=== PATIENT | male | born 1945 | race Caucasian/White ===

== ENCOUNTER → 2022-08-26 | Outpatient (CLI) | payer MEDICARE ==
--- NOTE | 2022-08-26 14:50 | CT ---
EXAMINATION TYPE: CT chest abdomen wo con CT DLP: 899.9 mGycm, Automated exposure control for dose reduction was used. DATE OF EXAM: 08/26/2022 2:25 PM COMPARISON: None CLINICAL INDICATION:Male, 76 years old with history of I71.20; PHH, SOB, abdominal pain and distentio n Technique: Multiple axial images of the chest and abdomen were obtained without administration intrav enous contrast. Oral contrast was administered. Two-dimensional coronal and sagittal reconstructions were obtained. Findings: Limited evaluation due to lack of intravenous contrast. CHEST: LUNGS/ PLEURA: No pleural effusion or pneumothorax. Linear scarring atelectasis demonstrated within t he bilateral midlung. Mild centrilobular emphysematous changes. No suspicious pulmonary nodule or mas s. AIRWAY: Patent and unremarkable.. HEART: Size within normal limits. Trace pericardial effusion. Moderate coronary arterial calcificatio ns.. MEDIASTINUM: No gross evidence of adenopathy. VASCULATURE: No aortic aneurysm. MUSCULOSKELETAL: Moderate disc degeneration changes are present throughout the thoracolumbar spine. N o acute osseous abnormality. SOFT TISSUES/LYMPH NODES: Bilateral gynecomastia. LOWER NECK: No significant findings. ABDOMEN: ABDOMEN LIVER: Cirrhotic morphology with atrophic liver with nodular contour and widened fissures. GALLBLADDER AND BILE DUCTS: Unremarkable noncontrast appearance. PANCREAS: Unremarkable noncontrast appearance. SPLEEN: Unremarkable noncontrast appearance. ADRENAL GLANDS: Unremarkable noncontrast appearance.. KIDNEYS AND URETERS: No evidence of hydronephrosis or renal calculus. Nonspecific bilateral perinephr ic fat stranding. STOMACH AND BOWEL: Stomach and duodenum are unremarkable. Enteric contrast reaches the cecum. No foca l wall thickening or surrounding inflammatory changes. No evidence of bowel obstruction. PERITONEUM: No evidence of pneumoperitoneum. Moderate to large volume ascites visualized VASCULATURE: Mild atherosclerotic calcifications are present throughout the abdominal aorta and its b ranches. No abdominal aortic aneurysm. MUSCULOSKELETAL: No acute osseous abnormalities. Moderate disc degeneration changes are present throu ghout the thoracolumbar spine. LYMPH NODES: No gross evidence for lymphadenopathy. SOFT TISSUE/ABDOMINAL WALL: Unremarkable IMPRESSION: Evaluation is limited due to lack of intravenous contrast. 1. Hepatic cirrhosis with moderate to large volume ascites. Consider paracentesis. 2. Trace pericardial effusion with moderate coronary calcifications. 3. Mild COPD changes.
== END | disposition home or self-care (01) ==
LOC: RADCTMAIN 13:43
PROVIDERS: ATTEND Internal Medicine Clinical Cardiac Electrophysiology
DX: I71.20 Thoracic aortic aneurysm, without rupture, unspecified (principal); J44.9 Chronic obstructive pulmonary disease, unspecified; K74.60 Unspecified cirrhosis of liver; I31.39 Other pericardial effusion (noninflammatory); I25.10 Atherosclerotic heart disease of native coronary artery without angina pectoris; R18.8 Other ascites; Z87.891 Personal history of nicotine dependence
CPT/HCPCS: 71250; 74150

== ENCOUNTER → 2022-09-10 | Outpatient (CLI) | payer MEDICARE | LOC: CPPFTMAIN 16:15 | PROVIDERS: ATTEND Internal Medicine Clinical Cardiac Electrophysiology | DX: I71.20 Thoracic aortic aneurysm, without rupture, unspecified (principal); R06.02 Shortness of breath | CPT/HCPCS: 94060; 94726; 94729 ==

== ENCOUNTER → 2022-09-10 | Outpatient (CLI) | payer MEDICARE ==
[2022-09-10 21:52] LABS: Basophils # (A) 0.04 X 10*3/uL (0.00-0.10); Basophils % (A) 0.6 %; Eosinophils # (A) 0.07 X 10*3/uL (0.04-0.35); Eosinophils % (A) 1.1 %; HCT 43.5 % (39.6-50.0); HGB 14.9 g/dL (13.0-17.0); Immature Grans, Automated 0.3 %; Lymphocytes # (A) 1.89 X 10*3/uL (0.90-5.00); Lymphocytes % (A) 28.7 %; MCH 34.7 pg (27.0-32.0); MCHC 34.3 g/dL (32.0-37.0); MCV 101.2 fL (80.0-97.0); Mean Platelet Volume 10.2 fL (9.5-12.2); Monocytes % (A) 10.6 %; NRBC Per 100 WBC 0 /100 WBCS (0.0-0.0); Neutrophils # (A) 3.86 X 10*3/uL (1.80-7.70); Neutrophils % (A) 58.7 %; Platelet Count 216 X 10*3/uL (140-440); RDW 13.1 % (11.5-14.5); WBC 6.58 X 10*3/uL (4.50-10.00)
[2022-09-11 00:11] LABS: African American GFR (CKD) 95.8 (60.0-200.0); Albumin/Globulin Ratio 0.83 (1.60-3.17); Anion Gap 10.3 mmol/L (10.00-18.00); Blood Urea Nitrogen 10.8 mg/dL (9.0-27.0); Calcium 8.8 mg/dL (8.7-10.3); Carbon Dioxide 22.7 mmol/L (20.0-27.5); Globulin 3.6 g/dL (1.6-3.3); Non-African American GFR(CKD) 82.7 (60.0-200.0); Potassium 3.8 mmol/L (3.5-5.5); Total Bilirubin 1.6 mg/dL (0.30-1.20); Total Protein 6.6 g/dL (6.2-8.2)
[2022-09-11 00:22] LABS: Hepatitis B Surface Antigen Nonreactive (Nonreactive); Hepatitis C IgG Antibody Nonreactive (Nonreactive)
== END | disposition home or self-care (01) ==
LOC: LABWHC1 12:53
PROVIDERS: ATTEND Nurse Practitioner Family
DX: K74.60 Unspecified cirrhosis of liver (principal); R18.8 Other ascites
CPT/HCPCS: 36415; 80053; 82105; 85025; 86803; 87340

== ENCOUNTER 2022-10-02 12:52 | Day surgery (SDC) | payer MEDICARE ==
[2022-10-02 13:41] LABS: Mean Platelet Volume 8.4; Platelet Count 186 k/uL (150-450)
[2022-10-02 13:45] LABS: INR 1.2 (<1.2); Prothrombin Time 12.1 sec (9.0-12.0)
[2022-10-02 13:49] LABS: African American GFR (CKD) 69 (>60 ml/min/1.73 sqM); Non-African American GFR(CKD) 60 (>60 ml/min/1.73 sqM)
[2022-10-02 14:07] VITALS: RESP 16
[2022-10-02 14:30] VITALS: TEMP 98.1
[2022-10-02] MEDS: ALBUMIN HUMAN 25% 50 ML in EMPTY BAG 1 BAG IVPB SCH ×4 (14:36→15:42)
[2022-10-02] MEDS ORDERED: ALBUMIN HUMAN 25% 50 ML in EMPTY BAG 1 BAG IVPB ONE (15:30)
[2022-10-02 15:39] VITALS: BP 121/76; PULSE 80
[2022-10-03 05:16] LABS: Appearance,BF #CL
[2022-10-03 05:57] LABS: T. Protein, Body Fluid Source Paracentesis Fluid; Total Protein, Body Fluid 3250 mg/dL
--- NOTE | 2022-10-03 08:19 | US ---
Ultrasound-guided paracentesis. DATE OF EXAM: 10/02/2022 CLINICAL HISTORY: Ascites The procedure was discussed with the patient. The risks, complications, benefits, and alternatives we re discussed and any questions were answered. Informed consent was obtained. The patient was placed s upine on the ultrasound table and prepped and draped in the usual sterile fashion. All elements of maximal barrier technique were utilized. Under ultrasound guidance, access into the right lower quadrant was obtained, via the paracentesis catheter system and direct ultrasound guidanc e. Approximately 9.7 liters of straw-colored fluid was removed. The patient was stable throughout the pr ocedure and remained stable upon discharge from Department of Radiology. IMPRESSION: Successful paracentesis under ultrasound guidance.
== END 2022-10-02 13:55 | disposition home or self-care (01) ==
LOC: RADPROMAIN 12:52
PROVIDERS: ATTEND Internal Medicine Gastroenterology
DX: R18.8 Other ascites (principal)
CPT/HCPCS: 88108; 88305; 82042; 89050; 82565; 85049; 85610; 87070; 87205; 87075; 84157; 36415; 49083; P9047

== ENCOUNTER → 2022-10-30 | Outpatient (CLI) | payer MEDICARE ==
[2022-10-30 21:36] LABS: Basophils # (A) 0.03 X 10*3/uL (0.00-0.10); Basophils % (A) 0.4 %; Eosinophils # (A) 0.07 X 10*3/uL (0.04-0.35); Eosinophils % (A) 0.9 %; HCT 42.3 % (39.6-50.0); HGB 14.7 d/dL (12.0-15.0); Lymphocytes # (A) 1.36 X 10*3/uL (0.90-5.00); Lymphocytes % (A) 17.1 %; MCH 33.3 pg (27.0-32.0); MCHC 34.8 d/dL (32.0-37.0); MCV 95.9 FL (80.0-97.0); Mean Platelet Volume 10.1 FL (9.5-12.2); Monocytes % (A) 12.6 %; NRBC Per 100 WBC 0 X 10*3/uL (0.00-0.01); Neutrophils # (A) 5.44 X 10*3/uL (1.80-7.70); Neutrophils % (A) 68.4 %; Platelet Count 172 X 10*3/uL (140-440); RBC 4.41 X 10*6/uL (4.40-5.60); RDW 12.9 % (11.5-14.5); WBC 7.95 X 10*3/uL (4.50-10.00)
[2022-10-30 21:43] LABS: ALT 52 U/L (10-49); AST 106 U/L (14-35); Albumin 2.9 d/dL (3.8-4.9); Albumin/Globulin Ratio 0.81 Ratio (1.60-3.17); Alkaline Phosphatase 287 U/L (41-126); BUN/Creat Ratio 13.11 Ratio (12.00-20.00); Blood Urea Nitrogen 23.6 mg/dL (9.0-27.0); Calcium 8.8 mg/dL (8.7-10.3); Carbon Dioxide 19.7 mmol/L (21.6-31.8); Chloride 92 mmol/L (96-109); Globulin 3.6 d/dL (1.6-3.3); Glucose 109 mg/dL (70-110); Potassium 4.1 mmol/L (3.5-5.5); Sodium 124 mmol/L (135-145); Total Bilirubin 1.4 mg/dL (0.3-1.2); Total Protein 6.5 d/dL (6.2-8.2)
== END | disposition home or self-care (01) ==
LOC: LABWHC1 11:50
PROVIDERS: ATTEND Internal Medicine Gastroenterology
DX: K74.60 Unspecified cirrhosis of liver (principal)
CPT/HCPCS: 36415; 80053; 85025

== ENCOUNTER 2022-11-01 10:02 | Inpatient (IN) | payer MEDICARE ==
[2022-11-01 11:01] LABS: Basophils % (A) 0 %; Eosinophils # (A) 0.1 k/uL (0-0.7); Eosinophils % (A) 1 %; HCT 42.9 % (39.0-53.0); HGB 14.9 gm/dL (13.0-17.5); Lymphocytes # (A) 1.8 k/uL (1.0-4.8); Lymphocytes % (A) 22 %; MCH 33.8 pg (25.0-35.0); MCHC 34.8 g/dL (31.0-37.0); MCV 97.1 fL (80.0-100.0); Mean Platelet Volume 7.6; Monocytes # (A) 0.8 k/uL (0-1.0); Monocytes % (A) 10 %; Neutrophils # (A) 5.3 k/uL (1.3-7.7); Neutrophils % (A) 65 %; Platelet Count 174 k/uL (150-450); RBC 4.42 m/uL (4.30-5.90); RDW 12.5 % (11.5-15.5); WBC 8.1 k/uL (3.8-10.6)
[2022-11-01 11:12] LABS: INR 1.1 (<1.2); Partial Thromboplastin Time 30.1 sec (22.0-30.0); Prothrombin Time 11.4 sec (9.0-12.0)
[2022-11-01 11:18] LABS: ALT 50 U/L (4-49); AST 151 U/L (17-59); African American GFR (CKD) 56 (>60 ml/min/1.73 sqM); Alkaline Phosphatase 305 U/L (38-126); Anion Gap 10 mmol/L; Blood Urea Nitrogen 24 mg/dL (9-20); Calcium 8.7 mg/dL (8.4-10.2); Carbon Dioxide 20 mmol/L (22-30); Chloride 94 mmol/L (98-107); Glucose 103 mg/dL (74-99); Lipase 424 U/L (23-300); Non-African American GFR(CKD) 48 (>60 ml/min/1.73 sqM); Potassium 3.8 mmol/L (3.5-5.1); Sodium 124 mmol/L (137-145); Total Bilirubin 2.1 mg/dL (0.2-1.3); Total Protein 6.9 g/dL (6.3-8.2)
--- NOTE | 2022-11-01 11:28 | ED ---
General Adult HPI - General Chief complaint: Recheck/Abnormal Lab/Rx Stated complaint: ascites Time Seen by Provider: 11/01/22 10:11 Source: patient Mode of arrival: EMS - History of Present Illness Initial comments: Patient is a 76-year-old male who presents to the emergency department for weakness. Patient has history of alcoholic cirrhosis with ascites he had his first paracentesis with Dr. Matt on 10/02/22. States his next paracentesis scheduled on November 22. Patient states over the past couple weeks he has gained about 15 pounds. He feels that his abdomen is distended and his legs are swollen. He denies leg pain. Despite triage note patient has no shortness of breath. Patient did not laboratory studies drawn at his primary care provider's office on Friday he was told his sodium was low and to the emergency department. He denies abdominal pain, nausea, vomiting, diarrhea. - Related Data Home Medications Medication Instructions Recorded Confirmed Acetaminophen Tab [Tylenol] 325 mg PO Q4H PRN 11/01/22 11/01/22 Aspirin EC [Ecotrin Low Dose] 81 mg PO DAILY 11/01/22 11/01/22 Atorvastatin [Lipitor] 80 mg PO HS 11/01/22 11/01/22 Clopidogrel [Plavix] 75 mg PO DAILY 11/01/22 11/01/22 Furosemide [Lasix] 40 mg PO BID 11/01/22 11/01/22 Multivit-Min/FA/Lycopen/Lutein 1 tab PO DAILY 11/01/22 11/01/22 [Centrum Silver Men Tablet] Pantoprazole [Protonix] 40 mg PO DAILY 11/01/22 11/01/22 Allergies Allergy/AdvReac Type Severity Reaction Status Date / Time No Known Allergies Allergy Verified 11/01/22 14:43 Review of Systems ROS Statement: Those systems with pertinent positive or pertinent negative responses have been documented in the HPI. ROS Other: All systems not noted in ROS Statement are negative. Past Medical History Past Medical History: GERD/Reflux, Hypertension, Liver Disease Additional Past Medical History / Comment(s): cirrhosis August 2022 History of Any Multi-Drug Resistant Organisms: None Reported Past Surgical History: Joint Replacement Additional Past Surgical History / Comment(s): Lt hip replacement, rt knee replaced Past Anesthesia/Blood Transfusion Reactions: No Reported Reaction Past Psychological History: No Psychological Hx Reported Smoking Status: Former smoker Past Alcohol Use History: None Reported Past Drug Use History: None Reported - Past Family History Father Family Medical History: No Reported History General Exam General appearance: alert, in no apparent distress Respiratory exam: Present: normal lung sounds bilaterally. Absent: respiratory distress, wheezes, rales, rhonchi, stridor Cardiovascular Exam: Present: regular rate, normal rhythm, normal heart sounds. Absent: systolic murmur, diastolic murmur, rubs, gallop, clicks GI/Abdominal exam: Present: soft, distended (mild), normal bowel sounds. Absent: tenderness, guarding, rebound, rigid Extremities exam: Present: normal inspection, full ROM, normal capillary refill, pedal edema (2+). Absent: tenderness Neurological exam: Present: alert, oriented X3, CN II-XII intact Psychiatric exam: Present: normal affect, normal mood Skin exam: Present: warm, dry, intact, normal color. Absent: rash Course Vital Signs 11/01/22 11/01/22 11/01/22 10:06 10:21 11:22 Temperature 97.7 F Pulse Rate 102 H 94 Respiratory 24 22 20 Rate Blood Pressure 111/82 108/88 O2 Sat by Pulse 100 98 Oximetry 11/01/22 13:42 Temperature Pulse Rate 100 Respiratory 18 Rate Blood Pressure 122/103 O2 Sat by Pulse 99 Oximetry Medical Decision Making - Medical Decision Making EKG taken at 10:40, interpreted by myself Sinus rhythm, no significant ST or T-wave abnormality Ventricular rate 96, RI interval 130, QRS duration 91, QTc 428 Was pt. sent in by a medical professional or institution (, PA, [facility], urgent care, hospital, or fdc...) When possible be specific @ -No Did you speak to anyone other than the patient for history (EMS, parent, family, police, friend...)? What history was obtained from this source @ -No Did you review nursing and triage notes (agree or disagree)? Why? @ -I reviewed and agree with nursing and triage notes Were old charts reviewed (outside hosp., previous admission, EMS record, old EKG, old radiological studies, urgent care reports/EKG's, fdc records)? Report findings @ -No old charts were reviewed Differential Diagnosis (chest pain, altered mental status, abdominal pain women, abdominal pain men, vaginal bleeding, weakness, fever, dyspnea, syncope, headache, dizziness, GI bleed, back pain, seizure, CVA, palpatations, mental health)? @ -Differential Weakness: Hypoglycemia, shock, sepsis, hyponatremia, anemia, infection, IN, ETOH, adverse medicine reaction, overdose, stroke, this is not meant to be an all-inclusive list. EKG interpreted by me (3pts min.). @ -As above X-rays interpreted by me (1pt min.). @ -None done CT interpreted by me (1pt min.). @ -None done U/S interpreted by me (1pt. min.). @ -None done What testing was considered but not performed or refused? (CT, X-rays, U/S, labs)? Why? @ -None What meds were considered but not given or refused? Why? @ -None Did you discuss the management of the patient with other professionals (professionals i.e. , PA, [facility], lab, RT, psych nurse, psychotherapist social worker, planer stone, teacher, business banking officer, wrapper caser)? Give summary @ -No Was smoking cessation discussed for >3mins.? @ -[No] Was critical care preformed (if so, how long)? @ -[No] Were there social determinants of health that impacted care today? How? (Homelessness, low income, unemployed, alcoholism, drug addiction, transportation, low edu. Level, literacy, decrease access to med. care, snf, rehab)? @ -[No] Was there de-escalation of care discussed even if they declined (Discuss DNR or withdrawal of care, Hospice)? DNR status @ -[No] What co-morbidities impacted this encounter? (DM, HTN, Smoking, COPD, CAD, Cancer, CVA, ARF, Chemo, Hep., AIDS, mental health diagnosis, sleep apnea, morbid obesity)? @ -[None] Was patient admitted / discharged? Hospital course, mention meds given and ro [place], prescriptions, significant lab abnormalities, going to OR and other pertinent info. @Admitted for hyponatremia. Dr. Lanza accepts Undiagnosed new problem with uncertain prognosis? @ -[No] Drug Therapy requiring intensive monitoring for toxicity (Heparin, Nitro, Insulin, Cardizem)? @ -[No] Were any procedures done? @ -[No] Diagnosis/symptom? @ -Hyponatremia, ascites Acute, or Chronic, or Acute on Chronic? @ acute Uncomplicated (without systemic symptoms) or Complicated (systemic symptoms)? @ -uncomplicated Side effects of treatment? @ -[No] Exacerbation, Progression, or Severe Exacerbation? @ -[No] Poses a threat to life or bodily function? How? (Chest pain, [place], [place], pneumonia, PE, COPD, DKA, ARF, appy, cholecystitis, CVA, Diverticulitis, Homicidal, Suicidal, threat to staff... and all critical care pts) @ -No Dr. Vargas is my attending - Lab Data Result diagrams: 11/01/22 10:21 11/01/22 10:21 Lab Results 11/01/22 11/01/22 11/01/22 Range/Units 10:21 10:21 10:21 WBC 8.1 (3.8-10.6) k/uL RBC 4.42 (4.30-5.90) m/uL Hgb 14.9 (13.0-17.5) gm/dL Hct 42.9 (39.0-53.0) % MCV 97.1 (80.0-100.0) fL MCH 33.8 (25.0-35.0) pg MCHC 34.8 (31.0-37.0) g/dL RDW 12.5 (11.5-15.5) % Plt Count 174 (150-450) k/uL MPV 7.6 Neutrophils % 65 % Lymphocytes % 22 % Monocytes % 10 % Eosinophils % 1 % Basophils % 0 % Neutrophils # 5.3 (1.3-7.7) k/uL Lymphocytes # 1.8 (1.0-4.8) k/uL Monocytes # 0.8 (0-1.0) k/uL Eosinophils # 0.1 (0-0.7) k/uL Basophils # 0.0 (0-0.2) k/uL PT 11.4 (9.0-12.0) sec INR 1.1 (<1.2) APTT 30.1 H (22.0-30.0) sec Sodium 124 L (137-145) mmol/L Potassium 3.8 (3.5-5.1) mmol/L Chloride 94 L (98-107) mmol/L Carbon Dioxide 20 L (22-30) mmol/L Anion Gap 10 mmol/L BUN 24 H (9-20) mg/dL Creatinine 1.41 H (0.66-1.25) mg/dL Est GFR (CKD-EPI)AfAm 56 (>60 ml/min/1.73 sqM) Est GFR (CKD-EPI)NonAf 48 (>60 ml/min/1.73 sqM) Glucose 103 H (74-99) mg/dL Osmolality (280-301) mosm/kg Plasma Lactic Acid Antonio (0.7-2.0) mmol/L Calcium 8.7 (8.4-10.2) mg/dL Total Bilirubin 2.1 H (0.2-1.3) mg/dL AST 151 H (17-59) U/L ALT 50 H (4-49) U/L Alkaline Phosphatase 305 H (38-126) U/L Total Protein 6.9 (6.3-8.2) g/dL Albumin 3.0 L (3.5-5.0) g/dL Lipase 424 H (23-300) U/L Urine Color Urine Appearance (Clear) Urine pH (5.0-8.0) Ur Specific Leona (1.001-1.035) Urine Protein (Negative) Urine Glucose (UA) (Negative) Urine Ketones (Negative) Urine Blood (Negative) Urine Nitrite (Negative) Urine Bilirubin (Negative) Urine Urobilinogen (<2.0) mg/dL Ur Leukocyte Esterase (Negative) Urine WBC (0-5) /hpf Urine Osmolality (50-1400) mosm/kg Ur Random Creatinine mg/dL 11/01/22 11/01/22 11/01/22 Range/Units 11:21 13:38 13:38 WBC (3.8-10.6) k/uL RBC (4.30-5.90) m/uL Hgb (13.0-17.5) gm/dL Hct (39.0-53.0) % MCV (80.0-100.0) fL MCH (25.0-35.0) pg MCHC (31.0-37.0) g/dL RDW (11.5-15.5) % Plt Count (150-450) k/uL MPV Neutrophils % % Lymphocytes % % Monocytes % % Eosinophils % % Basophils % % Neutrophils # (1.3-7.7) k/uL Lymphocytes # (1.0-4.8) k/uL Monocytes # (0-1.0) k/uL Eosinophils # (0-0.7) k/uL Basophils # (0-0.2) k/uL PT (9.0-12.0) sec INR (<1.2) APTT (22.0-30.0) sec Sodium (137-145) mmol/L Potassium (3.5-5.1) mmol/L Chloride (98-107) mmol/L Carbon Dioxide (22-30) mmol/L Anion Gap mmol/L BUN (9-20) mg/dL Creatinine (0.66-1.25) mg/dL Est GFR (CKD-EPI)AfAm (>60 ml/min/1.73 sqM) Est GFR (CKD-EPI)NonAf (>60 ml/min/1.73 sqM) Glucose (74-99) mg/dL Osmolality 270 L (280-301) mosm/kg Plasma Lactic Acid Antonio 1.4 (0.7-2.0) mmol/L Calcium (8.4-10.2) mg/dL Total Bilirubin (0.2-1.3) mg/dL AST (17-59) U/L ALT (4-49) U/L Alkaline Phosphatase (38-126) U/L Total Protein (6.3-8.2) g/dL Albumin (3.5-5.0) g/dL Lipase (23-300) U/L Urine Color Yellow Urine Appearance Clear (Clear) Urine pH 5.5 (5.0-8.0) Ur Specific [place]ona 1.006 (1.001-1.035) Urine Protein Trace H (Negative) Urine Glucose (UA) Negative (Negative) Urine Ketones Negative (Negative) Urine Blood Moderate H (Negative) Urine Nitrite Negative (Negative) Urine Bilirubin Negative (Negative) Urine Urobilinogen <2.0 (<2.0) mg/dL Ur Leukocyte Esterase Negative (Negative) Urine WBC 2 (0-5) /hpf Urine Osmolality (50-1400) mosm/kg Ur Random Creatinine mg/dL 11/01/22 Range/Units 13:54 WBC (3.8-10.6) k/uL RBC (4.30-5.90) m/uL Hgb (13.0-17.5) gm/dL Hct (39.0-53.0) % MCV (80.0-100.0) fL MCH (25.0-35.0) pg MCHC (31.0-37.0) g/dL RDW (11.5-15.5) % Plt Count (150-450) k/uL MPV Neutrophils % % Lymphocytes % % Monocytes % % Eosinophils % % Basophils % % Neutrophils # (1.3-7.7) k/uL Lymphocytes # (1.0-4.8) k/uL Monocytes # (0-1.0) k/uL Eosinophils # (0-0.7) k/uL Basophils # (0-0.2) k/uL PT (9.0-12.0) sec INR (<1.2) APTT (22.0-30.0) sec Sodium (137-145) mmol/L Potassium (3.5-5.1) mmol/L Chloride (98-107) mmol/L Carbon Dioxide (22-30) mmol/L Anion Gap mmol/L BUN (9-20) mg/dL Creatinine (0.66-1.25) mg/dL Est GFR (CKD-EPI)AfAm (>60 ml/min/1.73 sqM) Est GFR (CKD-EPI)NonAf (>60 ml/min/1.73 sqM) Glucose (74-99) mg/dL Osmolality (280-301) mosm/kg Plasma Lactic Acid Antonio (0.7-2.0) mmol/L Calcium (8.4-10.2) mg/dL Total Bilirubin (0.2-1.3) mg/dL AST (17-59) U/L ALT (4-49) U/L Alkaline Phosphatase (38-126) U/L Total Protein (6.3-8.2) g/dL Albumin (3.5-5.0) g/dL Lipase (23-300) U/L Urine Color Urine Appearance (Clear) Urine pH (5.0-8.0) Ur Specific [place] (1.001-1.035) Urine Protein (Negative) Urine Glucose (UA) (Negative) Urine Ketones (Negative) Urine Blood (Negative) Urine Nitrite (Negative) Urine Bilirubin (Negative) Urine Urobilinogen (<2.0) mg/dL Ur Leukocyte Esterase (Negative) Urine WBC (0-5) /hpf Urine Osmolality 211 (50-1400) mosm/kg Ur Random Creatinine 56.2 mg/dL Disposition Clinical Impression: Hyponatremia, Ascites Disposition: ADMITTED IP TO THIS HOSP Condition: Stable
[2022-11-01] MEDS ORDERED: FUROSEMIDE 10 MG/ML 10 ML VIAL IV STA (12:13)
[2022-11-01] MEDS ORDERED: NALOXONE 0.4 MG/ML 1 ML VIAL IV PRN (13:16)
[2022-11-01] MEDS: SPIRONOLACTONE 25 MG TAB PO SCH ×2 (13:45→20:53)
[2022-11-01 14:23] LABS: Appearance,Urine Clear (Clear); Bilirubin,Urine Negative (Negative); Blood,Urine Moderate (Negative); Color,Urine Yellow; Glucose,Urine (UA) Negative (Negative); Ketones,Urine Negative (Negative); Leukocyte Esterase,Urine Negative (Negative); Nitrite,Urine Negative (Negative); PH, Urine 5.5 (5.0-8.0); Protein,Urine Trace (Negative); Specific Gravity,Urine 1.006 (1.001-1.035); Urobilinogen,Urine <2.0 mg/dL (<2.0); WBC,Urine 2 /hpf (0-5)
[2022-11-01 15:17] LABS: Creatinine,Urine Random 56.2 mg/dL
[2022-11-01] MEDS ORDERED: ACETAMINOPHEN TAB 325 MG TAB PO PRN (17:15)
[2022-11-01] MEDS: FUROSEMIDE 40 MG TAB PO SCH (20:52)
--- NOTE | 2022-11-01 22:09 | P.HPIM ---
History of Present Illness H&P Date: 11/01/22 Chief Complaint: Distended abdomen This is a pleasant 76-year-old patient who follows with Dr. Chang Douglas. In August 2022 patient was diagnosed with alcoholic cirrhosis. [address] Nikole Matt gastroenterology. October 02 paracentesis was carried out. Patient was scheduled for another one in next couple of weeks. In 2 weeks patient skin about 15 pounds. Abdomen is distended. Lower extremity edema. Unable to walk. Short of breath. Denies any fever and chills. No abdominal pain. Patient stopped drinking in August of this year. Was drinking 8-10 beers a day prior to that for years. Review of systems: GEN.: Short of breath EYES: None HEENT: None NECK: None RESPIRATORY: Short of breath CARDIOVASCULAR: None GASTROINTESTINAL: As above GENITOURINARY: None MUSCULOSKELETAL: None LYMPHATICS: None HEMATOLOGICAL: None PSYCHIATRY: None NEUROLOGICAL: None Past medical history to include: Alcoholic cirrhosis diagnosed in August 2022, hypertension, GERD, osteoarthritis Social history: Former smoker. Was drinking 8-10 beers a day up to August 2022. . 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 EYES: Pupils equal. Conjunctiva normal. HEENT: External appearance of nose and ears normal, oral cavity grossly normal. NECK: JVD not raised; masses not palpable. HEART: First and second heart sounds are normal; significant edema. LUNGS: Respiratory rate increased; decreased breath. ABDOMEN: Soft, distended, nontender, liver spleen not palpable, no masses palpable. PSYCH: Alert and oriented x3; mood and affect normal. MUSCULOSKELETAL:No Clubbing/cyanosis;muscles-grossly intact NEUROLOGICAL: Cranial nerves grossly intact; no facial asymmetry, power and sensation grossly intact. LYMPHATICS: No lymph nodes palpable in the axilla and neck INVESTIGATIONS, reviewed in the clinical context: White count 8.1 hemoglobin 14.9 platelets 174 sodium 124 potassium 3.8 BUN 24 creatinine 1.41 bicarb 20 Serum osmolality 270 Total bilirubin 2.1 AST 151 ALT 50 Urine osmolality 211 EKG tracing personally reviewed by me-low voltage. Sinus rhythm. Assessment plan: -Acute fluid overload from fluid retention from underlying cirrhosis Fluid restriction 1200 mL a day. Aldactone 100 mg twice a day. Lasix 40 mg twice a day. Low-sodium diet -Severe hyponatremia hypoosmolar from fluid retention Await free fluid. Low-sodium diet -Large ascites symptomatic. Consult interventional radiology for paracentesis -Alcoholic cirrhosis follows with Dr. Nikole Matt -GERD Protonix Past Medical History Past Medical History: GERD/Reflux, Hypertension, Liver Disease Additional Past Medical History / Comment(s): cirrhosis August 2022 History of Any Multi-Drug Resistant Organisms: None Reported Past Surgical History: Joint Replacement Additional Past Surgical History / Comment(s): Lt hip replacement, rt knee replaced Past Anesthesia/Blood Transfusion Reactions: No Reported Reaction Past Psychological History: No Psychological Hx Reported Smoking Status: Former smoker Past Alcohol Use History: None Reported Past Drug Use History: None Reported - Past Family History Father Family Medical History: No Reported History Medications and Allergies Home Medications Medication Instructions Recorded Confirmed Type Acetaminophen Tab [Tylenol] 325 mg PO Q4H PRN 11/01/22 11/01/22 History Aspirin EC [Ecotrin Low Dose] 81 mg PO DAILY 11/01/22 11/01/22 History Atorvastatin [Lipitor] 80 mg PO HS 11/01/22 11/01/22 History Clopidogrel [Plavix] 75 mg PO DAILY 11/01/22 11/01/22 History Furosemide [Lasix] 40 mg PO BID 11/01/22 11/01/22 History Multivit-Min/FA/Lycopen/Lutein 1 tab PO DAILY 11/01/22 11/01/22 History [Centrum Silver Men Tablet] Pantoprazole [Protonix] 40 mg PO DAILY 11/01/22 11/01/22 History Allergies Allergy/AdvReac Type Severity Reaction Status Date / Time No Known Allergies Allergy Verified 11/01/22 14:43 Physical Exam Vitals: Vital Signs Temp Pulse Resp BP Pulse Ox 11/01/22 20:50 82 18 112/73 99 11/01/22 17:42 117/88 11/01/22 13:42 100 18 122/103 99 11/01/22 11:22 94 20 108/88 98 11/01/22 10:21 22 11/01/22 10:06 97.7 F 102 H 24 111/82 100 Intake and Output 11/01/22 11/01/22 11/01/22 06:59 14:59 22:59 Output Total 525 Balance -525 Output: Urine 525 Other: Weight 97.522 kg Results CBC & Chem 7: 11/01/22 10:21 11/01/22 10:21 Labs: Abnormal Lab Results - Last 24 Hours (Table) 11/01/22 11/01/22 11/01/22 Range/Units 10:21 10:21 13:38 APTT 30.1 H (22.0-30.0) sec Sodium 124 L (137-145) mmol/L Chloride 94 L (98-107) mmol/L Carbon Dioxide 20 L (22-30) mmol/L BUN 24 H (9-20) mg/dL Creatinine 1.41 H (0.66-1.25) mg/dL Glucose 103 H (74-99) mg/dL Osmolality (280-301) mosm/kg Total Bilirubin 2.1 H (0.2-1.3) mg/dL AST 151 H (17-59) U/L ALT 50 H (4-49) U/L Alkaline Phosphatase 305 H (38-126) U/L Albumin 3.0 L (3.5-5.0) g/dL Lipase 424 H (23-300) U/L Urine Protein Trace H (Negative) Urine Blood Moderate H (Negative) 11/01/22 Range/Units 13:38 APTT (22.0-30.0) sec Sodium (137-145) mmol/L Chloride (98-107) mmol/L Carbon Dioxide (22-30) mmol/L BUN (9-20) mg/dL Creatinine (0.66-1.25) mg/dL Glucose (74-99) mg/dL Osmolality 270 L (280-301) mosm/kg Total Bilirubin (0.2-1.3) mg/dL AST (17-59) U/L ALT (4-49) U/L Alkaline Phosphatase (38-126) U/L Albumin (3.5-5.0) g/dL Lipase (23-300) U/L Urine Protein (Negative) Urine Blood (Negative)
[2022-11-02] MEDS: SPIRONOLACTONE 25 MG TAB PO SCH ×2 (10:14→20:40)
[2022-11-02] MEDS: MULTIVITAMINS, THERA 1 EACH TAB PO SCH ×2 (10:15→10:18)
[2022-11-02] MEDS: FUROSEMIDE 40 MG TAB PO SCH ×2 (10:16→20:41)
[2022-11-02] MEDS: atenoloL 50 MG TAB PO SCH (10:16)
[2022-11-02] MEDS: LOSARTAN 50 MG TAB PO SCH (10:16)
[2022-11-02] MEDS: PANTOPRAZOLE 40 MG TABLET PO SCH (10:16)
[2022-11-02] MEDS: ASPIRIN 81 MG PO SCH (10:17)
[2022-11-02] MEDS: CLOPIDOGREL 75 MG TAB PO SCH (10:17)
--- NOTE | 2022-11-02 14:20 | P.PN ---
Progress Note - Text Progress Note Date: 11/02/22 Chief Complaint: Distended abdomen This is a pleasant 76-year-old patient who follows with Dr. Chang Douglas. In August 2022 patient was diagnosed with alcoholic cirrhosis. [address] Nikole Matt gastroenterology. October 02 paracentesis was carried out. Patient was scheduled for another one in next couple of weeks. In 2 weeks patient skin about 15 pounds. Abdomen is distended. Lower extremity edema. Unable to walk. Short of breath. Denies any fever and chills. No abdominal pain. Patient stopped drinking in August of this year. Was drinking 8-10 beers a day prior to that for years. Admitted with fluid overload mode, severe ascites. Placed on fluid restriction, Aldactone, Lasix. Hyponatremia. November 02: Laying in bed. Diuretics to continue. Fluid restriction. Breathing better. Abdomen distended. Discussed Active Medications Acetaminophen (Acetaminophen Tab 325 Mg Tab) 325 mg PO Q4H PRN PRN Reason: Pain or Fever > 100.5 Aspirin (Aspirin 81 Mg) 81 mg PO DAILY [facility] Last Admin: 11/02/22 10:17 Dose: 81 mg Atenolol (Atenolol 50 Mg Tab) 50 mg PO DAILY [facility] Last Admin: 11/02/22 10:16 Dose: 50 mg Clopidogrel Bisulfate (Clopidogrel 75 Mg Tab) 75 mg PO DAILY [facility] Last Admin: 11/02/22 10:17 Dose: 75 mg Furosemide (Furosemide 40 Mg Tab) 40 mg PO BID [facility] Last Admin: 11/02/22 10:16 Dose: 40 mg Losartan Potassium (Losartan 50 Mg Tab) 50 mg PO DAILY [facility] Last Admin: 11/02/22 10:16 Dose: 50 mg Multivitamins (Multivitamins, Thera 1 Each Tab) 1 each PO DAILY [facility] Last Admin: 11/02/22 10:15 Dose: 1 each Multivitamins (Multivitamins, Thera 1 Each Tab) 1 each PO DAILY [facility] Last Admin: 11/02/22 10:18 Dose: Not Given Naloxone HCl (Naloxone 0.4 Mg/Ml 1 Ml Vial) 0.2 mg IV Q2M PRN PRN Reason: Opioid Reversal Pantoprazole Sodium (Pantoprazole 40 Mg Tablet) 40 mg PO DAILY [facility] Last Admin: 11/02/22 10:16 Dose: 40 mg Spironolactone (Spironolactone 25 Mg Tab) 100 mg PO BID [facility] Last Admin: 11/02/22 10:14 Dose: 100 mg Past medical history to include: Alcoholic cirrhosis diagnosed in August 2022, hypertension, GERD, osteoarthritis Social history: Former smoker. Was drinking 8-10 beers a day up to August 2022. . 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 Conjunctiva normal. HEENT: External appearance of nose and ears normal, oral cavity grossly normal. NECK: JVD not raised; masses not palpable. HEART: First and second heart sounds are normal; significant edema. LUNGS: Respiratory rate increased; decreased breath. ABDOMEN: Soft, distended, nontender, liver spleen not palpable, no masses palpable. PSYCH: Alert and oriented x3; mood and affect normal. MUSCULOSKELETAL:No Clubbing/cyanosis;muscles-grossly intact INVESTIGATIONS, reviewed in the clinical context: White count 8.1 hemoglobin 14.9 platelets 174 sodium 124 potassium 3.8 BUN 24 creatinine 1.41 bicarb 20 Serum osmolality 270 Total bilirubin 2.1 AST 151 ALT 50 Urine osmolality 211 EKG tracing personally reviewed by id-caio voltage. Sinus rhythm. Assessment plan: -Acute fluid overload from fluid retention from underlying cirrhosis Fluid restriction 1200 mL a day. Aldactone 100 mg twice a day. Lasix 40 mg twice a day. Low-sodium diet -Severe hyponatremia hypoosmolar from fluid retention Avoid free fluid. Low-sodium diet -Large ascites symptomatic. Consult interventional radiology for paracentesis -Alcoholic cirrhosis follows with Dr. Nikole Matt -MAL Protonix Continue current treatment plan. Follow labs. Discussed.
[2022-11-03 08:53] LABS: African American GFR (CKD) 37 (>60 ml/min/1.73 sqM); Anion Gap 7 mmol/L; Blood Urea Nitrogen 31 mg/dL (9-20); Calcium 8.2 mg/dL (8.4-10.2); Carbon Dioxide 25 mmol/L (22-30); Chloride 97 mmol/L (98-107); Glucose 77 mg/dL (74-99); Non-African American GFR(CKD) 32 (>60 ml/min/1.73 sqM); Potassium 3.4 mmol/L (3.5-5.1); Sodium 129 mmol/L (137-145)
[2022-11-03] MEDS: MULTIVITAMINS, THERA 1 EACH TAB PO SCH ×3 (09:16→09:18)
[2022-11-03] MEDS: SPIRONOLACTONE 25 MG TAB PO SCH ×2 (09:16→20:15)
[2022-11-03] MEDS: PANTOPRAZOLE 40 MG TABLET PO SCH (09:16)
[2022-11-03] MEDS: LOSARTAN 50 MG TAB PO SCH (09:16)
[2022-11-03] MEDS: atenoloL 50 MG TAB PO SCH (09:17)
[2022-11-03] MEDS: ASPIRIN 81 MG PO SCH (09:17)
[2022-11-03] MEDS: FUROSEMIDE 40 MG TAB PO SCH (09:17)
[2022-11-03] MEDS: CLOPIDOGREL 75 MG TAB PO SCH (09:17)
[2022-11-03] MEDS ORDERED: ACETAMINOPHEN TAB 500 MG TAB PO PRN (13:38)
--- NOTE | 2022-11-03 20:39 | P.PN ---
Progress Note - Text Progress Note Date: 11/03/22 Chief Complaint: Distended abdomen This is a pleasant 76-year-old patient who follows with Dr. Chang Douglas. In August 2022 patient was diagnosed with alcoholic cirrhosis. [address] Nikole Matt gastroenterology. October 02 paracentesis was carried out. Patient was scheduled for another one in next couple of weeks. In 2 weeks patient skin about 15 pounds. Abdomen is distended. Lower extremity edema. Unable to walk. Short of breath. Denies any fever and chills. No abdominal pain. Patient stopped drinking in August of this year. Was drinking 8-10 beers a day prior to that for years. Admitted with fluid overload mode, severe ascites. Placed on fluid restriction, Aldactone, Lasix. Hyponatremia. November 02: Laying in bed. Diuretics to continue. Fluid restriction. Breathing better. Abdomen distended. Discussed November 03: Reclining in bed. Eating some. Creatinine went up from 1.41-1.99. We will change fluid restriction from colon cc to 2000 mL. Hold Lasix today. Pending paracentesis tomorrow. We will consult nephrology. Travis wrap's Active Medications Acetaminophen (Acetaminophen Tab 500 Mg Tab) 500 mg PO Q6HR PRN PRN Reason: Fever and/ or Pain Clopidogrel Bisulfate (Clopidogrel 75 Mg Tab) 75 mg PO DAILY [facility] Last Admin: 11/03/22 09:17 Dose: 75 mg Multivitamins (Multivitamins, Thera 1 Each Tab) 1 each PO DAILY [facility] Last Admin: 11/03/22 09:17 Dose: 1 each Multivitamins (Multivitamins, Thera 1 Each Tab) 1 each PO DAILY [facility] Last Admin: 11/03/22 09:18 Dose: 1 each Naloxone HCl (Naloxone 0.4 Mg/Ml 1 Ml Vial) 0.2 mg IV Q2M PRN PRN Reason: Opioid Reversal Pantoprazole Sodium (Pantoprazole 40 Mg Tablet) 40 mg PO DAILY [facility] Last Admin: 11/03/22 09:16 Dose: 40 mg Spironolactone (Spironolactone 25 Mg Tab) 100 mg PO BID [facility] Last Admin: 11/03/22 20:15 Dose: 100 mg Past medical history to include: Alcoholic cirrhosis diagnosed in August 2022, hypertension, GERD, osteoarthritis Social history: Former smoker. Was drinking 8-10 beers a day up to August 2022. . 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 Conjunctiva normal. HEENT: External appearance of nose and ears normal, oral cavity grossly normal. NECK: JVD not raised; masses not palpable. HEART: First and second heart sounds are normal; some edema present LUNGS: Respiratory rate increased; decreased breath. ABDOMEN: Soft, distended, nontender, liver spleen not palpable, no masses palpable. PSYCH: Alert and oriented x3; mood and affect normal. MUSCULOSKELETAL:No Clubbing/cyanosis;muscles-grossly intact INVESTIGATIONS, reviewed in the clinical context: November 03: Sodium 129 potassium 3.4 BUN 31 creatine 1.99 White count 8.1 hemoglobin 14.9 platelets 174 sodium 124 potassium 3.8 BUN 24 creatinine 1.41 bicarb 20 Serum osmolality 270 Total bilirubin 2.1 AST 151 ALT 50 Urine osmolality 211 EKG tracing personally reviewed by me-caio schwab. Sinus rhythm. Assessment plan: -Acute fluid overload from fluid retention from underlying cirrhosis: Slow improvement Change Fluid restriction 2000 mL a day. Aldactone 100 mg twice a day. Lasix- hold for now. Low-sodium diet -Acute kidney injury likely ATN from hepatorenal syndrome.: Worsening Change fluid restriction. 2000 Cc a Day. Hold Lasix for Now. Consult nephrology. -Suspect underlying chronic kidney disease probable stage III -Severe hyponatremia hypoosmolar from fluid retention could've some improvement Avoid free fluid. Low-sodium diet -Large ascites symptomatic. Consult interventional radiology for paracentesis -Alcoholic cirrhosis follows with Dr. Nikole Matt -GERD Protonix Relax fluid restriction to 1 mL a day. Hold Lasix. His blood pressure running low. Atenolol. Also hold Cozaar. Discussed with the right patient has not been taking these 2 medications at home. Expected blood pressure to leaf size picker tomorrow. Consult nephrology
[2022-11-04 07:46] LABS: African American GFR (CKD) 31 (>60 ml/min/1.73 sqM); Anion Gap 7 mmol/L; Blood Urea Nitrogen 39 mg/dL (9-20); Calcium 8.1 mg/dL (8.4-10.2); Carbon Dioxide 24 mmol/L (22-30); Chloride 97 mmol/L (98-107); Glucose 71 mg/dL (74-99); Magnesium 1.8 mg/dL (1.6-2.3); Non-African American GFR(CKD) 27 (>60 ml/min/1.73 sqM); Potassium 3.4 mmol/L (3.5-5.1); Sodium 128 mmol/L (137-145)
[2022-11-04] MEDS: SPIRONOLACTONE 25 MG TAB PO SCH ×2 (09:36→20:34)
[2022-11-04] MEDS: MULTIVITAMINS, THERA 1 EACH TAB PO SCH ×2 (09:36→09:37)
[2022-11-04] MEDS: CLOPIDOGREL 75 MG TAB PO SCH (09:37)
[2022-11-04] MEDS: PANTOPRAZOLE 40 MG TABLET PO SCH (09:37)
[2022-11-04] MEDS ORDERED: POTASSIUM CHLORIDE ER 20 MEQ TAB.ER PO STA (11:06)
--- NOTE | 2022-11-04 11:08 | P.NPCON ---
History of Present Illness - Reason for Consult acute renal failure - History of Present Illness Reason for consultation: Acute kidney injury History of present illness: A sign patient is a 76-year-old male seen in renal consultation for acute kidney injury. Patient's creatinine in August 2022 was 0.9. This admission was 1.8 and is up to 2.27 today. Patient has history of alcohol-induced liver cirrhosis. He is receiving Aldactone. Lasix was discontinued yesterday. Patient does admit to taking Motrin daily for the last couple of years but currently discontinued. Patient states he has stopped ed mynor alcohol. Last paracentesis was in September and 9.7 L were drained. He is awaiting another paracentesis but is delayed as he's on Plavix. He has been voiding. Denies chest pain or shortness of breath. No vomiting or diarrhea. No chest pain or shortness of breath. No history of diabetes. Denies family history of renal disease. Vital signs are stable. General: No acute distress. HEENT: Head exam is unremarkable. LUNGS: No audible rhonchi or wheezes. HEART: Rate and Rhythm are regular. ABDOMEN: Distention noted. EXTREMITITES: No edema. Past Medical History Past Medical History: GERD/Reflux, Hypertension, Liver Disease Additional Past Medical History / Comment(s): cirrhosis August 2022 History of Any Multi-Drug Resistant Organisms: None Reported Past Surgical History: Joint Replacement Additional Past Surgical History / Comment(s): Lt hip replacement, rt knee replaced Past Anesthesia/Blood Transfusion Reactions: No Reported Reaction Past Psychological History: No Psychological Hx Reported Smoking Status: Former smoker Past Alcohol Use History: None Reported Past Drug Use History: None Reported - Past Family History Father Family Medical History: No Reported History Medications and Allergies Home Medications Medication Instructions Recorded Confirmed Type Acetaminophen Tab [Tylenol] 325 mg PO Q4H PRN 11/01/22 11/01/22 History Aspirin EC [Ecotrin Low Dose] 81 mg PO DAILY 11/01/22 11/01/22 History Atorvastatin [Lipitor] 80 mg PO HS 11/01/22 11/01/22 History Clopidogrel [Plavix] 75 mg PO DAILY 11/01/22 11/01/22 History Furosemide [Lasix] 40 mg PO BID 11/01/22 11/01/22 History Multivit-Min/FA/Lycopen/Lutein 1 tab PO DAILY 11/01/22 11/01/22 History [Centrum Silver Men Tablet] Pantoprazole [Protonix] 40 mg PO DAILY 11/01/22 11/01/22 History Allergies Allergy/AdvReac Type Severity Reaction Status Date / Time No Known Allergies Allergy Verified 11/01/22 14:43 Physical Exam Vitals: Vital Signs Temp Pulse Resp BP Pulse Ox 11/04/22 07:06 98.6 F 63 16 94/69 94 L 11/04/22 02:58 98.7 F 66 16 98/63 96 11/03/22 19:32 98.2 F 65 16 90/53 99 11/03/22 12:54 98.4 F 60 16 99/60 98 Intake and Output 11/03/22 11/04/22 11/04/22 22:59 06:59 14:59 Other: Voiding Method Urinal Results - Lab Results Most recent lab results Calcium 8.1 mg/dL (8.4-10.2) L 11/04/22 06:20 Magnesium 1.8 mg/dL (1.6-2.3) 11/04/22 06:20 11/01/22 10:21 11/04/22 06:20 Assessment and Plan Plan: Assessment: 1. Acute kidney injury secondary to ATN secondary to hepatorenal syndrome. Creatinine 2.27 today. Urine sodium less than 20. UA with trace protein. Rule out obstructive uropathy. 2. Hypokalemia from diuretics. 3. Hyponatremia, hypervolemic. 4. Ascites. 5. Alcohol-induced liver cirrhosis. Plan: Maintain Aldactone. Low-salt diet and 2000 mL fluid restriction. Replace potassium. Check renal ultrasound. Await paracentesis. Will give albumin pre-and post procedure. Continue to monitor renal function and urine output. Thank you for the consultation. I will continue to follow the patient during his hospital stay.
[2022-11-04] MEDS: ASPIRIN 81 MG PO SCH (12:51)
--- NOTE | 2022-11-04 13:02 | US ---
EXAMINATION TYPE: US abdomen limited DATE OF EXAM: 11/04/2022 COMPARISON: NONE CLINICAL INDICATION: Male, 76 years old with history of ascites; Ascites seen in all 4 quadrants IMPRESSION: Acites
--- NOTE | 2022-11-04 13:17 | US ---
EXAMINATION TYPE: US kidneys/renal and bladder DATE OF EXAM: 11/04/2022 Exam done portable COMPARISON: CT 2022 CLINICAL INDICATION: Male, 76 years old with history of ana paula; EXAM MEASUREMENTS: Right Kidney: 10.8 x 5.1 x 5.8 cm Left Kidney: 10.5 x 6.1 x 5.3 cm Right Kidney: 1.3cm hypoechoic area superior pole Left Kidney: wnl Bladder: wnl Bilateral Jets seen: no There is no evidence for hydronephrosis at this point in time. No nephrolithiasis is seen. The urin poncho bladder is anechoic. Bilateral ureteral jets are seen. IMPRESSION: 1. Incidental note is made of ascites. 2. Hypoechoic lesion right kidney may reflect a small cyst.
--- NOTE | 2022-11-04 19:54 | P.PN ---
Progress Note - Text Progress Note Date: 11/04/22 Chief Complaint: Distended abdomen This is a pleasant 76-year-old patient who follows with Dr. Chang Douglas. In August 2022 patient was diagnosed with alcoholic cirrhosis. [address] Nikole Matt gastroenterology. October 02 paracentesis was carried out. Patient was scheduled for another one in next couple of weeks. In 2 weeks patient skin about 15 pounds. Abdomen is distended. Lower extremity edema. Unable to walk. Short of breath. Denies any fever and chills. No abdominal pain. Patient stopped drinking in August of this year. Was drinking 8-10 beers a day prior to that for years. Admitted with fluid overload mode, severe ascites. Placed on fluid restriction, Aldactone, Lasix. Hyponatremia. November 02: Laying in bed. Diuretics to continue. Fluid restriction. Breathing better. Abdomen distended. Discussed November 03: Reclining in bed. Eating some. Creatinine went up from 1.41-1.99. We will change fluid restriction from colon cc to 2000 mL. Hold Lasix today. Pending paracentesis tomorrow. We will consult nephrology. Travis wrap's November 04: Resting in bed. Spoke to Dr. Lawrence from radiology and the nurse.. Because of Plavix paracentesis cannot be done today. We'll stop Plavix and switch to aspirin 81 mg daily for the recent stroke. Creatinine up to 2.27. Discussed length with the patient and . Total time spent today more than 60 minutes. Active Medications Acetaminophen (Acetaminophen Tab 500 Mg Tab) 500 mg PO Q6HR PRN PRN Reason: Fever and/ or Pain Aspirin (Aspirin 81 Mg) 81 mg PO DAILY [facility] Last Admin: 11/04/22 12:51 Dose: 81 mg Multivitamins (Multivitamins, Thera 1 Each Tab) 1 each PO DAILY [facility] Last Admin: 11/04/22 09:36 Dose: 1 each Multivitamins (Multivitamins, Thera 1 Each Tab) 1 each PO DAILY [facility] Last Admin: 11/04/22 09:37 Dose: Not Given Naloxone HCl (Naloxone 0.4 Mg/Ml 1 Ml Vial) 0.2 mg IV Q2M PRN PRN Reason: Opioid Reversal Pantoprazole Sodium (Pantoprazole 40 Mg Tablet) 40 mg PO DAILY [facility] Last Admin: 11/04/22 09:37 Dose: 40 mg Spironolactone (Spironolactone 25 Mg Tab) 100 mg PO BID [facility] Last Admin: 11/04/22 09:36 Dose: 100 mg Past medical history to include: Alcoholic cirrhosis diagnosed in August 2022, hypertension, GERD, osteoarthritis Social history: Former smoker. Was drinking 8-10 beers a day up to August 2022. . 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 Conjunctiva normal. HEENT: External appearance of nose and ears normal, oral cavity grossly normal. NECK: JVD not raised; masses not palpable. HEART: First and second heart sounds are normal; some edema present LUNGS: Respiratory rate increased; decreased breath. ABDOMEN: Soft, distended, nontender, liver spleen not palpable, no masses palpable. PSYCH: Alert and oriented x3; mood and affect normal. MUSCULOSKELETAL:No Clubbing/cyanosis;muscles-grossly intact INVESTIGATIONS, reviewed in the clinical context: November 04: Sodium 128 potassium 3.4 BUN 39 creatinine 2.27 glucose 71 November 03: Sodium 129 potassium 3.4 BUN 31 creatine 1.99 White count 8.1 hemoglobin 14.9 platelets 174 sodium 124 potassium 3.8 BUN 24 creatinine 1.41 bicarb 20 Serum osmolality 270 Total bilirubin 2.1 AST 151 ALT 50 Urine osmolality 211 EKG tracing personally reviewed by -caio schwab. Sinus rhythm. Assessment plan: -Acute fluid overload from fluid retention from underlying cirrhosis: Slow improvement Fluid restriction 2000 mL a day. Aldactone 100 mg twice a day. Lasix-hold . Low-sodium diet -Acute kidney injury likely ATN from hepatorenal syndrome.: Worsening Follow with nephrology. -Suspect underlying chronic kidney disease probable stage III -Severe hyponatremia hypoosmolar from fluid retention : Some improvement Avoid free fluid. Low-sodium diet -Large ascites symptomatic. Plavix discontinued. Discussed with Dr. Lawrence of radiology. He will do paracentesis on Friday -Alcoholic cirrhosis follows with Dr. Nikole Matt -GERD Protonix Plavix changed over to aspirin. Paracentesis on Friday. Follow labs closely.
[2022-11-05] MEDS: SPIRONOLACTONE 25 MG TAB PO SCH ×2 (09:41→20:34)
[2022-11-05] MEDS: MULTIVITAMINS, THERA 1 EACH TAB PO SCH ×2 (09:41)
[2022-11-05] MEDS: ASPIRIN 81 MG PO SCH ×2 (09:41→12:48)
[2022-11-05] MEDS: PANTOPRAZOLE 40 MG TABLET PO SCH (09:41)
--- NOTE | 2022-11-05 11:46 | P.PN ---
Subjective Patient is seen in follow-up for acute kidney injury. Morning labs pending. Has been voiding. Paracentesis scheduled for tomorrow. No chest pain or shortness of breath. Oral intake fair. Vital signs are stable. General: No acute distress. HEENT: Head exam is unremarkable. LUNGS: No audible rhonchi or wheezes. HEART: Rate and Rhythm are regular. ABDOMEN: Distention noted. EXTREMITITES: No edema. Objective - Vital Signs Vital signs: Vital Signs Temp 98.3 F 11/05/22 07:39 Pulse 70 11/05/22 07:39 Resp 16 11/05/22 07:39 BP 118/76 11/05/22 07:39 Pulse Ox 97 11/05/22 07:39 FiO2 Intake & Output 11/04/22 11/05/22 11/05/22 18:59 06:59 18:59 Intake Total 720 Output Total 800 150 Balance -800 570 Weight 88 kg 89 kg Intake: Oral 720 Output: Urine 800 150 Straight 400 Other: Voiding Method Urinal Urinal # Voids 1 # Bowel Movements 1 - Labs CBC & Chem 7: 11/01/22 10:21 11/04/22 06:20 Assessment and Plan Plan: Assessment: 1. Acute kidney injury secondary to ATN secondary to hepatorenal syndrome. Creatinine 2.27 yesterday. Urine sodium less than 20. UA with trace protein. No hydronephrosis noted on kidney ultrasound. 2. Hypokalemia from diuretics. Replace. 3. Hyponatremia, hypervolemic. 4. Ascites. 5. Alcohol-induced liver cirrhosis. Plan: Maintain Aldactone. Low-salt diet and 2000 mL fluid restriction. Await paracentesis. Will give albumin pre-and post procedure. Continue to monitor renal function and urine output. Morning labs pending.
[2022-11-05 11:52] LABS: BUN/Creat Ratio 18.95 Ratio (12.00-20.00); Blood Urea Nitrogen 41.7 mg/dL (9.0-27.0); Calcium 8.5 mg/dL (8.7-10.3); Carbon Dioxide 22.4 mmol/L (21.6-31.8); Chloride 97 mmol/L (96-109); Glucose 112 mg/dL (70-110); Magnesium 1.9 mg/dL (1.5-2.4); Potassium 4.4 mmol/L (3.5-5.5); Sodium 129 mmol/L (135-145)
--- NOTE | 2022-11-05 21:36 | P.PN ---
Progress Note - Text Progress Note Date: 11/05/22 Chief Complaint: Distended abdomen This is a pleasant 76-year-old patient who follows with Dr. Chang Douglas. In August 2022 patient was diagnosed with alcoholic cirrhosis. [address] Nikole Matt gastroenterology. October 02 paracentesis was carried out. Patient was scheduled for another one in next couple of weeks. In 2 weeks patient skin about 15 pounds. Abdomen is distended. Lower extremity edema. Unable to walk. Short of breath. Denies any fever and chills. No abdominal pain. Patient stopped drinking in August of this year. Was drinking 8-10 beers a day prior to that for years. Admitted with fluid overload mode, severe ascites. Placed on fluid restriction, Aldactone, Lasix. Hyponatremia. November 02: Laying in bed. Diuretics to continue. Fluid restriction. Breathing better. Abdomen distended. Discussed November 03: Reclining in bed. Eating some. Creatinine went up from 1.41-1.99. We will change fluid restriction from colon cc to 2000 mL. Hold Lasix today. Pending paracentesis tomorrow. We will consult nephrology. Travis wrap's November 04: Resting in bed. Spoke to Dr. Lawrence from radiology and the nurse.. Because of Plavix paracentesis cannot be done today. We'll stop Plavix and switch to aspirin 81 mg daily for the recent stroke. Creatinine up to 2.27. Discussed length with the patient and . Total time spent today more than 60 minutes. November 05: Patient was seen this morning. Did walk in the hallway. Tolerating diet. Creatinine platelet 2.2. No change in meds per nephrology. Discussed with the patient and at the bedside. Active Medications Acetaminophen (Acetaminophen Tab 500 Mg Tab) 500 mg PO Q6HR PRN PRN Reason: Fever and/ or Pain Aspirin (Aspirin 81 Mg) 81 mg PO DAILY [facility] Last Admin: 11/05/22 12:48 Dose: 81 mg Multivitamins (Multivitamins, Thera 1 Each Tab) 1 each PO DAILY [facility] Last Admin: 11/05/22 09:41 Dose: 1 each Multivitamins (Multivitamins, Thera 1 Each Tab) 1 each PO DAILY [facility] Last Admin: 11/05/22 09:41 Dose: Not Given Naloxone HCl (Naloxone 0.4 Mg/Ml 1 Ml Vial) 0.2 mg IV Q2M PRN PRN Reason: Opioid Reversal Pantoprazole Sodium (Pantoprazole 40 Mg Tablet) 40 mg PO DAILY [facility] Last Admin: 11/05/22 09:41 Dose: 40 mg Spironolactone (Spironolactone 25 Mg Tab) 100 mg PO BID [facility] Last Admin: 11/05/22 20:34 Dose: 100 mg Past medical history to include: Alcoholic cirrhosis diagnosed in August 2022, hypertension, GERD, osteoarthritis Social history: Former smoker. Was drinking 8-10 beers a day up to August 2022. . 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 Conjunctiva normal. HEENT: External appearance of nose and ears normal, oral cavity grossly normal. NECK: JVD not raised; masses not palpable. HEART: First and second heart sounds are normal; some edema present LUNGS: Respiratory rate increased; decreased breath. ABDOMEN: Soft, distended, nontender, liver spleen not palpable, no masses palpable. PSYCH: Alert and oriented x3; mood and affect normal. MUSCULOSKELETAL:No Clubbing/cyanosis;muscles-grossly intact INVESTIGATIONS, reviewed in the clinical context: November 05: Potassium 4.4 sodium 129 BUN 41 creatinine 2.2 November 04: Sodium 128 potassium 3.4 BUN 39 creatinine 2.27 glucose 71 November 03: Sodium 129 potassium 3.4 BUN 31 creatine 1.99 White count 8.1 hemoglobin 14.9 platelets 174 sodium 124 potassium 3.8 BUN 24 creatinine 1.41 bicarb 20 Serum osmolality 270 Total bilirubin 2.1 AST 151 ALT 50 Urine osmolality 211 EKG tracing personally reviewed by sc-caio voltage. Sinus rhythm. Assessment plan: -Acute fluid overload from fluid retention from underlying cirrhosis: Slow improvement Fluid restriction 2000 mL a day. Aldactone 100 mg twice a day. Lasix-hold . Low-sodium diet -Acute kidney injury likely ATN from hepatorenal syndrome.: Slow to respond Follow with nephrology. -Suspect underlying chronic kidney disease probable stage III -Severe hyponatremia hypoosmolar from fluid retention : Some improvement Avoid free fluid. Low-sodium diet -Large ascites symptomatic. Plavix discontinued. paracentesis on Friday -Alcoholic cirrhosis follows with Dr. Nikole Matt -GERD Protonix Continue current meds. Paracentesis tomorrow.
[2022-11-06] MEDS: ASPIRIN 81 MG PO SCH ×2 (10:15→13:59)
[2022-11-06] MEDS: MULTIVITAMINS, THERA 1 EACH TAB PO SCH ×2 (10:15→13:23)
[2022-11-06] MEDS: ALBUMIN HUMAN 25% 50 ML in EMPTY BAG 1 BAG IVPB SCH ×2 (10:50→13:24)
--- NOTE | 2022-11-06 11:11 | P.PN ---
Subjective Patient is seen in follow-up for acute kidney injury. Creatinine stable at 2.2 yesterday. Paracentesis scheduled for today. No chest pain or shortness of breath. Oral intake fair. Vital signs are stable. General: No acute distress. HEENT: Head exam is unremarkable. LUNGS: No audible rhonchi or wheezes. HEART: Rate and Rhythm are regular. ABDOMEN: Distention noted. EXTREMITITES: No edema. Objective - Vital Signs Vital signs: Vital Signs Temp 98.0 F 11/06/22 07:41 Pulse 77 11/06/22 07:41 Resp 18 11/06/22 07:41 BP 115/74 11/06/22 07:41 Pulse Ox 96 11/06/22 07:41 FiO2 Intake & Output 11/05/22 11/06/22 11/06/22 18:59 06:59 18:59 Output Total 250 Balance -250 Weight 88.5 kg Output: Urine 250 Other: Voiding Method Urinal Urinal Urinal - Labs CBC & Chem 7: 11/01/22 10:21 11/05/22 06:55 Labs: Abnormal Lab Results - Last 24 Hours (Table) 11/05/22 Range/Units 06:55 Sodium 129 L (135-145) mmol/L BUN 41.7 H (9.0-27.0) mg/dL Creatinine 2.2 H (0.6-1.5) mg/dL Est GFR (CKD-EPI) 30 L (>=60) Glucose 112 H (70-110) mg/dL Calcium 8.5 L (8.7-10.3) mg/dL Assessment and Plan Plan: Assessment: 1. Acute kidney injury secondary to ATN secondary to hepatorenal syndrome. Creatinine 2.2 yesterday. Urine sodium less than 20. UA with trace protein. No hydronephrosis noted on kidney ultrasound. 2. Hypokalemia from diuretics. Replaced. Better. 3. Hyponatremia, hypervolemic. 4. Ascites. 5. Alcohol-induced liver cirrhosis. Plan: Maintain Aldactone. Low-salt diet and 2000 mL fluid restriction. Paracentesis today. Will give albumin pre-and post procedure. Continue to monitor renal function and urine output. Add Lasix 20 mg once daily. Morning labs pending.
[2022-11-06 11:17] LABS: BUN/Creat Ratio 25.38 Ratio (12.00-20.00); Blood Urea Nitrogen 40.6 mg/dL (9.0-27.0); Calcium 8.7 mg/dL (8.7-10.3); Carbon Dioxide 20.8 mmol/L (21.6-31.8); Chloride 99 mmol/L (96-109); Glucose 88 mg/dL (70-110); Magnesium 2.1 mg/dL (1.5-2.4); Potassium 4.5 mmol/L (3.5-5.5); Sodium 131 mmol/L (135-145)
--- NOTE | 2022-11-06 12:23 | US ---
Ultrasound-guided paracentesis. DATE OF EXAM: 11/06/2022 CLINICAL HISTORY: ascites The procedure was discussed with the patient. The risks, complications, benefits, and alternatives we re discussed and any questions were answered. Informed consent was obtained. The patient was placed s upine on the ultrasound table and prepped and draped in the usual sterile fashion. All elements of maximal barrier technique were utilized. Under ultrasound guidance, access into the right lower quadrant was obtained, via the paracentesis catheter system and direct ultrasound guidanc e. Approximately 10 liters of straw-colored fluid was removed. The patient was stable throughout the pro cedure and remained stable upon discharge from Department of Radiology. IMPRESSION: Successful paracentesis under ultrasound guidance.
[2022-11-06] MEDS: PANTOPRAZOLE 40 MG TABLET PO SCH (13:23)
[2022-11-06] MEDS: SPIRONOLACTONE 25 MG TAB PO SCH ×2 (13:24→20:53)
--- NOTE | 2022-11-06 21:46 | P.PN ---
Progress Note - Text Progress Note Date: 11/06/22 Chief Complaint: Distended abdomen This is a pleasant 76-year-old patient who follows with Dr. Chang Douglas. In August 2022 patient was diagnosed with alcoholic cirrhosis. [address] Nikole Matt gastroenterology. October 02 paracentesis was carried out. Patient was scheduled for another one in next couple of weeks. In 2 weeks patient skin about 15 pounds. Abdomen is distended. Lower extremity edema. Unable to walk. Short of breath. Denies any fever and chills. No abdominal pain. Patient stopped drinking in August of this year. Was drinking 8-10 beers a day prior to that for years. Admitted with fluid overload mode, severe ascites. Placed on fluid restriction, Aldactone, Lasix. Hyponatremia. November 02: Laying in bed. Diuretics to continue. Fluid restriction. Breathing better. Abdomen distended. Discussed November 03: Reclining in bed. Eating some. Creatinine went up from 1.41-1.99. We will change fluid restriction from colon cc to 2000 mL. Hold Lasix today. Pending paracentesis tomorrow. We will consult nephrology. Travis wrap's November 04: Resting in bed. Spoke to Dr. Lawrence from radiology and the nurse.. Because of Plavix paracentesis cannot be done today. We'll stop Plavix and switch to aspirin 81 mg daily for the recent stroke. Creatinine up to 2.27. Discussed length with the patient and . Total time spent today more than 60 minutes. November 05: Patient was seen this morning. Did walk in the hallway. Tolerating diet. Creatinine platelet 2.2. No change in meds per nephrology. Discussed with the patient and at the bedside. November 06: Patient had paracentesis done today. About 10 L of straw-colored fluid was removed. Albumin was ordered after that. Feeling much better. Creatinine down to 1.6. Active Medications Acetaminophen (Acetaminophen Tab 500 Mg Tab) 500 mg PO Q6HR PRN PRN Reason: Fever and/ or Pain Aspirin (Aspirin 81 Mg) 81 mg PO DAILY [facility] Last Admin: 11/06/22 13:59 Dose: Not Given Furosemide (Furosemide 20 Mg Tab) 20 mg PO DAILY [facility] Multivitamins (Multivitamins, Thera 1 Each Tab) 1 each PO DAILY [facility] Last Admin: 07/12/23 10:15 Dose: Not Given Multivitamins (Multivitamins, Thera 1 Each Tab) 1 each PO DAILY [facility] Last Admin: 11/06/22 13:23 Dose: 1 each Naloxone HCl (Naloxone 0.4 Mg/Ml 1 Ml Vial) 0.2 mg IV Q2M PRN PRN Reason: Opioid Reversal Pantoprazole Sodium (Pantoprazole 40 Mg Tablet) 40 mg PO DAILY [facility] Last Admin: 11/06/22 13:23 Dose: 40 mg Spironolactone (Spironolactone 25 Mg Tab) 100 mg PO BID [facility] Last Admin: 11/06/22 20:53 Dose: 100 mg Past medical history to include: Alcoholic cirrhosis diagnosed in August 2022, hypertension, GERD, osteoarthritis Social history: Former smoker. Was drinking 8-10 beers a day up to August 2022. . 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 Conjunctiva normal. HEENT: External appearance of nose and ears normal, oral cavity grossly normal. NECK: JVD not raised; masses not palpable. HEART: First and second heart sounds are normal; some edema present LUNGS: Respiratory rate increased; decreased breath. ABDOMEN: Soft, , nontender, liver spleen not palpable, no masses palpable. PSYCH: Alert and oriented x3; mood and affect normal. MUSCULOSKELETAL:No Clubbing/cyanosis;muscles-grossly intact INVESTIGATIONS, reviewed in the clinical context: November 06: Potassium 4.5 BUN 40.6 creatinine 1.6 November 05: Potassium 4.4 sodium 129 BUN 41 creatinine 2.2 November 04: Sodium 128 potassium 3.4 BUN 39 creatinine 2.27 glucose 71 November 03: Sodium 129 potassium 3.4 BUN 31 creatine 1.99 White count 8.1 hemoglobin 14.9 platelets 174 sodium 124 potassium 3.8 BUN 24 creatinine 1.41 bicarb 20 Serum osmolality 270 Total bilirubin 2.1 AST 151 ALT 50 Urine osmolality 211 EKG tracing personally reviewed by me-low voltage. Sinus rhythm. Assessment plan: -Acute fluid overload from fluid retention from underlying cirrhosis: Fluid restriction 2000 mL a day. Aldactone 100 mg twice a day. Dr. Colon . Low-sodium diet -Acute kidney injury likely ATN from hepatorenal syndrome.: Improving Follow with nephrology. -Suspect underlying chronic kidney disease probable stage III -Severe hyponatremia hypoosmolar from fluid retention : Some improvement Avoid free fluid. Low-sodium diet -Large ascites symptomatic. Plavix discontinued. paracentesis 10 L removed -Alcoholic cirrhosis follows with Dr. Nikole Matt -GERD Protonix Discussed with patient and . Albumin ordered after paracentesis. 4 discharged tomorrow.
[2022-11-07 02:03] VITALS: RESP 16
[2022-11-07] MEDS: SPIRONOLACTONE 25 MG TAB PO SCH (07:28)
[2022-11-07] MEDS: ASPIRIN 81 MG PO SCH (07:28)
[2022-11-07] MEDS: MULTIVITAMINS, THERA 1 EACH TAB PO SCH ×2 (07:29)
[2022-11-07] MEDS: PANTOPRAZOLE 40 MG TABLET PO SCH (07:29)
[2022-11-07 08:58] LABS: Magnesium 2.1 mg/dL (1.5-2.4)
[2022-11-07] MEDS ORDERED: FUROSEMIDE 20 MG TAB PO SCH (09:00)
[2022-11-07 09:20] LABS: Calcium 8.6 mg/dL (8.7-10.3); Carbon Dioxide 21.9 mmol/L (21.6-31.8); Chloride 96 mmol/L (96-109); Glucose 87 mg/dL (70-110); Potassium 4.9 mmol/L (3.5-5.5); Sodium 129 mmol/L (135-145)
[2022-11-07 12:46] VITALS: BP 106/70; PULSE 62; TEMP 98.2
--- NOTE | 2022-11-07 13:01 | P.PN ---
Subjective Patient is seen in follow-up for acute kidney injury. Renal function improved. Paracentesis 11/06/2022 with 10 L drained. No chest pain or shortness of breath. Oral intake fair. Vital signs are stable. General: No acute distress. HEENT: Head exam is unremarkable. LUNGS: No audible rhonchi or wheezes. HEART: Rate and Rhythm are regular. ABDOMEN: Distention noted. EXTREMITITES: No edema. Objective - Vital Signs Vital signs: Vital Signs Temp 98.2 F 11/07/22 12:22 Pulse 62 11/07/22 12:22 Resp 16 11/07/22 12:22 BP 106/70 11/07/22 12:22 Pulse Ox 97 11/07/22 12:22 FiO2 Intake & Output 11/06/22 11/07/22 11/07/22 18:59 06:59 18:59 Intake Total 550 Output Total 850 150 Balance -300 -150 Weight 86 kg Intake: Oral 550 Output: Urine 850 150 Other: Voiding Method Urinal Urinal Urinal - Labs CBC & Chem 7: 11/01/22 10:21 11/07/22 05:59 Labs: Abnormal Lab Results - Last 24 Hours (Table) 11/07/22 Range/Units 05:59 Sodium 129 L (135-145) mmol/L BUN 39.0 H (9.0-27.0) mg/dL BUN/Creatinine Ratio 32.50 H (12.00-20.00) Ratio Calcium 8.6 L (8.7-10.3) mg/dL Assessment and Plan Plan: Assessment: 1. Acute kidney injury secondary to ATN secondary to hepatorenal syndrome. Renal function better. Creatinine 1.2 today. Urine sodium less than 20. UA with trace protein. No hydronephrosis noted on kidney ultrasound. 2. Hypokalemia from diuretics. Replaced. Better. 3. Hyponatremia, hypervolemic. 4. Ascites. Status post paracentesis 11/06/2022 for 10 L drained. 5. Alcohol-induced liver cirrhosis. Plan: Maintain Aldactone. Maintain Lasix. Low-salt diet and 2000 mL fluid restriction. Continue to monitor renal function and urine output. I advised patient to follow low-salt diet and maintain fluid restriction of less than 50 ounces per day upon discharge. Follow-up outpatient 1-2 weeks post discharge.
--- NOTE | 2022-11-07 20:35 | P.DS ---
Providers Date of admission: 11/01/22 15:53 Expected date of discharge: 11/07/22 Attending physician: Zelalem Lanza Consults: 11/03/22 13:26 Consult Physician Routine Consulting Provider: Sae Santoro Consult Reason/Comments: hepatorenal Do you want consulting provider notified?: Yes [facility] Course: Chief Complaint: Distended abdomen This is a pleasant 76-year-old patient who follows with Dr. Chang Douglas. In August 2022 patient was diagnosed with alcoholic cirrhosis. [address] Nikole Matt gastroenterology. October 02 paracentesis was carried out. Patient was scheduled for another one in next couple of weeks. In 2 weeks patient skin about 15 pounds. Abdomen is distended. Lower extremity edema. Unable to walk. Short of breath. Denies any fever and chills. No abdominal pain. Patient stopped drinking in August of this year. Was drinking 8-10 beers a day prior to that for years. Admitted with fluid overload mode, severe ascites. Placed on fluid restriction, Aldactone, Lasix. Hyponatremia. November 02: Laying in bed. Diuretics to continue. Fluid restriction. Breathing better. Abdomen distended. Discussed November 03: Reclining in bed. Eating some. Creatinine went up from 1.41-1.99. We will change fluid restriction from colon cc to 2000 mL. Hold Lasix today. Pending paracentesis tomorrow. We will consult nephrology. Travis wrap's November 04: Resting in bed. Spoke to Dr. Lawrence from radiology and the nurse.. Because of Plavix paracentesis cannot be done today. We'll stop Plavix and switch to aspirin 81 mg daily for the recent stroke. Creatinine up to 2.27. Discussed length with the patient and . Total time spent today more than 60 minutes. November 05: Patient was seen this morning. Did walk in the hallway. Tolerating diet. Creatinine platelet 2.2. No change in meds per nephrology. Discussed with the patient and at the bedside. November 06: Patient had paracentesis done today. About 10 L of straw-colored fluid was removed. Albumin was ordered after that. Feeling much better. Creatinine down to 1.6. November 07: Feeling well. Appetite better. Creatinine 1.2. Discharge and diuretics. Fluid restriction. Follow with nephrology and GI. Discussed with patient and . Past medical history to include: Alcoholic cirrhosis diagnosed in August 2022, hypertension, GERD, osteoarthritis Social history: Former smoker. Was drinking 8-10 beers a day up to August 2022. . 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 Conjunctiva normal. HEENT: External appearance of nose and ears normal, oral cavity grossly normal. NECK: JVD not raised; masses not palpable. HEART: First and second heart sounds are normal; some edema present LUNGS: Respiratory rate increased; decreased breath. ABDOMEN: Soft, , nontender, liver spleen not palpable, no masses palpable. PSYCH: Alert and oriented x3; mood and affect normal. MUSCULOSKELETAL:No Clubbing/cyanosis;muscles-grossly intact INVESTIGATIONS, reviewed in the clinical context: November 07: Potassium 4.9 creatinine 1.2 November 04: Sodium 128 potassium 3.4 BUN 39 creatinine 2.27 glucose 71 November 03: Sodium 129 potassium 3.4 BUN 31 creatine 1.99 White count 8.1 hemoglobin 14.9 platelets 174 sodium 124 potassium 3.8 BUN 24 creatinine 1.41 bicarb 20 Serum osmolality 270 Total bilirubin 2.1 AST 151 ALT 50 Urine osmolality 211 EKG tracing personally reviewed by -caio schwab. Sinus rhythm. Assessment plan: -Acute fluid overload from fluid retention from underlying cirrhosis: Fluid restriction 2000 mL a day. Aldactone 100 mg twice a day. Lasix 20 mg twice a day.. Low-sodium diet -Acute kidney injury likely ATN from hepatorenal syndrome.: Better Follow with nephrology. -Suspect underlying chronic kidney disease probable stage III -Hypoalbuminemia secondary to cirrhosis -Severe hyponatremia hypoosmolar from fluid retention : Some improvement Avoid free fluid. Low-sodium diet -Large ascites symptomatic. Plavix discontinued. paracentesis 10 L removed -Alcoholic cirrhosis follows with Dr. Nikole Matt -GERD Protonix Disposition: Home Plan - Discharge Summary Discharge Rx Participant: No New Discharge Prescriptions: New Spironolactone [Aldactone] 100 mg PO BID #60 tab Continue Multivit-Min/FA/Lycopen/Lutein [Centrum Silver Men Tablet] 1 tab PO DAILY Atorvastatin [Lipitor] 80 mg PO HS Aspirin EC [Ecotrin Low Dose] 81 mg PO DAILY Pantoprazole [Protonix] 40 mg PO DAILY Acetaminophen Tab [Tylenol] 325 mg PO Q4H PRN PRN Reason: Pain Or Fever > 100.5 Changed Furosemide [Lasix] 20 mg PO BID #0 Discontinued Clopidogrel [Plavix] 75 mg PO DAILY Discharge Medication List Acetaminophen Tab [Tylenol] 325 mg PO Q4H PRN 11/01/22 [History] Aspirin EC [Ecotrin Low Dose] 81 mg PO DAILY 11/01/22 [History] Atorvastatin [Lipitor] 80 mg PO HS 11/01/22 [History] Multivit-Min/FA/Lycopen/Lutein [Centrum Silver Men Tablet] 1 tab PO DAILY 11/01/22 [History] Pantoprazole [Protonix] 40 mg PO DAILY 11/01/22 [History] Furosemide [Lasix] 20 mg PO BID #0 11/07/22 [Rx] Spironolactone [Aldactone] 100 mg PO BID #60 tab 11/07/22 [Rx] Follow up Appointment(s)/Referral(s): Chang Douglas MD [Primary Care Provider] - 1-2 days Dipika Matt MD [STAFF PHYSICIAN] - 2 Weeks Sae Santoro DO [STAFF PHYSICIAN] - 2 Weeks Activity/Diet/Wound Care/Special Instructions: Fluid restriction: 2000 mL a day Discharge Disposition: TRANSFER TO SNF/ECF
== END 2022-11-07 14:38 | DRG 432 ==
LOC: EC 10:02 → 4SSUR 15:53 → 5NMEDONC 11-02 07:32
PROVIDERS: ADMIT Hospitalist; ATTEND Hospitalist
PROC: 0W9G3ZZ Drainage of Peritoneal Cavity, Percutaneous Approach (ICD-10-PCS; principal; 2022-11-06)
DX: K70.31 Alcoholic cirrhosis of liver with ascites (principal); K76.7 Hepatorenal syndrome; N17.0 Acute kidney failure with tubular necrosis; E87.1 Hypo-osmolality and hyponatremia; K21.9 Gastro-esophageal reflux disease without esophagitis; E87.6 Hypokalemia; E87.70 Fluid overload, unspecified; F10.20 Alcohol dependence, uncomplicated; M19.90 Unspecified osteoarthritis, unspecified site; I12.9 Hypertensive chronic kidney disease with stage 1 through stage 4 chronic kidney disease, or unspecified chronic kidney disease; N18.30 Chronic kidney disease, stage 3 unspecified; E88.09 Other disorders of plasma-protein metabolism, not elsewhere classified; Z87.891 Personal history of nicotine dependence; T50.2X5A Adverse effect of carbonic-anhydrase inhibitors, benzothiadiazides and other diuretics, initial encounter; X58.XXXA Exposure to other specified factors, initial encounter; Z79.02 Long term (current) use of antithrombotics/antiplatelets; Z79.82 Long term (current) use of aspirin; Z79.899 Other long term (current) drug therapy; Z86.73 Personal history of transient ischemic attack (TIA), and cerebral infarction without residual deficits; Z96.642 Presence of left artificial hip joint; Z96.651 Presence of right artificial knee joint
CPT/HCPCS: 36415; 49083; 76705; 76770; 80048; 80053; 81001; 82570; 83605; 83690; 83735; 83930; 83935; 84300; 85025; 85610; 85730; 93005; 94760; 96374; 99285

== ENCOUNTER 2022-11-26 15:39 | Inpatient (IN) | payer MEDICARE ==
[2022-11-26 16:39] LABS: Basophils % (A) 0 %; Eosinophils % (A) 0 %; HCT 40.9 % (39.0-53.0); HGB 14.2 gm/dL (13.0-17.5); Lymphocytes # (A) 1.1 k/uL (1.0-4.8); Lymphocytes % (A) 14 %; MCH 33.7 pg (25.0-35.0); MCHC 34.7 g/dL (31.0-37.0); MCV 97.1 fL (80.0-100.0); Mean Platelet Volume 7.1; Monocytes % (A) 12 %; Neutrophils # (A) 5.7 k/uL (1.3-7.7); Neutrophils % (A) 71 %; Platelet Count 238 k/uL (150-450); RBC 4.21 m/uL (4.30-5.90); RDW 13.7 % (11.5-15.5)
--- NOTE | 2022-11-26 16:43 | ED ---
General Adult HPI - General Chief complaint: Recheck/Abnormal Lab/Rx Stated complaint: abn labs sent by Time Seen by Provider: 11/26/22 16:10 Source: patient, EMS, RN notes reviewed, old records reviewed Mode of arrival: EMS Limitations: no limitations - History of Present Illness Initial comments: This is a 76-year-old male who presents emergency Department complaining that he get a phone call from his doctor stating that his potassium was elevated. Patient states she has no symptoms she has no difficulty breathing or palpitations no chest pain he was told just to coming to the emergency department to be evaluated for elevated potassium. Patient denies any fever chills or cough. 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 - Related Data Home Medications Medication Instructions Recorded Confirmed Acetaminophen Tab [Tylenol] 325 mg PO Q4H PRN 11/01/22 11/26/22 Aspirin EC [Ecotrin Low Dose] 81 mg PO DAILY 11/01/22 11/26/22 Atorvastatin [Lipitor] 80 mg PO HS 11/01/22 11/26/22 Multivit-Min/FA/Lycopen/Lutein 1 tab PO DAILY 11/01/22 11/26/22 [Centrum Silver Men Tablet] Pantoprazole [Protonix] 40 mg PO DAILY 11/01/22 11/26/22 Previous Rx's Medication Instructions Recorded Furosemide [Lasix] 20 mg PO BID #0 11/07/22 Spironolactone [Aldactone] 100 mg PO BID #60 tab 11/07/22 Allergies Allergy/AdvReac Type Severity Reaction Status Date / Time No Known Allergies Allergy Verified 11/26/22 17:00 Review of Systems ROS Statement: Those systems with pertinent positive or pertinent negative responses have been documented in the HPI. ROS Other: All systems not noted in ROS Statement are negative. Past Medical History Past Medical History: CVA/TIA, GERD/Reflux, Hypertension, Liver Disease Additional Past Medical History / Comment(s): cirrhosis August 2022, Stroke 10/09/2022 and taking plavix, ETOH history 8-10 beers and 1 or 2 shots of vodka per day(last drink 08/2022). History of Any Multi-Drug Resistant Organisms: None Reported Past Surgical History: Joint Replacement Additional Past Surgical History / Comment(s): Lt hip replacement three times, rt knee replaced, paracentesis 10/02/2022 Past Anesthesia/Blood Transfusion Reactions: No Reported Reaction Past Psychological History: No Psychological Hx Reported Smoking Status: Former smoker Past Alcohol Use History: None Reported Past Drug Use History: None Reported - Past Family History Father Family Medical History: No Reported History General Exam - General Exam Comments Initial Comments: GENERAL: Patient is well-developed and well-nourished. Patient is nontoxic and well- hydrated and is in no acute distress. ENT: Neck is soft and supple. No significant lymphadenopathy is noted. Oropharynx is clear. Moist mucous membranes. Neck has full range of motion without eliciting any pain. EYES: The sclera were anicteric and conjunctiva were pink and moist. Extraocular movements were intact and pupils were equal round and reactive to light. Eyelids were unremarkable. PULMONARY: Unlabored respirations. Good breath sounds bilaterally. No audible rales rhonchi or wheezing was noted. CARDIOVASCULAR: There is a regular rate and rhythm without any murmurs gallops or rubs. ABDOMEN: Soft and nontender with normal bowel sounds. SKIN: Skin is clear with no lesions or rashes and otherwise unremarkable. NEUROLOGIC: Patient is alert and oriented x3. Cranial nerves II through XII are grossly intact. Motor and sensory are also intact. Normal speech, volume and content. Symmetrical smile. MUSCULOSKELETAL: Normal extremities with adequate strength and full range of motion. LYMPHATICS: No significant lymphadenopathy is noted PSYCHIATRIC: Normal psychiatric evaluation. Limitations: no limitations Course Vital Signs 11/26/22 11/26/22 11/26/22 16:02 17:00 17:30 Pulse Rate 97 89 86 Respiratory 18 12 17 Rate Blood Pressure 127/87 128/81 116/86 O2 Sat by Pulse 100 99 98 Oximetry 11/26/22 11/26/22 18:00 18:30 Pulse Rate 96 93 Respiratory 13 18 Rate Blood Pressure 113/80 125/86 O2 Sat by Pulse 100 98 Oximetry Medical Decision Making - Medical Decision Making Was pt. sent in by a medical professional or institution (, MARLEE, NEWS ASSISTANT, urgent care, hospital, or prison...) When possible be specific @ -Patient was sent in by his primary medical care doctor Did you speak to anyone other than the patient for history (EMS, parent, family, police, friend...)? What history was obtained from this source @ -[No] Did you review nursing and triage notes (agree or disagree)? Why? @ -[I reviewed and agree with nursing and triage notes] Were old charts reviewed (outside hosp., previous admission, EMS record, old EKG, old radiological studies, urgent care reports/EKG's, prison records)? Report findings @ -I reviewed prior lab work him per charting on this patient Differential Diagnosis (chest pain, altered mental status, abdominal pain women, abdominal pain men, vaginal bleeding, weakness, fever, dyspnea, syncope, headache, dizziness, GI bleed, back pain, seizure, CVA, palpatations, mental health, musculoskeletal)? @ -Electrolyte abnormality, renal dysfunction, lab data, this is not all inclusive list EKG interpreted by me (3pts min.). @ -EKG shows a sinus rhythm at 90 bpm MS interval 266 dresses 84 QT interval 3:15 QTC is 371. Patient's EKG shows no ST segment elevation or depression. X-rays interpreted by me (1pt min.). @ -Chest x-ray shows no acute abnormality CT interpreted by me (1pt min.). @ -[None done] U/S interpreted by me (1pt. min.). @ -[None done] What testing was considered but not performed or refused? (CT, X-rays, U/S, labs)? Why? @ -[None] What meds were considered but not given or refused? Why? @ -[None] Did you discuss the management of the patient with other professionals (professionals i.e. , PA, NEWS ASSISTANT, lab, RT, psych nurse, social science professor, paralegal legal secretary, teacher, commanding officer motorized squad, special education case manager)? Give summary @ -I spoke with Dr. Lanza he agreed to admit the patient admitted the patient wrote admitting orders Was smoking cessation discussed for >3mins.? @ -[No] Was critical care preformed (if so, how long)? @ -5 minutes Were there social determinants of health that impacted care today? How? (Homelessness, low income, unemployed, alcoholism, drug addiction, transportation, low edu. Level, literacy, decrease access to med. care, detention, rehab)? @ -[No] Was there de-escalation of care discussed even if they declined (Discuss DNR or withdrawal of care, Hospice)? DNR status @ -[No] What co-morbidities impacted this encounter? (DM, HTN, Smoking, COPD, CAD, Cancer, CVA, ARF, Chemo, Hep., AIDS, mental health diagnosis, sleep apnea, morbid obesity)? @ -[None] Was patient admitted / discharged? Hospital course, mention meds given and route, prescriptions, significant lab abnormalities, going to OR and other [facility] info. @ -Patient remained asymptomatic throughout the ED course. Patient's potassium was elevated so I gave the patient sodium bicarb 1 amp, I gave the patient's chest for chloride 1 amp, patient received D50 1 amp, patient also received insulin 10 units. Patient also got a bolus of fluid for the correction of sodium. I we will admit the patient to Dr. Lanza nephrology will be consulted and troponins will be repeated. Undiagnosed new problem with uncertain prognosis? @ -[No] Drug Therapy requiring intensive monitoring for toxicity (Heparin, Nitro, Insulin, Cardizem)? @ -[No] Were any procedures done? @ -[No] Diagnosis/symptom? @ -Hyperkalemia Acute, or Chronic, or Acute on Chronic? @ -Acute Uncomplicated (without systemic symptoms) or Complicated (systemic symptoms)? @ -Complicated Side effects of treatment? @ -[No] Exacerbation, Progression, or Severe Exacerbation? @ -[No] Poses a threat to life or bodily function? How? (Chest pain, [place], [place], pneumonia, PE, COPD, DKA, ARF, appy, cholecystitis, CVA, Diverticulitis, Homicidal, Suicid al, threat to staff... and all critical care pts) @ -Yes is currently due to dysrhythmia and Diagnosis/symptom? @ -Hyponatremia Acute, or Chronic, or Acute on Chronic? @ -Acute Uncomplicated (without systemic symptoms) or Complicated (systemic symptoms)? @ -Complicated Side effects of treatment? @ -[none] Exacerbation, Progression, or Severe Exacerbation] @ -[no] Poses a threat to life or bodily function? @ -[no] Diagnosis/symptom? @ -Hypomagnesemia Acute, or Chronic, or Acute on Chronic? @ -Acute Uncomplicated (without systemic symptoms) or Complicated (systemic symptoms)? @ -Uncomplicated Side effects of treatment? @ -[none] Exacerbation, Progression, or Severe Exacerbation] @ -[no] Poses a threat to life or bodily function? @ -[no] Diagnosis/symptom? @ -Elevated troponin Acute, or Chronic, or Acute on Chronic? @ -Acute Uncomplicated (without systemic symptoms) or Complicated (systemic symptoms)? @ -Complicated Side effects of treatment? @ -[none] Exacerbation, Progression, or Severe Exacerbation] @ -[no] Poses a threat to life or bodily function? @ -Yes this could lead to an TX which can lead to end organ dysfunction - Lab Data Result diagrams: 11/26/22 16:29 11/26/22 16:29 Lab Results 11/26/22 11/26/22 11/26/22 Range/Units 16:29 16:29 16:29 WBC 8.0 (3.8-10.6) k/uL RBC 4.21 L (4.30-5.90) m/uL Hgb 14.2 (13.0-17.5) gm/dL Hct 40.9 (39.0-53.0) % MCV 97.1 (80.0-100.0) fL MCH 33.7 (25.0-35.0) pg MCHC 34.7 (31.0-37.0) g/dL RDW 13.7 (11.5-15.5) % Plt Count 238 (150-450) k/uL MPV 7.1 Neutrophils % 71 % Lymphocytes % 14 % Monocytes % 12 % Eosinophils % 0 % Basophils % 0 % Neutrophils # 5.7 (1.3-7.7) k/uL Lymphocytes # 1.1 (1.0-4.8) k/uL Monocytes # 1.0 (0-1.0) k/uL Eosinophils # 0.0 (0-0.7) k/uL Basophils # 0.0 (0-0.2) k/uL PT 11.3 (9.0-12.0) sec INR 1.1 (<1.2) APTT 25.4 (22.0-30.0) sec Sodium 119 L* (137-145) mmol/L Potassium 7.1 H* (3.5-5.1) mmol/L Chloride 94 L (98-107) mmol/L Carbon Dioxide 16 L (22-30) mmol/L Anion Gap 9 mmol/L BUN 32 H (9-20) mg/dL Creatinine 1.35 H (0.66-1.25) mg/dL Est GFR (CKD-EPI)AfAm 59 (>60 ml/min/1.73 sqM) Est GFR (CKD-EPI)NonAf 51 (>60 ml/min/1.73 sqM) Glucose 105 H (74-99) mg/dL Calcium 8.5 (8.4-10.2) mg/dL Magnesium 1.5 L (1.6-2.3) mg/dL Total Bilirubin 1.8 H (0.2-1.3) mg/dL AST 131 H (17-59) U/L ALT 72 H (4-49) U/L Alkaline Phosphatase 273 H (38-126) U/L Troponin I (0.000-0.034) ng/mL Total Protein 6.8 (6.3-8.2) g/dL Albumin 2.7 L (3.5-5.0) g/dL 11/26/22 Range/Units 16:29 WBC (3.8-10.6) k/uL RBC (4.30-5.90) m/uL Hgb (13.0-17.5) gm/dL Hct (39.0-53.0) % MCV (80.0-100.0) fL MCH (25.0-35.0) pg MCHC (31.0-37.0) g/dL RDW (11.5-15.5) % Plt Count (150-450) k/uL MPV Neutrophils % % Lymphocytes % % Monocytes % % Eosinophils % % Basophils % % Neutrophils # (1.3-7.7) k/uL Lymphocytes # (1.0-4.8) k/uL Monocytes # (0-1.0) k/uL Eosinophils # (0-0.7) k/uL Basophils # (0-0.2) k/uL PT (9.0-12.0) sec INR (<1.2) APTT (22.0-30.0) sec Sodium (137-145) mmol/L Potassium (3.5-5.1) mmol/L Chloride (98-107) mmol/L Carbon Dioxide (22-30) mmol/L Anion Gap mmol/L BUN (9-20) mg/dL Creatinine (0.66-1.25) mg/dL Est GFR (CKD-EPI)AfAm (>60 ml/min/1.73 sqM) Est GFR (CKD-EPI)NonAf (>60 ml/min/1.73 sqM) Glucose (74-99) mg/dL Calcium (8.4-10.2) mg/dL Magnesium (1.6-2.3) mg/dL Total Bilirubin (0.2-1.3) mg/dL AST (17-59) U/L ALT (4-49) U/L Alkaline Phosphatase (38-126) U/L Troponin I 0.037 H* (0.000-0.034) ng/mL Total Protein (6.3-8.2) g/dL Albumin (3.5-5.0) g/dL Critical Care Time Critical Care Time: Yes Total Critical Care Time: 35 Disposition Clinical Impression: Hyperkalemia, Hyponatremia, Hypomagnesemia, Elevated troponin Disposition: ADMITTED IP TO THIS HOSP Referrals: Chang Douglas MD [Primary Care Provider] - 1-2 days Time of Disposition: 19:28
[2022-11-26 16:50] LABS: ALT 72 U/L (4-49); African American GFR (CKD) 59 (>60 ml/min/1.73 sqM); Anion Gap 9 mmol/L; Blood Urea Nitrogen 32 mg/dL (9-20); Calcium 8.5 mg/dL (8.4-10.2); Carbon Dioxide 16 mmol/L (22-30); Chloride 94 mmol/L (98-107); Glucose 105 mg/dL (74-99); Non-African American GFR(CKD) 51 (>60 ml/min/1.73 sqM); Total Bilirubin 1.8 mg/dL (0.2-1.3)
[2022-11-26 16:53] LABS: INR 1.1 (<1.2); Partial Thromboplastin Time 25.4 sec (22.0-30.0); Prothrombin Time 11.3 sec (9.0-12.0)
--- NOTE | 2022-11-26 17:02 | XR ---
EXAMINATION TYPE: XR chest 2V DATE OF EXAM: 11/26/2022 4:47 PM COMPARISON: CT chest 08/26/2022 TECHNIQUE: XR chest 2V Frontal and lateral views of the chest. CLINICAL INDICATION:Male, 76 years old with history of Chest Pain; FINDINGS: Lungs/Pleura: Streaky atelectasis in the lung bases. Prominent interstitial lung markings are seen sc attered throughout the lungs with flattening of the diaphragm and increased lucency of the lung apice s. No evidence of focal consolidation, pneumothorax or pleural effusion. Pulmonary vascularity: Unremarkable. Heart/mediastinum: Cardiomediastinal silhouette is unremarkable. Musculoskeletal: No acute osseous pathology. IMPRESSION: 1. No acute cardiopulmonary disease process. 2. COPD changes.
[2022-11-26 17:04] LABS: Albumin 2.7 g/dL (3.5-5.0); Potassium 7.1 mmol/L (3.5-5.1); Sodium 119 mmol/L (137-145); Total Protein 6.8 g/dL (6.3-8.2)
[2022-11-26 17:05] LABS: AST 131 U/L (17-59); Alkaline Phosphatase 273 U/L (38-126); Magnesium 1.5 mg/dL (1.6-2.3)
[2022-11-26] MEDS ORDERED: INSULIN REGULAR 100 UNIT/ML VIAL (IV) IV ONE (17:17)
[2022-11-26] MEDS ORDERED: SODIUM BICARB 8.4% 50 ML SYR (1 MEQ/ML) IV STA (17:17)
[2022-11-26] MEDS ORDERED: DEXTROSE 50% SYRINGE 50 ML IVP STA (17:17)
[2022-11-26] MEDS ORDERED: CALCIUM CHLORIDE 100 MG/ML 10 ML SYRINGE IVP STA (17:17)
[2022-11-26] MEDS ORDERED: SODIUM ZIRCONIUM CYCLOSILICATE 10 GM PACKET PO ONE (17:18)
[2022-11-26] MEDS ORDERED: MAGNESIUM SULFATE-D5W PMX 1 GM in DEXTROSE/WATER 1 100ML.BAG IVPB ONE (17:19)
[2022-11-26] MEDS ORDERED: SODIUM CHLORIDE 0.9% 500 ML 500 ML IV ONE (17:19)
[2022-11-26] MEDS ORDERED: FUROSEMIDE 10 MG/ML 2 ML VIAL IV ONE (17:20)
[2022-11-26] MEDS ORDERED: NALOXONE 0.4 MG/ML 1 ML VIAL IV PRN (19:28)
[2022-11-26 20:05] LABS: Basophils % (A) 0 %; Eosinophils # (A) 0.1 k/uL (0-0.7); Eosinophils % (A) 1 %; HCT 36.8 % (39.0-53.0); HGB 13.1 gm/dL (13.0-17.5); Lymphocytes # (A) 2.4 k/uL (1.0-4.8); Lymphocytes % (A) 24 %; MCH 34.1 pg (25.0-35.0); MCHC 35.6 g/dL (31.0-37.0); MCV 95.8 fL (80.0-100.0); Mean Platelet Volume 7.1; Monocytes # (A) 1.4 k/uL (0-1.0); Monocytes % (A) 14 %; Neutrophils # (A) 5.9 k/uL (1.3-7.7); Neutrophils % (A) 59 %; Platelet Count 240 k/uL (150-450); RBC 3.84 m/uL (4.30-5.90); RDW 13.6 % (11.5-15.5); WBC 10.1 k/uL (3.8-10.6)
[2022-11-26 20:13] LABS: ALT 66 U/L (4-49); AST 102 U/L (17-59); African American GFR (CKD) 61 (>60 ml/min/1.73 sqM); Albumin 2.3 g/dL (3.5-5.0); Alkaline Phosphatase 249 U/L (38-126); Anion Gap 6 mmol/L; Blood Urea Nitrogen 31 mg/dL (9-20); Calcium 8.8 mg/dL (8.4-10.2); Carbon Dioxide 19 mmol/L (22-30); Chloride 96 mmol/L (98-107); Non-African American GFR(CKD) 53 (>60 ml/min/1.73 sqM); Potassium 5.7 mmol/L (3.5-5.1); Sodium 121 mmol/L (137-145); Total Bilirubin 1.5 mg/dL (0.2-1.3)
[2022-11-26] MEDS: SODIUM CHLORIDE 0.9% 1,000 ML IV SCH (20:17)
[2022-11-26 20:18] LABS: Glucose 41 mg/dL (74-99)
[2022-11-26 20:24] LABS: Glucose,Whole Blood 62 mg/dL (70-110)
[2022-11-26 20:54] LABS: Glucose,Whole Blood 65 mg/dL (70-110)
[2022-11-26 21:23] LABS: Glucose,Whole Blood 71 mg/dL (70-110)
[2022-11-26 23:53] LABS: Glucose,Whole Blood 127 mg/dL (70-110)
[2022-11-27] MEDS: SODIUM CHLORIDE 0.9% 1,000 ML IV SCH (08:39)
[2022-11-27 08:48] LABS: Glucose,Whole Blood 60 mg/dL (70-110)
[2022-11-27 09:20] LABS: Glucose,Whole Blood 95 mg/dL (70-110)
[2022-11-27] MEDS ORDERED: ACETAMINOPHEN TAB 325 MG TAB PO PRN (10:09)
[2022-11-27] MEDS ORDERED: FUROSEMIDE 20 MG TAB PO SCH (10:09)
[2022-11-27] MEDS ORDERED: ONDANSETRON 4 MG TAB PO PRN (11:07)
[2022-11-27 11:15] LABS: African American GFR (CKD) 65 (>60 ml/min/1.73 sqM); Anion Gap 7 mmol/L; Blood Urea Nitrogen 29 mg/dL (9-20); Calcium 8.6 mg/dL (8.4-10.2); Carbon Dioxide 16 mmol/L (22-30); Chloride 98 mmol/L (98-107); Glucose 103 mg/dL (74-99); Non-African American GFR(CKD) 56 (>60 ml/min/1.73 sqM); Sodium 121 mmol/L (137-145)
[2022-11-27 11:25] LABS: Potassium 6.3 mmol/L (3.5-5.1)
[2022-11-27] MEDS ORDERED: DEXTROSE 50% SYRINGE 50 ML IVP STA ×2 (11:48→17:18)
--- NOTE | 2022-11-27 11:48 | P.NPCON ---
History of Present Illness - Reason for Consult hyperkalemia - History of Present Illness Patient is a 76-year-old male who was admitted to the hospital due to abnormal labs noted as outpatient. Patient was seen at our office for follow-up after recent hospitalization and was advised to go to the ER due to potassium of 7.1. Sodium was also low at 119. Patient was recently discharged from the hospital on 11/07/2022 after hospitalization for fluid overload, acute kidney injury and ascites. Patient al so had severe hyponatremia which was hypervolemic and improved with diuresis. Patient is maintained on Aldactone. He denied use of any nonsteroidal anti- inflammatory agents. No significant urinary symptoms. Patient did admit to worsening lower extremity swelling over the last week or so. Blood pressure is on the lower side with systolic around 101-110 mmHg. Ultrasound on 11/04/2022 shows no evidence of hydronephrosis. Chest x-ray is unremarkable Review of Systems As per HPI Past Medical History Past Medical History: CVA/TIA, GERD/Reflux, Hypertension, Liver Disease Additional Past Medical History / Comment(s): cirrhosis August 2022, Stroke 10/09/2022 and taking plavix, ETOH history 8-10 beers and 1 or 2 shots of vodka per day(last drink 08/2022). History of Any Multi-Drug Resistant Organisms: None Reported Past Surgical History: Joint Replacement Additional Past Surgical History / Comment(s): Lt hip replacement three times, rt knee replaced, paracentesis 10/02/2022 Past Anesthesia/Blood Transfusion Reactions: No Reported Reaction Past Psychological History: No Psychological Hx Reported Smoking Status: Former smoker Past Alcohol Use History: None Reported Past Drug Use History: None Reported - Past Family History Father Family Medical History: No Reported History Medications and Allergies Home Medications Medication Instructions Recorded Confirmed Type Acetaminophen Tab [Tylenol] 325 mg PO Q4H PRN 11/01/22 11/26/22 History Aspirin EC [Ecotrin Low Dose] 81 mg PO DAILY 11/01/22 11/26/22 History Atorvastatin [Lipitor] 80 mg PO HS 11/01/22 11/26/22 History Multivit-Min/FA/Lycopen/Lutein 1 tab PO DAILY 11/01/22 11/26/22 History [Centrum Silver Men Tablet] Pantoprazole [Protonix] 40 mg PO DAILY 11/01/22 11/26/22 History Furosemide [Lasix] 20 mg PO BID #0 11/07/22 11/26/22 Rx Spironolactone [Aldactone] 100 mg PO BID #60 tab 11/07/22 11/26/22 Rx Allergies Allergy/AdvReac Type Severity Reaction Status Date / Time No Known Allergies Allergy Verified 11/26/22 17:00 Physical Exam Vitals: Vital Signs Temp Pulse Pulse Resp BP BP Pulse Ox 11/27/22 08:38 97.7 F 93 16 101/82 95 11/27/22 03:44 98.6 F 87 18 101/64 96 11/27/22 02:00 84 11/27/22 00:00 97.8 F 84 18 108/80 98 11/26/22 23:00 85 13 113/74 99 11/26/22 22:00 94 20 110/80 98 11/26/22 21:00 97 13 120/83 99 11/26/22 20:00 97 22 104/73 98 11/26/22 19:30 98 23 127/95 97 11/26/22 19:00 21 126/82 98 11/26/22 18:30 93 18 125/86 98 11/26/22 18:00 96 13 113/80 100 11/26/22 17:30 86 17 116/86 98 11/26/22 17:00 89 12 128/81 99 11/26/22 16:02 97 18 127/87 100 Intake and Output 11/26/22 11/27/22 11/27/22 22:59 06:59 14:59 Intake Total 240 Balance 240 Intake: Oral 240 Other: Weight 90.265 kg 91.2 kg Patient is awake, comfortable, in no acute distress Mildly short of breath Examination of the heart S1 and S2 Examination of the lungs bilateral breath sounds are heard Abdomen is soft distended with ascites. Nontender Examination of lower extremities shows edema 2+ bilaterally BELT CUTTER exam grossly intact Results - Lab Results Most recent lab results Calcium 8.6 mg/dL (8.4-10.2) 11/27/22 10:23 Magnesium 1.5 mg/dL (1.6-2.3) L 11/26/22 16:29 11/26/22 19:56 11/27/22 10:23 Assessment and Plan Assessment: 1. Acute kidney injury, nonoliguric. ATN versus hepatorenal syndrome. We will maintain patient on midodrine. Check UA. Ultrasound on 11/04/2022 did not show any evidence of obstructive uropathy. 2. Hyperkalemia associated with acute kidney injury, rule out obstructive uropathy. Blood sugar is not elevated. Aldactone will be held. 3. Hypervolemic hyponatremia 4. Non-gap metabolic acidosis associated with acute kidney injury 5. Liver cirrhosis with ascites and portal hypertension. History of paracentesis during last admission on 11/06/2022 Plan: Add midodrine Continue with Lasix Straight cath to rule out urine retention. Bladder scan will not be accurate due to underlying ascites Treat hyperkalemia with IV medications Hold Aldactone Repeat potassium this evening Hold IV fluids Check UA Thank you for the consultation. We will continue to follow the patient with you during his hospitalization.
[2022-11-27] MEDS ORDERED: SODIUM BICARB 8.4% 50 ML SYR (1 MEQ/ML) IV STA (11:49)
[2022-11-27] MEDS ORDERED: CALCIUM GLUCONATE IN NACL 1 GM in SALINE 1 100ML.BAG IVPB ONE (11:49)
[2022-11-27] MEDS ORDERED: INSULIN REGULAR 100 UNIT/ML VIAL (IV) IV ONE ×2 (11:49→17:45)
[2022-11-27] MEDS ORDERED: FUROSEMIDE 10 MG/ML 4 ML VIAL IV SCH (12:00)
[2022-11-27] MEDS: MULTIVITAMINS, THERA 1 EACH TAB PO SCH (12:39)
[2022-11-27] MEDS: PANTOPRAZOLE 40 MG TABLET PO SCH (12:39)
[2022-11-27] MEDS: MIDODRINE 5 MG TAB PO SCH ×2 (12:40→17:49)
--- NOTE | 2022-11-27 13:35 | US ---
EXAMINATION TYPE: US abdomen limited DATE OF EXAM: 11/27/2022 COMPARISON: US CLINICAL INDICATION: Male, 76 years old with history of ascites; Ascites check TECHNIQUE: Multiple grayscale ultrasound images of the bilateral flanks were obtained. FINDINGS/IMPRESSION: Moderate to large volume ascites.
[2022-11-27] MEDS: SODIUM BICARBONATE TAB 650 MG TAB PO SCH ×2 (13:39→20:27)
[2022-11-27 14:13] LABS: Appearance,Urine Clear (Clear); Bacteria,Urine Rare /hpf; Bilirubin,Urine Negative (Negative); Blood,Urine Trace (Negative); Color,Urine Yellow; Glucose,Urine (UA) Negative (Negative); Granular Casts,Urine 3 /lpf (0); Hyaline Casts,Urine 3 /lpf (0-2); Ketones,Urine Negative (Negative); Leukocyte Esterase,Urine Negative (Negative); Mucus,Urine Rare /hpf; Nitrite,Urine Negative (Negative); PH, Urine 5.5 (5.0-8.0); Protein,Urine Negative (Negative); RBC,Urine 3 /hpf (0-5); Squamous Epithelial Cell,Urine 1 /hpf (0-4); Urobilinogen,Urine <2.0 mg/dL (<2.0); WBC,Urine 9 /hpf (0-5)
--- NOTE | 2022-11-27 15:22 | P.HPIM ---
History of Present Illness H&P Date: 11/26/22 Chief Complaint: Hyperkalemia This is a pleasant 76-year-old patient who follows with Dr. Chang Douglas. August- diagnosed with alcoholic cirrhosis. Follows Dr. Nikole Matt gastroenterology. stopped drinking in August 2022. Was drinking 8-10 beers a day prior to that for years. Patient's had repeated paracentesis. Now sent in to the ER because of elevated potassium on labs of 7. Breathing has been stable. Abdominal distention. Scheduled for paracentesis tomorrow. Some edema. Has been on Aldactone. No fever no chills. No abdominal pain. Appetite is fair. Having bowel movements. at the bedside. In the ER was given calcium chloride, dextrose, insulin, sodium bicarbonate, Lokelma. Review of systems: GEN.: A bit tired EYES: None HEENT: None NECK: None RESPIRATORY: Mild Short of breath CARDIOVASCULAR: None GASTROINTESTINAL: As above GENITOURINARY: None MUSCULOSKELETAL: None LYMPHATICS: None HEMATOLOGICAL: None PSYCHIATRY: None NEUROLOGICAL: None Past medical history to include: Alcoholic cirrhosis diagnosed in August 2022, hypertension, GERD, osteoarthritis Social history: Former smoker. Was drinking 8-10 beers a day up to August 2022. . [facility] Physical examination: VITAL SIGNS: Afebrile, 93, 18, 125/86, 98% room air GENERAL: BMI 28.8, laying in bed awake, mild short of breath. EYES: Pupils equal. Conjunctiva normal. HEENT: External appearance of nose and ears normal, oral cavity grossly normal. NECK: JVD not raised; masses not palpable. HEART: First and second heart sounds are normal; significant edema. LUNGS: Respiratory rate increased; decreased breath. ABDOMEN: Soft, distended, nontender, liver spleen not palpable, no masses palpable. PSYCH: Alert and oriented x3; mood and affect normal. MUSCULOSKELETAL:No Clubbing/cyanosis;muscles-grossly intact NEUROLOGICAL: Cranial nerves grossly intact; no facial asymmetry, power and sensation grossly intact. LYMPHATICS: No lymph nodes palpable in the axilla and neck INVESTIGATIONS, reviewed in the clinical context: November 26: White count 8 hemoglobin 14.2 platelets 238 sodium 119 potassium 7.1 BUN 32 creatinine 1.35 total bilirubin 1.8 AST 131 ALT 72 Troponin I 0.037, 0.042 Albumin 2.7 EKG tracing personally reviewed by me-normal sinus rhythm. Small voltage. Nonspecific T waves. Chest x-ray film personally reviewed by me-some cardiomegaly Assessment plan: -Severe hyperkalemia in a patient with underlying renal failure and on Aldactone. Aldactone discontinued. Patient given Lasix, bicarbonate, calcium chloride, Lokelma, telemetry. -Acute fluid overload from fluid retention from underlying cirrhosis: Fluid restriction 15,000 mL a day. Increase Lasix.. Low-sodium diet -Acute kidney injury likely ATN / hepatorenal syndrome. Nephrology consulted -Suspect underlying chronic kidney disease probable stage III -Hypoalbuminemia secondary to cirrhosis -Severe hyponatremia hypoosmolar from fluid retention Avoid free fluid. Low-sodium diet -Large ascites symptomatic. Paracentesis was ordered -Alcoholic cirrhosis follows with Dr. Nikole Matt -GERD Protonix Discussed with patient and . Hold Aldactone. Past Medical History Past Medical History: CVA/TIA, GERD/Reflux, Hypertension, Liver Disease Additional Past Medical History / Comment(s): cirrhosis August 2022, Stroke 10/09/2022 and taking plavix, ETOH history 8-10 beers and 1 or 2 shots of vodka per day(last drink 08/2022). History of Any Multi-Drug Resistant Organisms: None Reported Past Surgical History: Joint Replacement Additional Past Surgical History / Comment(s): Lt hip replacement three times, rt knee replaced, paracentesis 10/02/2022 Past Anesthesia/Blood Transfusion Reactions: No Reported Reaction Past Psychological History: No Psychological Hx Reported Smoking Status: Former smoker Past Alcohol Use History: None Reported Past Drug Use History: None Reported - Past Family History Father Family Medical History: No Reported History Medications and Allergies Home Medications Medication Instructions Recorded Confirmed Type Acetaminophen Tab [Tylenol] 325 mg PO Q4H PRN 11/01/22 11/26/22 History Aspirin EC [Ecotrin Low Dose] 81 mg PO DAILY 11/01/22 11/26/22 History Atorvastatin [Lipitor] 80 mg PO HS 11/01/22 11/26/22 History Multivit-Min/FA/Lycopen/Lutein 1 tab PO DAILY 11/01/22 11/26/22 History [Centrum Silver Men Tablet] Pantoprazole [Protonix] 40 mg PO DAILY 11/01/22 11/26/22 History Furosemide [Lasix] 20 mg PO BID #0 11/07/22 11/26/22 Rx Spironolactone [Aldactone] 100 mg PO BID #60 tab 11/07/22 11/26/22 Rx Allergies Allergy/AdvReac Type Severity Reaction Status Date / Time No Known Allergies Allergy Verified 11/26/22 17:00 Physical Exam Vitals: Vital Signs Temp Pulse Pulse Resp BP BP Pulse Ox 11/27/22 08:38 97.7 F 93 16 101/82 95 11/27/22 03:44 98.6 F 87 18 101/64 96 11/27/22 02:00 84 11/27/22 00:00 97.8 F 84 18 108/80 98 11/26/22 23:00 85 13 113/74 99 11/26/22 22:00 94 20 110/80 98 11/26/22 21:00 97 13 120/83 99 11/26/22 20:00 97 22 104/73 98 11/26/22 19:30 98 23 127/95 97 11/26/22 19:00 21 126/82 98 11/26/22 18:30 93 18 125/86 98 11/26/22 18:00 96 13 113/80 100 11/26/22 17:30 86 17 116/86 98 11/26/22 17:00 89 12 128/81 99 11/26/22 16:02 97 18 127/87 100 Intake and Output 11/26/22 11/27/22 11/27/22 22:59 06:59 14:59 Intake Total 240 Balance 240 Intake: Oral 240 Other: Weight 90.265 kg 91.2 kg Results CBC & Chem 7: 11/26/22 19:56 11/27/22 10:23 Labs: Abnormal Lab Results - Last 24 Hours (Table) 11/26/22 11/26/22 11/26/22 Range/Units 16:29 16:29 16:29 RBC 4.21 L (4.30-5.90) m/uL Hct (39.0-53.0) % Monocytes # (0-1.0) k/uL Sodium 119 L* (137-145) mmol/L Potassium 7.1 H* (3.5-5.1) mmol/L Chloride 94 L (98-107) mmol/L Carbon Dioxide 16 L (22-30) mmol/L BUN 32 H (9-20) mg/dL Creatinine 1.35 H (0.66-1.25) mg/dL Glucose 105 H (74-99) mg/dL POC Glucose (mg/dL) (70-110) mg/dL Magnesium 1.5 L (1.6-2.3) mg/dL Total Bilirubin 1.8 H (0.2-1.3) mg/dL AST 131 H (17-59) U/L ALT 72 H (4-49) U/L Alkaline Phosphatase 273 H (38-126) U/L Troponin I 0.037 H* (0.000-0.034) ng/mL Total Protein (6.3-8.2) g/dL Albumin 2.7 L (3.5-5.0) g/dL 11/26/22 11/26/22 11/26/22 Range/Units 19:56 19:56 19:56 RBC 3.84 L (4.30-5.90) m/uL Hct 36.8 L (39.0-53.0) % Monocytes # 1.4 H (0-1.0) k/uL Sodium 121 L (137-145) mmol/L Potassium 5.7 H (3.5-5.1) mmol/L Chloride 96 L (98-107) mmol/L Carbon Dioxide 19 L (22-30) mmol/L BUN 31 H (9-20) mg/dL Creatinine 1.30 H (0.66-1.25) mg/dL Glucose 41 L* (74-99) mg/dL POC Glucose (mg/dL) (70-110) mg/dL Magnesium (1.6-2.3) mg/dL Total Bilirubin 1.5 H (0.2-1.3) mg/dL AST 102 H (17-59) U/L ALT 66 H (4-49) U/L Alkaline Phosphatase 249 H (38-126) U/L Troponin I 0.042 H* (0.000-0.034) ng/mL Total Protein 6.0 L (6.3-8.2) g/dL Albumin 2.3 L (3.5-5.0) g/dL 11/26/22 11/26/22 11/26/22 Range/Units 20:22 20:53 23:38 RBC (4.30-5.90) m/uL Hct (39.0-53.0) % Monocytes # (0-1.0) k/uL Sodium (137-145) mmol/L Potassium (3.5-5.1) mmol/L Chloride (98-107) mmol/L Carbon Dioxide (22-30) mmol/L BUN (9-20) mg/dL Creatinine (0.66-1.25) mg/dL Glucose (74-99) mg/dL POC Glucose (mg/dL) 62 L 65 L (70-110) mg/dL Magnesium (1.6-2.3) mg/dL Total Bilirubin (0.2-1.3) mg/dL AST (17-59) U/L ALT (4-49) U/L Alkaline Phosphatase (38-126) U/L Troponin I 0.046 H* (0.000-0.034) ng/mL Total Protein (6.3-8.2) g/dL Albumin (3.5-5.0) g/dL 11/26/22 11/27/22 Range/Units 23:51 08:47 RBC (4.30-5.90) m/uL Hct (39.0-53.0) % Monocytes # (0-1.0) k/uL Sodium (137-145) mmol/L Potassium (3.5-5.1) mmol/L Chloride (98-107) mmol/L Carbon Dioxide (22-30) mmol/L BUN (9-20) mg/dL Creatinine (0.66-1.25) mg/dL Glucose (74-99) mg/dL POC Glucose (mg/dL) 127 H 60 L (70-110) mg/dL Magnesium (1.6-2.3) mg/dL Total Bilirubin (0.2-1.3) mg/dL AST (17-59) U/L ALT (4-49) U/L Alkaline Phosphatase (38-126) U/L Troponin I (0.000-0.034) ng/mL Total Protein (6.3-8.2) g/dL Albumin (3.5-5.0) g/dL
--- NOTE | 2022-11-27 15:40 | P.PN ---
Progress Note - Text Progress Note Date: 11/27/22 Chief Complaint: Hyperkalemia This is a pleasant 76-year-old patient who follows with Dr. Chang Douglas. May- diagnosed with alcoholic cirrhosis. Follows Dr. Nikole Matt gastroenterology. stopped drinking in August 2022. Was drinking 8-10 beers a day prior to that for years. Patient's had repeated paracentesis. Now sent in to the ER because of elevated potassium on labs of 7. Breathing has been stable. Abdominal distention. Scheduled for paracentesis tomorrow. Some edema. Has been on Aldactone. No fever no chills. No abdominal pain. Appetite is fair. Having bowel movements. at the bedside. In the ER was given calcium chloride, dextrose, insulin, sodium bicarbonate, Lokelma. 11/27/2022: Laying in bed. at the bedside. Paracentesis as ordered. Albumin to be given now for that. Later potassium came back at 6.3. Lokelma ordered. On fluid restriction. IV Lasix. Active Medications Acetaminophen (Acetaminophen Tab 325 Mg Tab) 325 mg PO Q4H PRN PRN Reason: Pain or Fever > 100.5 Aspirin (Aspirin 81 Mg) 81 mg PO DAILY [facility] Atorvastatin Calcium (Atorvastatin 80 Mg Tab) 80 mg PO HS [facility] Furosemide (Furosemide 10 Mg/Ml 4 Ml Vial) 40 mg IV Q8HR [facility] Midodrine (Midodrine 5 Mg Tab) 5 mg PO AC-TID [facility] Last Admin: 11/27/22 12:40 Dose: 5 mg Multivitamins (Multivitamins, Thera 1 Each Tab) 1 each PO DAILY [facility] Last Admin: 11/27/22 12:39 Dose: 1 each Naloxone HCl (Naloxone 0.4 Mg/Ml 1 Ml Vial) 0.2 mg IV Q2M PRN PRN Reason: Opioid Reversal Ondansetron HCl (Ondansetron 4 Mg Tab) 4 mg PO Q8HR PRN PRN Reason: Nausea And Vomiting Pantoprazole Sodium (Pantoprazole 40 Mg Tablet) 40 mg PO AC-BRKFST [facility] Last Admin: 11/27/22 12:39 Dose: 40 mg Sodium Bicarbonate (Sodium Bicarbonate Tab 650 Mg Tab) 650 mg PO BID [facility] Last Admin: 11/27/22 13:39 Dose: 650 mg Sodium Zirconium Cyclosilicate (Sodium Zirconium Cyclosilicate 10 Gm Packet) 10 gm PO TID [facility] Stop: 11/28/22 16:01 Past medical history to include: Alcoholic cirrhosis diagnosed in August 2022, hypertension, GERD, osteoarthritis Social history: Former smoker. Was drinking 8-10 beers a day up to August 2022. . 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 EYES: Pupils equal. Conjunctiva normal. HEENT: External appearance of nose and ears normal, oral cavity grossly normal. NECK: JVD not raised; masses not palpable. HEART: First and second heart sounds are normal; significant edema. LUNGS: Respiratory rate increased; decreased breath. ABDOMEN: Soft, distended, nontender, liver spleen not palpable, no masses palpable. PSYCH: Alert and oriented x3; mood and affect normal. MUSCULOSKELETAL:No Clubbing/cyanosis;muscles-grossly intact INVESTIGATIONS, reviewed in the clinical context: November 27: Sodium 121 potassium 6.3 creatinine 1.25 November 26: White count 8 hemoglobin 14.2 platelets 238 sodium 119 potassium 7.1 BUN 32 creatinine 1.35 total bilirubin 1.8 AST 131 ALT 72 Troponin I 0.037, 0.042 Albumin 2.7 EKG tracing personally reviewed by me-normal sinus rhythm. Small voltage. Nonspecific T waves. Chest x-ray film personally reviewed by me-some cardiomegaly Assessment plan: -Severe hyperkalemia in a patient with underlying renal failure and on Aldactone.: Slow to respond Aldactone discontinued. IV Lasix. Lokelma 10 mg 3 times a day. -Acute fluid overload from fluid retention from underlying cirrhosis: Fluid restriction 15,000 mL a day. IV Lasix... Low-sodium diet -Acute kidney injury likely ATN / hepatorenal syndrome. Nephrology following -Suspect underlying chronic kidney disease probable stage III -Hypoalbuminemia secondary to cirrhosis -Severe hyponatremia hypoosmolar from fluid retention Avoid free fluid. Low-sodium diet -Large ascites symptomatic. Not improving Paracentesis pending -Alcoholic cirrhosis follows with Dr. Nikole Matt -MAL Protonix Discussed with patient and . Pending paracentesis. Lokelma added. Renal diet.
[2022-11-27 16:31] LABS: African American GFR (CKD) 66 (>60 ml/min/1.73 sqM); Anion Gap 7 mmol/L; Blood Urea Nitrogen 30 mg/dL (9-20); Calcium 8.6 mg/dL (8.4-10.2); Carbon Dioxide 19 mmol/L (22-30); Chloride 96 mmol/L (98-107); Glucose 78 mg/dL (74-99); Non-African American GFR(CKD) 57 (>60 ml/min/1.73 sqM); Sodium 122 mmol/L (137-145)
[2022-11-27 16:33] LABS: Potassium 6.2 mmol/L (3.5-5.1)
[2022-11-27] MEDS: SODIUM ZIRCONIUM CYCLOSILICATE 10 GM PACKET PO SCH ×2 (17:48→20:28)
[2022-11-27] MEDS: FUROSEMIDE 10 MG/ML 4 ML VIAL IV SCH ×2 (17:48→23:11)
[2022-11-27] MEDS ORDERED: DEXTROSE 5% IN WATER 1,000 ML with SODIUM BICARB (1 MEQ/ML) 150 ML IV SCH (19:00)
[2022-11-27] MEDS: ATORVASTATIN 80 MG TAB PO SCH (20:27)
[2022-11-28] MEDS: MIDODRINE 5 MG TAB PO SCH ×3 (06:11→16:58)
[2022-11-28] MEDS: PANTOPRAZOLE 40 MG TABLET PO SCH (06:11)
[2022-11-28] MEDS: SODIUM BICARBONATE TAB 650 MG TAB PO SCH ×2 (08:06→19:44)
[2022-11-28] MEDS: FUROSEMIDE 10 MG/ML 4 ML VIAL IV SCH ×3 (08:06→23:10)
[2022-11-28] MEDS: SODIUM ZIRCONIUM CYCLOSILICATE 10 GM PACKET PO SCH ×2 (08:06→16:58)
[2022-11-28] MEDS: MULTIVITAMINS, THERA 1 EACH TAB PO SCH (08:06)
[2022-11-28 08:22] LABS: African American GFR (CKD) 67 (>60 ml/min/1.73 sqM); Anion Gap 7 mmol/L; Blood Urea Nitrogen 28 mg/dL (9-20); Calcium 8.1 mg/dL (8.4-10.2); Carbon Dioxide 20 mmol/L (22-30); Chloride 95 mmol/L (98-107); Glucose 86 mg/dL (74-99); Non-African American GFR(CKD) 58 (>60 ml/min/1.73 sqM); Potassium 5.1 mmol/L (3.5-5.1); Sodium 122 mmol/L (137-145)
[2022-11-28] MEDS: ASPIRIN 81 MG PO SCH (10:19)
--- NOTE | 2022-11-28 11:52 | US ---
Ultrasound-guided paracentesis. DATE OF EXAM: 11/28/2022 CLINICAL HISTORY: Ascites The procedure was discussed with the patient. The risks, complications, benefits, and alternatives we re discussed and any questions were answered. Informed consent was obtained. The patient was placed s upine on the ultrasound table and prepped and draped in the usual sterile fashion. All elements of maximal barrier technique were utilized. Under ultrasound guidance, access into the right lower quadrant was obtained, via the paracentesis catheter system and direct ultrasound guidanc e. Approximately 8.1 liters of straw-colored fluid was removed. The patient was stable throughout the pr ocedure and remained stable upon discharge from Department of Radiology. IMPRESSION: Successful paracentesis under ultrasound guidance.
[2022-11-28] MEDS: ALBUMIN HUMAN 25% 50 ML in EMPTY BAG 1 BAG IVPB SCH ×4 (13:06→13:30)
--- NOTE | 2022-11-28 14:45 | P.PN ---
Subjective Patient is seen for follow-up for hyponatremia and acute kidney injury as well as hyperkalemia. No evidence of urinary retention Potassium has improved to 5.1 today. Sodium is staying at 122. Creatinine 1.2 mg/dL today. Next Status post paracentesis today with 8.1 L of fluid removed. Status post albumin. No significant complaints. Blood pressure was low with systolic in the 90s but currently asymptomatic. Objective - Vital Signs Vital signs: Vital Signs Temp 98 F 11/28/22 08:11 Pulse 88 11/28/22 12:18 Resp 18 11/28/22 12:18 BP 94/60 11/28/22 12:18 Pulse Ox 93 L 11/28/22 12:18 FiO2 Intake & Output 11/27/22 11/28/22 11/28/22 18:59 06:59 18:59 Intake Total 240 118 Output Total 50 650 400 Balance 190 650 -282 Weight 91.2 kg 91 kg 83.18 kg Intake: Oral 240 118 Output: Urine 50 650 400 Straight 50 Other: Voiding Method Urinal Urinal Urinal # Voids 1 # Bowel Movements 1 - Exam Patient is awake, comfortable, in no acute distress Examination of the heart S1 and S2 Examination of the lungs bilateral breath sounds are heard Abdomen is soft , nontender Examination of lower extremities shows edema 1+ bilaterally [employer]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 Acute kidney injury, nonoliguric. ATN versus hepatorenal syndrome. We will maintain patient on midodrine. Check UA. Ultrasound on 11/04/2022 did not show any evidence of obstructive uropathy. 2. Hyperkalemia associated with acute kidney injury, rule out obstructive uropathy. Blood sugar is not elevated. Aldactone will be held. 3. Hypervolemic hyponatremia 4. Non-gap metabolic acidosis associated with acute kidney injury 5. Liver cirrhosis with ascites and portal hypertension. History of paracentesis during last admission on 11/06/2022 Plan: Maintain low potassium diet Continue with IV Lasix Tolvaptan 1 Continue with midodrine Continue oral sodium bicarb
--- NOTE | 2022-11-28 15:42 | P.PN ---
Progress Note - Text Progress Note Date: 11/28/22 Chief Complaint: Hyperkalemia This is a pleasant 76-year-old patient who follows with Dr. Chang Douglas. May- diagnosed with alcoholic cirrhosis. Follows Dr. Nikole Matt gastroenterology. stopped drinking in August 2022. Was drinking 8-10 beers a day prior to that for years. Patient's had repeated paracentesis. Now sent in to the ER because of elevated potassium on labs of 7. Breathing has been stable. Abdominal distention. Scheduled for paracentesis tomorrow. Some edema. Has been on Aldactone. No fever no chills. No abdominal pain. Appetite is fair. Having bowel movements. at the bedside. In the ER was given calcium chloride, dextrose, insulin, sodium bicarbonate, Lokelma. 11/27/2022: Laying in bed. at the bedside. Paracentesis as ordered. Albumin to be given now for that. Later potassium came back at 6.3. Lokelma ordered. On fluid restriction. IV Lasix. 11/28/2022: Patient underwent paracentesis 8.1 L removed today. Feeling much better. Sitting edge of the bed. On IV Lasix. Sodium bicarbonate drip. Also Lokelma. Discussed with the patient and . Eating well. Patient given 1 dose of tolvaptan. Midodrine added for low blood pressure. Active Medications Acetaminophen (Acetaminophen Tab 325 Mg Tab) 325 mg PO Q4H PRN PRN Reason: Pain or Fever > 100.5 Aspirin (Aspirin 81 Mg) 81 mg PO DAILY [facility] Last Admin: 11/28/22 10:19 Dose: Not Given Atorvastatin Calcium (Atorvastatin 80 Mg Tab) 80 mg PO HS [facility] Last Admin: 11/27/22 20:27 Dose: 80 mg Furosemide (Furosemide 10 Mg/Ml 4 Ml Vial) 40 mg IV Q8HR [facility] Last Admin: 11/28/22 08:06 Dose: 40 mg Midodrine (Midodrine 5 Mg Tab) 5 mg PO AC-TID [facility] Last Admin: 11/28/22 12:16 Dose: 5 mg Multivitamins (Multivitamins, Thera 1 Each Tab) 1 each PO DAILY [facility] Last Admin: 11/28/22 08:06 Dose: 1 each Naloxone HCl (Naloxone 0.4 Mg/Ml 1 Ml Vial) 0.2 mg IV Q2M PRN PRN Reason: Opioid Reversal Ondansetron HCl (Ondansetron 4 Mg Tab) 4 mg PO Q8HR PRN PRN Reason: Nausea And Vomiting Pantoprazole Sodium (Pantoprazole 40 Mg Tablet) 40 mg PO AC-BRKFST [facility] Last Admin: 11/28/22 06:11 Dose: 40 mg Sodium Bicarbonate (Sodium Bicarbonate Tab 650 Mg Tab) 650 mg PO BID [facility] Last Admin: 11/28/22 08:06 Dose: 650 mg Sodium Zirconium Cyclosilicate (Sodium Zirconium Cyclosilicate 10 Gm Packet) 10 gm PO TID [facility] Stop: 11/28/22 16:01 Last Admin: 11/28/22 08:06 Dose: 10 gm Tolvaptan (Tolvaptan 15 Mg Tablet) 15 mg PO ONCE ONE Stop: 11/28/22 14:46 Past medical history to include: Alcoholic cirrhosis diagnosed in August 2022, hypertension, GERD, osteoarthritis Social history: Former smoker. Was drinking 8-10 beers a day up to August 2022. . 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 EYES: Pupils equal. Conjunctiva normal. HEENT: External appearance of nose and ears normal, oral cavity grossly normal. NECK: JVD not raised; masses not palpable. HEART: First and second heart sounds are normal; edema present LUNGS: Respiratory rate increased; decreased breath. ABDOMEN: Soft, , nontender, liver spleen not palpable, no masses palpable. PSYCH: Alert and oriented x3; mood and affect normal. MUSCULOSKELETAL:No Clubbing/cyanosis;muscles-grossly intact INVESTIGATIONS, reviewed in the clinical context: November 28: Sodium 122 potassium 5.1 bicarb 20 BUN 28 creatinine 1.21 November 27: Sodium 121 potassium 6.3 creatinine 1.25 November 26: White count 8 hemoglobin 14.2 platelets 238 sodium 119 potassium 7.1 BUN 32 creatinine 1.35 total bilirubin 1.8 AST 131 ALT 72 Troponin I 0.037, 0.042 Albumin 2.7 EKG tracing personally reviewed by me-normal sinus rhythm. Small voltage. Nonspecific T waves. Chest x-ray film personally reviewed by me-some cardiomegaly Assessment plan: -Severe hyperkalemia in a patient with underlying renal failure and on Aldactone.: Better Aldactone discontinued. IV Lasix. Lokelma 10 mg 3 times a day. -Acute fluid overload from fluid retention from underlying cirrhosis: Some improvement Fluid restriction 15,000 mL a day. IV Lasix... Low-sodium diet -Acute kidney injury likely ATN / hepatorenal syndrome. Nephrology following -Portal hypertension secondary cirrhosis -Metabolic acidosis from renal failure. Sodium bicarbonate drip given. Changed to oral sodium bicarbonate -Suspect underlying chronic kidney disease probable stage III -Hypoalbuminemia secondary to cirrhosis -Severe hyponatremia hypoosmolar from fluid retention Avoid free fluid. Low-sodium diet. Received 1 dose of tolvapton today -Large ascites symptomatic. Paracentesis 8.1 L removed today. -Alcoholic cirrhosis follows with Dr. Nikole Matt -GERD Protonix Nephrology Black to wash the patient another 24 hours. Continue IV Lasix. She to oral bicarbonate. Discussed with patient and . 1 dose of IV.tolvapton.
[2022-11-28] MEDS ORDERED: TOLVAPTAN 15 MG TABLET PO ONE (15:45)
[2022-11-28] MEDS: ATORVASTATIN 80 MG TAB PO SCH (19:44)
[2022-11-28 23:25] VITALS: RESP 16
[2022-11-29] MEDS: MIDODRINE 5 MG TAB PO SCH (06:25)
[2022-11-29] MEDS: PANTOPRAZOLE 40 MG TABLET PO SCH (06:25)
[2022-11-29 08:28] LABS: Basophils % (A) 0 %; Eosinophils # (A) 0.1 k/uL (0-0.7); Eosinophils % (A) 1 %; HCT 36.8 % (39.0-53.0); HGB 12.8 gm/dL (13.0-17.5); Lymphocytes # (A) 2.3 k/uL (1.0-4.8); Lymphocytes % (A) 30 %; MCH 33.3 pg (25.0-35.0); MCHC 34.7 g/dL (31.0-37.0); Mean Platelet Volume 7.4; Monocytes # (A) 0.8 k/uL (0-1.0); Monocytes % (A) 11 %; Neutrophils # (A) 4.2 k/uL (1.3-7.7); Neutrophils % (A) 56 %; Platelet Count 190 k/uL (150-450); RBC 3.83 m/uL (4.30-5.90); RDW 13.5 % (11.5-15.5); WBC 7.6 k/uL (3.8-10.6)
[2022-11-29 08:40] LABS: African American GFR (CKD) 76 (>60 ml/min/1.73 sqM); Anion Gap 7 mmol/L; Blood Urea Nitrogen 25 mg/dL (9-20); Calcium 7.8 mg/dL (8.4-10.2); Carbon Dioxide 26 mmol/L (22-30); Chloride 92 mmol/L (98-107); Glucose 91 mg/dL (74-99); Magnesium 1.3 mg/dL (1.6-2.3); Non-African American GFR(CKD) 66 (>60 ml/min/1.73 sqM); Sodium 125 mmol/L (137-145)
[2022-11-29] MEDS ORDERED: Magnesium Replacement Protocol 1 EACH MISC MISCELLANE PRN (08:53)
[2022-11-29 09:17] VITALS: TEMP 98
[2022-11-29] MEDS: MULTIVITAMINS, THERA 1 EACH TAB PO SCH (09:18)
[2022-11-29] MEDS: ASPIRIN 81 MG PO SCH (09:18)
[2022-11-29] MEDS: MAGNESIUM SULFATE-D5W PMX 1 GM in DEXTROSE/WATER 1 100ML.BAG IVPB SCH ×4 (09:18→13:28)
[2022-11-29] MEDS: FUROSEMIDE 10 MG/ML 4 ML VIAL IV SCH (09:18)
[2022-11-29] MEDS: SODIUM BICARBONATE TAB 650 MG TAB PO SCH (09:18)
--- NOTE | 2022-11-29 11:57 | P.PN ---
Subjective Patient is seen for follow-up for hyponatremia and acute kidney injury as well as hyperkalemia. No evidence of urinary retention Potassium has improved to 4.0 today. Sodium is staying at 125 today. Status post Samsca. Status post paracentesis today with 8.1 L of fluid removed. Status post albumin. No significant complaints. Blood pressure has been low. Started on midodrine this admission. Objective - Vital Signs Vital signs: Vital Signs Temp 98.0 F 11/29/22 08:00 Pulse 98 11/29/22 08:00 Resp 16 11/29/22 08:00 BP 95/70 11/29/22 08:00 Pulse Ox 95 11/29/22 08:00 FiO2 Intake & Output 11/28/22 11/29/22 11/29/22 18:59 06:59 18:59 Intake Total 118 118 Output Total 700 800 350 Balance -582 -800 -232 Weight 83.18 kg 82.1 kg Intake: Oral 118 118 Output: Urine 700 800 350 Other: Voiding Method Urinal Urinal Urinal # Voids 2 # Bowel Movements 1 - Exam Patient is awake, comfortable, in no acute distress Examination of the heart S1 and S2 Examination of the lungs bilateral breath sounds are heard Abdomen is soft , nontender Examination of lower extremities shows edema 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 Acute kidney injury, nonoliguric. ATN versus hepatorenal syndrome. We will maintain patient on midodrine. Check UA. Ultrasound on 11/04/2022 did not show any evidence of obstructive uropathy. 2. Hyperkalemia associated with acute kidney injury, rule out obstructive uropathy. Blood sugar is not elevated. Aldactone will be held. 3. Hypervolemic hyponatremia 4. Non-gap metabolic acidosis associated with acute kidney injury 5. Liver cirrhosis with ascites and portal hypertension. History of paracentesis during last admission on 11/06/2022 Plan: Maintain low potassium diet Continue with oral Lasix upon discharge Follow-up as outpatient in 1 week's time with repeat labs Continue with midodrine Continue oral sodium bicarb
[2022-11-29] MEDS ORDERED: MIDODRINE 5 MG TAB PO SCH (12:30)
[2022-11-29 12:38] VITALS: BP 96/63; PULSE 89
--- NOTE | 2022-11-29 20:04 | P.DS ---
Providers Date of admission: 11/26/22 19:31 Expected date of discharge: 11/29/22 Attending physician: Zelalem Lanza Consults: 11/26/22 19:32 Consult Physician Urgent Consulting Provider: Tiera De La Cruz Consult Reason/Comments: Hyperkalemia Do you want consulting provider notified?: Yes [facility] Course: Chief Complaint: Hyperkalemia This is a pleasant 76-year-old patient who follows with Dr. Chang Douglas. May- diagnosed with alcoholic cirrhosis. Follows Dr. Nikole Matt gastroenterology. stopped drinking in August 2022. Was drinking 8-10 beers a day prior to that for years. Patient's had repeated paracentesis. Now sent in to the ER because of elevated potassium on labs of 7. Breathing has been stable. Abdominal distention. Scheduled for paracentesis tomorrow. Some edema. Has been on Aldactone. No fever no chills. No abdominal pain. Appetite is fair. Having bowel movements. at the bedside. In the ER was given calcium chloride, dextrose, insulin, sodium bicarbonate, Lokelma. 11/27/2022: Laying in bed. at the bedside. Paracentesis as ordered. Albumin to be given now for that. Later potassium came back at 6.3. Lokelma ordered. On fluid restriction. IV Lasix. 11/28/2022: Patient underwent paracentesis 8.1 L removed today. Feeling much better. Sitting edge of the bed. On IV Lasix. Sodium bicarbonate drip. Also Lokelma. Discussed with the patient and . Eating well. Patient given 1 dose of tolvaptan. Midodrine added for low blood pressure. 11/29/2022: Doing well. Edema decreased. Tolerating diet better. Will be discharged. Follow up with Dr. Matt and Dr. De La Cruz. Discussed with patient and . Past medical history to include: Alcoholic cirrhosis diagnosed in August 2022, hypertension, GERD, osteoarthritis Social history: Former smoker. Was drinking 8-10 beers a day up to August 2022. . 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 Conjunctiva normal. HEENT: External appearance of nose and ears normal, oral cavity grossly normal. NECK: JVD not raised; masses not palpable. HEART: First and second heart sounds are normal; edema present LUNGS: Respiratory rate normal decreased breath. ABDOMEN: Soft, , nontender, liver spleen not palpable, no masses palpable. PSYCH: Alert and oriented x3; mood and affect normal. MUSCULOSKELETAL:No Clubbing/cyanosis;muscles-grossly intact INVESTIGATIONS, reviewed in the clinical context: November 29: Potassium 4 sodium 125 creatinine 1.09 November 28: Sodium 122 potassium 5.1 bicarb 20 BUN 28 creatinine 1.21 November 27: Sodium 121 potassium 6.3 creatinine 1.25 November 26: White count 8 hemoglobin 14.2 platelets 238 sodium 119 potassium 7.1 BUN 32 creatinine 1.35 total bilirubin 1.8 AST 131 ALT 72 Troponin I 0.037, 0.042 Albumin 2.7 EKG tracing personally reviewed by me-normal sinus rhythm. Small voltage. N onspecific T waves. Chest x-ray film personally reviewed by me-some cardiomegaly Assessment plan: -Severe hyperkalemia in a patient with underlying renal failure and on Aldactone.: Better -Acute fluid overload from fluid retention from underlying cirrhosis: Better Fluid restriction 15,000 mL a day. Lasix Low-sodium diet -Acute kidney injury likely ATN / hepatorenal syndrome. Nephrology following -Portal hypertension secondary cirrhosis -Metabolic acidosis from renal failure. Sodium bicarbonate drip given. Changed to oral sodium bicarbonate -Suspect underlying chronic kidney disease probable stage III -Hypoalbuminemia secondary to cirrhosis -Severe hyponatremia hypoosmolar from fluid retention Avoid free fluid. Low-sodium diet. Received 1 dose of tolvapton -Large ascites symptomatic. Paracentesis 8.1 L removed. Postprocedure albumin given. -Alcoholic cirrhosis follows with Dr. Nikole Matt -GERD Protonix Disposition: Home Plan - Discharge Summary Discharge Rx Participant: No New Discharge Prescriptions: New Sodium Bicarbonate Tab 650 mg PO BID #60 tab Midodrine [ProAmatine] 10 mg PO AC-TID #120 tab Continue Multivit-Min/FA/Lycopen/Lutein [Centrum Silver Men Tablet] 1 tab PO DAILY Atorvastatin [Lipitor] 80 mg PO HS Aspirin EC [Ecotrin Low Dose] 81 mg PO DAILY Pantoprazole [Protonix] 40 mg PO DAILY Acetaminophen Tab [Tylenol] 325 mg PO Q4H PRN PRN Reason: Pain Or Fever > 100.5 Changed Spironolactone [Aldactone] 100 mg PO Q48H #1 tab Furosemide [Lasix] 60 mg PO BID #1 Discharge Medication List Acetaminophen Tab [Tylenol] 325 mg PO Q4H PRN 11/01/22 [History] Aspirin EC [Ecotrin Low Dose] 81 mg PO DAILY 11/01/22 [History] Atorvastatin [Lipitor] 80 mg PO HS 11/01/22 [History] Multivit-Min/FA/Lycopen/Lutein [Centrum Silver Men Tablet] 1 tab PO DAILY 11/01/22 [History] Pantoprazole [Protonix] 40 mg PO DAILY 11/01/22 [History] Furosemide [Lasix] 60 mg PO BID #1 11/28/22 [Rx] Sodium Bicarbonate Tab 650 mg PO BID #60 tab 11/28/22 [Rx] Spironolactone [Aldactone] 100 mg PO Q48H #1 tab 11/28/22 [Rx] Midodrine [ProAmatine] 10 mg PO AC-TID #120 tab 11/29/22 [Rx] Follow up Appointment(s)/Referral(s): Tiera De La Cruz MD [STAFF PHYSICIAN] - 2 Weeks Chang Douglas MD [Primary Care Provider] - 1-2 days Dipika Matt MD [STAFF PHYSICIAN] - 10 Days Activity/Diet/Wound Care/Special Instructions: fluid restriction 1800 cc/day New prescription for midodrine sent today. Cancel the one from yesterday Discharge Disposition: HOME SELF-CARE
== END 2022-11-29 15:01 | disposition home health service (06) | DRG 432 ==
LOC: EC 15:39 → 3SCARD 19:31
PROVIDERS: ADMIT Hospitalist; ATTEND Hospitalist
PROC: 0W9G3ZZ Drainage of Peritoneal Cavity, Percutaneous Approach (ICD-10-PCS; principal; 2022-11-28)
DX: K70.31 Alcoholic cirrhosis of liver with ascites (principal); K76.7 Hepatorenal syndrome; N17.0 Acute kidney failure with tubular necrosis; K76.6 Portal hypertension; E87.1 Hypo-osmolality and hyponatremia; J44.0 Chronic obstructive pulmonary disease with (acute) lower respiratory infection; E87.5 Hyperkalemia; K21.9 Gastro-esophageal reflux disease without esophagitis; I12.9 Hypertensive chronic kidney disease with stage 1 through stage 4 chronic kidney disease, or unspecified chronic kidney disease; N18.30 Chronic kidney disease, stage 3 unspecified; Z87.891 Personal history of nicotine dependence; E88.09 Other disorders of plasma-protein metabolism, not elsewhere classified; E83.42 Hypomagnesemia; M19.90 Unspecified osteoarthritis, unspecified site; Z96.642 Presence of left artificial hip joint; Z96.651 Presence of right artificial knee joint; Z79.82 Long term (current) use of aspirin; Z79.899 Other long term (current) drug therapy; Z86.73 Personal history of transient ischemic attack (TIA), and cerebral infarction without residual deficits; Z28.310 Unvaccinated for COVID-19
CPT/HCPCS: 36415; 49083; 71046; 76705; 80048; 80053; 81001; 83735; 84132; 84484; 85025; 85610; 85730; 93005; 94760

== ENCOUNTER → 2022-12-02 | Outpatient (CLI) | payer MEDICARE ==
[2022-12-02 20:25] LABS: BUN/Creat Ratio 25.23 Ratio (12.00-20.00); Blood Urea Nitrogen 32.8 mg/dL (9.0-27.0); Calcium 9.1 mg/dL (8.7-10.3); Carbon Dioxide 25.4 mmol/L (21.6-31.8); Chloride 90 mmol/L (96-109); Glucose 105 mg/dL (70-110); Potassium 5.1 mmol/L (3.5-5.5); Sodium 125 mmol/L (135-145)
== END | disposition home or self-care (01) ==
LOC: LABWHC1 12:06
PROVIDERS: ATTEND Hospitalist
DX: K74.60 Unspecified cirrhosis of liver (principal)
CPT/HCPCS: 36415; 80048

== ENCOUNTER → 2022-12-11 | Outpatient (CLI) | payer MEDICARE ==
[2022-12-12 02:13] LABS: Basophils # (A) 0.03 X 10*3/uL (0.00-0.10); Basophils % (A) 0.3 %; Eosinophils # (A) 0.14 X 10*3/uL (0.04-0.35); Eosinophils % (A) 1.4 %; HCT 37.6 % (39.6-50.0); HGB 13.3 d/dL (13.0-17.0); Lymphocytes # (A) 2.75 X 10*3/uL (0.90-5.00); MCH 32.8 pg (27.0-32.0); MCHC 35.4 d/dL (32.0-37.0); MCV 92.6 FL (80.0-97.0); Monocytes # (A) 1.34 X 10*3/uL (0.20-1.00); Monocytes % (A) 13.7 %; NRBC Per 100 WBC 0 X 10*3/uL (0.00-0.01); Neutrophils % (A) 56.1 %; Platelet Count 176 X 10*3/uL (140-440); RBC 4.06 X 10*6/uL (4.40-5.60); RDW 14.4 % (11.5-14.5); WBC 9.81 X 10*3/uL (4.50-10.00)
[2022-12-12 03:29] LABS: ALT 50 U/L (10-49); AST 102 U/L (14-35); Albumin 2.8 d/dL (3.8-4.9); Alkaline Phosphatase 217 U/L (41-126); BUN/Creat Ratio 28.93 Ratio (12.00-20.00); Blood Urea Nitrogen 40.5 mg/dL (9.0-27.0); Calcium 8.8 mg/dL (8.7-10.3); Carbon Dioxide 23.9 mmol/L (21.6-31.8); Chloride 86 mmol/L (96-109); Globulin 3.1 d/dL (1.6-3.3); Glucose 100 mg/dL (70-110); Potassium 5.2 mmol/L (3.5-5.5); Sodium 119 mmol/L (135-145); Total Bilirubin 1.5 mg/dL (0.3-1.2); Total Protein 5.9 d/dL (6.2-8.2)
== END | disposition home or self-care (01) ==
LOC: LABWHC1 11:21
PROVIDERS: ATTEND Nurse Practitioner Family
DX: K74.60 Unspecified cirrhosis of liver (principal)
CPT/HCPCS: 36415; 80053; 85025

== ENCOUNTER 2022-12-17 11:44 | Inpatient (IN) | payer MEDICARE ==
--- NOTE | 2022-12-17 12:27 | ED ---
General Adult HPI - General Chief complaint: Recheck/Abnormal Lab/Rx Stated complaint: sent by PCP-low bp Time Seen by Provider: 12/17/22 12:25 Source: patient, RN notes reviewed Mode of arrival: wheelchair Limitations: no limitations - History of Present Illness Initial comments: This is a 77-year-old male who presents to the emergency department for low blood pressure and swelling. States that he has noticed increasing swelling to his bilateral lower extremities and abdomen. When he checked his blood pressure at home, states that he found it to be much lower than normal. Reports a history of liver cirrhosis and follows with Dr. Matt for management. Denies any history of CHF. He is scheduled to have a paracentesis tomorrow, and states that he was instructed by nephrology to come to the emergency department today. Denies any abdominal pain, chest pain, or shortness of breath, but does feel generally fatigued. MD Complaint: Swelling to the bilateral LEs and abdomen, low BP - Related Data Home Medications Medication Instructions Recorded Confirmed Aspirin EC [Ecotrin Low Dose] 81 mg PO DAILY 11/01/22 12/18/22 Atorvastatin [Lipitor] 80 mg PO HS 11/01/22 12/18/22 Multivit-Min/FA/Lycopen/Lutein 1 tab PO DAILY 11/01/22 12/18/22 [Centrum Silver Men Tablet] Pantoprazole [Protonix] 40 mg PO DAILY 11/01/22 12/18/22 Furosemide [Lasix] 60 mg PO BID 12/17/22 12/18/22 Midodrine HCl [ProAmatine] 10 mg PO TID 12/17/22 12/18/22 Sennosides [Senokot] 16.2 mg PO HS PRN 12/17/22 12/18/22 Spironolactone [Aldactone] 25 mg PO DAILY 12/17/22 12/18/22 Previous Rx's Medication Instructions Recorded Sodium Bicarbonate Tab 650 mg PO BID #60 tab 11/28/22 Allergies Allergy/AdvReac Type Severity Reaction Status Date / Time No Known Allergies Allergy Verified 12/17/22 15:04 Review of Systems ROS Statement: Those systems with pertinent positive or pertinent negative responses have been documented in the HPI. ROS Other: All systems not noted in ROS Statement are negative. Past Medical History Past Medical History: CVA/TIA, GERD/Reflux, Hypertension, Liver Disease Additional Past Medical History / Comment(s): cirrhosis August 2022, Stroke 10/09/2022 and taking plavix, ETOH history 8-10 beers and 1 or 2 shots of vodka per day(last drink 08/2022). History of Any Multi-Drug Resistant Organisms: None Reported Past Surgical History: Joint Replacement Additional Past Surgical History / Comment(s): Lt hip replacement three times, rt knee replaced, paracentesis 10/02/2022 Past Anesthesia/Blood Transfusion Reactions: No Reported Reaction Past Psychological History: No Psychological Hx Reported Smoking Status: Former smoker Past Alcohol Use History: None Reported Past Drug Use History: None Reported - Past Family History Father Family Medical History: No Reported History General Exam Limitations: no limitations General appearance: alert, in no apparent distress Head exam: Present: atraumatic, normocephalic, normal inspection Respiratory exam: Present: normal lung sounds bilaterally. Absent: respiratory distress, wheezes, rales, rhonchi, stridor Cardiovascular Exam: Present: regular rate, normal rhythm, normal heart sounds. Absent: systolic murmur, diastolic murmur, rubs, gallop, clicks GI/Abdominal exam: Present: soft, distended. Absent: tenderness Extremities exam: Present: other (3+ pitting edema to the bilateral lower extremities.) Neurological exam: Present: alert, oriented X3, CN II-XII intact Psychiatric exam: Present: normal affect, normal mood Skin exam: Present: warm, dry, intact. Absent: rash Course Vital Signs 12/17/22 12/17/22 12/17/22 12:04 14:11 14:20 Temperature 98.5 F Pulse Rate 90 80 Pulse Rate [ [employer] ] Respiratory 20 10 L Rate Blood Pressure 102/68 110/81 Blood Pressure [Left Arm] O2 Sat by Pulse 98 100 100 Oximetry 12/17/22 12/17/22 12/17/22 14:40 15:00 15:30 Temperature Pulse Rate 79 79 Pulse Rate [ [employer] ] Respiratory 12 11 L 13 Rate Blood Pressure 106/76 110/81 Blood Pressure [Left Arm] O2 Sat by Pulse 100 100 100 Oximetry 12/17/22 12/17/22 12/17/22 16:00 16:30 17:00 Temperature Pulse Rate 79 0 L Pulse Rate [ [employer] ] Respiratory 10 L 12 23 Rate Blood Pressure 100/80 96/76 111/73 Blood Pressure [Left Arm] O2 Sat by Pulse 100 100 100 Oximetry 12/17/22 12/17/22 12/17/22 17:30 18:00 18:30 Temperature Pulse Rate 61 77 70 Pulse Rate [ [employer] ] Respiratory 13 11 L 13 Rate Blood Pressure 103/78 116/79 101/73 Blood Pressure [Left Arm] O2 Sat by Pulse 99 98 99 Oximetry 12/17/22 12/17/22 12/17/22 19:00 19:30 20:00 Temperature Pulse Rate 59 L 55 L Pulse Rate [ [employer] ] Respiratory 12 10 L 14 Rate Blood Pressure 104/72 109/81 95/73 Blood Pressure [Left Arm] O2 Sat by Pulse 98 99 98 Oximetry 12/17/22 12/17/22 12/17/22 20:30 21:00 21:30 Temperature Pulse Rate 50 L 70 Pulse Rate [ [employer] ] Respiratory 10 L 9 L Rate Blood Pressure 117/82 94/78 Blood Pressure [Left Arm] O2 Sat by Pulse 97 100 99 Oximetry 12/17/22 12/17/22 12/17/22 22:00 22:30 23:00 Temperature Pulse Rate 78 78 Pulse Rate [ [employer] ] Respiratory 16 Rate Blood Pressure 97/81 105/66 97/75 Blood Pressure [Left Arm] O2 Sat by Pulse 98 98 98 Oximetry 12/18/22 12/18/22 12/18/22 01:00 02:00 03:00 Temperature Pulse Rate 81 87 83 Pulse Rate [ [employer] ] Respiratory 18 18 18 Rate Blood Pressure 94/73 93/78 90/70 Blood Pressure [Left Arm] O2 Sat by Pulse 98 97 98 Oximetry 12/18/22 12/18/22 12/18/22 04:00 06:00 07:42 Temperature 97.3 F L Pulse Rate 83 85 Pulse Rate [ 84 [employer] ] Respiratory 18 18 16 Rate Blood Pressure 93/71 98/70 Blood Pressure 92/52 [Left Arm] O2 Sat by Pulse 98 98 98 Oximetry 12/18/22 12/18/22 12/18/22 11:39 13:07 13:16 Temperature Pulse Rate Pulse Rate [ 72 70 [employer] ] Respiratory 16 16 Rate Blood Pressure Blood Pressure 88/68 99/75 116/84 [Left Arm] O2 Sat by Pulse 98 99 99 Oximetry 12/18/22 12/18/22 12/18/22 13:31 13:46 14:01 Temperature Pulse Rate Pulse Rate [ 69 65 69 [employer] ] Respiratory 16 Rate Blood Pressure Blood Pressure 123/79 120/79 115/75 [Left Arm] O2 Sat by Pulse 98 100 100 Oximetry 12/18/22 12/18/22 12/18/22 14:06 14:36 15:00 Temperature Pulse Rate Pulse Rate [ 70 72 75 [employer] ] Respiratory 16 16 Rate Blood Pressure Blood Pressure 108/71 91/50 101/60 [Left Arm] O2 Sat by Pulse 99 100 98 Oximetry 12/18/22 18:14 Temperature 97.6 F Pulse Rate Pulse Rate [ 73 [employer] ] Respiratory 20 Rate Blood Pressure Blood Pressure 110/65 [Left Arm] O2 Sat by Pulse 98 Oximetry Medical Decision Making - Medical Decision Making This is a 77-year-old male who presents to the emergency department for abdomina l distention and fatigue. Was pt. sent in by a medical professional or institution? @ -Nephrology Did you speak to anyone other than the patient for history? @ -No Did you review nursing and triage notes? @ -Yes, and I agree, it is accurate with regards to the patient's symptoms. Were old charts reviewed? @ -No Differential Diagnosis? @ -Differential Abdominal Distention: Ascites, CHF, gas, bowel obstruction, this is not meant to be an all-inclusive list. EKG interpreted by me (3pts min.)? @ -EKG interpreted by me demonstrating the following: Sinus rhythm. Ventricular rate 83 beats per minute, SC interval 187 ms, QRS duration 79 ms, QTC 417 ms. X-rays interpreted by me (1pt min.)? @ -Not obtained CT interpreted by me (1pt min.)? @ -Not obtained U/S interpreted by me (1pt. min.)? @ -Not obtained What testing was considered but not performed? (CT, X-rays, U/S, labs)? Why? @ -None What meds were considered but not given? Why? @ -None Did you discuss the management of the patient with other professionals? @ -Yes, Dr. Lanza, who accepts the patient for admission. Did you reconcile home meds? @ -No Was smoking cessation discussed for >3mins.? @ -No Was critical care preformed (if so, how long)? @ -No Were there social determinants of health that impacted care today? How? (Homelessness, low income, unemployed, alcoholism, drug addiction, transportation, low edu. Level, literacy, decrease access to med. care, [facility], rehab)? @ -No Was there de-escalation of care discussed even if they declined? (Discuss DNR or withdrawal of care, Hospice)? @ -No What co-morbidities impacted this encounter? (DM, HTN, Smoking, COPD, CAD, Cancer, CVA, Hep., AIDS, mental health diagnosis, sleep apnea, morbid obesity)? @ -Alcoholic Cirrhosis, HTN Was patient admitted / discharged? @ -Admitted. Lab work obtained revealing hyponatremia with a sodium of 117. He does also appear to have a mild FABRICIO. Elevated liver enzymes are consistent when compared with prior values. Troponin is elevated, likely secondary to his other comorbidities. Patient admitted to medicine for hyponatremia and ascites. He was put on a 1200 mL daily fluid restriction. Consult placed for nephrology regarding the hyponatremia and interventional radiology for the paracentesis related to the ascites. Undiagnosed new problem with uncertain prognosis? @ -None Drug Therapy requiring intensive monitoring for toxicity (Heparin, Nitro, Insulin, Cardizem)? @ -None Were any procedures done? @ -None Diagnosis/symptom? @ -Hyponatremia, ascites Acute, or Chronic, or Acute on Chronic? @ -Acute Uncomplicated (without systemic symptoms) or Complicated (systemic symptoms)? @ -Complicated Side effects of treatment? @ -None Exacerbation, Progression, or Severe Exacerbation] @ -Not applicable Poses a threat to life or bodily function? @ -Yes This case was discussed in detail with the attending ED physician, Dr. Bell. Presentation, findings, and treatment plan discussed in detail as well. - Lab Data Result diagrams: 12/17/22 13:01 12/18/22 16:47 Lab Results 12/17/22 12/17/22 12/17/22 Range/Units 13:01 13: 13: WBC 7.1 (3.8-10.6) k/uL RBC 3.91 L (4.30-5.90) m/uL Hgb 13.0 (13.0-17.5) gm/dL Hct 36.8 L (39.0-53.0) % MCV 94.0 (80.0-100.0) fL MCH 33.2 (25.0-35.0) pg MCHC 35.3 (31.0-37.0) g/dL RDW 14.1 (11.5-15.5) % Plt Count 183 (150-450) k/uL MPV 7.2 Neutrophils % 57 % Lymphocytes % 27 % Monocytes % 10 % Eosinophils % 3 % Basophils % 0 % Neutrophils # 4.1 (1.3-7.7) k/uL Lymphocytes # 1.9 (1.0-4.8) k/uL Monocytes # 0.7 (0-1.0) k/uL Eosinophils # 0.2 (0-0.7) k/uL Basophils # 0.0 (0-0.2) k/uL PT 10.7 (9.0-12.0) sec INR 1.0 (<1.2) APTT 28.6 (22.0-30.0) sec Sodium 117 L* (137-145) mmol/L Potassium 5.2 H (3.5-5.1) mmol/L Chloride 86 L (98-107) mmol/L Carbon Dioxide 25 (22-30) mmol/L Anion Gap 6 mmol/L BUN 38 H (9-20) mg/dL Creatinine 1.50 H (0.66-1.25) mg/dL Est GFR (CKD-EPI)AfAm 51 (>60 ml/min/1.73 sqM) Est GFR (CKD-EPI)NonAf 44 (>60 ml/min/1.73 sqM) Glucose 99 (74-99) mg/dL Calcium 8.5 (8.4-10.2) mg/dL Total Bilirubin 1.9 H (0.2-1.3) mg/dL AST 156 H (17-59) U/L ALT 64 H (4-49) U/L Alkaline Phosphatase 264 H (38-126) U/L Ammonia (<30) umol/L Troponin I (0.000-0.034) ng/mL NT-Pro-B Natriuret Pep 999 pg/mL Total Protein 6.2 L (6.3-8.2) g/dL Albumin 2.7 L (3.5-5.0) g/dL Amylase 188 H (30-110) U/L Lipase 398 H (23-300) U/L 08/22/23 08/22/23 Range/Units 13:01 13:01 WBC (3.8-10.6) k/uL RBC (4.30-5.90) m/uL Hgb (13.0-17.5) gm/dL Hct (39.0-53.0) % MCV (80.0-100.0) fL MCH (25.0-35.0) pg MCHC (31.0-37.0) g/dL RDW (11.5-15.5) % Plt Count (150-450) k/uL MPV Neutrophils % % Lymphocytes % % Monocytes % % Eosinophils % % Basophils % % Neutrophils # (1.3-7.7) k/uL Lymphocytes # (1.0-4.8) k/uL Monocytes # (0-1.0) k/uL Eosinophils # (0-0.7) k/uL Basophils # (0-0.2) k/uL PT (9.0-12.0) sec INR (<1.2) APTT (22.0-30.0) sec Sodium (137-145) mmol/L Potassium (3.5-5.1) mmol/L Chloride (98-107) mmol/L Carbon Dioxide (22-30) mmol/L Anion Gap mmol/L BUN (9-20) mg/dL Creatinine (0.66-1.25) mg/dL Est GFR (CKD-EPI)AfAm (>60 ml/min/1.73 sqM) Est GFR (CKD-EPI)NonAf (>60 ml/min/1.73 sqM) Glucose (74-99) mg/dL Calcium (8.4-10.2) mg/dL Total Bilirubin (0.2-1.3) mg/dL AST (17-59) U/L ALT (4-49) U/L Alkaline Phosphatase (38-126) U/L Ammonia 9 (<30) umol/L Troponin I 0.078 H* (0.000-0.034) ng/mL NT-Pro-B Natriuret Pep pg/mL Total Protein (6.3-8.2) g/dL Albumin (3.5-5.0) g/dL Amylase (30-110) U/L Lipase (23-300) U/L Disposition Clinical Impression: Hyponatremia, Ascites, Cirrhosis, FABRICIO (acute kidney injury) Disposition: ADMITTED IP TO THIS HOSP
[2022-12-17 13:12] LABS: Basophils % (A) 0 %; Eosinophils # (A) 0.2 k/uL (0-0.7); Eosinophils % (A) 3 %; HCT 36.8 % (39.0-53.0); Lymphocytes # (A) 1.9 k/uL (1.0-4.8); Lymphocytes % (A) 27 %; MCH 33.2 pg (25.0-35.0); MCHC 35.3 g/dL (31.0-37.0); Mean Platelet Volume 7.2; Monocytes # (A) 0.7 k/uL (0-1.0); Monocytes % (A) 10 %; Neutrophils # (A) 4.1 k/uL (1.3-7.7); Neutrophils % (A) 57 %; Platelet Count 183 k/uL (150-450); RBC 3.91 m/uL (4.30-5.90); RDW 14.1 % (11.5-15.5); WBC 7.1 k/uL (3.8-10.6)
[2022-12-17 13:24] LABS: ALT 64 U/L (4-49); AST 156 U/L (17-59); African American GFR (CKD) 51 (>60 ml/min/1.73 sqM); Albumin 2.7 g/dL (3.5-5.0); Alkaline Phosphatase 264 U/L (38-126); Amylase 188 U/L (30-110); Anion Gap 6 mmol/L; Blood Urea Nitrogen 38 mg/dL (9-20); Calcium 8.5 mg/dL (8.4-10.2); Carbon Dioxide 25 mmol/L (22-30); Chloride 86 mmol/L (98-107); Glucose 99 mg/dL (74-99); Lipase 398 U/L (23-300); Non-African American GFR(CKD) 44 (>60 ml/min/1.73 sqM); Potassium 5.2 mmol/L (3.5-5.1); Total Bilirubin 1.9 mg/dL (0.2-1.3); Total Protein 6.2 g/dL (6.3-8.2)
[2022-12-17 13:32] LABS: NT-Pro-B-Type Natriuretic Pept 999 pg/mL
[2022-12-17 13:37] LABS: Partial Thromboplastin Time 28.6 sec (22.0-30.0); Prothrombin Time 10.7 sec (9.0-12.0)
[2022-12-17 14:36] LABS: Sodium 117 mmol/L (137-145)
[2022-12-17] MEDS ORDERED: NALOXONE 0.4 MG/ML 1 ML VIAL IV PRN (14:42)
[2022-12-17] MEDS ORDERED: HYDROcodone/APAP 5-325MG 1 EACH TAB PO PRN (14:42)
[2022-12-17] MEDS ORDERED: ONDANSETRON 4 MG/2 ML VIAL IVP PRN (14:42)
[2022-12-17] MEDS ORDERED: ACETAMINOPHEN TAB 325 MG TAB PO PRN (14:42)
[2022-12-17] MEDS ORDERED: SENNOSIDES 8.6 MG TAB PO PRN (17:32)
[2022-12-17] MEDS ORDERED: FUROSEMIDE 20 MG TAB PO SCH (18:00)
[2022-12-17] MEDS: MIDODRINE 5 MG TAB PO SCH (18:43)
[2022-12-17] MEDS: SODIUM BICARBONATE TAB 650 MG TAB PO SCH (20:57)
[2022-12-17] MEDS: ATORVASTATIN 80 MG TAB PO SCH (20:57)
[2022-12-18] MEDS: ASPIRIN 81 MG PO SCH (09:27)
[2022-12-18] MEDS: SODIUM BICARBONATE TAB 650 MG TAB PO SCH ×2 (09:28→19:55)
[2022-12-18] MEDS: MULTIVITAMINS, THERA 1 EACH TAB PO SCH (09:28)
[2022-12-18] MEDS: PANTOPRAZOLE 40 MG TABLET PO SCH (09:28)
[2022-12-18] MEDS: FUROSEMIDE 10 MG/ML 10 ML VIAL IV SCH ×2 (09:28→19:53)
[2022-12-18] MEDS: MIDODRINE 5 MG TAB PO SCH ×3 (09:28→17:06)
[2022-12-18 11:09] LABS: African American GFR (CKD) 59 (>60 ml/min/1.73 sqM); Anion Gap 8 mmol/L; Blood Urea Nitrogen 35 mg/dL (9-20); Calcium 7.7 mg/dL (8.4-10.2); Carbon Dioxide 20 mmol/L (22-30); Chloride 89 mmol/L (98-107); Glucose 102 mg/dL (74-99); Magnesium 1.7 mg/dL (1.6-2.3); Non-African American GFR(CKD) 51 (>60 ml/min/1.73 sqM); Potassium 4.6 mmol/L (3.5-5.1)
[2022-12-18 11:12] LABS: Sodium 117 mmol/L (137-145)
[2022-12-18] MEDS: ALBUMIN HUMAN 25% 50 ML in EMPTY BAG 1 BAG IVPB SCH ×4 (13:14→15:24)
--- NOTE | 2022-12-18 15:14 | US ---
Ultrasound-guided paracentesis. DATE OF EXAM: 12/18/2022 CLINICAL HISTORY: Ascites The procedure was discussed with the patient. The risks, complications, benefits, and alternatives we re discussed and any questions were answered. Informed consent was obtained. The patient was placed s upine on the ultrasound table and prepped and draped in the usual sterile fashion. All elements of maximal barrier technique were utilized. Under ultrasound guidance, access into the right lower quadrant was obtained, via the paracentesis catheter system and direct ultrasound guidanc e. Approximately 8 liters of straw-colored fluid was removed. The patient was stable throughout the proc edure and remained stable upon discharge from Department of Radiology. IMPRESSION: Successful paracentesis under ultrasound guidance.
--- NOTE | 2022-12-18 15:34 | P.NPCON ---
History of Present Illness - Reason for Consult chronic renal failure, hyponatremia - History of Present Illness Reason for consultation: Hyponatremia and chronic kidney disease History of present illness: Patient is a 77-year-old male seen in renal consultation for chronic kidney disease and hyponatremia. Patient has history of chronic kidney disease stage III with baseline creatinine in the range of 1-1.3 secondary to hepatorenal syndrome. Creatinine today is 1.34 and was 1.5 on admission. Patient was sent to the hospital due to worsening ascites awaken. Patient was also weak and blood pressure was low in the systolic 70s. He underwent paracentesis today with 8 L removed. Sodium was 117 on admission. He is currently receiving IV Lasix. He denies excessive fluid intake. Patient is awake and alert. No vomiting or diarrhea. Blood pressure stable in the systolic 90s to 120s. Patient also has tendency of developing hyperkalemia and is only on low-dose Aldactone. He does admit to eating high potassium foods. Denies use of nonsteroidals. No history of diabetes. No history of heart disease. Patient has alcohol-induced liver cirrhosis and follows with GI outpatient. Vital signs are stable. General: No acute distress. HEENT: Head exam is unremarkable. LUNGS: No audible rhonchi or wheezes. HEART: Rate and Rhythm are regular. ABDOMEN: Distention noted. EXTREMITITES: 2+ edema. Past Medical History Past Medical History: CVA/TIA, GERD/Reflux, Hypertension, Liver Disease Additional Past Medical History / Comment(s): cirrhosis August 2022, Stroke 10/09/2022 and taking plavix, ETOH history 8-10 beers and 1 or 2 shots of vodka per day(last drink 08/2022). History of Any Multi-Drug Resistant Organisms: None Reported Past Surgical History: Joint Replacement Additional Past Surgical History / Comment(s): Lt hip replacement three times, rt knee replaced, paracentesis 10/02/2022 Past Anesthesia/Blood Transfusion Reactions: No Reported Reaction Past Psychological History: No Psychological Hx Reported Smoking Status: Former smoker Past Alcohol Use History: None Reported Past Drug Use History: None Reported - Past Family History Father Family Medical History: No Reported History Medications and Allergies Home Medications Medication Instructions Recorded Confirmed Type Aspirin EC [Ecotrin Low Dose] 81 mg PO DAILY 11/01/22 12/17/22 History Atorvastatin [Lipitor] 80 mg PO HS 11/01/22 12/17/22 History Multivit-Min/FA/Lycopen/Lutein 1 tab PO DAILY 11/01/22 12/17/22 History [Centrum Silver Men Tablet] Pantoprazole [Protonix] 40 mg PO DAILY 11/01/22 12/17/22 History Sodium Bicarbonate Tab 650 mg PO BID #60 tab 11/28/22 12/17/22 Rx Furosemide [Lasix] 60 mg PO BID 12/17/22 12/17/22 History Midodrine HCl [ProAmatine] 10 mg PO TID 12/17/22 12/17/22 History Sennosides [Senokot] 16.2 mg PO HS PRN 12/17/22 12/17/22 History Spironolactone [Aldactone] 25 mg PO DAILY 12/17/22 12/17/22 History Allergies Allergy/AdvReac Type Severity Reaction Status Date / Time No Known Allergies Allergy Verified 12/17/22 15:04 Physical Exam Vitals: Vital Signs Temp Pulse Pulse Resp BP BP Pulse Ox 12/18/22 14:36 72 16 91/50 100 12/18/22 14:06 70 16 108/71 99 12/18/22 14:01 69 115/75 100 12/18/22 13:46 65 16 120/79 100 12/18/22 13:31 69 123/79 98 12/18/22 13:16 70 116/84 99 12/18/22 13:07 72 16 99/75 99 12/18/22 11:39 16 88/68 98 12/18/22 07:42 97.3 F L 84 16 92/52 98 12/18/22 06:00 85 18 98/70 98 12/18/22 04:00 83 18 93/71 98 12/18/22 03:00 83 18 90/70 98 12/18/22 02:00 87 18 93/78 97 12/18/22 01:00 81 18 94/73 98 12/17/22 23:00 78 16 97/75 98 12/17/22 22:30 105/66 98 12/17/22 22:00 78 97/81 98 12/17/22 21:30 70 94/78 99 12/17/22 21:00 9 L 100 12/17/22 20:30 50 L 10 L 117/82 97 12/17/22 20:00 55 L 14 95/73 98 12/17/22 19:30 10 L 109/81 99 12/17/22 19:00 59 L 12 104/72 98 12/17/22 18:30 70 13 101/73 99 12/17/22 18:00 77 11 L 116/79 98 12/17/22 17:30 61 13 103/78 99 12/17/22 17:00 0 L 23 111/73 100 12/17/22 16:30 12 96/76 100 12/17/22 16:00 79 10 L 100/80 100 12/17/22 15:30 79 13 110/81 100 Results - Lab Results Most recent lab results Calcium 7.7 mg/dL (8.4-10.2) L 12/18/22 10:34 Magnesium 1.7 mg/dL (1.6-2.3) 12/18/22 10:34 12/17/22 13:01 12/18/22 10:34 Assessment and Plan Plan: Assessment: 1. Chronic kidney disease stage III with baseline creatinine 1-1.3 secondary to hepatorenal syndrome. No proteinuria on UA. No hydronephrosis noted on imaging done in October 2022. 2. Hypervolemic hyponatremia. 3. Alcohol-induced liver cirrhosis. 4. Metabolic acidosis secondary to chronic kidney disease and likely compensatory for underlying respiratory alkalosis from liver failure. 8. Hyperkalemia secondary to chronic kidney disease and Aldactone. Plan: 1200 mL fluid restriction. Low potassium diet. Add Aldactone 25 mg twice daily. Maintain IV Lasix. Check BMP at 5 PM. Check TSH and cortisol level. Patient received albumin pre-and post-paracentesis. Maintain midodrine. Thank you for the consultation. I will continue to follow the patient with you during his hospital stay.
--- NOTE | 2022-12-18 17:33 | P.HPIM ---
History of Present Illness H&P Date: 12/18/22 Chief Complaint: Abnormal labs This is a pleasant 77-year-old patient who follows with Dr. Chang Duoglas. August- 2022 diagnosed with alcoholic cirrhosis. Follows Dr. Nikole Matt gastroenterology. stopped drinking in August 2022. Was drinking 8-10 beers a day prior to that for years. had repeated paracentesis. Patient was seen yesterday at the nephrology clinic by Dr. Santoro. Was found to be hypotensive. Increasing ascites. An abnormal labs including the low-sodium. Patient was sent down to the ER for the same. Patient has maintained fluid restriction of 1200 mL at home. It is indeed dose of Lasix was increased to [address] Santoro. Patient has some shortness of breath. Edema. Due for paracentesis this afternoon. Patient's at the bedside. Appetite is fair. Review of systems: GEN.: Tired EYES: None HEENT: None NECK: None RESPIRATORY: Mild Short of breath CARDIOVASCULAR: Edema GASTROINTESTINAL: None GENITOURINARY: None MUSCULOSKELETAL: None LYMPHATICS: None HEMATOLOGICAL: None PSYCHIATRY: None NEUROLOGICAL: None Past medical history to include: Alcoholic cirrhosis diagnosed in August 2022, hypertension, GERD, osteoarthritis, hepatorenal syndrome Social history: Former smoker. Was drinking 8-10 beers a day up to August 2022. . 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 Conjunctiva normal. HEENT: External appearance of nose and ears normal, oral cavity grossly normal. NECK: JVD and prominent; masses not palpable. HEART: First and second heart sounds are normal; significant edema. LUNGS: Respiratory rate increased; decreased breath sounds. ABDOMEN: Soft, distended, nontender, liver spleen not palpable, no masses palpable. PSYCH: Alert and oriented x3; mood and affect normal. MUSCULOSKELETAL:No Clubbing/cyanosis;muscles-grossly intact NEUROLOGICAL: Cranial nerves grossly intact; no facial asymmetry, power and sensation grossly intact. LYMPHATICS: No lymph nodes palpable in the axilla and neck INVESTIGATIONS, reviewed in the clinical context: December 18: Sodium 117 potassium 4.6 BUN 35 creatinine 1.34 December 17: Sodium 117 potassium 5.2 BUN 38 creatinine 1.5 total bilirubin 1.9 AST 156 AST 64 troponin I 0.078 albumin 2.7 white count 7.1 hemoglobin 13 p latelets 183 EKG tracing personally reviewed by me-low voltage. Rate 83. Nonspecific T-wave changes Previous labs: Creatinine 1.09 [11/29/2022 Assessment and plan: -Severe hyponatremia, hypoosmolar with hypervolemia from underlying cirrhosis Strict fluid restriction 1200 mL a day. Limit water intake. -Acute fluid overload from underlying cirrhosis Lasix 60 mg IV every 12. Aldactone 25 mg twice a day. Fluid restriction -Hyperkalemia secondary to underlying CK D -Secondary Portal hypertension secondary cirrhosis -underlying chronic kidney disease probable stage III, from hepatorenal syndrome -Severe Hypoalbuminemia secondary to cirrhosis -Large ascites symptomatic. Paracentesis pending -Alcoholic cirrhosis follows with Dr. Nikole Matt -MAL Protonix -Troponin anemia secondary to chronic kidney disease. No acute coronary syndrome. Consultation to nephrology. Discussed with patient and . Given the complexity and severity of patient's condition expect the patient to be in the hospital at least for 2 overnights Past Medical History Past Medical History: CVA/TIA, GERD/Reflux, Hypertension, Liver Disease Additional Past Medical History / Comment(s): cirrhosis August 2022, Stroke 10/09/2022 and taking plavix, ETOH history 8-10 beers and 1 or 2 shots of vodka per day(last drink 08/2022). History of Any Multi-Drug Resistant Organisms: None Reported Past Surgical History: Joint Replacement Additional Past Surgical History / Comment(s): Lt hip replacement three times, rt knee replaced, paracentesis 10/02/2022 Past Anesthesia/Blood Transfusion Reactions: No Reported Reaction Past Psychological History: No Psychological Hx Reported Smoking Status: Former smoker Past Alcohol Use History: None Reported Past Drug Use History: None Reported - Past Family History Father Family Medical History: No Reported History Medications and Allergies Home Medications Medication Instructions Recorded Confirmed Type Aspirin EC [Ecotrin Low Dose] 81 mg PO DAILY 11/01/22 12/18/22 History Atorvastatin [Lipitor] 80 mg PO HS 11/01/22 12/18/22 History Multivit-Min/FA/Lycopen/Lutein 1 tab PO DAILY 11/01/22 12/18/22 History [Centrum Silver Men Tablet] Pantoprazole [Protonix] 40 mg PO DAILY 11/01/22 12/18/22 History Sodium Bicarbonate Tab 650 mg PO BID #60 tab 11/28/22 12/18/22 Rx Furosemide [Lasix] 60 mg PO BID 12/17/22 12/18/22 History Midodrine HCl [ProAmatine] 10 mg PO TID 12/17/22 12/18/22 History Sennosides [Senokot] 16.2 mg PO HS PRN 12/17/22 12/18/22 History Spironolactone [Aldactone] 25 mg PO DAILY 12/17/22 12/18/22 History Allergies Allergy/AdvReac Type Severity Reaction Status Date / Time No Known Allergies Allergy Verified 12/17/22 15:04 Physical Exam Vitals: Vital Signs Temp Pulse Pulse Resp BP BP Pulse Ox 12/18/22 07:42 97.3 F L 84 16 92/52 98 12/18/22 06:00 85 18 98/70 98 12/18/22 04:00 83 18 93/71 98 12/18/22 03:00 83 18 90/70 98 12/18/22 02:00 87 18 93/78 97 12/18/22 01:00 81 18 94/73 98 12/17/22 23:00 78 16 97/75 98 12/17/22 22:30 105/66 98 12/17/22 22:00 78 97/81 98 12/17/22 21:30 70 94/78 99 12/17/22 21:00 9 L 100 12/17/22 20:30 50 L 10 L 117/82 97 12/17/22 20:00 55 L 14 95/73 98 12/17/22 19:30 10 L 109/81 99 12/17/22 19:00 59 L 12 104/72 98 12/17/22 18:30 70 13 101/73 99 12/17/22 18:00 77 11 L 116/79 98 12/17/22 17:30 61 13 103/78 99 12/17/22 17:00 0 L 23 111/73 100 12/17/22 16:30 12 96/76 100 12/17/22 16:00 79 10 L 100/80 100 12/17/22 15:30 79 13 110/81 100 12/17/22 15:00 79 11 L 100 12/17/22 14:40 12 106/76 100 12/17/22 14:20 80 10 L 110/81 100 12/17/22 14:11 100 12/17/22 12:04 98.5 F 90 20 102/68 98 Results CBC & Chem 7: 12/17/22 13:01 12/18/22 10:34 Labs: Abnormal Lab Results - Last 24 Hours (Table) 12/17/22 12/17/22 12/17/22 Range/Units 13:01 13:01 13:01 RBC 3.91 L (4.30-5.90) m/uL Hct 36.8 L (39.0-53.0) % Sodium 117 L* (137-145) mmol/L Potassium 5.2 H (3.5-5.1) mmol/L Chloride 86 L (98-107) mmol/L BUN 38 H (9-20) mg/dL Creatinine 1.50 H (0.66-1.25) mg/dL Total Bilirubin 1.9 H (0.2-1.3) mg/dL AST 156 H (17-59) U/L ALT 64 H (4-49) U/L Alkaline Phosphatase 264 H (38-126) U/L Troponin I 0.078 H* (0.000-0.034) ng/mL Total Protein 6.2 L (6.3-8.2) g/dL Albumin 2.7 L (3.5-5.0) g/dL Amylase 188 H (30-110) U/L Lipase 398 H (23-300) U/L
[2022-12-18] MEDS ORDERED: LACTULOSE 20 GM/30 ML CUP PO PRN (17:34)
[2022-12-18] MEDS ORDERED: LORazepam 0.5 MG TAB PO PRN (17:34)
[2022-12-18] MEDS ORDERED: MELATONIN 3 MG TABLET PO PRN (17:34)
--- NOTE | 2022-12-18 17:58 | XR ---
EXAMINATION TYPE: XR chest 1V portable DATE OF EXAM: 12/18/2022 COMPARISON: 11/26/2022 INDICATION: Ex-smoker, ascites TECHNIQUE: Single frontal view of the chest is obtained. FINDINGS: The heart size is normal. The pulmonary vasculature is normal. The lungs are clear. Low-dose screening CT chest can be performed if clinically indicated IMPRESSION: 1. No acute pulmonary process.
[2022-12-18 18:26] LABS: African American GFR (CKD) 57 (>60 ml/min/1.73 sqM); Anion Gap 8 mmol/L; Blood Urea Nitrogen 36 mg/dL (9-20); Calcium 8.2 mg/dL (8.4-10.2); Carbon Dioxide 25 mmol/L (22-30); Chloride 87 mmol/L (98-107); Glucose 122 mg/dL (74-99); Non-African American GFR(CKD) 49 (>60 ml/min/1.73 sqM); Potassium 4.3 mmol/L (3.5-5.1); Sodium 120 mmol/L (137-145)
[2022-12-18] MEDS: SPIRONOLACTONE 25 MG TAB PO SCH (19:56)
[2022-12-18] MEDS: ATORVASTATIN 80 MG TAB PO SCH (19:56)
[2022-12-19] MEDS: MIDODRINE 5 MG TAB PO SCH ×3 (06:35→17:32)
[2022-12-19 08:01] LABS: African American GFR (CKD) 62 (>60 ml/min/1.73 sqM); Anion Gap 6 mmol/L; Blood Urea Nitrogen 33 mg/dL (9-20); Calcium 8.1 mg/dL (8.4-10.2); Carbon Dioxide 26 mmol/L (22-30); Chloride 86 mmol/L (98-107); Glucose 82 mg/dL (74-99); Magnesium 1.7 mg/dL (1.6-2.3); Non-African American GFR(CKD) 54 (>60 ml/min/1.73 sqM)
[2022-12-19 08:19] LABS: Sodium 118 mmol/L (137-145)
[2022-12-19] MEDS: MULTIVITAMINS, THERA 1 EACH TAB PO SCH (08:26)
[2022-12-19] MEDS: FUROSEMIDE 10 MG/ML 10 ML VIAL IV SCH ×2 (08:26→21:39)
[2022-12-19] MEDS: PANTOPRAZOLE 40 MG TABLET PO SCH (08:26)
[2022-12-19] MEDS: ASPIRIN 81 MG PO SCH (08:26)
[2022-12-19] MEDS: SODIUM BICARBONATE TAB 650 MG TAB PO SCH ×2 (08:26→21:15)
[2022-12-19] MEDS: SPIRONOLACTONE 25 MG TAB PO SCH (08:26)
[2022-12-19] MEDS ORDERED: TOLVAPTAN 15 MG TABLET PO ONE (10:00)
--- NOTE | 2022-12-19 11:22 | P.PN ---
Subjective Patient is seen in follow-up for chronic kidney disease and hyponatremia. Renal function stable. Sodium level improved to 120 and is back down to 118 this morning. No evidence of urinary retention. Oral intake is fair. No vomiting or diarrhea. Vital signs are stable. General: No acute distress. HEENT: Head exam is unremarkable. LUNGS: No audible rhonchi or wheezes. HEART: Rate and Rhythm are regular. ABDOMEN: Nontender. EXTREMITITES: 1+ edema. Objective - Vital Signs Vital signs: Vital Signs Temp 98.2 F 12/19/22 08:20 Pulse 81 12/19/22 08:20 Resp 20 12/19/22 08:20 BP 96/64 12/19/22 08:20 Pulse Ox 97 12/19/22 08:20 FiO2 Intake & Output 12/18/22 12/19/22 12/19/22 18:59 06:59 18:59 Intake Total 118 Output Total 225 550 Balance -225 -550 118 Weight 92.079 kg 82.9 kg Intake: Oral 118 Output: Urine 225 550 Straight 175 Other: Voiding Method Urinal Urinal Urinal # Voids 1 - Labs CBC & Chem 7: 12/17/22 13:01 12/19/22 06:53 Labs: Abnormal Lab Results - Last 24 Hours (Table) 12/18/22 12/19/22 Range/Units 16:47 06:53 Sodium 120 L 118 L* (137-145) mmol/L Chloride 87 L 86 L (98-107) mmol/L BUN 36 H 33 H (9-20) mg/dL Creatinine 1.38 H 1.28 H (0.66-1.25) mg/dL Glucose 122 H (74-99) mg/dL Calcium 8.2 L 8.1 L (8.4-10.2) mg/dL Assessment and Plan Plan: Assessment: 1. Chronic kidney disease stage III with baseline creatinine 1-1.3 secondary to hepatorenal syndrome. No proteinuria on UA. No hydronephrosis noted on imaging done in October 2022. 2. Hypervolemic hyponatremia. TSH and cortisol level normal. 3. Alcohol-induced liver cirrhosis. 4. Metabolic acidosis secondary to chronic kidney disease and likely compensatory for underlying respiratory alkalosis from liver failure. Improved. 8. Hyperkalemia secondary to chronic kidney disease and Aldactone. Improved. Plan: 1200 mL fluid restriction. Low potassium diet. Increase dose of Aldactone. Maintain IV Lasix. Samsca 7.5 mg once now. Maintain midodrine. Check PTH related peptide.
--- NOTE | 2022-12-19 17:26 | P.PN ---
Progress Note - Text Progress Note Date: 12/19/22 Chief Complaint: Abnormal labs This is a pleasant 77-year-old patient who follows with Dr. Chang Douglas. August- 2022 diagnosed with alcoholic cirrhosis. Follows Dr. Nikole Matt gastroenterology. stopped drinking in August 2022. Was drinking 8-10 beers a day prior to that for years. had repeated paracentesis. Patient was seen yesterday at the nephrology clinic by Dr. Santoro. Was found to be hypotensive. Increasing ascites. An abnormal labs including the low-sodium. Patient was sent down to the ER for the same. Patient has maintained fluid restriction of 1200 mL at home. It is indeed dose of Lasix was increased to [address] Santoro. Patient has some shortness of breath. Edema. Due for paracentesis this afternoon. Patient's at the bedside. Appetite is fair. 12/19/2022: About 8 L of paracentesis scheduled to yesterday. Given IV albumin. Sodium still running low. 1 dose of Samsca given by nephrology. Eating better. Breathing better. Decrease in edema. Reminded patient to wear the Travis wrap. Discussed with patient and at the bedside. Active Medications Acetaminophen (Acetaminophen Tab 325 Mg Tab) 650 mg PO Q6HR PRN PRN Reason: Mild Pain or Fever > 100.5 Hydrocodone Bitart/Acetaminophen (Hydrocodone/Apap 5-325mg 1 Each Tab) 1 each PO Q4HR PRN PRN Reason: Moderate Pain (Scale 4 to 6) Aspirin (Aspirin 81 Mg) 81 mg PO DAILY [facility] Last Admin: 12/19/22 08:26 Dose: 81 mg Atorvastatin Calcium (Atorvastatin 80 Mg Tab) 80 mg PO HS [facility] Last Admin: 12/18/22 19:56 Dose: 80 mg Furosemide (Furosemide 10 Mg/Ml 10 Ml Vial) 60 mg IV Q12HR [facility] Last Admin: 12/19/22 08:26 Dose: 60 mg Lactulose (Lactulose 20 Gm/30 Ml Cup) 20 gm PO DAILY PRN PRN Reason: Constipation Lorazepam (Lorazepam 0.5 Mg Tab) 0.5 mg PO Q6HR PRN PRN Reason: Anxiety Melatonin (Melatonin 3 Mg Tablet) 3 mg PO HS PRN PRN Reason: Insomnia Midodrine (Midodrine 5 Mg Tab) 10 mg PO AC-TID [facility] Last Admin: 12/19/22 13:02 Dose: 10 mg Multivitamins (Multivitamins, Thera 1 Each Tab) 1 each PO DAILY [facility] Last Admin: 12/19/22 08:26 Dose: 1 each Naloxone HCl (Naloxone 0.4 Mg/Ml 1 Ml Vial) 0.2 mg IV Q2M PRN PRN Reason: Opioid Reversal Ondansetron HCl (Ondansetron 4 Mg/2 Ml Vial) 4 mg IVP Q8HR PRN PRN Reason: Nausea And Vomiting Pantoprazole Sodium (Pantoprazole 40 Mg Tablet) 40 mg PO DAILY [facility] Last Admin: 12/19/22 08:26 Dose: 40 mg Senna (Sennosides 8.6 Mg Tab) 17.2 mg PO HS PRN PRN Reason: Constipation Sodium Bicarbonate (Sodium Bicarbonate Tab 650 Mg Tab) 650 mg PO BID [facility] Last Admin: 12/19/22 08:26 Dose: 650 mg Spironolactone (Spironolactone 25 Mg Tab) 50 mg PO BID [facility] Past medical history to include: Alcoholic cirrhosis diagnosed in August 2022, hypertension, GERD, osteoarthritis, hepatorenal syndrome Social history: Former smoker. Was drinking 8-10 beers a day up to August 2022. . 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 Conjunctiva normal. HEENT: External appearance of nose and ears normal, oral cavity grossly normal. NECK: JVD and prominent; masses not palpable. HEART: First and second heart sounds are normal; decreased edema. LUNGS: Respiratory rate increased; decreased breath sounds. ABDOMEN: Soft, soft, nontender, liver spleen not palpable, no masses palpable. PSYCH: Alert and oriented x3; mood and affect tired. MUSCULOSKELETAL:No Clubbing/cyanosis;muscles-grossly intact INVESTIGATIONS, reviewed in the clinical context: December 19: Sodium 118 potassium 4. 33 creatinine 1.28 December 18: Sodium 117 potassium 4.6 BUN 35 creatinine 1.34 December 17: Sodium 117 potassium 5.2 BUN 38 creatinine 1.5 total bilirubin 1.9 AST 156 AST 64 troponin I 0.078 albumin 2.7 white count 7.1 hemoglobin 13 platelets 183 EKG tracing personally reviewed by me-low voltage. Rate 83. Nonspecific T-wave changes Chest x-ray film personally reviewed by me--cardiomegaly Previous labs: Creatinine 1.09 [11/29/2022 Assessment and plan: -Severe hyponatremia, hypoosmolar with hypervolemia from underlying cirrhosis: Slow to respond Strict fluid restriction 1200 mL a day. Limit water intake. Samsca 1 dose given today -Acute fluid overload from underlying cirrhosis Lasix 60 mg IV every 12. Increase Aldactone 50 mg twice a day. Fluid restriction -Hyperkalemia secondary to underlying CK D: Better -Secondary Portal hypertension secondary cirrhosis -underlying chronic kidney disease probable stage III, from hepatorenal syndrome -Severe Hypoalbuminemia secondary to cirrhosis -Large ascites symptomatic. Paracentesis 8 L removed on December 18 -Alcoholic cirrhosis follows with Dr. Nikole Matt -GERD Protonix -Troponinemia secondary to chronic kidney disease. No acute coronary syndrome. Continue current medication treatment blood. Follow labs closely. Discussed with patient and . Past Medical History Past Medical History: CVA/TIA, GERD/Reflux, Hypertension, Liver Disease Additional Past Medical History / Comment(s): cirrhosis August 2022, Stroke 10/09/2022 and taking plavix, ETOH history 8-10 beers and 1 or 2 shots of vodka per day(last drink 08/2022). History of Any Multi-Drug Resistant Organisms: None Reported Past Surgical History: Joint Replacement Additional Past Surgical History / Comment(s): Lt hip replacement three times, rt knee replaced, paracentesis 10/02/2022 Past Anesthesia/Blood Transfusion Reactions: No Reported Reaction Past Psychological History: No Psychological Hx Reported Smoking Status: Former smoker Past Alcohol Use History: None Reported Past Drug Use History: None Reported - Past Family History Father Family Medical History: No Reported History Medications and Allergies Home Medications Medication Instructions Recorded Confirmed Type Aspirin EC [Ecotrin Low Dose] 81 mg PO DAILY 11/01/22 12/18/22 History Atorvastatin [Lipitor] 80 mg PO HS 11/01/22 12/18/22 History Multivit-Min/FA/Lycopen/Lutein 1 tab PO DAILY 11/01/22 12/18/22 History [Centrum Silver Men Tablet] Pantoprazole [Protonix] 40 mg PO DAILY 11/01/22 12/18/22 History Sodium Bicarbonate Tab 650 mg PO BID #60 tab 11/28/22 12/18/22 Rx Furosemide [Lasix] 60 mg PO BID 12/17/22 12/18/22 History Midodrine HCl [ProAmatine] 10 mg PO TID 12/17/22 12/18/22 History Sennosides [Senokot] 16.2 mg PO HS PRN 12/17/22 12/18/22 History Spironolactone [Aldactone] 25 mg PO DAILY 12/17/22 12/18/22 History Allergies Allergy/AdvReac Type Severity Reaction Status Date / Time No Known Allergies Allergy Verified 12/17/22 15:04 Physical Exam Vitals: Vital Signs Temp Pulse Pulse Resp BP BP Pulse Ox 12/18/22 07:42 97.3 F L 84 16 92/52 98 12/18/22 06:00 85 18 98/70 98 12/18/22 04:00 83 18 93/71 98 12/18/22 03:00 83 18 90/70 98 12/18/22 02:00 87 18 93/78 97 12/18/22 01:00 81 18 94/73 98 12/17/22 23:00 78 16 97/75 98 12/17/22 22:30 105/66 98 12/17/22 22:00 78 97/81 98 12/17/22 21:30 70 94/78 99 12/17/22 21:00 9 L 100 12/17/22 20:30 50 L 10 L 117/82 97 12/17/22 20:00 55 L 14 95/73 98 12/17/22 19:30 10 L 109/81 99 12/17/22 19:00 59 L 12 104/72 98 12/17/22 18:30 70 13 101/73 99 12/17/22 18:00 77 11 L 116/79 98 12/17/22 17:30 61 13 103/78 99 12/17/22 17:00 0 L 23 111/73 100 12/17/22 16:30 12 96/76 100 12/17/22 16:00 79 10 L 100/80 100 12/17/22 15:30 79 13 110/81 100 12/17/22 15:00 79 11 L 100 12/17/22 14:40 12 106/76 100 12/17/22 14:20 80 10 L 110/81 100 12/17/22 14:11 100 12/17/22 12:04 98.5 F 90 20 102/68 98 Results CBC & Chem 7: 12/17/22 13:01 12/18/22 10:34 Labs: Abnormal Lab Results - Last 24 Hours (Table) 12/17/22 12/17/22 12/17/22 Range/Units 13:01 13:01 13:01 RBC 3.91 L (4.30-5.90) m/uL Hct 36.8 L (39.0-53.0) % Sodium 117 L* (137-145) mmol/L Potassium 5.2 H (3.5-5.1) mmol/L Chloride 86 L (98-107) mmol/L BUN 38 H (9-20) mg/dL Creatinine 1.50 H (0.66-1.25) mg/dL Total Bilirubin 1.9 H (0.2-1.3) mg/dL AST 156 H (17-59) U/L ALT 64 H (4-49) U/L Alkaline Phosphatase 264 H (38-126) U/L Troponin I 0.078 H* (0.000-0.034) ng/mL Total Protein 6.2 L (6.3-8.2) g/dL Albumin 2.7 L (3.5-5.0) g/dL Amylase 188 H (30-110) U/L Lipase 398 H (23-300) U/L Additional CC's: Chang Douglas
[2022-12-19] MEDS ORDERED: SODIUM CHLORIDE 3%(HYPERTONIC) 500 ML IV ONE (17:50)
[2022-12-19 20:40] LABS: Glucose,Whole Blood 103 mg/dL (70-110)
[2022-12-19] MEDS ORDERED: SPIRONOLACTONE 25 MG TAB PO SCH (21:00)
[2022-12-19] MEDS: ATORVASTATIN 80 MG TAB PO SCH (21:15)
[2022-12-19] MEDS ORDERED: MAGNESIUM SULFATE-D5W PMX 1 GM in DEXTROSE/WATER 1 100ML.BAG IVPB ONE (21:21)
[2022-12-20] MEDS ORDERED: TOLVAPTAN 15 MG TABLET PO ONE (01:59)
--- NOTE | 2022-12-20 04:03 | P.CNPUL ---
History of Present Illness Consult date: 12/20/22 Requesting physician: Sae Santoro Reason for consult: other (ICU management) Chief complaint: Weakness, generalized swelling History of present illness: I am seeing this patient in new consultation today 12/20/2022 after the patient was transferred to the intensive care unit for severe hyponatremia requiring hypertonic saline infusion. Patient is an 77-year-old white male with past medical history significant for alcoholism, alcohol-induced cirrhosis of liver, chronic kidney disease stage III, hyperlipidemia, CVA/TIA, GERD. Last reported alcoholic drink Aug, 2022. Patient does have frequent paracentesis with Dr. Matt. Patient presented to the emergency room on December 17 complaining of weakness and generalized swelling. Also, states that his blood pressure was low at home. He does take midodrine. Patient was found to be severely hyponatremic with a sodium of 117. TSH and cortisol levels were normal. He was admitted to the cardiac stepdown unit, and treated with multiple doses of Samsca. Unfortunately, his hyponatremia was not corrected, and he was transferred to the intensive care unit late last night for 3% hypertonic saline infusion. Patient is currently sitting up in bed, on room air, in no acute distress. He denies any focal weakness. No seizures. Patient has reportedly stopped drinking, used to drink beer and liquor. Denies any history of CHF. Does take Lasix 60 mg twice a day and Aldactone. He does report increased generalized swelling. He did have a large volume paracentesis on December 18 with a total of 8 L removed. 3% sodium chloride is currently infusing at 30 MLS per hour, and most recent sodium level is 117. This is being managed by nephrology. Most recent BMP from last night shows a sodium 117, potassium 4, chloride 86, serum bicarb 26, BUN 33, creatinine 1.28, glucose 82. Troponins mildly elevated at 0.078. NT proBNP 999. ECG shows normal sinus rhythm without any obvious acute ischemic changes.. Pancreatic enzymes mildly elevated. LFTs mildly elevated. CBC from admission was unremarkable. Recent chest x-ray from 2 days ago shows no acute cardiopulmonary process. Patient does appear hemodynamically stable. Review of Systems REVIEW OF SYSTEMS: CONSTITUTIONAL: Does report some weight gain, unsure of how much EYES: Denies change in vision. EARS, NOSE, MOUTH, THROAT: Denies headaches, denies sore throat. CARDIOVASCULAR: Denies chest pain, palpitations, lightheadedness, syncopal episodes, orthopnea. Admits some generalized swelling. RESPIRATORY: Denies shortness of breath, cough, congestion or hemoptysis. GASTROINTESTINAL: Denies change in appetite, abdominal pain, nausea and vomiting, or diarrhea GENITOURINARY: Denies hematuria, denies infections. MUSKULOSKELETAL: Denies pain, denies swelling. INTEGUMENTARY: Denies rash, denies eczema. NEUROLOGICAL: Denies recent memory loss, no recent seizure activity. PSYCHIATRIC: Denies anxiety, denies depression. HEMATOLOGIC/LYMPHATIC: Denies anemia, denies enlarged lymph node Past Medical History Past Medical History: CVA/TIA, GERD/Reflux, Hypertension, Liver Disease Additional Past Medical History / Comment(s): cirrhosis August 2022, Stroke 10/09/2022 and taking plavix, ETOH history 8-10 beers and 1 or 2 shots of vodka per day(last drink 08/2022). History of Any Multi-Drug Resistant Organisms: None Reported Past Surgical History: Joint Replacement Additional Past Surgical History / Comment(s): Lt hip replacement three times, rt knee replaced, paracentesis 10/02/2022 Past Anesthesia/Blood Transfusion Reactions: No Reported Reaction Past Psychological History: No Psychological Hx Reported Smoking Status: Former smoker Past Alcohol Use History: None Reported Past Drug Use History: None Reported - Past Family History Father Family Medical History: No Reported History Medications and Allergies Home Medications Medication Instructions Recorded Confirmed Type Aspirin EC [Ecotrin Low Dose] 81 mg PO DAILY 11/01/22 12/18/22 History Atorvastatin [Lipitor] 80 mg PO HS 11/01/22 12/18/22 History Multivit-Min/FA/Lycopen/Lutein 1 tab PO DAILY 11/01/22 12/18/22 History [Centrum Silver Men Tablet] Pantoprazole [Protonix] 40 mg PO DAILY 11/01/22 12/18/22 History Sodium Bicarbonate Tab 650 mg PO BID #60 tab 11/28/22 12/18/22 Rx Furosemide [Lasix] 60 mg PO BID 12/17/22 12/18/22 History Midodrine HCl [ProAmatine] 10 mg PO TID 12/17/22 12/18/22 History Sennosides [Senokot] 16.2 mg PO HS PRN 12/17/22 12/18/22 History Spironolactone [Aldactone] 25 mg PO DAILY 12/17/22 12/18/22 History Allergies Allergy/AdvReac Type Severity Reaction Status Date / Time No Known Allergies Allergy Verified 12/17/22 15:04 Physical Exam Vitals: Vital Signs Temp Pulse Pulse Resp BP BP Pulse Ox 12/20/22 03:00 87 21 89/60 89 L 12/20/22 02:30 91 19 83/62 96 12/20/22 02:00 93 16 89/61 87 L 12/20/22 01:30 88 20 96/62 96 12/20/22 01:00 92 97/69 97 12/20/22 00:30 96 86/56 94 L 12/20/22 00:21 92 86/56 95 12/20/22 00:00 88/56 95 12/19/22 23:30 90 99/65 97 12/19/22 23:00 97/56 93 L 12/19/22 22:30 93 13 81/60 95 12/19/22 22:00 93 28 H 95/52 96 12/19/22 21:30 92 7 L 82/50 98 12/19/22 21:00 95 17 114/74 95 12/19/22 20:38 23 12/19/22 15:35 98.1 F 84 20 91/61 95 12/19/22 13:48 82 12/19/22 11:26 82 18 96/61 98 12/19/22 08:20 98.2 F 81 20 96/64 97 12/19/22 03:41 98.2 F 82 16 87/61 97 Intake and Output 12/19/22 12/19/22 12/20/22 14:59 22:59 06:59 Intake Total 236 260 180 Output Total 110 225 Balance 236 150 -45 Intake: Intake, IV Titration 60 180 Amount Sodium Chloride 3%( 60 180 Hypertonic) 500 ml @ 30 mls/hr IV .[id number] ONE Rx #:[id number] Oral 236 200 Output: Urine 110 225 Other: Voiding Method Urinal Urinal Urinal # Bowel Movements 1 GENERAL EXAM: Alert, 77-year-old white male, comfortable in no apparent distre ss. HEAD: Normocephalic and atraumatic EYES: Normal reaction of pupils, equal size. Sclera nonicteric NOSE: Clear with pink turbinates. THROAT: No erythema or exudates. NECK: No masses, no JVD. CHEST: No chest wall deformity. LUNGS: Equal air entry with no crackles, wheeze, rhonchi or dullness. On room air. No conversational dyspnea or accessory muscle use.. CVS: S1 and S2 normal with no audible murmur, regular rhythm. No extra heart sounds ABDOMEN: Ascites, mild hepatomegaly, active bowel sounds, no guarding or rigidity. SPINE: No scoliosis or deformity SKIN: No rashes CENTRAL NERVOUS SYSTEM: No focal deficits, tone is normal in all 4 extremities. EXTREMITIES: Generalized edema with 1-2+ lower extremity pitting edema. No clubbing, or cyanosis. Peripheral pulses are intact. Results - Laboratory Findings CBC and BMP: 12/20/22 03:30 12/20/22 05:15 PT/INR, D-dimer PT 10.7 sec (9.0-12.0) 12/17/22 13:01 INR 1.0 (<1.2) 12/17/22 13:01 Abnormal lab findings: Abnormal Labs 12/17/22 12/17/22 12/17/22 13:01 13:01 13:01 RBC 3.91 L Hct 36.8 L Sodium 117 L* Potassium 5.2 H Chloride 86 L Carbon Dioxide BUN 38 H Creatinine 1.50 H Glucose Calcium Total Bilirubin 1.9 H AST 156 H ALT 64 H Alkaline Phosphatase 264 H Troponin I 0.078 H* Total Protein 6.2 L Albumin 2.7 L Amylase 188 H Lipase 398 H 12/18/22 12/18/22 12/19/22 10:34 16:47 06:53 RBC Hct Sodium 117 L* 120 L 118 L* Potassium Chloride 89 L 87 L 86 L Carbon Dioxide 20 L BUN 35 H 36 H 33 H Creatinine 1.34 H 1.38 H 1.28 H Glucose 102 H 122 H Calcium 7.7 L 8.2 L 8.1 L Total Bilirubin AST ALT Alkaline Phosphatase Troponin I Total Protein Albumin Amylase Lipase 12/19/22 12/19/22 12/20/22 16:46 23:02 01:20 RBC Hct Sodium 118 L* 117 L* 117 L* Potassium Chloride Carbon Dioxide BUN Creatinine Glucose Calcium Total Bilirubin AST ALT Alkaline Phosphatase Troponin I Total Protein Albumin Amylase Lipase - Diagnostic Findings Chest x-ray: image reviewed Assessment and Plan Assessment: Severe hypervolemic hyponatremia, asymptomatic, currently on 3% hypertonic saline infusion. TSH and cortisol levels are normal. Chronic kidney disease stage III Alcoholic liver cirrhosis Ascites, status post large volume paracentesis on December 18 Hypoalbuminemia Elevated troponins, no ECG evidence of acute ischemia Hyperlipidemia History of CVA/TIA GERD History of alcoholism, last drink Aug, 2022 Plan: Patient's medications, labs, chest x-ray reviewed Currently on 3% hypertonic saline infusion, sodium goal of 6-8 mmol per liter in 24 hours Fluid restriction 1200 ML/24 hours On Lasix and Aldactone Monitor urine output Sodium rechecks per nephrology Patient appears hemodynamically stable and is asymptomatic He will be monitored in the intensive care unit I have personally seen and examined the patient, performed the documentation and the assessment and plan as written. Number of minutes spent on the visit:20 This is a joint evaluation that was done along with a nurse practitioner. The patient was seen and evaluated. He is currently on hypertonic saline 3% on a the rate of 35 mL an hour. Most recent sodium level is at 118. Creatinine is improving and is currently down to 1.28. He does have abdominal ascites. During this current hospital stay, the patient underwent a large-volume paracentesis with a total of 8 L of fluid removed from his abdomen. Chest x-ray shows no evidence of any pleural effusion. He is a bit frustrated being in the hospital. Otherwise he is awake and alert and communicating. Slightly lethargic yet his appropriate. His diuretics are currently on hold. We are monitoring the sodium level every 4 hours. We will committed and fixing his hyp onatremia. THis evaluation was done in > 30 min . Time with Patient: Greater than 30
[2022-12-20 04:16] LABS: Sodium 118 mmol/L (137-145)
[2022-12-20 04:26] LABS: Basophils % (A) 0 %; Eosinophils # (A) 0.1 k/uL (0-0.7); Eosinophils % (A) 1 %; HCT 36.8 % (39.0-53.0); HGB 13.1 gm/dL (13.0-17.5); Lymphocytes # (A) 1.6 k/uL (1.0-4.8); Lymphocytes % (A) 11 %; MCH 33.3 pg (25.0-35.0); MCHC 35.6 g/dL (31.0-37.0); MCV 93.5 fL (80.0-100.0); Mean Platelet Volume 7.9; Monocytes # (A) 1.3 k/uL (0-1.0); Monocytes % (A) 9 %; Neutrophils # (A) 11.1 k/uL (1.3-7.7); Neutrophils % (A) 78 %; Platelet Count 137 k/uL (150-450); RBC 3.94 m/uL (4.30-5.90); WBC 14.3 k/uL (3.8-10.6)
[2022-12-20] MEDS: MIDODRINE 5 MG TAB PO SCH ×3 (06:54→16:54)
[2022-12-20] MEDS: MULTIVITAMINS, THERA 1 EACH TAB PO SCH (08:25)
[2022-12-20] MEDS: SODIUM BICARBONATE TAB 650 MG TAB PO SCH ×2 (08:25→21:01)
[2022-12-20] MEDS: PANTOPRAZOLE 40 MG TABLET PO SCH (08:25)
[2022-12-20] MEDS: ASPIRIN 81 MG PO SCH (08:25)
[2022-12-20] MEDS ORDERED: SODIUM CHLORIDE 3%(HYPERTONIC) 500 ML IV ONE (08:30)
--- NOTE | 2022-12-20 10:46 | P.PN ---
Subjective Patient is seen in follow-up for chronic kidney disease and hyponatremia. Renal function stable. Sodium level CXVIII as of this morning. Patient received 3% saline overnight and his also received Lasix, Aldactone as well as Samsca. Vital signs are stable. General: No acute distress. HEENT: Head exam is unremarkable. LUNGS: No audible rhonchi or wheezes. HEART: Rate and Rhythm are regular. ABDOMEN: Nontender. EXTREMITITES: Trace edema. Objective - Vital Signs Vital signs: Vital Signs Temp 98.9 F 12/20/22 08:00 Pulse 107 H 12/20/22 09:00 Resp 15 12/20/22 09:00 BP 132/80 12/20/22 09:00 Pulse Ox 95 12/20/22 09:00 FiO2 Intake & Output 12/19/22 12/20/22 12/20/22 18:59 06:59 18:59 Intake Total 236 560 100 Output Total 110 475 200 Balance 126 85 -100 Weight 83 kg Intake: Intake, IV Titration 360 100 Amount Sodium Chloride 3%( 360 100 Hypertonic) 500 ml @ 35 mls/hr IV .[id number] ONE Rx #:[id number] Oral 236 200 Output: Urine 110 475 200 Other: Voiding Method Urinal Urinal Urinal # Bowel Movements 1 - Labs CBC & Chem 7: 12/20/22 03:30 12/20/22 05:15 Labs: Abnormal Lab Results - Last 24 Hours (Table) 12/19/22 12/19/22 12/20/22 Range/Units 16:46 23:02 01:20 WBC (3.8-10.6) k/uL RBC (4.30-5.90) m/uL Hct (39.0-53.0) % Plt Count (150-450) k/uL Neutrophils # (1.3-7.7) k/uL Monocytes # (0-1.0) k/uL Sodium 118 L* 117 L* 117 L* (137-145) mmol/L 12/20/22 12/20/22 12/20/22 Range/Units 03:30 03:30 05:15 WBC 14.3 H (3.8-10.6) k/uL RBC 3.94 L (4.30-5.90) m/uL Hct 36.8 L (39.0-53.0) % Plt Count 137 L (150-450) k/uL Neutrophils # 11.1 H (1.3-7.7) k/uL Monocytes # 1.3 H (0-1.0) k/uL Sodium 118 L* 118 L* (137-145) mmol/L Assessment and Plan Plan: Assessment: 1. Chronic kidney disease stage III with baseline creatinine 1-1.3 secondary to hepatorenal syndrome. No proteinuria on UA. No hydronephrosis noted on imaging done in October 2022. 2. Hypervolemic hyponatremia. Status post paracentesis 12/18/2022 with 8 L drained. TSH and cortisol level normal. 3. Alcohol-induced liver cirrhosis. 4. Metabolic acidosis secondary to chronic kidney disease and likely compensatory for underlying respiratory alkalosis from liver failure. Improved. 8. Hyperkalemia secondary to chronic kidney disease and Aldactone. Improved. Plan: 1200 mL fluid restriction. Low potassium diet. Hold off on diuretics. Maintain 3%. Follow-up repeat sodium level. Maintain midodrifollow-up PTH related peptide. Check urine studies and serum osmolality.
[2022-12-20 14:02] LABS: African American GFR (CKD) 53 (>60 ml/min/1.73 sqM); Anion Gap 10 mmol/L; Blood Urea Nitrogen 34 mg/dL (9-20); Calcium 7.8 mg/dL (8.4-10.2); Carbon Dioxide 20 mmol/L (22-30); Chloride 89 mmol/L (98-107); Glucose 67 mg/dL (74-99); Magnesium 1.8 mg/dL (1.6-2.3); Non-African American GFR(CKD) 46 (>60 ml/min/1.73 sqM); Potassium 3.9 mmol/L (3.5-5.1)
[2022-12-20 14:17] LABS: Sodium 119 mmol/L (137-145)
[2022-12-20] MEDS ORDERED: MAGNESIUM SULFATE-D5W PMX 1 GM in DEXTROSE/WATER 1 100ML.BAG IVPB ONE (15:00)
--- NOTE | 2022-12-20 15:25 | P.PN ---
Progress Note - Text Progress Note Date: 12/20/22 Chief Complaint: Abnormal labs This is a pleasant 77-year-old patient who follows with Dr. Chang Douglas. August- 2022 diagnosed with alcoholic cirrhosis. Follows Dr. Nikole Matt gastroenterology. stopped drinking in August 2022. Was drinking 8-10 beers a day prior to that for years. had repeated paracentesis. Patient was seen yesterday at the nephrology clinic by Dr. Santoro. Was found to be hypotensive. Increasing ascites. An abnormal labs including the low-sodium. Patient was sent down to the ER for the same. Patient has maintained fluid restriction of 1200 mL at home. It is indeed dose of Lasix was increased to [address] Santoro. Patient has some shortness of breath. Edema. Due for paracentesis this afternoon. Patient's at the bedside. Appetite is fair. 12/19/2022: About 8 L of paracentesis scheduled to yesterday. Given IV albumin. Sodium still running low. 1 dose of Samsca given by nephrology. Eating better. Breathing better. Decrease in edema. Reminded patient to wear the Travis wrap. Discussed with patient and at the bedside. 12/20/2022: ICU: Patient is moved to the ICU overnight. 4 sodium of 117. Was started on hypertonic saline. Blood pressure running low close to around 80. Tolerating some diet. Discussed with patient about Travis wrap as that'll help with the blood pressure. She received Samsca yesterday. And today. Fluid restriction to continue. Active Medications Acetaminophen (Acetaminophen Tab 325 Mg Tab) 650 mg PO Q6HR PRN PRN Reason: Mild Pain or Fever > 100.5 Hydrocodone Bitart/Acetaminophen (Hydrocodone/Apap 5-325mg 1 Each Tab) 1 each PO Q4HR PRN PRN Reason: Moderate Pain (Scale 4 to 6) Aspirin (Aspirin 81 Mg) 81 mg PO DAILY [facility]GA Last Admin: 12/20/22 08:25 Dose: 81 mg Atorvastatin Calcium (Atorvastatin 80 Mg Tab) [address] [facility] Last Admin: 12/19/22 21:15 Dose: 80 mg Sodium Chloride (Hypertonic) (Saline 3% (Hypertonic)) 500 mls @ 40 mls/hr IV .[id number] ONE; Protocol Stop: 12/20/22 20:59 Last Admin: 12/20/22 12:01 Dose: 35 mls/hr Magnesium Sulfate/Dextrose 1 (gm/ IV Solution) 100 mls @ 100 mls/hr IVPB ONCE ONE; Protocol Stop: 12/20/22 15:59 Lactulose (Lactulose 20 Gm/30 Ml Cup) 20 gm PO DAILY PRN PRN Reason: Constipation Lorazepam (Lorazepam 0.5 Mg Tab) 0.5 mg PO Q6HR PRN PRN Reason: Anxiety Melatonin (Melatonin 3 Mg Tablet) 3 mg PO HS PRN PRN Reason: Insomnia Midodrine (Midodrine 5 Mg Tab) 10 mg PO AC-TID [facility] Last Admin: 12/20/22 12:00 Dose: 10 mg Multivitamins (Multivitamins, Thera 1 Each Tab) [address] [facility] Last Admin: 12/20/22 08:25 Dose: 1 each Naloxone HCl (Naloxone 0.4 Mg/Ml 1 Ml Vial) 0.2 mg IV Q2M PRN PRN Reason: Opioid Reversal Ondansetron HCl (Ondansetron 4 Mg/2 Ml Vial) 4 mg IVP Q8HR PRN PRN Reason: Nausea And Vomiting Pantoprazole Sodium (Pantoprazole 40 Mg Tablet) [address] [facility] Last Admin: 12/20/22 08:25 Dose: 40 mg Senna (Sennosides 8.6 Mg Tab) 17.2 mg PO HS PRN PRN Reason: Constipation Sodium Bicarbonate (Sodium Bicarbonate Tab 650 Mg Tab) [address] [facility] Last Admin: 12/20/22 08:25 Dose: 650 mg Past medical history to include: Alcoholic cirrhosis diagnosed in August 2022, hypertension, GERD, osteoarthritis, hepatorenal syndrome Social history: Former smoker. Was drinking 8-10 beers a day up to August 2022. . 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 Conjunctiva pale HEENT: External appearance of nose and ears normal, oral cavity grossly normal. NECK: JVD and prominent; masses not palpable. HEART: First and second heart sounds are normal; decreased edema. LUNGS: Respiratory rate increased; decreased breath sounds. ABDOMEN: Soft, mild distention, nontender, liver spleen not palpable, no masses palpable. PSYCH: Alert and oriented x3; mood and affect tired. MUSCULOSKELETAL:No Clubbing/cyanosis;muscles-grossly intact INVESTIGATIONS, reviewed in the clinical context: December 20: White count 14.3 hemoglobin 13.1 platelets 137 sodium 119 potassium 3.9 BUN 34 creatinine 1.46 December 19: Sodium 118 potassium 4. 33 creatinine 1.28 December 18: Sodium 117 potassium 4.6 BUN 35 creatinine 1.34 December 17: Sodium 117 potassium 5.2 BUN 38 creatinine 1.5 total bilirubin 1.9 AST 156 AST 64 troponin I 0.078 albumin 2.7 white count 7.1 hemoglobin 13 platelets 183 EKG tracing personally reviewed by me-low voltage. Rate 83. Nonspecific T-wave changes Chest x-ray film personally reviewed by me--cardiomegaly Previous labs: Creatinine 1.09 [11/29/2022 Assessment and plan: -Severe hyponatremia, hypoosmolar with hypervolemia from underlying cirrhosis: Not improving Strict fluid restriction 1200 mL a day. Limit water intake. Samsca second dose given today. Started on hypertonic saline. -Acute fluid overload from underlying cirrhosis Lasix discontinued. Aldactone held. Fluid restriction -Hyperkalemia secondary to underlying CK D: Better -Secondary Portal hypertension secondary cirrhosis -underlying chronic kidney disease probable stage III, from hepatorenal syndrome -Severe Hypoalbuminemia secondary to cirrhosis -Large ascites symptomatic. Paracentesis 8 L removed on December 18. Followed by albumin infusion -Alcoholic cirrhosis follows with Dr. Nikole Matt -MAL Protonix -Troponinemia secondary to chronic kidney disease. No acute coronary syndrome. Discussed with patient. Follow-up in traffic analysis technician, nephrology. Follows sodium closely. Past Medical History Past Medical History: CVA/TIA, GERD/Reflux, Hypertension, Liver Disease Additional Past Medical History / Comment(s): cirrhosis August 2022, Stroke 10/09/2022 and taking plavix, ETOH history 8-10 beers and 1 or 2 shots of vodka per day(last drink 08/2022). History of Any Multi-Drug Resistant Organisms: None Reported Past Surgical History: Joint Replacement Additional Past Surgical History / Comment(s): Lt hip replacement three times, rt knee replaced, paracentesis 10/02/2022 Past Anesthesia/Blood Transfusion Reactions: No Reported Reaction Past Psychological History: No Psychological Hx Reported Smoking Status: Former smoker Past Alcohol Use History: None Reported Past Drug Use History: None Reported - Past Family History Father Family Medical History: No Reported History Medications and Allergies Home Medications Medication Instructions Recorded Confirmed Type Aspirin EC [Ecotrin Low Dose] 81 mg PO DAILY 11/01/22 12/18/22 History Atorvastatin [Lipitor] 80 mg PO HS 11/01/22 12/18/22 History Multivit-Min/FA/Lycopen/Lutein 1 tab PO DAILY 11/01/22 12/18/22 History [Centrum Silver Men Tablet] Pantoprazole [Protonix] 40 mg PO DAILY 11/01/22 12/18/22 History Sodium Bicarbonate Tab 650 mg PO BID #60 tab 11/28/22 12/18/22 Rx Furosemide [Lasix] 60 mg PO BID 12/17/22 12/18/22 History Midodrine HCl [ProAmatine] 10 mg PO TID 12/17/22 12/18/22 History Sennosides [Senokot] 16.2 mg PO HS PRN 12/17/22 12/18/22 History Spironolactone [Aldactone] 25 mg PO DAILY 12/17/22 12/18/22 History Allergies Allergy/AdvReac Type Severity Reaction Status Date / Time No Known Allergies Allergy Verified 12/17/22 15:04
[2022-12-20 16:00] LABS: African American GFR (CKD) 56 (>60 ml/min/1.73 sqM); Anion Gap 7 mmol/L; Blood Urea Nitrogen 33 mg/dL (9-20); Calcium 7.8 mg/dL (8.4-10.2); Carbon Dioxide 23 mmol/L (22-30); Chloride 88 mmol/L (98-107); Glucose 95 mg/dL (74-99); Magnesium 1.8 mg/dL (1.6-2.3); Non-African American GFR(CKD) 48 (>60 ml/min/1.73 sqM); Potassium 4.1 mmol/L (3.5-5.1)
[2022-12-20] MEDS ORDERED: FUROSEMIDE 10 MG/ML 10 ML VIAL IV STA (17:48)
--- NOTE | 2022-12-20 20:30 | XR ---
EXAMINATION TYPE: XR chest 1V DATE OF EXAM: 12/20/2022 7:49 PM COMPARISON: Chest radiographs from 12/18/2022 TECHNIQUE: XR chest 1V Frontal view of the chest. CLINICAL INDICATION:Male, 77 years old with history of congestion; FINDINGS: Lungs/Pleura: Similar morphology to the right lung medial base. There is no evidence of pleural effus ion, focal consolidation, or pneumothorax. Pulmonary vascularity: Unremarkable. Heart/mediastinum: Cardiomediastinal silhouette is unremarkable. Musculoskeletal: No acute osseous pathology. IMPRESSION: Chronic changes without acute pulmonary process. No significant change from prior.
[2022-12-20] MEDS: ATORVASTATIN 80 MG TAB PO SCH (21:01)
[2022-12-21] MEDS ORDERED: SODIUM CHLORIDE 3%(HYPERTONIC) 500 ML IV ONE (01:43)
[2022-12-21] MEDS: DEXTROSE/WATER 1 250ML.BAG with DOPamine DRIP 800 MG IV SCH (03:22)
[2022-12-21] MEDS: MIDODRINE 5 MG TAB PO SCH ×3 (06:54→17:19)
[2022-12-21 06:58] LABS: Magnesium 1.7 mg/dL (1.6-2.3); Sodium 121 mmol/L (137-145)
[2022-12-21 07:21] LABS: ALT 56 U/L (4-49); AST 171 U/L (17-59); African American GFR (CKD) 40 (>60 ml/min/1.73 sqM); Alkaline Phosphatase 164 U/L (38-126); Anion Gap 9 mmol/L; Blood Urea Nitrogen 40 mg/dL (9-20); Carbon Dioxide 18 mmol/L (22-30); Chloride 94 mmol/L (98-107); Glucose 83 mg/dL (74-99); Non-African American GFR(CKD) 34 (>60 ml/min/1.73 sqM); Potassium 4.5 mmol/L (3.5-5.1); Total Bilirubin 2.4 mg/dL (0.2-1.3); Total Protein 4.8 g/dL (6.3-8.2)
[2022-12-21 08:48] LABS: HCT 36.4 % (39.0-53.0); HGB 12.5 gm/dL (13.0-17.5); MCHC 34.3 g/dL (31.0-37.0); MCV 96.1 fL (80.0-100.0); Mean Platelet Volume 8.5; Platelet Count 120 k/uL (150-450); RBC 3.79 m/uL (4.30-5.90); RDW 14.3 % (11.5-15.5); WBC 11.8 k/uL (3.8-10.6)
[2022-12-21] MEDS: ASPIRIN 81 MG PO SCH (09:33)
[2022-12-21] MEDS: SODIUM BICARBONATE TAB 650 MG TAB PO SCH ×2 (09:33→20:16)
[2022-12-21] MEDS: MULTIVITAMINS, THERA 1 EACH TAB PO SCH (09:33)
[2022-12-21] MEDS: PANTOPRAZOLE 40 MG TABLET PO SCH (10:45)
--- NOTE | 2022-12-21 11:31 | P.PN ---
Subjective Progress Note Date: 12/21/22 I am seeing this patient in new consultation today 12/20/2022 after the patient was transferred to the intensive care unit for severe hyponatremia requiring hypertonic saline infusion. Patient is an 77-year-old white male with past medical history significant for alcoholism, alcohol-induced cirrhosis of liver, chronic kidney disease stage III, hyperlipidemia, CVA/TIA, GERD. Last reported alcoholic drink Aug, 2022. Patient does have frequent paracentesis with Dr. Matt. Patient presented to the emergency room on December 17 complaining of weakness and generalized swelling. Also, states that his blood pressure was low at home. He does take midodrine. Patient was found to be severely hyponatremic with a sodium of 117. TSH and cortisol levels were normal. He was admitted to the cardiac stepdown unit, and treated with multiple doses of Samsca. Unfortunately, his hyponatremia was not corrected, and he was transferred to the intensive care unit late last night for 3% hypertonic saline infusion. Patient is currently sitting up in bed, on room air, in no acute distress. He denies any focal weakness. No seizures. Patient has reportedly stopped drinking, used to drink beer and liquor. Denies any history of CHF. Does take Lasix 60 mg twice a day and Aldactone. He does report increased generalized swelling. He did have a large volume paracentesis on December 18 with a total of 8 L removed. 3% sodium chloride is currently infusing at 30 MLS per hour, and most recent sodium level is 117. This is being managed by nephrology. Most recent BMP from last night shows a sodium 117, potassium 4, chloride 86, serum bicarb 26, BUN 33, creatinine 1.28, glucose 82. Troponins mildly elevated at 0.078. NT proBNP 999. ECG shows normal sinus rhythm without any obvious acute ischemic changes.. Pancreatic enzymes mildly elevated. LFTs mildly elevated. CBC from admission was unremarkable. Recent chest x-ray from 2 days ago shows no acute cardiopulmonary process. Patient does appear hemodynamically stable. On 12/21/2022, the patient is doing better. However, overnight, he had a rough night with he was eating any aspirated and subsequently became short of breath and hypoxic and he became tachycardic and he became tachypneic and hypotensive and low urine output. At that point, he was placed on oxygen. A chest x-ray was done that showed no acute abnormalities. He was placed nothing by mouth. We do question his ability to swallow independently. Based on that, we'll place this patient nothing by mouth. Meanwhile, in terms of his low urine output, he was given IV albumin 2 doses. He was also given a bolus of 500 mL. Subsequently, he was placed on dopamine drip at 2. from the hospital gram per minutes. Note that he was also hypotensive. Most recent BP is up to 9157. His urine output is still low although improved. A Ta catheter was inserted and is producing approximately 10 mL an hour. He remains on hypertonic saline at 3% at the rate of 30 mL an hour. The patient has a sodium level today which is at 121 with a potassium level of 4.5, bicarbonate of 18, BUN is at 40 with a creatinine of 1.8. LFTs are abnormal due to his chronic liver disease. Marketing Copywriter on the case. WBC was 11.8. Hemoglobin was 12.5. Otherwise, at times, he is tremulous and restlessness. Noted the patient has not drank alcohol recently and he has quit drinking approximately 6 months ago. Wishes continue the lactulose on a daily basis. He is also on oral bicarb. He is on midodrine. He does have abdominal distention/ascites and edema in lower extremities. Objective - Vital Signs Vital signs: Vital Signs Temp 97.8 F 12/21/22 08:00 Pulse 98 12/21/22 11:00 Resp 21 12/21/22 11:00 BP 93/66 12/21/22 11:00 Pulse Ox 98 12/21/22 11:00 FiO2 Intake & Output 12/20/22 12/21/22 12/21/22 18:59 06:59 18:59 Intake Total 430 190 50 Output Total 320 195 60 Balance 110 -5 -10 Weight 88.9 kg Intake: IV 150 50 0.9 20 Sodium Chloride 3%( 150 30 Hypertonic) 500 ml @ 30 mls/hr IV .[id number] ONE Rx #:[id number] Intake, IV Titration 330 40 Amount Sodium Chloride 3%( 330 40 Hypertonic) 500 ml @ 35 mls/hr IV .[id number] ONE Rx #:[id number] Oral 100 Output: Urine 320 195 60 Other: Voiding Method Urinal Indwelling Catheter Indwelling Catheter # Bowel Movements 1 - Exam GENERAL EXAM: Alert, 77-year-old white male, comfortable in no apparent distress. HEAD: Normocephalic and atraumatic EYES: Normal reaction of pupils, equal size. Sclera nonicteric NOSE: Clear with pink turbinates. THROAT: No erythema or exudates. NECK: No masses, no JVD. CHEST: No chest wall deformity. LUNGS: Equal air entry with no crackles, wheeze, rhonchi or dullness. On room air. No conversational dyspnea or accessory muscle use.. CVS: S1 and S2 normal with no audible murmur, regular rhythm. No extra heart sounds ABDOMEN: Ascites, mild hepatomegaly, active bowel sounds, no guarding or rigidity. SPINE: No scoliosis or deformity SKIN: No rashes CENTRAL NERVOUS SYSTEM: No focal deficits, tone is normal in all 4 extremities. EXTREMITIES: Generalized edema with 1-2+ lower extremity pitting edema. No clubbing, or cyanosis. Peripheral pulses are intact. - Labs CBC & Chem 7: 12/21/22 05:40 12/21/22 09:36 Labs: Abnormal Lab Results - Last 24 Hours (Table) 12/20/22 12/20/22 12/20/22 Range/Units 03:30 10:58 16:24 WBC (3.8-10.6) k/uL RBC (4.30-5.90) m/uL Hgb (13.0-17.5) gm/dL Hct (39.0-53.0) % Plt Count (150-450) k/uL Sodium 118 L* 119 L* 120 L (137-145) mmol/L Chloride 88 L 89 L (98-107) mmol/L Carbon Dioxide 20 L (22-30) mmol/L BUN 33 H 34 H (9-20) mg/dL Creatinine 1.40 H 1.46 H (0.66-1.25) mg/dL Glucose 67 L (74-99) mg/dL Osmolality 262 L (280-301) mosm/kg Calcium 7.8 L 7.8 L (8.4-10.2) mg/dL Total Bilirubin (0.2-1.3) mg/dL AST (17-59) U/L ALT (4-49) U/L Alkaline Phosphatase (38-126) U/L Total Protein (6.3-8.2) g/dL Albumin (3.5-5.0) g/dL Ur Random Sodium (40-220) mmol/L 12/20/22 12/20/22 12/21/22 Range/Units 18:00 19:55 00:00 WBC (3.8-10.6) k/uL RBC (4.30-5.90) m/uL Hgb (13.0-17.5) gm/dL Hct (39.0-53.0) % Plt Count (150-450) k/uL Sodium 121 L 118 L* (137-145) mmol/L Chloride (98-107) mmol/L Carbon Dioxide (22-30) mmol/L BUN (9-20) mg/dL Creatinine (0.66-1.25) mg/dL Glucose (74-99) mg/dL Osmolality (280-301) mosm/kg Calcium (8.4-10.2) mg/dL Total Bilirubin (0.2-1.3) mg/dL AST (17-59) U/L ALT (4-49) U/L Alkaline Phosphatase (38-126) U/L Total Protein (6.3-8.2) g/dL Albumin (3.5-5.0) g/dL Ur Random Sodium <20 L (40-220) mmol/L 12/21/22 12/21/22 12/21/22 Range/Units 05:40 05:40 09:36 WBC 11.8 H (3.8-10.6) k/uL RBC 3.79 L (4.30-5.90) m/uL Hgb 12.5 L (13.0-17.5) gm/dL Hct 36.4 L (39.0-53.0) % Plt Count 120 L (150-450) k/uL Sodium 121 L 121 L (137-145) mmol/L Chloride 94 L (98-107) mmol/L Carbon Dioxide 18 L (22-30) mmol/L BUN 40 H (9-20) mg/dL Creatinine 1.86 H (0.66-1.25) mg/dL Glucose (74-99) mg/dL Osmolality (280-301) mosm/kg Calcium 8.0 L (8.4-10.2) mg/dL Total Bilirubin 2.4 H (0.2-1.3) mg/dL AST 171 H (17-59) U/L ALT 56 H (4-49) U/L Alkaline Phosphatase 164 H (38-126) U/L Total Protein 4.8 L (6.3-8.2) g/dL Albumin 2.0 L (3.5-5.0) g/dL Ur Random Sodium (40-220) mmol/L Assessment and Plan Assessment: Severe hypervolemic hyponatremia, asymptomatic, currently on 3% hypertonic saline infusion. TSH and cortisol levels are normal. Current sodium level is at 121 and the patient continues to be on hypertonic saline solution. He does have hypervolemia, cytosine third spacing. Chronic kidney disease stage III, along with a component of an acute kidney injury. Creatinine is up to 1.8 and the patient's urine output has dropped. Did not respond to Lasix. Was given IV albumin and currently is on dopamine renal dose of 2.5 g kilogram per minutes. Brief hypotension, recovered and the patient is currently on midodrine and dopamine Aspiration, recovered and the patient's has a normal chest x-ray and the patient has no significant hypoxemia despite 1 in time Alcoholic liver cirrhosis Ascites, status post large volume paracentesis on December 18 Hypoalbuminemia Elevated troponins, no ECG evidence of acute ischemia Hyperlipidemia History of CVA/TIA GERD History of alcoholism, last drink Aug, 2022 Plan: Consult with nephrology Continue with dopamine infusion Continue hypertonic saline and monitor sodium level Fluid restriction He is currently off Lasix and is also off Aldactone Currently on room air oxygen Continue lactulose We'll continue to follow. The patient will be kept in the ICU for now. Feeding will be allowed only with close supervision. Swallow evaluation will be obtained at the later stage. .
[2022-12-21] MEDS: LACTULOSE 20 GM/30 ML CUP PO SCH (12:29)
--- NOTE | 2022-12-21 15:10 | P.PN ---
Subjective Progress Note Date: 12/21/22 Follow-up for hyponatremia. Currently on 3% saline. Objective - Vital Signs Vital signs: Vital Signs Temp 97.8 F 12/21/22 08:00 Pulse 84 12/21/22 15:00 Resp 22 12/21/22 15:00 BP 105/69 12/21/22 15:00 Pulse Ox 95 12/21/22 15:00 FiO2 Intake & Output 12/20/22 12/21/22 12/21/22 18:59 06:59 18:59 Intake Total 430 190 170 Output Total 320 195 100 Balance 110 -5 70 Weight 88.9 kg Intake: IV 150 170 0.9 50 Sodium Chloride 3%( 150 120 Hypertonic) 500 ml @ 30 mls/hr IV .[id number] ONE Rx #:[id number] Intake, IV Titration 330 40 Amount Sodium Chloride 3%( 330 40 Hypertonic) 500 ml @ 35 mls/hr IV .[id number] ONE Rx #:[id number] Oral 100 Output: Urine 320 195 100 Other: Voiding Method Urinal Indwelling Catheter Indwelling Catheter # Bowel Movements 1 - Exam No acute distress S1-S2 heard Decreased breath sounds Abdomen distended Edema - Labs CBC & Chem 7: 12/21/22 05:40 12/21/22 13:05 Labs: Abnormal Lab Results - Last 24 Hours (Table) 12/20/22 12/20/22 12/20/22 Range/Units 03:30 10:58 16:24 WBC (3.8-10.6) k/uL RBC (4.30-5.90) m/uL Hgb (13.0-17.5) gm/dL Hct (39.0-53.0) % Plt Count (150-450) k/uL Sodium 118 L* 120 L (137-145) mmol/L Chloride 88 L (98-107) mmol/L Carbon Dioxide (22-30) mmol/L BUN 33 H (9-20) mg/dL Creatinine 1.40 H (0.66-1.25) mg/dL Osmolality 262 L (280-301) mosm/kg Calcium 7.8 L (8.4-10.2) mg/dL Total Bilirubin (0.2-1.3) mg/dL AST (17-59) U/L ALT (4-49) U/L Alkaline Phosphatase (38-126) U/L Total Protein (6.3-8.2) g/dL Albumin (3.5-5.0) g/dL Ur Random Sodium (40-220) mmol/L 12/20/22 12/20/22 12/21/22 Range/Units 18:00 19:55 00:00 WBC (3.8-10.6) k/uL RBC (4.30-5.90) m/uL Hgb (13.0-17.5) gm/dL Hct (39.0-53.0) % Plt Count (150-450) k/uL Sodium 121 L 118 L* (137-145) mmol/L Chloride (98-107) mmol/L Carbon Dioxide (22-30) mmol/L BUN (9-20) mg/dL Creatinine (0.66-1.25) mg/dL Osmolality (280-301) mosm/kg Calcium (8.4-10.2) mg/dL Total Bilirubin (0.2-1.3) mg/dL AST (17-59) U/L ALT (4-49) U/L Alkaline Phosphatase (38-126) U/L Total Protein (6.3-8.2) g/dL Albumin (3.5-5.0) g/dL Ur Random Sodium <20 L (40-220) mmol/L 12/21/22 12/21/22 12/21/22 Range/Units 05:40 05:40 09:36 WBC 11.8 H (3.8-10.6) k/uL RBC 3.79 L (4.30-5.90) m/uL Hgb 12.5 L (13.0-17.5) gm/dL Hct 36.4 L (39.0-53.0) % Plt Count 120 L (150-450) k/uL Sodium 121 L 121 L (137-145) mmol/L Chloride 94 L (98-107) mmol/L Carbon Dioxide 18 L (22-30) mmol/L BUN 40 H (9-20) mg/dL Creatinine 1.86 H (0.66-1.25) mg/dL Osmolality (280-301) mosm/kg Calcium 8.0 L (8.4-10.2) mg/dL Total Bilirubin 2.4 H (0.2-1.3) mg/dL AST 171 H (17-59) U/L ALT 56 H (4-49) U/L Alkaline Phosphatase 164 H (38-126) U/L Total Protein 4.8 L (6.3-8.2) g/dL Albumin 2.0 L (3.5-5.0) g/dL Ur Random Sodium (40-220) mmol/L 12/21/22 Range/Units 13:05 WBC (3.8-10.6) k/uL RBC (4.30-5.90) m/uL Hgb (13.0-17.5) gm/dL Hct (39.0-53.0) % Plt Count (150-450) k/uL Sodium 123 L (137-145) mmol/L Chloride (98-107) mmol/L Carbon Dioxide (22-30) mmol/L BUN (9-20) mg/dL Creatinine (0.66-1.25) mg/dL Osmolality (280-301) mosm/kg Calcium (8.4-10.2) mg/dL Total Bilirubin (0.2-1.3) mg/dL AST (17-59) U/L ALT (4-49) U/L Alkaline Phosphatase (38-126) U/L Total Protein (6.3-8.2) g/dL Albumin (3.5-5.0) g/dL Ur Random Sodium (40-220) mmol/L Assessment and Plan Assessment: #1 acute kidney injury, multifactorial ATN. #2 CK D stage IIIa secondary to nephrosclerosis with a baseline creatinine of 1.1-1.3 MG per DL. #3 hypervolemic hyponatremia secondary to chronic liver disease #4 alcohol-induced liver cirrhosis, decompensated. #5 anion gap metabolic acidosis secondary to acute kidney injury Plan: #1 continue with 3% normal saline, sodium continue to improve. Goal sodium of 125. #2 add Lasix 40 mg IV every 8 #3 if sodium reaches goal. 3% normal saline #4 avoid nephrotoxic agents.
--- NOTE | 2022-12-21 16:09 | P.PN ---
Progress Note - Text Progress Note Date: 12/21/22 Chief Complaint: Abnormal labs This is a pleasant 77-year-old patient who follows with Dr. Chang Douglas. August- 2022 diagnosed with alcoholic cirrhosis. Follows Dr. Nikole Matt gastroenterology. stopped drinking in August 2022. Was drinking 8-10 beers a day prior to that for years. had repeated paracentesis. Patient was seen yesterday at the nephrology clinic by Dr. Santoro. Was found to be hypotensive. Increasing ascites. An abnormal labs including the low-sodium. Patient was sent down to the ER for the same. Patient has maintained fluid restriction of 1200 mL at home. It is indeed dose of Lasix was increased to [address] Santoro. Patient has some shortness of breath. Edema. Due for paracentesis this afternoon. Patient's at the bedside. Appetite is fair. 12/19/2022: About 8 L of paracentesis scheduled to yesterday. Given IV albumin. Sodium still running low. 1 dose of Samsca given by nephrology. Eating better. Breathing better. Decrease in edema. Reminded patient to wear the Travis wrap. Discussed with patient and at the bedside. 12/20/2022: ICU: Patient is moved to the ICU overnight. 4 sodium of 117. Was started on hypertonic saline. Blood pressure running low close to around 80. Tolerating some diet. Discussed with patient about Travis wrap as that'll help with the blood pressure. She received Samsca yesterday. And today. Fluid restriction to continue. December 15 62: ICU. Remains on hypertonic saline, 30 mL an hour. Started on dopamine drip for low blood pressure. Some trouble swallowing. Changed to pured diet. Speech consulted. at the bedside. Active Medications Acetaminophen (Acetaminophen Tab 325 Mg Tab) 650 mg PO Q6HR PRN PRN Reason: Mild Pain or Fever > 100.5 Hydrocodone Bitart/Acetaminophen (Hydrocodone/Apap 5-325mg 1 Each Tab) 1 each PO Q4HR PRN PRN Reason: Moderate Pain (Scale 4 to 6) Aspirin (Aspirin 81 Mg) 81 mg PO DAILY OLGA Last Admin: 12/21/22 09:33 Dose: Not Given Atorvastatin Calcium (Atorvastatin 80 Mg Tab) 80 mg PO HS OLGA Last Admin: 12/20/22 21:01 Dose: Not Given Furosemide (Furosemide 10 Mg/Ml 4 Ml Vial) 40 mg IV Q8HR [facility] Sodium Chloride (Hypertonic) (Saline 3% (Hypertonic)) 500 mls @ 30 mls/hr IV .[id number] ONE; Protocol Stop: 12/21/22 18:22 Last Admin: 12/21/22 01:51 Dose: 30 mls/hr Dopamine HCl/Dextrose 800 mg/ (IV Solution) 250 mls @ 3.891 mls/hr IV .Q24H [facility] Last Admin: 12/21/22 03:22 Dose: 3.891 mls/hr Lactulose (Lactulose 20 Gm/30 Ml Cup) 20 gm PO DAILY [facility] Last Admin: 12/21/22 12:29 Dose: 20 gm Lorazepam (Lorazepam 0.5 Mg Tab) 0.5 mg PO Q6HR PRN PRN Reason: Anxiety Melatonin (Melatonin 3 Mg Tablet) 3 mg PO HS PRN PRN Reason: Insomnia Midodrine (Midodrine 5 Mg Tab) 10 mg PO AC-TID [facility] Last Admin: 12/21/22 12:28 Dose: 10 mg Multivitamins (Multivitamins, Thera 1 Each Tab) 1 each PO DAILY [facility] Last Admin: 12/21/22 09:33 Dose: Not Given Naloxone HCl (Naloxone 0.4 Mg/Ml 1 Ml Vial) 0.2 mg IV Q2M PRN PRN Reason: Opioid Reversal Ondansetron HCl (Ondansetron 4 Mg/2 Ml Vial) 4 mg IVP Q8HR PRN PRN Reason: Nausea And Vomiting Pantoprazole Sodium (Pantoprazole 40 Mg/10 Ml Vial) 40 mg IVP DAILY [facility] Senna (Sennosides 8.6 Mg Tab) 17.2 mg PO HS PRN PRN Reason: Constipation Sodium Bicarbonate (Sodium Bicarbonate Tab 650 Mg Tab) 650 mg PO BID [facility] Last Admin: 12/21/22 09:33 Dose: Not Given Past medical history to include: Alcoholic cirrhosis diagnosed in August 2022, hypertension, GERD, osteoarthritis, hepatorenal syndrome Social history: Former smoker. Was drinking 8-10 beers a day up to August 2022. . 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 Conjunctiva pale HEENT: External appearance of nose and ears normal, oral cavity grossly normal. NECK: JVD and prominent; masses not palpable. HEART: First and second heart sounds are normal; decreased edema. LUNGS: Respiratory rate increased; decreased breath sounds. ABDOMEN: Soft, mild distention, nontender, liver spleen not palpable, no masses palpable. PSYCH: Alert and oriented x3; mood and affect tired. MUSCULOSKELETAL:No Clubbing/cyanosis;muscles-grossly intact INVESTIGATIONS, reviewed in the clinical context: December 21: White count 9.8 hemoglobin 12.5 platelets 120 sodium 121 potassium 4.5 BUN 40 creatinine 1.86 December 20: White count 14.3 hemoglobin 13.1 platelets 137 sodium 119 potassium 3.9 BUN 34 creatinine 1.46 December 19: Sodium 118 potassium 4. 33 creatinine 1.28 December 18: Sodium 117 potassium 4.6 BUN 35 creatinine 1.34 December 17: Sodium 117 potassium 5.2 BUN 38 creatinine 1.5 total bilirubin 1.9 AST 156 AST 64 troponin I 0.078 albumin 2.7 white count 7.1 hemoglobin 13 platelets 183 EKG tracing personally reviewed by me-low voltage. Rate 83. Nonspecific T-wave changes Chest x-ray film personally reviewed by me--cardiomegaly Previous labs: Creatinine 1.09 [11/29/2022 Assessment and plan: -Severe hyponatremia, hypoosmolar with hypervolemia from underlying cirrhosis: Not improving Strict fluid restriction 1200 mL a day. Limit water intake. Samsca .. Continue hypertonic saline. -Acute fluid overload from underlying cirrhosis Lasix IV 40 mg every 8. Aldactone held. Fluid restriction -Hyperkalemia secondary to underlying CK D: Better -Secondary Portal hypertension secondary cirrhosis -underlying chronic kidney disease probable stage III, from hepatorenal syndrome -Severe Hypoalbuminemia secondary to cirrhosis -Large ascites symptomatic. Paracentesis 8 L removed on December 18. Followed by albumin infusion -Alcoholic cirrhosis follows with Dr. Nikole Matt -GERD Protonix -Troponinemia secondary to chronic kidney disease. No acute coronary syndrome. -Full code Discussed with patient. And . Prognosis guarded. Past Medical History Past Medical History: CVA/TIA, GERD/Reflux, Hypertension, Liver Disease Additional Past Medical History / Comment(s): cirrhosis August 2022, Stroke 10/09/2022 and taking plavix, ETOH history 8-10 beers and 1 or 2 shots of vodka per day(last drink 08/2022). History of Any Multi-Drug Resistant Organisms: None Reported Past Surgical History: Joint Replacement Additional Past Surgical History / Comment(s): Lt hip replacement three times, rt knee replaced, paracentesis 10/02/2022 Past Anesthesia/Blood Transfusion Reactions: No Reported Reaction Past Psychological History: No Psychological Hx Reported Smoking Status: Former smoker Past Alcohol Use History: None Reported Past Drug Use History: None Reported - Past Family History Father Family Medical History: No Reported History Medications and Allergies Home Medications Medication Instructions Recorded Confirmed Type Aspirin EC [Ecotrin Low Dose] 81 mg PO DAILY 11/01/22 12/18/22 History Atorvastatin [Lipitor] 80 mg PO HS 11/01/22 12/18/22 History Multivit-Min/FA/Lycopen/Lutein 1 tab PO DAILY 11/01/22 12/18/22 History [Centrum Silver Men Tablet] Pantoprazole [Protonix] 40 mg PO DAILY 11/01/22 12/18/22 History Sodium Bicarbonate Tab 650 mg PO BID #60 tab 11/28/22 12/18/22 Rx Furosemide [Lasix] 60 mg PO BID 12/17/22 12/18/22 History Midodrine HCl [ProAmatine] 10 mg PO TID 12/17/22 12/18/22 History Sennosides [Senokot] 16.2 mg PO HS PRN 12/17/22 12/18/22 History Spironolactone [Aldactone] 25 mg PO DAILY 12/17/22 12/18/22 History Allergies Allergy/AdvReac Type Severity Reaction Status Date / Time No Known Allergies Allergy Verified 12/17/22 15:04
[2022-12-21] MEDS: FUROSEMIDE 10 MG/ML 4 ML VIAL IV SCH (16:32)
[2022-12-21 17:53] LABS: Glucose,Whole Blood 120 mg/dL (70-110)
[2022-12-21] MEDS: ATORVASTATIN 80 MG TAB PO SCH (20:16)
[2022-12-21] MEDS: MAGNESIUM SULFATE-D5W PMX 1 GM in DEXTROSE/WATER 1 100ML.BAG IVPB SCH (22:22)
[2022-12-22] MEDS: FUROSEMIDE 10 MG/ML 4 ML VIAL IV SCH ×2 (00:22→09:17)
[2022-12-22] MEDS: MAGNESIUM SULFATE-D5W PMX 1 GM in DEXTROSE/WATER 1 100ML.BAG IVPB SCH (00:22)
[2022-12-22] MEDS ORDERED: SODIUM CHLORIDE 3%(HYPERTONIC) 500 ML IV ONE (01:49)
[2022-12-22 04:34] LABS: African American GFR (CKD) 42 (>60 ml/min/1.73 sqM); Anion Gap 7 mmol/L; Blood Urea Nitrogen 43 mg/dL (9-20); Carbon Dioxide 20 mmol/L (22-30); Chloride 97 mmol/L (98-107); Glucose 100 mg/dL (74-99); Non-African American GFR(CKD) 36 (>60 ml/min/1.73 sqM); Potassium 3.8 mmol/L (3.5-5.1); Sodium 124 mmol/L (137-145)
[2022-12-22 04:46] LABS: HCT 33.8 % (39.0-53.0); HGB 11.6 gm/dL (13.0-17.5); MCH 32.5 pg (25.0-35.0); MCHC 34.3 g/dL (31.0-37.0); MCV 94.9 fL (80.0-100.0); Mean Platelet Volume 7.6; Platelet Count 146 k/uL (150-450); RBC 3.57 m/uL (4.30-5.90); RDW 14.3 % (11.5-15.5); WBC 10.2 k/uL (3.8-10.6)
[2022-12-22] MEDS: SODIUM BICARBONATE TAB 650 MG TAB PO SCH ×2 (08:11→19:35)
[2022-12-22] MEDS: MIDODRINE 5 MG TAB PO SCH ×3 (08:11→18:12)
[2022-12-22] MEDS: ASPIRIN 81 MG PO SCH (08:11)
[2022-12-22] MEDS: MULTIVITAMINS, THERA 1 EACH TAB PO SCH (08:11)
[2022-12-22] MEDS: LACTULOSE 20 GM/30 ML CUP PO SCH (08:11)
[2022-12-22] MEDS: DEXTROSE/WATER 1 250ML.BAG with DOPamine DRIP 800 MG IV SCH (08:13)
[2022-12-22] MEDS: PANTOPRAZOLE 40 MG/10 ML VIAL IVP SCH (09:17)
--- NOTE | 2022-12-22 09:39 | P.PN ---
Subjective Progress Note Date: 12/22/22 I am seeing this patient in new consultation today 12/20/2022 after the patient was transferred to the intensive care unit for severe hyponatremia requiring hypertonic saline infusion. Patient is an 77-year-old white male with past medical history significant for alcoholism, alcohol-induced cirrhosis of liver, chronic kidney disease stage III, hyperlipidemia, CVA/TIA, GERD. Last reported alcoholic drink Aug, 2022. Patient does have frequent paracentesis with Dr. Matt. Patient presented to the emergency room on December 17 complaining of weakness and generalized swelling. Also, states that his blood pressure was low at home. He does take midodrine. Patient was found to be severely hyponatremic with a sodium of 117. TSH and cortisol levels were normal. He was admitted to the cardiac stepdown unit, and treated with multiple doses of Samsca. Unfortunately, his hyponatremia was not corrected, and he was transferred to the intensive care unit late last night for 3% hypertonic saline infusion. Patient is currently sitting up in bed, on room air, in no acute distress. He denies any focal weakness. No seizures. Patient has reportedly stopped drinking, used to drink beer and liquor. Denies any history of CHF. Does take Lasix 60 mg twice a day and Aldactone. He does report increased generalized swelling. He did have a large volume paracentesis on December 18 with a total of 8 L removed. 3% sodium chloride is currently infusing at 30 MLS per hour, and most recent sodium level is 117. This is being managed by nephrology. Most recent BMP from last night shows a sodium 117, potassium 4, chloride 86, serum bicarb 26, BUN 33, creatinine 1.28, glucose 82. Troponins mildly elevated at 0.078. NT proBNP 999. ECG shows normal sinus rhythm without any obvious acute ischemic changes.. Pancreatic enzymes mildly elevated. LFTs mildly elevated. CBC from admission was unremarkable. Recent chest x-ray from 2 days ago shows no acute cardiopulmonary process. Patient does appear hemodynamically stable. On 12/21/2022, the patient is doing better. However, overnight, he had a rough night with he was eating any aspirated and subsequently became short of breath and hypoxic and he became tachycardic and he became tachypneic and hypotensive and low urine output. At that point, he was placed on oxygen. A chest x-ray was done that showed no acute abnormalities. He was placed nothing by mouth. We do question his ability to swallow independently. Based on that, we'll place this patient nothing by mouth. Meanwhile, in terms of his low urine output, he was given IV albumin 2 doses. He was also given a bolus of 500 mL. Subsequently, he was placed on dopamine drip at 2. from the hospital gram per minutes. Note that he was also hypotensive. Most recent BP is up to 9157. His urine output is still low although improved. A Ta catheter was inserted and is producing approximately 10 mL an hour. He remains on hypertonic saline at 3% at the rate of 30 mL an hour. The patient has a sodium level today which is at 121 with a potassium level of 4.5, bicarbonate of 18, BUN is at 40 with a creatinine of 1.8. LFTs are abnormal due to his chronic liver disease. 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 WBC was 11.8. Hemoglobin was 12.5. Otherwise, at times, he is tremulous and restlessness. Noted the patient has not drank alcohol recently and he has quit drinking approximately 6 months ago. Wishes continue the lactulose on a daily basis. He is also on oral bicarb. He is on midodrine. He does have abdominal distention/ascites and edema in lower extremities. 12/22/2022, the patient is being seen for a follow-up. The patient is currently on room air oxygen. No further episodes of aspiration since yesterday. No significant respiratory distress. He is resting comfortably in bed. In terms of his electrolytes, sodium levels up to 124 and the patient remains on 3% hypertonic saline. The patient has a BUN of 43 with a creatinine of 0.77 and the patient continues to be on a renal dose of dopamine at 2.5 mcg/kg/m. Urine output is adequate and the order of 500 mL over the past 24 hours and the patient has produced 30 mL of urine output over the past 1 hour. The patient's electrolytes are stable. Potassium levels at 3.7. Bicarb is at 20, white cell cause of 10.2 with a hemoglobin 11.6. No altered mentation. No agitation. No signs of any delirium tremens. He is on lactulose. There is ongoing concern for this patient swallow. His swallow evaluation is to be done. The patient did aspirate couple of days ago and currently continues to have some difficulties in taking his oral medication. Objective - Vital Signs Vital signs: Vital Signs Temp 99.6 F 12/21/22 20:00 Pulse 85 12/22/22 09:15 Resp 16 12/22/22 09:15 BP 110/68 12/22/22 09:15 Pulse Ox 95 12/22/22 09:15 FiO2 Intake & Output 12/21/22 12/22/22 12/22/22 18:59 06:59 18:59 Intake Total 330 680 120 Output Total 210 345 120 Balance 120 335 0 Weight 88.8 kg Intake: IV 330 680 120 0.9 90 120 30 Magnesium Sulfate-D5w Pmx 200 1 gm In Dextrose/Water 1 100ml.bag @ 100 mls/hr IVPB Q1H [facility] Rx#: [id number] Sodium Chloride 3%( 240 360 90 Hypertonic) 500 ml @ 30 mls/hr IV .[id number] ONE Rx #:[id number] Output: Urine 210 345 120 Other: Voiding Method Indwelling Catheter Indwelling Catheter # Bowel Movements 1 - Exam GENERAL EXAM: Alert, 77-year-old white male, comfortable in no apparent distress. HEAD: Normocephalic and atraumatic EYES: Normal reaction of pupils, equal size. Sclera nonicteric NOSE: Clear with pink turbinates. THROAT: No erythema or exudates. NECK: No masses, no JVD. CHEST: No chest wall deformity. LUNGS: Equal air entry with no crackles, wheeze, rhonchi or dullness. On room air. No conversational dyspnea or accessory muscle use.. CVS: S1 and S2 normal with no audible murmur, regular rhythm. No extra heart sounds ABDOMEN: Ascites, mild hepatomegaly, active bowel sounds, no guarding or rigidity. SPINE: No scoliosis or deformity SKIN: No rashes CENTRAL NERVOUS SYSTEM: No focal deficits, tone is normal in all 4 extremities. EXTREMITIES: Generalized edema with 1-2+ lower extremity pitting edema. No clubbing, or cyanosis. Peripheral pulses are intact. - Labs CBC & Chem 7: 12/22/22 03:39 12/22/22 03:39 Labs: Abnormal Lab Results - Last 24 Hours (Table) 12/21/22 12/21/22 12/21/22 Range/Units 09:36 13:05 16:56 RBC (4.30-5.90) m/uL Hgb (13.0-17.5) gm/dL Hct (39.0-53.0) % Plt Count (150-450) k/uL Sodium 121 L 123 L 124 L (137-145) mmol/L Chloride (98-107) mmol/L Carbon Dioxide (22-30) mmol/L BUN (9-20) mg/dL Creatinine (0.66-1.25) mg/dL Glucose (74-99) mg/dL POC Glucose (mg/dL) (70-110) mg/dL Calcium (8.4-10.2) mg/dL 12/21/22 12/21/22 12/22/22 Range/Units 17:51 21:01 03:39 RBC (4.30-5.90) m/uL Hgb (13.0-17.5) gm/dL Hct (39.0-53.0) % Plt Count (150-450) k/uL Sodium 123 L 124 L (137-145) mmol/L Chloride 97 L (98-107) mmol/L Carbon Dioxide 20 L (22-30) mmol/L BUN 43 H (9-20) mg/dL Creatinine 1.77 H (0.66-1.25) mg/dL Glucose 100 H (74-99) mg/dL POC Glucose (mg/dL) 120 H (70-110) mg/dL Calcium 8.0 L (8.4-10.2) mg/dL 12/22/22 Range/Units 03:39 RBC 3.57 L (4.30-5.90) m/uL Hgb 11.6 L (13.0-17.5) gm/dL Hct 33.8 L (39.0-53.0) % Plt Count 146 L (150-450) k/uL Sodium (137-145) mmol/L Chloride (98-107) mmol/L Carbon Dioxide (22-30) mmol/L BUN (9-20) mg/dL Creatinine (0.66-1.25) mg/dL Glucose (74-99) mg/dL POC Glucose (mg/dL) (70-110) mg/dL Calcium (8.4-10.2) mg/dL Assessment and Plan Assessment: Severe hypervolemic hyponatremia, asymptomatic, currently on 3% hypertonic saline infusion. TSH and cortisol levels are normal. Current sodium level is at 124 and the patient continues to be on hypertonic saline solution. He does have hypervolemia, and third spacing. Chronic kidney disease stage III, along with a component of an acute kidney injury. Creatinine is up to 1. 77 and the urine output is improved and the patient continues to be on dopamine renal dose of 2.5 g kilogram per minutes. Brief hypotension, recovered and the patient is currently on midodrine and dopamine, hypotension is recovered Aspiration, recovered and the patient's has a normal chest x-ray and the patient has no significant hypoxemia, there is ongoing concern for aspiration and the swallow evaluation is still pending Alcoholic liver cirrhosis Ascites, status post large volume paracentesis on December 18 Hypoalbuminemia Elevated troponins, no ECG evidence of acute ischemia Hyperlipidemia History of CVA/TIA GERD History of alcoholism, last drink Aug, 2022 Plan: Monitor sodium level and a hypertonic sitting can be safely discontinued Discontinue dopamine and assess his urine output Fluid restriction He is currently on Lasix and is also off Aldactone Currently on room air oxygen Continue lactulose swallow evaluation will be obtained at the later stage. May be able to go to a medical floor the later stage. We'll continue to follow. .
--- NOTE | 2022-12-22 12:31 | P.PN ---
Subjective Progress Note Date: 12/22/22 Follow-up for hyponatremia. Currently on 3% saline. Asymptomatic. Urine output of 555 ML's in the last 24 hours. Objective - Vital Signs Vital signs: Vital Signs Temp 99.6 F 12/21/22 20:00 Pulse 86 12/22/22 10:15 Resp 15 12/22/22 10:15 BP 108/73 12/22/22 10:15 Pulse Ox 98 12/22/22 10:15 FiO2 Intake & Output 12/21/22 12/22/22 12/22/22 18:59 06:59 18:59 Intake Total 330 680 180 Output Total 210 345 170 Balance 120 335 10 Weight 88.8 kg Intake: IV 330 680 180 0.9 90 120 40 Magnesium Sulfate-D5w Pmx 200 1 gm In Dextrose/Water 1 100ml.bag @ 100 mls/hr IVPB Q1H [facility] Rx#: [id number] Sodium Chloride 3%( 240 360 140 Hypertonic) 500 ml @ 30 mls/hr IV .[id number] ONE Rx #:[id number] Output: Urine 210 345 170 Other: Voiding Method Indwelling Catheter Indwelling Catheter Indwelling Catheter # Bowel Movements 1 - Exam No acute distress S1-S2 heard Decreased breath sounds Abdomen distended Edema - Labs CBC & Chem 7: 12/22/22 03:39 12/22/22 11:28 Labs: Abnormal Lab Results - Last 24 Hours (Table) 12/21/22 12/21/22 12/21/22 Range/Units 13:05 16:56 17:51 RBC (4.30-5.90) m/uL Hgb (13.0-17.5) gm/dL Hct (39.0-53.0) % Plt Count (150-450) k/uL Sodium 123 L 124 L (137-145) mmol/L Chloride (98-107) mmol/L Carbon Dioxide (22-30) mmol/L BUN (9-20) mg/dL Creatinine (0.66-1.25) mg/dL Glucose (74-99) mg/dL POC Glucose (mg/dL) 120 H (70-110) mg/dL Calcium (8.4-10.2) mg/dL 12/21/22 12/22/22 12/22/22 Range/Units 21:01 03:39 03:39 RBC 3.57 L (4.30-5.90) m/uL Hgb 11.6 L (13.0-17.5) gm/dL Hct 33.8 L (39.0-53.0) % Plt Count 146 L (150-450) k/uL Sodium 123 L 124 L (137-145) mmol/L Chloride 97 L (98-107) mmol/L Carbon Dioxide 20 L (22-30) mmol/L BUN 43 H (9-20) mg/dL Creatinine 1.77 H (0.66-1.25) mg/dL Glucose 100 H (74-99) mg/dL POC Glucose (mg/dL) (70-110) mg/dL Calcium 8.0 L (8.4-10.2) mg/dL 12/22/22 Range/Units 11:28 RBC (4.30-5.90) m/uL Hgb (13.0-17.5) gm/dL Hct (39.0-53.0) % Plt Count (150-450) k/uL Sodium 126 L (137-145) mmol/L Chloride (98-107) mmol/L Carbon Dioxide (22-30) mmol/L BUN (9-20) mg/dL Creatinine (0.66-1.25) mg/dL Glucose (74-99) mg/dL POC Glucose (mg/dL) (70-110) mg/dL Calcium (8.4-10.2) mg/dL Assessment and Plan Assessment: #1 acute kidney injury, multifactorial ATN / HRS. #2 CK D stage IIIa secondary to nephrosclerosis with a baseline creatinine of 1.1-1.3 MG per DL. #3 hypervolemic hyponatremia secondary to chronic liver disease #4 alcohol-induced liver cirrhosis, decompensated. #5 anion gap metabolic acidosis secondary to acute kidney injury Plan: #1 sodium improving, stop 3% normal saline. #2 stop Lasix, urine sodium less than 20. #3 treat like HRS, albumin and octreotide, currently on midodrine. #4 avoid nephrotoxic agents. #5 daily labs
[2022-12-22] MEDS: ALBUMIN HUMAN 25% 100 ML in EMPTY BAG 1 BAG IVPB SCH ×8 (13:02→23:22)
--- NOTE | 2022-12-22 15:17 | P.PN ---
Progress Note - Text Progress Note Date: 12/22/22 Chief Complaint: Abnormal labs This is a pleasant 77-year-old patient who follows with Dr. Chang Douglas. August- 2022 diagnosed with alcoholic cirrhosis. Follows Dr. Nikole Matt gastroenterology. stopped drinking in August 2022. Was drinking 8-10 beers a day prior to that for years. had repeated paracentesis. Patient was seen yesterday at the nephrology clinic by Dr. Santoro. Was found to be hypotensive. Increasing ascites. An abnormal labs including the low-sodium. Patient was sent down to the ER for the same. Patient has maintained fluid restriction of 1200 mL at home. It is indeed dose of Lasix was increased to [address] Santoro. Patient has some shortness of breath. Edema. Due for paracentesis this afternoon. Patient's at the bedside. Appetite is fair. 12/19/2022: About 8 L of paracentesis scheduled to yesterday. Given IV albumin. Sodium still running low. 1 dose of Samsca given by nephrology. Eating better. Breathing better. Decrease in edema. Reminded patient to wear the Travis wrap. Discussed with patient and at the bedside. 12/20/2022: ICU: Patient is moved to the ICU overnight. 4 sodium of 117. Was started on hypertonic saline. Blood pressure running low close to around 80. Tolerating some diet. Discussed with patient about Travis wrap as that'll help with the blood pressure. She received Samsca yesterday. And today. Fluid restriction to continue. December 21: ICU. Remains on hypertonic saline, 30 mL an hour. Started on dopamine drip for low blood pressure. Some trouble swallowing. Changed to pured diet. Speech consulted. at the bedside. December 22: ICU. Hypertonic saline and IV dopamine both discontinued. Minimal oral intake because of choking. Pending speech therapy evaluation. 100 g of albumin ordered. Also started on Sandostatin IV. Discussed with at bedside. Active Medications Acetaminophen (Acetaminophen Tab 325 Mg Tab) 650 mg PO Q6HR PRN PRN Reason: Mild Pain or Fever > 100.5 Hydrocodone Bitart/Acetaminophen (Hydrocodone/Apap 5-325mg 1 Each Tab) 1 each PO Q4HR PRN PRN Reason: Moderate Pain (Scale 4 to 6) Aspirin (Aspirin 81 Mg) 81 mg PO DAILY [facility] Last Admin: 12/22/22 08:11 Dose: Not Given Atorvastatin Calcium (Atorvastatin 80 Mg Tab) 80 mg PO HS [facility] Last Admin: 12/21/22 20:16 Dose: Not Given Albumin Human 100 ml/ IV (Solution) 100 mls @ 50 mls/hr IVPB Q1H [facility] Stop: 12/22/22 20:59 Last Admin: 12/22/22 14:43 Dose: 50 mls/hr Lactulose (Lactulose 20 Gm/30 Ml Cup) 20 gm PO DAILY [facility] Last Admin: 12/22/22 08:11 Dose: Not Given Lorazepam (Lorazepam 0.5 Mg Tab) 0.5 mg PO Q6HR PRN PRN Reason: Anxiety Melatonin (Melatonin 3 Mg Tablet) 3 mg PO HS PRN PRN Reason: Insomnia Midodrine (Midodrine 5 Mg Tab) 10 mg PO AC-TID [facility] Last Admin: 12/22/22 11:43 Dose: 10 mg Multivitamins (Multivitamins, Thera 1 Each Tab) 1 each PO DAILY [facility] Last Admin: 12/22/22 08:11 Dose: Not Given Naloxone HCl (Naloxone 0.4 Mg/Ml 1 Ml Vial) 0.2 mg IV Q2M PRN PRN Reason: Opioid Reversal Octreotide Acetate (Octreotide 100 Mcg/Ml Inj) 100 mcg IVP Q8HR [facility] Ondansetron HCl (Ondansetron 4 Mg/2 Ml Vial) 4 mg IVP Q8HR PRN PRN Reason: Nausea And Vomiting Pantoprazole Sodium (Pantoprazole 40 Mg/10 Ml Vial) 40 mg IVP DAILY [facility] Last Admin: 12/22/22 09:17 Dose: 40 mg Senna (Sennosides 8.6 Mg Tab) 17.2 mg PO HS PRN PRN Reason: Constipation Sodium Bicarbonate (Sodium Bicarbonate Tab 650 Mg Tab) 650 mg PO BID [facility] Last Admin: 12/22/22 08:11 Dose: Not Given Past medical history to include: Alcoholic cirrhosis diagnosed in August 2022, hypertension, GERD, osteoarthritis, hepatorenal syndrome Social history: Former smoker. Was drinking 8-10 beers a day up to August 2022. . 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 Conjunctiva pale HEENT: External appearance of nose and ears normal, oral cavity grossly normal. Dry mucous membranes NECK: JVD and prominent; masses not palpable. HEART: First and second heart sounds are normal; decreased edema. LUNGS: Respiratory rate increased; decreased breath sounds. ABDOMEN: Soft, mild distention, nontender, liver spleen not palpable, no masses palpable. PSYCH: Answering questions, tired. MUSCULOSKELETAL:No Clubbing/cyanosis;muscles-grossly intact INVESTIGATIONS, reviewed in the clinical context: December 22: White count 10.2 hemoglobin 11.6 platelets 146 sodium 124 potassium 3.8 BUN 43 creatinine 1.77 December 21: White count 9.8 hemoglobin 12.5 platelets 120 sodium 121 potassium 4.5 BUN 40 creatinine 1.86 December 20: White count 14.3 hemoglobin 13.1 platelets 137 sodium 119 potassium 3.9 BUN 34 creatinine 1.46 December 19: Sodium 118 potassium 4. 33 creatinine 1.28 December 18: Sodium 117 potassium 4.6 BUN 35 creatinine 1.34 December 17: Sodium 117 potassium 5.2 BUN 38 creatinine 1.5 total bilirubin 1.9 AST 156 AST 64 troponin I 0.078 albumin 2.7 white count 7.1 hemoglobin 13 platelets 183 EKG tracing personally reviewed by me-low voltage. Rate 83. Nonspecific T-wave changes Chest x-ray film personally reviewed by me--cardiomegaly Previous labs: Creatinine 1.09 [11/29/2022 Assessment and plan: -Severe hyponatremia, hypoosmolar with hypervolemia from underlying cirrhosis: Slow to respond Strict fluid restriction 1200 mL a day. Limit water intake. Samsca .. hypertonic saline-discontinued. -Hypotension, multifactorial Taken off dopamine drip. Getting albumin. -Acute fluid overload from underlying cirrhosis Lasix IV 40 mg every 8-discontinued. Aldactone held. Fluid restriction -Hyperkalemia secondary to underlying CK D: Better -Secondary Portal hypertension secondary cirrhosis -underlying chronic kidney disease probable stage III, from hepatorenal syndrome -Severe Hypoalbuminemia secondary to cirrhosis -Large ascites symptomatic. Paracentesis 8 L removed on December 18. Followed by albumin infusion -Alcoholic cirrhosis follows with Dr. Nikole Matt -GERD Protonix -Troponinemia secondary to chronic kidney disease. No acute coronary syndrome. -Full code Discussed with . Prognosis guarded Past Medical History Past Medical History: CVA/TIA, GERD/Reflux, Hypertension, Liver Disease Additional Past Medical History / Comment(s): cirrhosis August 2022, Stroke 10/09/2022 and taking plavix, ETOH history 8-10 beers and 1 or 2 shots of vodka per day(last drink 08/2022). History of Any Multi-Drug Resistant Organisms: None Reported Past Surgical History: Joint Replacement Additional Past Surgical History / Comment(s): Lt hip replacement three times, rt knee replaced, paracentesis 10/02/2022 Past Anesthesia/Blood Transfusion Reactions: No Reported Reaction Past Psychological History: No Psychological Hx Reported Smoking Status: Former smoker Past Alcohol Use History: None Reported Past Drug Use History: None Reported - Past Family History Father Family Medical History: No Reported History Medications and Allergies Home Medications Medication Instructions Recorded Confirmed Type Aspirin EC [Ecotrin Low Dose] 81 mg PO DAILY 11/01/22 12/18/22 History Atorvastatin [Lipitor] 80 mg PO HS 11/01/22 12/18/22 History Multivit-Min/FA/Lycopen/Lutein 1 tab PO DAILY 11/01/22 12/18/22 History [Centrum Silver Men Tablet] Pantoprazole [Protonix] 40 mg PO DAILY 11/01/22 12/18/22 History Sodium Bicarbonate Tab 650 mg PO BID #60 tab 11/28/22 12/18/22 Rx Furosemide [Lasix] 60 mg PO BID 12/17/22 12/18/22 History Midodrine HCl [ProAmatine] 10 mg PO TID 12/17/22 12/18/22 History Sennosides [Senokot] 16.2 mg PO HS PRN 12/17/22 12/18/22 History Spironolactone [Aldactone] 25 mg PO DAILY 12/17/22 12/18/22 History Allergies Allergy/AdvReac Type Severity Reaction Status Date / Time No Known Allergies Allergy Verified 12/17/22 15:04
[2022-12-22] MEDS: OCTREOTIDE 100 MCG/ML INJ IVP SCH ×2 (15:44→23:23)
[2022-12-22] MEDS: ATORVASTATIN 80 MG TAB PO SCH (19:35)
[2022-12-23 04:40] LABS: HCT 30.6 % (39.0-53.0); HGB 10.5 gm/dL (13.0-17.5); MCH 33.2 pg (25.0-35.0); MCHC 34.4 g/dL (31.0-37.0); MCV 96.3 fL (80.0-100.0); Mean Platelet Volume 7.9; Platelet Count 118 k/uL (150-450); RBC 3.18 m/uL (4.30-5.90); RDW 14.7 % (11.5-15.5); WBC 7.8 k/uL (3.8-10.6)
[2022-12-23 04:50] LABS: African American GFR (CKD) 55 (>60 ml/min/1.73 sqM); Anion Gap 9 mmol/L; Blood Urea Nitrogen 40 mg/dL (9-20); Calcium 8.5 mg/dL (8.4-10.2); Carbon Dioxide 21 mmol/L (22-30); Chloride 98 mmol/L (98-107); Glucose 114 mg/dL (74-99); Non-African American GFR(CKD) 48 (>60 ml/min/1.73 sqM); Potassium 3.5 mmol/L (3.5-5.1); Sodium 128 mmol/L (137-145)
[2022-12-23] MEDS: MIDODRINE 5 MG TAB PO SCH ×3 (06:39→16:21)
[2022-12-23] MEDS: SODIUM BICARBONATE TAB 650 MG TAB PO SCH ×2 (09:54→20:50)
[2022-12-23] MEDS: ASPIRIN 81 MG PO SCH (09:54)
[2022-12-23] MEDS: MULTIVITAMINS, THERA 1 EACH TAB PO SCH (09:54)
[2022-12-23] MEDS: PANTOPRAZOLE 40 MG/10 ML VIAL IVP SCH (09:54)
[2022-12-23] MEDS: LACTULOSE 20 GM/30 ML CUP PO SCH (09:54)
[2022-12-23] MEDS: OCTREOTIDE 100 MCG/ML INJ IVP SCH ×2 (10:00→16:20)
--- NOTE | 2022-12-23 11:59 | P.PN ---
Subjective patient is seen for follow-up for hyponatremia and acute kidney injury. He has underlying chronic liver disease and is maintained on treatment for hepatorenal syndrome. Status post 3% saline Serum sodium staying at 128 Creatinine improved to 1.4 mg/dL today. urine output documented at about 555 mL Objective - Vital Signs Vital signs: Vital Signs Temp 98.5 F 12/23/22 04:00 Pulse 78 12/23/22 10:00 Resp 20 12/23/22 10:00 BP 100/68 12/23/22 10:00 Pulse Ox 98 12/23/22 10:00 FiO2 Intake & Output 12/22/22 12/23/22 12/23/22 18:59 06:59 18:59 Intake Total 540 360 Output Total 460 550 Balance 80 -190 Intake: IV 290 10 0.9 120 10 Sodium Chloride 3%( 170 Hypertonic) 500 ml @ 30 mls/hr IV .[id number] ONE Rx #:[id number] Albumin 250 350 Albumin Human 25% 100 ml 250 350 In Empty Bag 1 bag @ 50 mls/hr IVPB Q1H [facility] Rx#: [id number] Output: Urine 460 550 Other: Voiding Method Indwelling Catheter Indwelling Catheter - Exam patient is awake, comfortable, no acute distress Examination of the heart S1 and S2 Examination of the lungs decreased breath sounds at the bases Abdomen is soft nontender, distended Examination of lower extremities shows 1+ edema bilaterally [employer]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 - Labs CBC & Chem 7: 12/23/22 04:04 12/23/22 04:04 Labs: Abnormal Lab Results - Last 24 Hours (Table) 12/22/22 12/23/22 12/23/22 Range/Units 17:52 00:35 04:04 RBC 3.18 L (4.30-5.90) m/uL Hgb 10.5 L (13.0-17.5) gm/dL Hct 30.6 L (39.0-53.0) % Plt Count 118 L (150-450) k/uL Sodium 126 L 128 L (137-145) mmol/L Carbon Dioxide (22-30) mmol/L BUN (9-20) mg/dL Creatinine (0.66-1.25) mg/dL Glucose (74-99) mg/dL 12/23/22 Range/Units 04:04 RBC (4.30-5.90) m/uL Hgb (13.0-17.5) gm/dL Hct (39.0-53.0) % Plt Count (150-450) k/uL Sodium 128 L (137-145) mmol/L Carbon Dioxide 21 L (22-30) mmol/L BUN 40 H (9-20) mg/dL Creatinine 1.41 H (0.66-1.25) mg/dL Glucose 114 H (74-99) mg/dL Assessment and Plan Assessment: 1. Acute kidney injury, ATN versus hepatorenal syndrome. Currently maintained on midodrine for hypotension and possible hepatorenal syndrome. Renal function has improved. Continue with Sandostatin as well. 2. CK D stage III a secondary to nephrosclerosis with baseline creatinine 1.1- 1.3 mg/dL 3. Hypervolemic hyponatremia associated with chronic liver disease, status post 3% saline. Maintained on fluid restriction. 5 4. Alcoholic liver cirrhosis, decompensated 5. Anion gap metabolic acidosis secondary to acute kidney injury maintained on sodium bicarb Plan: continue with midodrine and Sandostatin Continue with sodium bicarb Repeat sodium this afternoon Continue with fluid restriction.
--- NOTE | 2022-12-23 12:47 | P.PN ---
Subjective Progress Note Date: 12/23/22 Principal diagnosis: Acute hypovolemic hyponatremia, secondary to chronic liver disease I am seeing this patient in new consultation today 12/20/2022 after the patient was transferred to the intensive care unit for severe hyponatremia requiring hypertonic saline infusion. Patient is an 77-year-old white male with past medical history significant for alcoholism, alcohol-induced cirrhosis of liver, chronic kidney disease stage III, hyperlipidemia, CVA/TIA, GERD. Last reported alcoholic drink Aug, 2022. Patient does have frequent paracentesis with Dr. Matt. Patient presented to the emergency room on December 17 complaining of weakness and generalized swelling. Also, states that his blood pressure was low at home. He does take midodrine. Patient was found to be severely hyponatremic with a sodium of 117. TSH and cortisol levels were normal. He was admitted to the cardiac stepdown unit, and treated with multiple doses of Samsca. Unfortunately, his hyponatremia was not corrected, and he was transferred to the intensive care unit late last night for 3% hypertonic saline infusion. Patient is currently sitting up in bed, on room air, in no acute distress. He denies any focal weakness. No seizures. Patient has reportedly stopped drinking, used to drink beer and liquor. Denies any history of CHF. Does take Lasix 60 mg twice a day and Aldactone. He does report increased generalized swelling. He did have a large volume paracentesis on December 18 with a total of 8 L removed. 3% sodium chloride is currently infusing at 30 MLS per hour, and most recent sodium level is 117. This is being managed by nephrology. Most recent BMP from last night shows a sodium 117, potassium 4, chloride 86, serum bicarb 26, BUN 33, creatinine 1.28, glucose 82. Troponins mildly elevated at 0.078. NT proBNP 999. ECG shows normal sinus rhythm without any obvious acute ischemic changes.. Pancreatic enzymes mildly elevated. LFTs mildly elevated. CBC from admission was unremarkable. Recent chest x-ray from 2 days ago shows no acute cardiopulmonary process. Patient does appear hemodynamically stable. On 12/21/2022, the patient is doing better. However, overnight, he had a rough night with he was eating any aspirated and subsequently became short of breath and hypoxic and he became tachycardic and he became tachypneic and hypotensive and low urine output. At that point, he was placed on oxygen. A chest x-ray was done that showed no acute abnormalities. He was placed nothing by mouth. We do question his ability to swallow independently. Based on that, we'll place this patient nothing by mouth. Meanwhile, in terms of his low urine output, he was given IV albumin 2 doses. He was also given a bolus of 500 mL. Subsequently, he was placed on dopamine drip at 2. from the hospital gram per minutes. Note that he was also hypotensive. Most recent BP is up to 9157. His urine output is still low although improved. A Ta catheter was inserted and is producing approximately 10 mL an hour. He remains on hypertonic saline at 3% at the rate of 30 mL an hour. The patient has a sodium level today which is at 121 with a potassium level of 4.5, bicarbonate of 18, BUN is at 40 with a creatinine of 1.8. LFTs are abnormal due to his chronic liver disease. Chemistry Laboratory Technician on the case. WBC was 11.8. Hemoglobin was 12.5. Otherwise, at times, he is tremulous and restlessness. Noted the patient has not drank alcohol recently and he has quit drinking approximately 6 months ago. Wishes continue the lactulose on a daily basis. He is also on oral bicarb. He is on midodrine. He does have abdominal distention/ascites and edema in lower extremities. 12/22/2022, the patient is being seen for a follow-up. The patient is currently on room air oxygen. No further episodes of aspiration since yesterday. No significant respiratory distress. He is resting comfortably in bed. In terms of his electrolytes, sodium levels up to 124 and the patient remains on 3% hypertonic saline. The patient has a BUN of 43 with a creatinine of 0.77 and the patient continues to be on a renal dose of dopamine at 2.5 mcg/kg/m. Urine output is adequate and the order of 500 mL over the past 24 hours and the patient has produced 30 mL of urine output over the past 1 hour. The patient's electrolytes are stable. Potassium levels at 3.7. Bicarb is at 20, white cell cause of 10.2 with a hemoglobin 11.6. No altered mentation. No agitation. No signs of any delirium tremens. He is on lactulose. There is ongoing concern for this patient swallow. His swallow evaluation is to be done. The patient did aspirate couple of days ago and currently continues to have some difficulties in taking his oral medication. Patient was reevaluated today on 12/23/2022, seems to be doing fairly well, remains in the ICU as an overflow, being evaluated by a speech therapy for possible aspiration. Sodium is up to 128, creatinine down to 1.41, rest of the labs are unremarkable including CBC with return of 7.8 hemoglobin 10.5. Last chest x-ray from few days ago was unremarkable patient is now off 3% saline, remains on multiple medications including lactulose, octreotide, and bicarb orally. Off diuretics. Objective - Vital Signs Vital signs: Vital Signs Temp 98.5 F 12/23/22 04:00 Pulse 78 12/23/22 10:00 Resp 20 12/23/22 10:00 BP 100/68 12/23/22 10:00 Pulse Ox 98 12/23/22 10:00 FiO2 Intake & Output 12/22/22 12/23/22 12/23/22 18:59 06:59 18:59 Intake Total 540 360 Output Total 460 550 250 Balance 80 -190 -250 Intake: IV 290 10 0.9 120 10 Sodium Chloride 3%( 170 Hypertonic) 500 ml @ 30 mls/hr IV .[id number] ONE Rx #:[id number] Albumin 250 350 Albumin Human 25% 100 ml 250 350 In Empty Bag 1 bag @ 50 mls/hr IVPB Q1H [facility] Rx#: [id number] Output: Urine 460 550 250 Other: Voiding Method Indwelling Catheter Indwelling Catheter Indwelling Catheter - Exam Physical Exam: Revealed a 77-year-old white male in no distress Head: Atraumatic, normocephalic. HEENT:[Neck is supple.] [No neck masses.] [No thyromegaly.] [No JVD.] Chest: [Clear throughout, no crackles, no rhonchi, no wheezes.] Cardiac Exam: [Normal S1 and S2, no S3 gallop, no murmur.] Abdomen: [Soft, nontender, no megaly, no rebound, no guarding, normal bowel sounds.] Extremities: [No clubbing, 1+ bipedal edema, no cyanosis.] Neurological Exam: [No focal neurologic deficit.] Alert oriented 3 Psychiatric: Normal mood affect and normal mental status examination - Labs CBC & Chem 7: 12/23/22 04:04 12/23/22 04:04 Labs: Abnormal Lab Results - Last 24 Hours (Table) 12/22/22 12/23/22 12/23/22 Range/Units 17:52 00:35 04:04 RBC 3.18 L (4.30-5.90) m/uL Hgb 10.5 L (13.0-17.5) gm/dL Hct 30.6 L (39.0-53.0) % Plt Count 118 L (150-450) k/uL Sodium 126 L 128 L (137-145) mmol/L Carbon Dioxide (22-30) mmol/L BUN (9-20) mg/dL Creatinine (0.66-1.25) mg/dL Glucose (74-99) mg/dL 12/23/22 Range/Units 04:04 RBC (4.30-5.90) m/uL Hgb (13.0-17.5) gm/dL Hct (39.0-53.0) % Plt Count (150-450) k/uL Sodium 128 L (137-145) mmol/L Carbon Dioxide 21 L (22-30) mmol/L BUN 40 H (9-20) mg/dL Creatinine 1.41 H (0.66-1.25) mg/dL Glucose 114 H (74-99) mg/dL Assessment and Plan Assessment: Impression: Acute hypovolemic hyponatremia Chronic liver disease/alcoholic liver cirrhosis Ascites secondary to liver disease Chronic kidney disease stage III possible component of acute kidney injury Possible aspiration, no clear-cut evidence of pneumonia on chest x-ray, what I see on the chest x-ray is mostly right basilar atelectasis History of CVA/TIA Dyslipidemia History of GERD History of alcoholism however last drink was in August of 2022 Recommendation: Consider transferring the patient out of the ICU to a regular medical floor Continue fluid restriction Continue to hold diuretics Continued aspiration precaution until further recommendations from speech therapy We will continue to follow We will continue to monitor electrolytes on a daily basis. Overall long-term prognosis is definitely guarded Time with Patient: Less than 30
[2022-12-23 14:54] VITALS: BMI 28.0
--- NOTE | 2022-12-23 17:43 | P.PN ---
Progress Note - Text Progress Note Date: 12/23/22 Chief Complaint: Abnormal labs This is a pleasant 77-year-old patient who follows with Dr. Chang Douglas. August- 2022 diagnosed with alcoholic cirrhosis. Follows Dr. Nikole Matt gastroenterology. stopped drinking in August 2022. Was drinking 8-10 beers a day prior to that for years. had repeated paracentesis. Patient was seen yesterday at the nephrology clinic by Dr. Santoro. Was found to be hypotensive. Increasing ascites. An abnormal labs including the low-sodium. Patient was sent down to the ER for the same. Patient has maintained fluid restriction of 1200 mL at home. It is indeed dose of Lasix was increased to [address] Santoro. Patient has some shortness of breath. Edema. Due for paracentesis this afternoon. Patient's at the bedside. Appetite is fair. 12/19/2022: About 8 L of paracentesis scheduled to yesterday. Given IV albumin. Sodium still running low. 1 dose of Samsca given by nephrology. Eating better. Breathing better. Decrease in edema. Reminded patient to wear the Travis wrap. Discussed with patient and at the bedside. 12/20/2022: ICU: Patient is moved to the ICU overnight. 4 sodium of 117. Was started on hypertonic saline. Blood pressure running low close to around 80. Tolerating some diet. Discussed with patient about Travis wrap as that'll help with the blood pressure. She received Samsca yesterday. And today. Fluid restriction to continue. December 21: ICU. Remains on hypertonic saline, 30 mL an hour. Started on dopamine drip for low blood pressure. Some trouble swallowing. Changed to pured diet. Speech consulted. at the bedside. December 22: ICU. Hypertonic saline and IV dopamine both discontinued. Minimal oral intake because of choking. Pending speech therapy evaluation. 100 g of albumin ordered. Also started on Sandostatin IV. Discussed with at bedside. December 23: ICU. Patient is overflow. On. Pured and nectar thick liquid diet. Seen by speech. Tired. at the bedside. Remains on IV Sandostatin. Sodium up to 128. Active Medications Acetaminophen (Acetaminophen Tab 325 Mg Tab) 650 mg PO Q6HR PRN PRN Reason: Mild Pain or Fever > 100.5 Hydrocodone Bitart/Acetaminophen (Hydrocodone/Apap 5-325mg 1 Each Tab) 1 each PO Q4HR PRN PRN Reason: Moderate Pain (Scale 4 to 6) Aspirin (Aspirin 81 Mg) 81 mg PO DAILY [facility] Last Admin: 12/23/22 09:54 Dose: 81 mg Atorvastatin Calcium (Atorvastatin 80 Mg Tab) 80 mg PO HS [facility] Last Admin: 12/22/22 19:35 Dose: Not Given Lactulose (Lactulose 20 Gm/30 Ml Cup) 20 gm PO DAILY [facility] Last Admin: 12/23/22 09:54 Dose: Not Given Lorazepam (Lorazepam 0.5 Mg Tab) 0.5 mg PO Q6HR PRN PRN Reason: Anxiety Melatonin (Melatonin 3 Mg Tablet) 3 mg PO HS PRN PRN Reason: Insomnia Midodrine (Midodrine 5 Mg Tab) 10 mg PO AC-TID [facility] Last Admin: 12/23/22 16:21 Dose: 10 mg Multivitamins (Multivitamins, Thera 1 Each Tab) 1 each PO DAILY [facility] Last Admin: 12/23/22 09:54 Dose: 1 each Naloxone HCl (Naloxone 0.4 Mg/Ml 1 Ml Vial) 0.2 mg IV Q2M PRN PRN Reason: Opioid Reversal Octreotide Acetate (Octreotide 100 Mcg/Ml Inj) 100 mcg IVP Q8HR [facility] Last Admin: 12/23/22 16:20 Dose: 100 mcg Ondansetron HCl (Ondansetron 4 Mg/2 Ml Vial) 4 mg IVP Q8HR PRN PRN Reason: Nausea And Vomiting Pantoprazole Sodium (Pantoprazole 40 Mg/10 Ml Vial) 40 mg IVP DAILY [facility] Last Admin: 12/23/22 09:54 Dose: 40 mg Senna (Sennosides 8.6 Mg Tab) 17.2 mg PO HS PRN PRN Reason: Constipation Sodium Bicarbonate (Sodium Bicarbonate Tab 650 Mg Tab) 650 mg PO BID [facility] Last Admin: 12/23/22 09:54 Dose: 650 mg Past medical history to include: Alcoholic cirrhosis diagnosed in August 2022, hypertension, GERD, osteoarthritis, hepatorenal syndrome Social history: Former smoker. Was drinking 8-10 beers a day up to August 2022. . 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 Conjunctiva pale HEENT: External appearance of nose and ears normal, oral cavity grossly normal. Dry mucous membranes NECK: JVD and prominent; masses not palpable. HEART: First and second heart sounds are normal; decreased edema. LUNGS: Respiratory rate increased; decreased breath sounds. ABDOMEN: Soft, mild distention, nontender, liver spleen not palpable, no masses palpable. PSYCH: Answering questions, tired. MUSCULOSKELETAL:No Clubbing/cyanosis;muscles-grossly intact INVESTIGATIONS, reviewed in the clinical context: December 23: White count 7.8 hemoglobin 10.5 sodium 138 potassium 3.5. 40 creatinine 1.41 December 17: Sodium 117 potassium 5.2 BUN 38 creatinine 1.5 total bilirubin 1.9 AST 156 AST 64 troponin I 0.078 albumin 2.7 white count 7.1 hemoglobin 13 platelets 183 EKG tracing personally reviewed by me-low voltage. Rate 83. Nonspecific T-wave changes Chest x-ray film personally reviewed by me--cardiomegaly Previous labs: Creatinine 1.09 [11/29/2022 Assessment and plan: -Severe hyponatremia, hypoosmolar with hypervolemia from underlying cirrhosis: Improving Strict fluid restriction 1200 mL a day. Limit water intake. Samsca .. hypertonic saline-discontinued. -Hypotension, multifactorial Taken off dopamine drip. Received albumin. IV Sandostatin -Acute fluid overload from underlying cirrhosis Lasix discontinued. Aldactone held. Fluid restriction -Hyperkalemia secondary to underlying CK D: Better -Secondary Portal hypertension secondary cirrhosis -underlying chronic kidney disease probable stage III, from hepatorenal syndrome -Severe Hypoalbuminemia secondary to cirrhosis -Large ascites symptomatic. Paracentesis 8 L removed on December 18. Followed by albumin infusion -Alcoholic cirrhosis follows with Dr. Nikole Matt -GERD Protonix -Troponinemia secondary to chronic kidney disease. No acute coronary syndrome. -Full code For modified barium swallow tomorrow. Up in a chair. Discussed with Past Medical History Past Medical History: CVA/TIA, GERD/Reflux, Hypertension, Liver Disease Additional Past Medical History / Comment(s): cirrhosis August 2022, Stroke 10/09/2022 and taking plavix, ETOH history 8-10 beers and 1 or 2 shots of vodka per day(last drink 08/2022). History of Any Multi-Drug Resistant Organisms: None Reported Past Surgical History: Joint Replacement Additional Past Surgical History / Comment(s): Lt hip replacement three times, rt knee replaced, paracentesis 10/02/2022 Past Anesthesia/Blood Transfusion Reactions: No Reported Reaction Past Psychological History: No Psychological Hx Reported Smoking Status: Former smoker Past Alcohol Use History: None Reported Past Drug Use History: None Reported - Past Family History Father Family Medical History: No Reported History Medications and Allergies Home Medications Medication Instructions Recorded Confirmed Type Aspirin EC [Ecotrin Low Dose] 81 mg PO DAILY 11/01/22 12/18/22 History Atorvastatin [Lipitor] 80 mg PO HS 11/01/22 12/18/22 History Multivit-Min/FA/Lycopen/Lutein 1 tab PO DAILY 11/01/22 12/18/22 History [Centrum Silver Men Tablet] Pantoprazole [Protonix] 40 mg PO DAILY 11/01/22 12/18/22 History Sodium Bicarbonate Tab 650 mg PO BID #60 tab 11/28/22 12/18/22 Rx Furosemide [Lasix] 60 mg PO BID 12/17/22 12/18/22 History Midodrine HCl [ProAmatine] 10 mg PO TID 12/17/22 12/18/22 History Sennosides [Senokot] 16.2 mg PO HS PRN 12/17/22 12/18/22 History Spironolactone [Aldactone] 25 mg PO DAILY 12/17/22 12/18/22 History Allergies Allergy/AdvReac Type Severity Reaction Status Date / Time No Known Allergies Allergy Verified 12/17/22 15:04
[2022-12-23] MEDS: ATORVASTATIN 80 MG TAB PO SCH (20:49)
[2022-12-24] MEDS: OCTREOTIDE 100 MCG/ML INJ IVP SCH ×3 (00:13→17:17)
[2022-12-24 05:35] LABS: African American GFR (CKD) 72 (>60 ml/min/1.73 sqM); Anion Gap 6 mmol/L; Blood Urea Nitrogen 36 mg/dL (9-20); Calcium 8.2 mg/dL (8.4-10.2); Carbon Dioxide 21 mmol/L (22-30); Chloride 101 mmol/L (98-107); Glucose 119 mg/dL (74-99); Non-African American GFR(CKD) 63 (>60 ml/min/1.73 sqM); Potassium 3.4 mmol/L (3.5-5.1); Sodium 128 mmol/L (137-145)
[2022-12-24] MEDS: MIDODRINE 5 MG TAB PO SCH ×4 (06:59→17:45)
[2022-12-24] MEDS ORDERED: Potassium Replacement Protocol 1 EACH MISC MISCELLANE PRN (07:19)
[2022-12-24] MEDS: POTASSIUM CHLORIDE ER 20 MEQ TAB.ER PO SCH (10:27)
[2022-12-24] MEDS: LACTULOSE 20 GM/30 ML CUP PO SCH (10:28)
[2022-12-24] MEDS: ASPIRIN 81 MG PO SCH (10:28)
[2022-12-24] MEDS: SODIUM BICARBONATE TAB 650 MG TAB PO SCH ×2 (10:28→21:09)
[2022-12-24] MEDS: PANTOPRAZOLE 40 MG/10 ML VIAL IVP SCH (10:28)
[2022-12-24] MEDS: MULTIVITAMINS, THERA 1 EACH TAB PO SCH (10:28)
--- NOTE | 2022-12-24 10:51 | P.PN ---
Subjective patient is seen for follow-up for hyponatremia and acute kidney injury. He has underlying chronic liver disease and is maintained on treatment for hepatorenal syndrome. Status post 3% saline Serum sodium staying at 128 Creatinine improved to 1.1 mg/dL today. urine output documented at about 1010 mL for 24 hours Objective - Vital Signs Vital signs: Vital Signs Temp 98.9 F 12/24/22 08:00 Pulse 86 12/24/22 08:00 Resp 16 12/24/22 08:00 BP 98/73 12/24/22 08:00 Pulse Ox 96 12/24/22 08:00 FiO2 Intake & Output 12/23/22 12/24/22 12/24/22 18:59 06:59 18:59 Intake Total 50 20 240 Output Total 350 450 Balance -300 -430 240 Weight 88.8 kg Intake: IV 20 20 Invasive Line 4 10 10 Invasive Line 5 10 10 Oral 30 240 Output: Urine 350 450 Other: Voiding Method Urinal Urinal Urinal - Exam patient is awake, comfortable, no acute distress Examination of the heart S1 and S2 Examination of the lungs decreased breath sounds at the bases Abdomen is soft nontender, distended Examination of lower extremities shows 1+ edema bilaterally 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 Acute kidney injury, ATN versus hepatorenal syndrome. Currently maintained on midodrine for hypotension and possible hepatorenal syndrome. Renal function has improved. Maintained on Sandostatin as well. 2. CK D stage III a secondary to nephrosclerosis with baseline creatinine 1.1- 1.3 mg/dL 3. Hypervolemic hyponatremia associated with chronic liver disease, status post 3% saline. Maintained on fluid restriction. 4. Alcoholic liver cirrhosis, decompensated 5. Anion gap metabolic acidosis secondary to acute kidney injury maintained on sodium bicarb Plan: continue with midodrine and Sandostatin Continue with sodium bicarb Continue with fluid restriction.
--- NOTE | 2022-12-24 13:14 | P.PN ---
Subjective Progress Note Date: 12/24/22 Principal diagnosis: Acute hypovolemic hyponatremia, secondary to chronic liver disease I am seeing this patient in new consultation today 12/20/2022 after the patient was transferred to the intensive care unit for severe hyponatremia requiring hypertonic saline infusion. Patient is an 77-year-old white male with past medical history significant for alcoholism, alcohol-induced cirrhosis of liver, chronic kidney disease stage III, hyperlipidemia, CVA/TIA, GERD. Last reported alcoholic drink Aug, 2022. Patient does have frequent paracentesis with Dr. Matt. Patient presented to the emergency room on December 17 complaining of weakness and generalized swelling. Also, states that his blood pressure was low at home. He does take midodrine. Patient was found to be severely hyponatremic with a sodium of 117. TSH and cortisol levels were normal. He was admitted to the cardiac stepdown unit, and treated with multiple doses of Samsca. Unfortunately, his hyponatremia was not corrected, and he was transferred to the intensive care unit late last night for 3% hypertonic saline infusion. Patient is currently sitting up in bed, on room air, in no acute distress. He denies any focal weakness. No seizures. Patient has reportedly stopped drinking, used to drink beer and liquor. Denies any history of CHF. Does take Lasix 60 mg twice a day and Aldactone. He does report increased generalized swelling. He did have a large volume paracentesis on December 18 with a total of 8 L removed. 3% sodium chloride is currently infusing at 30 MLS per hour, and most recent sodium level is 117. This is being managed by nephrology. Most recent BMP from last night shows a sodium 117, potassium 4, chloride 86, serum bicarb 26, BUN 33, creatinine 1.28, glucose 82. Troponins mildly elevated at 0.078. NT proBNP 999. ECG shows normal sinus rhythm without any obvious acute ischemic changes.. Pancreatic enzymes mildly elevated. LFTs mildly elevated. CBC from admission was unremarkable. Recent chest x-ray from 2 days ago shows no acute cardiopulmonary process. Patient does appear hemodynamically stable. On 12/21/2022, the patient is doing better. However, overnight, he had a rough night with he was eating any aspirated and subsequently became short of breath and hypoxic and he became tachycardic and he became tachypneic and hypotensive and low urine output. At that point, he was placed on oxygen. A chest x-ray was done that showed no acute abnormalities. He was placed nothing by mouth. We do question his ability to swallow independently. Based on that, we'll place this patient nothing by mouth. Meanwhile, in terms of his low urine output, he was given IV albumin 2 doses. He was also given a bolus of 500 mL. Subsequently, he was placed on dopamine drip at 2. from the hospital gram per minutes. Note that he was also hypotensive. Most recent BP is up to 9157. His urine output is still low although improved. A Ta catheter was inserted and is producing approximately 10 mL an hour. He remains on hypertonic saline at 3% at the rate of 30 mL an hour. The patient has a sodium level today which is at 121 with a potassium level of 4.5, bicarbonate of 18, BUN is at 40 with a creatinine of 1.8. LFTs are abnormal due to his chronic liver disease. 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 WBC was 11.8. Hemoglobin was 12.5. Otherwise, at times, he is tremulous and restlessness. Noted the patient has not drank alcohol recently and he has quit drinking approximately 6 months ago. Wishes continue the lactulose on a daily basis. He is also on oral bicarb. He is on midodrine. He does have abdominal distention/ascites and edema in lower extremities. 12/22/2022, the patient is being seen for a follow-up. The patient is currently on room air oxygen. No further episodes of aspiration since yesterday. No significant respiratory distress. He is resting comfortably in bed. In terms of his electrolytes, sodium levels up to 124 and the patient remains on 3% hypertonic saline. The patient has a BUN of 43 with a creatinine of 0.77 and the patient continues to be on a renal dose of dopamine at 2.5 mcg/kg/m. Urine output is adequate and the order of 500 mL over the past 24 hours and the patient has produced 30 mL of urine output over the past 1 hour. The patient's electrolytes are stable. Potassium levels at 3.7. Bicarb is at 20, white cell cause of 10.2 with a hemoglobin 11.6. No altered mentation. No agitation. No signs of any delirium tremens. He is on lactulose. There is ongoing concern for this patient swallow. His swallow evaluation is to be done. The patient did aspirate couple of days ago and currently continues to have some difficulties in taking his oral medication. Patient was reevaluated today on 12/23/2022, seems to be doing fairly well, remains in the ICU as an overflow, being evaluated by a speech therapy for possible aspiration. Sodium is up to 128, creatinine down to 1.41, rest of the labs are unremarkable including CBC with return of 7.8 hemoglobin 10.5. Last chest x-ray from few days ago was unremarkable patient is now off 3% saline, remains on multiple medications including lactulose, octreotide, and bicarb orally. Off diuretics. Reevaluated today on 12/24/2022, patient remains in the ICU, doing well he is actually an overflow. Patient is on room air, sodium is up to 128 today, patient denies any specific complaints. His renal profile is improving creatinine down to 1.13, potassium 3.4 bicarb is 21 Objective - Vital Signs Vital signs: Vital Signs Temp 98.9 F 12/24/22 08:00 Pulse 86 12/24/22 08:00 Resp 16 12/24/22 08:00 BP 98/73 12/24/22 08:00 Pulse Ox 96 12/24/22 08:00 FiO2 Intake & Output 12/23/22 12/24/22 12/24/22 18:59 06:59 18:59 Intake Total 50 20 260 Output Total 350 450 200 Balance -300 -430 60 Weight 88.8 kg Intake: IV 20 20 20 Invasive Line 4 10 10 10 Invasive Line 5 10 10 10 Oral 30 240 Output: Urine 350 450 200 Other: Voiding Method Urinal Urinal Urinal - Exam Physical Exam: Revealed a 77-year-old white male in no distress Head: Atraumatic, normocephalic. HEENT:[Neck is supple.] [No neck masses.] [No thyromegaly.] [No JVD.] Chest: [Clear throughout, no crackles, no rhonchi, no wheezes.] Cardiac Exam: [Normal S1 and S2, no S3 gallop, no murmur.] Abdomen: [Soft, nontender, no megaly, no rebound, no guarding, normal bowel sounds.] Extremities: [No clubbing, 1+ bipedal edema, no cyanosis.] Neurological Exam: [No focal neurologic deficit.] Alert oriented 3 Psychiatric: Normal mood affect and normal mental status examination - Labs CBC & Chem 7: 12/23/22 04:04 12/24/22 04:32 Labs: Abnormal Lab Results - Last 24 Hours (Table) 12/23/22 12/24/22 Range/Units 16:07 04:32 Sodium 128 L 128 L (137-145) mmol/L Potassium 3.4 L (3.5-5.1) mmol/L Carbon Dioxide 21 L (22-30) mmol/L BUN 36 H (9-20) mg/dL Glucose 119 H (74-99) mg/dL Calcium 8.2 L (8.4-10.2) mg/dL Assessment and Plan Assessment: Impression: Acute hypervolemic hyponatremia Chronic liver disease/alcoholic liver cirrhosis Ascites secondary to liver disease Chronic kidney disease stage III possible component of acute kidney injury Possible aspiration, no clear-cut evidence of pneumonia on chest x-ray, what I see on the chest x-ray is mostly right basilar atelectasis History of CVA/TIA Dyslipidemia History of GERD History of alcoholism however last drink was in August of 2022 Recommendation: Transfer patient to a regular medical floor Continue fluid restriction Continue to hold diuretics We will continue to follow We will continue to monitor electrolytes on a daily basis. Will continue to follow Time with Patient: Less than 30
--- NOTE | 2022-12-24 13:42 | FL ---
Modified barium swallow. HISTORY: Dysphagia. Modified barium swallow was performed with the department of speech pathology. The patient was prese nted with various consistencies of barium. There is no evidence for aspiration or penetration. Delayed oral pharyngeal phase with pooling of ing ested contrast within the piriform sinuses. Full report is to follow from the department of speech p athology. Impression: As above
--- NOTE | 2022-12-24 15:38 | P.GSCN ---
History of Present Illness Consult date: 12/24/22 History of present illness: CHIEF COMPLAINT: Abnormal labs HISTORY OF PRESENT ILLNESS: This is a 77-year-old male who presented to hospital due to hypotension increasing ascites and low sodium. Patient did require 3% saline for low sodium and did require transfer to the ICU. Patient has had a paracentesis also during this admission with 8 L removed. He has a known history of alcoholic liver cirrhosis. Patient underwent a swallowing eval today with speech therapy which did show evidence of incomplete swallow. He is currently strict nothing by mouth. Surgical service has been consulted for EGD. Family is at bedside and reported that patient has never had EGD. But at home he always also experiencing some difficulty with swallowing. They reported that intermittently he would have episodes of gagging while eating. PAST MEDICAL HISTORY: See below PAST SURGICAL HISTORY: See below MEDICATIONS: See below ALLERGIES: See below SOCIAL HISTORY: No illicit drug use. REVIEW OF SYSTEMS: CONSTITUTIONAL: Denies fever or chills. HEENT: Denies blurred vision, vision changes, or eye pain. Denies hemoptysis CARDIOVASCULAR: Denies chest pain or pressure. RESPIRATORY: No shortness of breath. GASTROINTESTINAL: See HPI for pertinent findings HEMATOLOGIC: Denies bleeding disorders. GENITOURINARY: Denies any blood in urine or increased urinary frequency. SKIN: Denies pruitis. Denies rash. PHYSICAL EXAM: VITAL SIGNS: Reviewed GENERAL: Well-developed in no acute distress. ABDOMEN: Soft. Distended. Nontender. NEUROLOGIC: Lethargic Skin: Jaundiced LABORATORY DATA: WBC 7.8 Hgb 10.5 platelets 118 Sodium 128 potassium 3.4 creatinine 1.13 IMAGING: ASSESSMENT: 1. Dysphagia. Modified barium showing incomplete swallow 2. Alcoholic liver cirrhosis 3. Hyponatremia 4. Hypokalemia. Potassium being replaced PLAN: -Patient scheduled for EGD tomorrow with Dr. gee -Keep patient nothing by mouth -Continue supportive care Physician Counselling Psychologist note has been reviewed by physician. Signing provider agrees with the documented findings, assessment, and plan of care. Past Medical History Past Medical History: CVA/TIA, GERD/Reflux, Hypertension, Liver Disease Additional Past Medical History / Comment(s): cirrhosis August 2022, Stroke 10/09/2022 and taking plavix, ETOH history 8-10 beers and 1 or 2 shots of vodka per day(last drink 08/2022). History of Any Multi-Drug Resistant Organisms: None Reported Past Surgical History: Joint Replacement Additional Past Surgical History / Comment(s): Lt hip replacement three times, rt knee replaced, paracentesis 10/02/2022 Past Anesthesia/Blood Transfusion Reactions: No Reported Reaction Past Psychological History: No Psychological Hx Reported Smoking Status: Former smoker Past Alcohol Use History: None Reported Past Drug Use History: None Reported - Past Family History Father Family Medical History: No Reported History Medications and Allergies Home Medications Medication Instructions Recorded Confirmed Type Aspirin EC [Ecotrin Low Dose] 81 mg PO DAILY 11/01/22 12/18/22 History Atorvastatin [Lipitor] 80 mg PO HS 11/01/22 12/18/22 History Multivit-Min/FA/Lycopen/Lutein 1 tab PO DAILY 11/01/22 12/18/22 History [Centrum Silver Men Tablet] Pantoprazole [Protonix] 40 mg PO DAILY 11/01/22 12/18/22 History Sodium Bicarbonate Tab 650 mg PO BID #60 tab 11/28/22 12/18/22 Rx Furosemide [Lasix] 60 mg PO BID 12/17/22 12/18/22 History Midodrine HCl [ProAmatine] 10 mg PO TID 12/17/22 12/18/22 History Sennosides [Senokot] 16.2 mg PO HS PRN 12/17/22 12/18/22 History Spironolactone [Aldactone] 25 mg PO DAILY 12/17/22 12/18/22 History Allergies Allergy/AdvReac Type Severity Reaction Status Date / Time No Known Allergies Allergy Verified 12/17/22 15:04 Surgical - Exam Vital Signs Temp Pulse Resp BP Pulse Ox 98.5 F 90 20 102/68 98 12/17/22 12:04 12/17/22 12:04 12/17/22 12:04 12/17/22 12:04 12/17/22 12:04 Results - Labs 12/23/22 04:04 12/24/22 04:32 Abnormal Lab Results - Last 24 Hours (Table) 12/23/22 12/24/22 Range/Units 16:07 04:32 Sodium 128 L 128 L (137-145) mmol/L Potassium 3.4 L (3.5-5.1) mmol/L Carbon Dioxide 21 L (22-30) mmol/L BUN 36 H (9-20) mg/dL Glucose 119 H (74-99) mg/dL Calcium 8.2 L (8.4-10.2) mg/dL Diabetes panel 12/23/22 12/24/22 Range/Units 16:07 04:32 Sodium 128 L 128 L (137-145) mmol/L Potassium 3.4 L (3.5-5.1) mmol/L Chloride 101 (98-107) mmol/L Carbon Dioxide 21 L (22-30) mmol/L BUN 36 H (9-20) mg/dL Creatinine 1.13 (0.66-1.25) mg/dL Glucose 119 H (74-99) mg/dL Calcium 8.2 L (8.4-10.2) mg/dL Calcium panel 12/24/22 Range/Units 04:32 Calcium 8.2 L (8.4-10.2) mg/dL Pituitary panel 12/23/22 12/24/22 Range/Units 16:07 04:32 Sodium 128 L 128 L (137-145) mmol/L Potassium 3.4 L (3.5-5.1) mmol/L Chloride 101 (98-107) mmol/L Carbon Dioxide 21 L (22-30) mmol/L BUN 36 H (9-20) mg/dL Creatinine 1.13 (0.66-1.25) mg/dL Glucose 119 H (74-99) mg/dL Calcium 8.2 L (8.4-10.2) mg/dL Adrenal panel 12/23/22 12/24/22 Range/Units 16:07 04:32 Sodium 128 L 128 L (137-145) mmol/L Potassium 3.4 L (3.5-5.1) mmol/L Chloride 101 (98-107) mmol/L Carbon Dioxide 21 L (22-30) mmol/L BUN 36 H (9-20) mg/dL Creatinine 1.13 (0.66-1.25) mg/dL Glucose 119 H (74-99) mg/dL Calcium 8.2 L (8.4-10.2) mg/dL
--- NOTE | 2022-12-24 17:21 | CT ---
EXAMINATION TYPE: CT brain wo con DATE OF EXAM: 12/24/2022 COMPARISON: none HISTORY: r/o stroke CT DLP: 1167.[address] of the brain was performed. The ventricles, basal cisterns and sulci overlying the cerebral convexities demonstrate mild enlargem ent. Decreased attenuation within the bilateral cerebellar hemispheres could reflect recent ischemic insult. Correlate clinically. There is no evidence for intracranial hemorrhage or sulcal effacement. There is decreased attenuation about the periventricular white matter and deep white matter of both c erebral hemispheres, compatible with chronic small vessel ischemia. Differential diagnosis does inclu de demyelination. No mass effects are seen.No midline shift. Osseous calvarium is intact. If symptoms persist consider MRI. IMPRESSION: 1.Decreased attenuation within the bilateral cerebellar hemispheres could reflect recent ischemic ins ult. Correlate clinically. 2. Age related atrophic and chronic small vessel ischemic change.
--- NOTE | 2022-12-24 17:37 | XR ---
EXAMINATION TYPE: XR chest 1V DATE OF EXAM: 12/24/2022 HISTORY: Shortness of breath. COMPARISON: 12/20/2022 TECHNIQUE: Single view of the chest is submitted. FINDINGS: Demonstrated are scattered senescent parenchymal change. NG tube is seen coursing into the stomach. Basilar atelectasis and/or developing infiltrates. The heart is stable. Hilar and mediastinal structures are within normal limits. Degenerative changes are seen of the dorsal spine. IMPRESSION: 1. Basilar atelectasis and/or developing infiltrates.
[2022-12-24] MEDS: ATORVASTATIN 80 MG TAB PO SCH (21:09)
--- NOTE | 2022-12-24 21:20 | P.PN ---
Progress Note - Text Progress Note Date: 12/24/22 Chief Complaint: Abnormal labs This is a pleasant 77-year-old patient who follows with Dr. Chang Douglas. August- 2022 diagnosed with alcoholic cirrhosis. Follows Dr. Nikole Matt gastroenterology. stopped drinking in August 2022. Was drinking 8-10 beers a day prior to that for years. had repeated paracentesis. Patient was seen yesterday at the nephrology clinic by Dr. Santoro. Was found to be hypotensive. Increasing ascites. An abnormal labs including the low-sodium. Patient was sent down to the ER for the same. Patient has maintained fluid restriction of 1200 mL at home. It is indeed dose of Lasix was increased to [address] Santoro. Patient has some shortness of breath. Edema. Due for paracentesis this afternoon. Patient's at the bedside. Appetite is fair. 12/19/2022: About 8 L of paracentesis scheduled to yesterday. Given IV albumin. Sodium still running low. 1 dose of Samsca given by nephrology. Eating better. Breathing better. Decrease in edema. Reminded patient to wear the Tarvis wrap. Discussed with patient and at the bedside. 12/20/2022: ICU: Patient is moved to the ICU overnight. 4 sodium of 117. Was started on hypertonic saline. Blood pressure running low close to around 80. Tolerating some diet. Discussed with patient about Travis wrap as that'll help with the blood pressure. She received Samsca yesterday. And today. Fluid restriction to continue. December 21: ICU. Remains on hypertonic saline, 30 mL an hour. Started on dopamine drip for low blood pressure. Some trouble swallowing. Changed to pured diet. Speech consulted. at the bedside. December 22: ICU. Hypertonic saline and IV dopamine both discontinued. Minimal oral intake because of choking. Pending speech therapy evaluation. 100 g of albumin ordered. Also started on Sandostatin IV. Discussed with at bedside. December 23: ICU. Patient is overflow. On. Pured and nectar thick liquid diet. Seen by speech. Tired. at the bedside. Remains on IV Sandostatin. Sodium up to 128. December 24: ICU. Patient underwent modified barium swallow today. Significant aspiration. Made nothing by mouth. Lengthy discussion with the the bedside. I ordered a computed tomography scan of the brain: Showed decreased attenuation within the bilateral cerebellar hemisphere. Could be recent ischemic event. Neurology consulted. Patient rather lethargic. NG tube ordered. Do not have GI services the hospital. Options very limited. Possible EGD tomorrow. Also discussed about transferring to high level of care because he did not have any other options left. No GI services available. Total time spent today over 60 minutes with over 40 minutes of discussion. Active Medications Acetaminophen (Acetaminophen Tab 325 Mg Tab) 650 mg PO Q6HR PRN PRN Reason: Mild Pain or Fever > 100.5 Hydrocodone Bitart/Acetaminophen (Hydrocodone/Apap 5-325mg 1 Each Tab) 1 each PO Q4HR PRN PRN Reason: Moderate Pain (Scale 4 to 6) Aspirin (Aspirin 81 Mg) 81 mg PO DAILY [facility] Last Admin: 12/24/22 10:28 Dose: 81 mg Atorvastatin Calcium (Atorvastatin 80 Mg Tab) 80 mg PO HS [facility] Last Admin: 12/24/22 21:09 Dose: 80 mg Lactulose (Lactulose 20 Gm/30 Ml Cup) 20 gm PO DAILY [facility] Last Admin: 12/24/22 10:28 Dose: 20 gm Lorazepam (Lorazepam 0.5 Mg Tab) 0.5 mg PO Q6HR PRN PRN Reason: Anxiety Melatonin (Melatonin 3 Mg Tablet) 3 mg PO HS PRN PRN Reason: Insomnia Last Admin: 12/24/22 21:09 Dose: 3 mg Midodrine (Midodrine 5 Mg Tab) 10 mg PO AC-TID [facility] Last Admin: 12/24/22 17:45 Dose: 10 mg Miscellaneous Information (Potassium Replacement Protocol 1 Each Misc) 1 each MISCELLANE DAILY PRN; Protocol PRN Reason: Per Protocol Multivitamins (Multivitamins, Thera 1 Each Tab) 1 each PO DAILY [facility] Last Admin: 12/24/22 10:28 Dose: 1 each Naloxone HCl (Naloxone 0.4 Mg/Ml 1 Ml Vial) 0.2 mg IV Q2M PRN PRN Reason: Opioid Reversal Octreotide Acetate (Octreotide 100 Mcg/Ml Inj) 100 mcg IVP Q8HR [facility] Last Admin: 12/24/22 17:17 Dose: 100 mcg Ondansetron HCl (Ondansetron 4 Mg/2 Ml Vial) 4 mg IVP Q8HR PRN PRN Reason: Nausea And Vomiting Pantoprazole Sodium (Pantoprazole 40 Mg/10 Ml Vial) 40 mg IVP DAILY [facility] Last Admin: 12/24/22 10:28 Dose: 40 mg Senna (Sennosides 8.6 Mg Tab) 17.2 mg PO HS PRN PRN Reason: Constipation Sodium Bicarbonate (Sodium Bicarbonate Tab 650 Mg Tab) 650 mg PO BID [facility] Last Admin: 12/24/22 21:09 Dose: 650 mg Past medical history to include: Alcoholic cirrhosis diagnosed in August 2022, hypertension, GERD, osteoarthritis, hepatorenal syndrome Social history: Former smoker. Was drinking 8-10 beers a day up to August 2022. . 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 Conjunctiva pale HEENT: External appearance of nose and ears normal, oral cavity grossly normal. Dry mucous membranes NECK: JVD and prominent; masses not palpable. HEART: First and second heart sounds are normal; decreased edema. LUNGS: Respiratory rate increased; decreased breath sounds. ABDOMEN: Soft, mild distention, nontender, liver spleen not palpable, no masses palpable. PSYCH: Lethargic MUSCULOSKELETAL:No Clubbing/cyanosis;muscles-grossly intact INVESTIGATIONS, reviewed in the clinical context: Computed tomography scan of the brain without contrast [December 24]: Bilateral cerebellar decreased attenuation. Modified barium swallow: Aspiration. December 24: Sodium 128 potassium 3.4 BUN 36 creatinine 1.13 December 23: White count 7.8 hemoglobin 10.5 sodium 138 potassium 3.5. 40 creatinine 1.41 December 17: Sodium 117 potassium 5.2 BUN 38 creatinine 1.5 total bilirubin 1.9 AST 156 AST 64 troponin I 0.078 albumin 2.7 white count 7.1 hemoglobin 13 platelets 183 EKG tracing personally reviewed by me-low voltage. Rate 83. Nonspecific T-wave changes Chest x-ray film personally reviewed by me--cardiomegaly Previous labs: Creatinine 1.09 [11/29/2022 Assessment and plan: -Severe hyponatremia, hypoosmolar with hypervolemia from underlying cirrhosis: Strict fluid restriction 1200 mL a day. Limit water intake. Samsca .. hypertonic saline-discontinued. -Severe dysphagia. On modified barium swallow. Computed tomography scan of the brain showed bilateral cerebellar possible ischemia for known duration. Neurology consulted. NG tube ordered for medications. -Hypotension, multifactorial: Improved Taken off dopamine drip. Received albumin. IV Sandostatin -Acute fluid overload from underlying cirrhosis Lasix discontinued. Aldactone held. Fluid restriction -Hyperkalemia secondary to underlying CK D: Better -Secondary Portal hypertension secondary cirrhosis -underlying chronic kidney disease probable stage III, from hepatorenal syndrome -Severe Hypoalbuminemia secondary to cirrhosis -Large ascites symptomatic. Paracentesis 8 L removed on December 18. Followed by albumin infusion -Alcoholic cirrhosis follows with Dr. Nikole Matt -GERD Protonix -Troponinemia secondary to chronic kidney disease. No acute coronary syndrome. -Full code NG tube. Neurology consultation. Discussed with the for possible transfer to higher level of care. No GI symptoms available. Surgery consulted for possible EGD. Past Medical History Past Medical History: CVA/TIA, GERD/Reflux, Hypertension, Liver Disease Additional Past Medical History / Comment(s): cirrhosis August 2022, Stroke 10/09/2022 and taking plavix, ETOH history 8-10 beers and 1 or 2 shots of vodka per day(last drink 08/2022). History of Any Multi-Drug Resistant Organisms: None Reported Past Surgical History: Joint Replacement Additional Past Surgical History / Comment(s): Lt hip replacement three times, rt knee replaced, paracentesis 10/02/2022 Past Anesthesia/Blood Transfusion Reactions: No Reported Reaction Past Psychological History: No Psychological Hx Reported Smoking Status: Former smoker Past Alcohol Use History: None Reported Past Drug Use History: None Reported - Past Family History Father Family Medical History: No Reported History Medications and Allergies Home Medications Medication Instructions Recorded Confirmed Type Aspirin EC [Ecotrin Low Dose] 81 mg PO DAILY 11/01/22 12/18/22 History Atorvastatin [Lipitor] 80 mg PO HS 11/01/22 12/18/22 History Multivit-Min/FA/Lycopen/Lutein 1 tab PO DAILY 11/01/22 12/18/22 History [Centrum Silver Men Tablet] Pantoprazole [Protonix] 40 mg PO DAILY 11/01/22 12/18/22 History Sodium Bicarbonate Tab 650 mg PO BID #60 tab 11/28/22 12/18/22 Rx Furosemide [Lasix] 60 mg PO BID 12/17/22 12/18/22 History Midodrine HCl [ProAmatine] 10 mg PO TID 12/17/22 12/18/22 History Sennosides [Senokot] 16.2 mg PO HS PRN 12/17/22 12/18/22 History Spironolactone [Aldactone] 25 mg PO DAILY 12/17/22 12/18/22 History Allergies Allergy/AdvReac Type Severity Reaction Status Date / Time No Known Allergies Allergy Verified 12/17/22 15:04
[2022-12-25] MEDS: OCTREOTIDE 100 MCG/ML INJ IVP SCH ×4 (00:06→23:25)
[2022-12-25 08:02] LABS: HCT 36.3 % (39.0-53.0); MCH 31.8 pg (25.0-35.0); MCV 96.4 fL (80.0-100.0); Mean Platelet Volume 7.8; Platelet Count 133 k/uL (150-450); RBC 3.77 m/uL (4.30-5.90); RDW 14.8 % (11.5-15.5); WBC 10.4 k/uL (3.8-10.6)
[2022-12-25 08:23] LABS: ALT 48 U/L (4-49); AST 92 U/L (17-59); African American GFR (CKD) 76 (>60 ml/min/1.73 sqM); Albumin 2.4 g/dL (3.5-5.0); Alkaline Phosphatase 116 U/L (38-126); Anion Gap 7 mmol/L; Blood Urea Nitrogen 37 mg/dL (9-20); Calcium 8.4 mg/dL (8.4-10.2); Carbon Dioxide 20 mmol/L (22-30); Chloride 103 mmol/L (98-107); Glucose 100 mg/dL (74-99); Non-African American GFR(CKD) 66 (>60 ml/min/1.73 sqM); Potassium 4.1 mmol/L (3.5-5.1); Sodium 130 mmol/L (137-145); Total Bilirubin 3.8 mg/dL (0.2-1.3); Total Protein 5.3 g/dL (6.3-8.2)
[2022-12-25] MEDS: ASPIRIN 81 MG PO SCH (09:19)
[2022-12-25] MEDS: PANTOPRAZOLE 40 MG/10 ML VIAL IVP SCH (09:19)
[2022-12-25] MEDS: LACTULOSE 20 GM/30 ML CUP PO SCH ×3 (09:19→20:23)
[2022-12-25] MEDS: SODIUM BICARBONATE TAB 650 MG TAB PO SCH ×2 (09:19→20:23)
[2022-12-25] MEDS: MULTIVITAMINS, THERA 1 EACH TAB PO SCH (09:19)
[2022-12-25] MEDS: MIDODRINE 5 MG TAB PO SCH ×3 (09:19→15:51)
--- NOTE | 2022-12-25 11:41 | P.PN ---
Subjective patient is seen for follow-up for hyponatremia and acute kidney injury. He has underlying chronic liver disease and is maintained on treatment for hepatorenal syndrome. Status post 3% saline Serum sodium at 1:30 today Creatinine improved to 1.0 mg/dL today. Patient has an NG tube as he was not able to swallow. Scheduled for EGD today. Objective - Vital Signs Vital signs: Vital Signs Temp 98.2 F 12/25/22 09:15 Pulse 82 12/25/22 09:15 Resp 16 12/25/22 09:15 BP 99/67 12/25/22 09:15 Pulse Ox 95 12/25/22 09:15 FiO2 Intake & Output 12/24/22 12/25/22 12/25/22 18:59 06:59 18:59 Intake Total 260 100 Output Total 300 465 Balance -40 -365 Intake: IV 20 Invasive Line 4 10 Invasive Line 5 10 Oral 240 100 Output: Urine 300 465 Other: Voiding Method Urinal Urinal Urinal - Exam patient is awake, comfortable, no acute distress NG tube in place Examination of the heart S1 and S2 Examination of the lungs decreased breath sounds at the bases Abdomen is soft nontender, distended Examination of lower extremities shows 1+ edema bilaterally REPORTER ANCHOR exam grossly intact - Labs CBC & Chem 7: 12/25/22 07:23 12/25/22 07:23 Labs: Abnormal Lab Results - Last 24 Hours (Table) 12/25/22 12/25/22 Range/Units 07:23 07:23 RBC 3.77 L (4.30-5.90) m/uL Hgb 12.0 L (13.0-17.5) gm/dL Hct 36.3 L (39.0-53.0) % Plt Count 133 L (150-450) k/uL Sodium 130 L (137-145) mmol/L Carbon Dioxide 20 L (22-30) mmol/L BUN 37 H (9-20) mg/dL Glucose 100 H (74-99) mg/dL Total Bilirubin 3.8 H (0.2-1.3) mg/dL AST 92 H (17-59) U/L Total Protein 5.3 L (6.3-8.2) g/dL Albumin 2.4 L (3.5-5.0) g/dL Assessment and Plan Assessment: 1. Acute kidney injury, ATN versus hepatorenal syndrome. Currently maintained on midodrine for hypotension and possible hepatorenal syndrome. Renal function has improved. Maintained on Sandostatin as well. 2. CK D stage III a secondary to nephrosclerosis with baseline creatinine 1.1- 1.3 mg/dL 3. Hypervolemic hyponatremia associated with chronic liver disease, status post 3% saline. Maintained on fluid restriction. 4. Alcoholic liver cirrhosis, decompensated 5. Anion gap metabolic acidosis secondary to acute kidney injury maintained on sodium bicarb Plan: continue with midodrine and Sandostatin Continue with sodium bicarb Continue with fluid restriction.
--- NOTE | 2022-12-25 11:45 | P.PN ---
Subjective Progress Note Date: 12/25/22 CHIEF COMPLAINT: Dysphagia HISTORY OF PRESENT ILLNESS: Patient scheduled for EGD for evaluation of his dy sphagia. MBS study had shown incomplete swallow. Patient has NG tube for his medications since he is unable to swallow pills. Afebrile. Vitals stable. WBC 10.4 Hgb is 12 sodium is 130 potassium is 4.1 total bilirubin 3.8 PHYSICAL EXAM: VITAL SIGNS: Reviewed. GENERAL: Well-developed in no acute distress. HEENT: No sclera icterus. Extraocular movements grossly intact. Moist buccal mucosa. Head is atraumatic, normocephalic. ABDOMEN: Soft. Nondistended. Nontender. NEUROLOGIC: Alert and oriented. Cranial nerves II through XII grossly intact. ASSESSMENT: 1. Dysphagia. Modified barium showing incomplete swallow 2. Alcoholic liver cirrhosis 3. Hyponatremia 4. Hypokalemia. resolved PLAN: -Patient scheduled for EGD today with Dr. Palomino Physician Bulk Mail Technician note has been reviewed by physician. Signing provider agrees with the documented findings, assessment, and plan of care. Objective - Vital Signs Vital signs: Vital Signs Temp 98.2 F 12/25/22 09:15 Pulse 82 12/25/22 09:15 Resp 16 12/25/22 09:15 BP 99/67 12/25/22 09:15 Pulse Ox 95 12/25/22 09:15 FiO2 Intake & Output 12/24/22 12/25/22 12/25/22 18:59 06:59 18:59 Intake Total 260 100 Output Total 300 465 Balance -40 -365 Intake: IV 20 Invasive Line 4 10 Invasive Line 5 10 Oral 240 100 Output: Urine 300 465 Other: Voiding Method Urinal Urinal Urinal - Labs CBC & Chem 7: 12/25/22 07:23 12/25/22 07:23 Labs: Abnormal Lab Results - Last 24 Hours (Table) 12/25/22 12/25/22 Range/Units 07:23 07:23 RBC 3.77 L (4.30-5.90) m/uL Hgb 12.0 L (13.0-17.5) gm/dL Hct 36.3 L (39.0-53.0) % Plt Count 133 L (150-450) k/uL Sodium 130 L (137-145) mmol/L Carbon Dioxide 20 L (22-30) mmol/L BUN 37 H (9-20) mg/dL Glucose 100 H (74-99) mg/dL Total Bilirubin 3.8 H (0.2-1.3) mg/dL AST 92 H (17-59) U/L Total Protein 5.3 L (6.3-8.2) g/dL Albumin 2.4 L (3.5-5.0) g/dL
--- NOTE | 2022-12-25 13:33 | P.CNNES ---
History of Present Illness Consult date: 12/25/22 Requesting physician: Zelalem Lanza Reason for Consult: abnormal CT results History of Present Illness: This is an 77-year-old gentleman with medical history of lacunar stroke, alcohol abuse, alcohol induced cirrhosis and frequent paracentesis, CKD who presents to our facility because of weakness and generalized swelling. Neurology is consulted for abnormal CT head. Patient's is at bedside who helps with some of the history. It seems during this admission he has hyponatremia and requiring hypertenoic saline. Yesterday a CT head was ordered by primary team since patient is having severe dysphagia and reported as decreased attentuation within the bilateral cerebellar hemispheres could reflect recent ischemic insult. Correlate clinically. Age related atrophic and chronic small vessel ischemic change. Patient sodium was as low as 117 and currently it is 130. Patient denies any focal weakness, numbness, visual disturbance. He has NG tube and pending swallow evaluation by TRANSFORMER INSPECTOR per nurse today. He had MRI at [facility] in last 2-3 months ago and per was told he had 4 spots and unsure if acute or chronic. He takes ASA 81mg daily. Patient has stopped drinking in August 2022 and was drinking heavily prior to that for years. Of note, I personally reviewed CT head and felt the findings on cerebellar was difficult to interpert acute or subacute ischemic since CT is not best study for that region. And I doubt there is cerebellar stroke that is recent. I feel patient has lacunar stroke over the left caudate, external capsule that seems old. Review of Systems 10 point system is reviewed and the pertinent positive and negative as per HPI. Past Medical History Past Medical History: CVA/TIA, GERD/Reflux, Hypertension, Liver Disease Additional Past Medical History / Comment(s): cirrhosis August 2022, Stroke 10/09/2022 and taking plavix, ETOH history 8-10 beers and 1 or 2 shots of vodka per day(last drink 08/2022). History of Any Multi-Drug Resistant Organisms: None Reported Past Surgical History: Joint Replacement Additional Past Surgical History / Comment(s): Lt hip replacement three times, rt knee replaced, paracentesis 10/02/2022 Past Anesthesia/Blood Transfusion Reactions: No Reported Reaction Past Psychological History: No Psychological Hx Reported Smoking Status: Former smoker Past Alcohol Use History: None Reported Past Drug Use History: None Reported - Past Family History Father Family Medical History: No Reported History Medications and Allergies Home Medications Medication Instructions Recorded Confirmed Type Aspirin EC [Ecotrin Low Dose] 81 mg PO DAILY 11/01/22 12/18/22 History Atorvastatin [Lipitor] 80 mg PO HS 11/01/22 12/18/22 History Multivit-Min/FA/Lycopen/Lutein 1 tab PO DAILY 11/01/22 12/18/22 History [Centrum Silver Men Tablet] Pantoprazole [Protonix] 40 mg PO DAILY 11/01/22 12/18/22 History Sodium Bicarbonate Tab 650 mg PO BID #60 tab 11/28/22 12/18/22 Rx Furosemide [Lasix] 60 mg PO BID 12/17/22 12/18/22 History Midodrine HCl [ProAmatine] 10 mg PO TID 12/17/22 12/18/22 History Sennosides [Senokot] 16.2 mg PO HS PRN 12/17/22 12/18/22 History Spironolactone [Aldactone] 25 mg PO DAILY 12/17/22 12/18/22 History Allergies Allergy/AdvReac Type Severity Reaction Status Date / Time No Known Allergies Allergy Verified 12/17/22 15:04 Physical Examination - Vital Signs Vital Signs: Vital Signs Temp Pulse Pulse Resp BP Pulse Ox 12/25/22 09:15 98.2 F 82 16 99/67 95 12/25/22 04:00 98.2 F 80 16 105/70 94 L 12/25/22 02:00 98.2 F 81 17 120/74 97 12/24/22 20:00 98.4 F 82 17 111/67 96 12/24/22 17:50 88 12/24/22 17:38 121/85 12/24/22 17:20 88 20 150/93 96 12/24/22 14:00 98.5 F 88 16 112/82 96 Intake and Output 12/24/22 12/25/22 12/25/22 22:59 06:59 14:59 Intake Total 100 Output Total 100 465 Balance -100 -365 Intake: Oral 100 Output: Urine 100 465 Other: Voiding Method Urinal Urinal General: The patient is lying in bed and is not in acute distress. Neuro: The patient is mildly drowsy but is awakeable to voice. is oriented to self, place. He correctly stated the current year but stated the month is December. He is following simple commands. No aphasia or neglect. Pupils are round, equal and reactive to light. Pupils are 3mm bilaterally. Visual field are full to confrontation. EOM intact and no nystagmus. Normal facial sensation to touch. No facial weakness. Moderate dysarthria and has hypophonia. Has NG tube. Motor: Strength is 5/5 throughout uppers and lifting lowers above gravity and no focality. Normal tone and bulk. Sensation: Normal to touch. Cerebellar: Normal finger to nose bilaterally. Slowly was performing heel to olvera and no ataxia or dysmetria. Reflexes: 2+ throughout uppers but refused lowers. Plantars are mute bilaterally. Results - Laboratory Findings CBC and BMP: 12/25/22 07:12/25/22 07:23 Abnormal Lab Findings: Abnormal Labs 12/17/22 12/17/22 12/17/22 13:01 13:01 13:01 WBC RBC 3.91 L Hgb Hct 36.8 L Plt Count Neutrophils # Monocytes # Sodium 117 L* Potassium 5.2 H Chloride 86 L Carbon Dioxide BUN 38 H Creatinine 1.50 H Glucose POC Glucose (mg/dL) Osmolality Calcium Total Bilirubin 1.9 H AST 156 H ALT 64 H Alkaline Phosphatase 264 H Troponin I 0.078 H* Total Protein 6.2 L Albumin 2.7 L Amylase 188 H Lipase 398 H Ur Random Sodium 12/18/22 12/18/22 12/19/22 10:34 16:47 06:53 WBC RBC Hgb Hct Plt Count Neutrophils # Monocytes # Sodium 117 L* 120 L 118 L* Potassium Chloride 89 L 87 L 86 L Carbon Dioxide 20 L BUN 35 H 36 H 33 H Creatinine 1.34 H 1.38 H 1.28 H Glucose 102 H 122 H POC Glucose (mg/dL) Osmolality Calcium 7.7 L 8.2 L 8.1 L Total Bilirubin AST ALT Alkaline Phosphatase Troponin I Total Protein Albumin Amylase Lipase Ur Random Sodium 12/19/22 12/19/22 12/20/22 16:46 23:02 01:20 WBC RBC Hgb Hct Plt Count Neutrophils # Monocytes # Sodium 118 L* 117 L* 117 L* Potassium Chloride Carbon Dioxide BUN Creatinine Glucose POC Glucose (mg/dL) Osmolality Calcium Total Bilirubin AST ALT Alkaline Phosphatase Troponin I Total Protein Albumin Amylase Lipase Ur Random Sodium 0812/20/22 12/20/22 03:30 03:30 05:15 WBC 14.3 H RBC 3.94 L Hgb Hct 36.8 L Plt Count 137 L Neutrophils # 11.1 H Monocytes # 1.3 H Sodium 118 L* 118 L* Potassium Chloride 88 L Carbon Dioxide BUN 33 H Creatinine 1.40 H Glucose POC Glucose (mg/dL) Osmolality Calcium 7.8 L Total Bilirubin AST ALT Alkaline Phosphatase Troponin I Total Protein Albumin Amylase Lipase Ur Random Sodium 12/20/22 12/20/22 12/20/22 10:58 16:24 18:00 WBC RBC Hgb Hct Plt Count Neutrophils # Monocytes # Sodium 119 L* 120 L Potassium Chloride 89 L Carbon Dioxide 20 L BUN 34 H Creatinine 1.46 H Glucose 67 L POC Glucose (mg/dL) Osmolality 262 L Calcium 7.8 L Total Bilirubin AST ALT Alkaline Phosphatase Troponin I Total Protein Albumin Amylase Lipase Ur Random Sodium <20 L 12/20/22 12/21/22 12/21/22 19:55 00:00 05:40 WBC RBC Hgb Hct Plt Count Neutrophils # Monocytes # Sodium 121 L 118 L* 121 L Potassium Chloride 94 L Carbon Dioxide 18 L BUN 40 H Creatinine 1.86 H Glucose POC Glucose (mg/dL) Osmolality Calcium 8.0 L Total Bilirubin 2.4 H AST 171 H ALT 56 H Alkaline Phosphatase 164 H Troponin I Total Protein 4.8 L Albumin 2.0 L Amylase Lipase Ur Random Sodium 12/21/22 12/21/22 12/21/22 05:40 09:36 13:05 WBC 11.8 H RBC 3.79 L Hgb 12.5 L Hct 36.4 L Plt Count 120 L Neutrophils # Monocytes # Sodium 121 L 123 L Potassium Chloride Carbon Dioxide BUN Creatinine Glucose POC Glucose (mg/dL) Osmolality Calcium Total Bilirubin AST ALT Alkaline Phosphatase Troponin I Total Protein Albumin Amylase Lipase Ur Random Sodium 12/21/22 12/21/22 12/21/22 16:56 17:51 21:01 WBC RBC Hgb Hct Plt Count Neutrophils # Monocytes # Sodium 124 L 123 L Potassium Chloride Carbon Dioxide BUN Creatinine Glucose POC Glucose (mg/dL) 120 H Osmolality Calcium Total Bilirubin AST ALT Alkaline Phosphatase Troponin I Total Protein Albumin Amylase Lipase Ur Random Sodium 12/22/22 12/22/22 12/22/22 03:39 03:39 11:28 WBC RBC 3.57 L Hgb 11.6 L Hct 33.8 L Plt Count 146 L Neutrophils # Monocytes # Sodium 124 L 126 L Potassium Chloride 97 L Carbon Dioxide 20 L BUN 43 H Creatinine 1.77 H Glucose 100 H POC Glucose (mg/dL) Osmolality Calcium 8.0 L Total Bilirubin AST ALT Alkaline Phosphatase Troponin I Total Protein Albumin Amylase Lipase Ur Random Sodium 12/22/22 12/23/22 12/23/22 17:52 00:35 04:04 WBC RBC 3.18 L Hgb 10.5 L Hct 30.6 L Plt Count 118 L Neutrophils # Monocytes # Sodium 126 L 128 L Potassium Chloride Carbon Dioxide BUN Creatinine Glucose POC Glucose (mg/dL) Osmolality Calcium Total Bilirubin AST ALT Alkaline Phosphatase Troponin I Total Protein Albumin Amylase Lipase Ur Random Sodium 12/23/22 12/23/22 12/24/22 04:04 16:07 04:32 WBC RBC Hgb Hct Plt Count Neutrophils # Monocytes # Sodium 128 L 128 L 128 L Potassium 3.4 L Chloride Carbon Dioxide 21 L 21 L BUN 40 H 36 H Creatinine 1.41 H Glucose 114 H 119 H POC Glucose (mg/dL) Osmolality Calcium 8.2 L Total Bilirubin AST ALT Alkaline Phosphatase Troponin I Total Protein Albumin Amylase Lipase Ur Random Sodium 12/25/22 12/25/22 07:23 07:23 WBC RBC 3.77 L Hgb 12.0 L Hct 36.3 L Plt Count 133 L Neutrophils # Monocytes # Sodium 130 L Potassium Chloride Carbon Dioxide 20 L BUN 37 H Creatinine Glucose 100 H POC Glucose (mg/dL) Osmolality Calcium Total Bilirubin 3.8 H AST 92 H ALT Alkaline Phosphatase Troponin I Total Protein 5.3 L Albumin 2.4 L Amylase Lipase Ur Random Sodium Assessment and Plan Assessment: This is an 77-year-old gentleman with medical history of alcohol abuse, alcohol induced cirrhosis and frequent paracentesis who presents to our facility because of weakness and generalized swelling. He had hyponatremia as low as 117 and required hypertnoic saline. His current sodium is 130. He is having dysphagia and CT head reported as decreased attentuation within the bilateral cerebellar hemispheres could reflect recent ischemic insult. I personally reviewed CT head and I do not feel there is acute or subacute ischemic in cerebellar. The CT head is not best study for slot supervisor circulation region. ?hypoattenuation over the bilateral cerebellar on CT that is reported. I personally reviewed it and I do not appreciate acute or subacute ischemia and CT is not best study for posterior circulation region. Hyponatremia required hypertonic saline (117-->130) Dysphagia and generalized weakness due to hyponatremiahis History of stroke and appears lacunar. Chronic small vessel disease History of alcohol induced cirrhosis and frequent paracentesis History of alcohol abuse and last drink was in August 2022 CKD Plan: I ordered MRI Brain to rule out acute or subacute ischemic stroke. Ordered Vitamin B12, folate, CK level. He is on ASA 81mg daily and Lipitor 80mg qhs started by Primary team. Continue neuro checks. Will defer the rest of medical management to primary and other specialists. The plan is discussed with patient, his who is at bedside. Thank you for the consultation. Time with Patient: Greater than 30
[2022-12-25] MEDS ORDERED: MIDAZOLAM 2 MG/2 ML VIAL ONE (13:35)
[2022-12-25] MEDS ORDERED: LIDOCAINE 2% INJ 20 MG/ML (2 ML VIAL) ONE (13:35)
[2022-12-25] MEDS ORDERED: PROPOFOL 10 MG/ML 20 ML VIAL IV ONE (13:35)
[2022-12-25] MEDS ORDERED: SODIUM CHLORIDE 0.9% 500 ML 500 ML IV ONE (13:36)
--- NOTE | 2022-12-25 13:51 | P.OP ---
Date of Procedure: 12/25/22 Preoperative Diagnosis: Dysphagia Postoperative Diagnosis: Antral gastritis Procedure(s) Performed: EGD Anesthesia: MAC Surgeon: Sushil Palomino Pathology: other (Antral) Condition: stable Disposition: PACU Description of Procedure: The patient's placed on the endoscopy table in the lateral position. He received IV sedation. The gastroscope placed oropharynx passed in the esophagus into the stomach. Scope was then placed through the pylorus. The first and second portion of duodenum appeared normal. Scope was brought back and the antrum and this was minimal inflamed. A biopsies performed. The scope was then retroflexed and the remainder the stomach appeared normal. The GE junction was at 40 cm. The distal esophagus appeared normal. The proximal esophagus. Scope withdrawn for patient. There is no evidence of any upper GI obstruction.
--- NOTE | 2022-12-25 14:14 | P.PN ---
Subjective Progress Note Date: 12/25/22 I am seeing this patient in new consultation today 12/20/2022 after the patient was transferred to the intensive care unit for severe hyponatremia requiring hypertonic saline infusion. Patient is an 77-year-old white male with past medical history significant for alcoholism, alcohol-induced cirrhosis of liver, chronic kidney disease stage III, hyperlipidemia, CVA/TIA, GERD. Last reported alcoholic drink Aug, 2022. Patient does have frequent paracentesis with Dr. Matt. Patient presented to the emergency room on December 17 complaining of weakness and generalized swelling. Also, states that his blood pressure was low at home. He does take midodrine. Patient was found to be severely hyponatremic with a sodium of 117. TSH and cortisol levels were normal. He was admitted to the cardiac stepdown unit, and treated with multiple doses of Samsca. Unfortunately, his hyponatremia was not corrected, and he was transferred to the intensive care unit late last night for 3% hypertonic saline infusion. Patient is currently sitting up in bed, on room air, in no acute distress. He denies any focal weakness. No seizures. Patient has reportedly stopped drinking, used to drink beer and liquor. Denies any history of CHF. Does take Lasix 60 mg twice a day and Aldactone. He does report increased generalized swelling. He did have a large volume paracentesis on December 18 with a total of 8 L removed. 3% sodium chloride is currently infusing at 30 MLS per hour, and most recent sodium level is 117. This is being managed by nephrology. Most recent BMP from last night shows a sodium 117, potassium 4, chloride 86, serum bicarb 26, BUN 33, creatinine 1.28, glucose 82. Troponins mildly elevated at 0.078. NT proBNP 999. ECG shows normal sinus rhythm without any obvious acute ischemic changes.. Pancreatic enzymes mildly elevated. LFTs mildly elevated. CBC from admission was unremarkable. Recent chest x-ray from 2 days ago shows no acute cardiopulmonary process. Patient does appear hemodynamically stable. On 12/21/2022, the patient is doing better. However, overnight, he had a rough night with he was eating any aspirated and subsequently became short of breath and hypoxic and he became tachycardic and he became tachypneic and hypotensive and low urine output. At that point, he was placed on oxygen. A chest x-ray was done that showed no acute abnormalities. He was placed nothing by mouth. We do question his ability to swallow independently. Based on that, we'll place this patient nothing by mouth. Meanwhile, in terms of his low urine output, he was given IV albumin 2 doses. He was also given a bolus of 500 mL. Subsequently, he was placed on dopamine drip at 2. from the hospital gram per minutes. Note that he was also hypotensive. Most recent BP is up to 9157. His urine output is still low although improved. A Ta catheter was inserted and is producing approximately 10 mL an hour. He remains on hypertonic saline at 3% at the rate of 30 mL an hour. The patient has a sodium level today which is at 121 with a potassium level of 4.5, bicarbonate of 18, BUN is at 40 with a creatinine of 1.8. LFTs are abnormal due to his chronic liver disease. Dough Maker on the case. WBC was 11.8. Hemoglobin was 12.5. Otherwise, at times, he is tremulous and restlessness. Noted the patient has not drank alcohol recently and he has quit drinking approximately 6 months ago. Wishes continue the lactulose on a daily basis. He is also on oral bicarb. He is on midodrine. He does have abdominal distention/ascites and edema in lower extremities. 12/22/2022, the patient is being seen for a follow-up. The patient is currently on room air oxygen. No further episodes of aspiration since yesterday. No significant respiratory distress. He is resting comfortably in bed. In terms of his electrolytes, sodium levels up to 124 and the patient remains on 3% hypertonic saline. The patient has a BUN of 43 with a creatinine of 0.77 and the patient continues to be on a renal dose of dopamine at 2.5 mcg/kg/m. Urine output is adequate and the order of 500 mL over the past 24 hours and the patient has produced 30 mL of urine output over the past 1 hour. The patient's electrolytes are stable. Potassium levels at 3.7. Bicarb is at 20, white cell cause of 10.2 with a hemoglobin 11.6. No altered mentation. No agitation. No signs of any delirium tremens. He is on lactulose. There is ongoing concern for this patient swallow. His swallow evaluation is to be done. The patient did aspirate couple of days ago and currently continues to have some difficulties in taking his oral medication. Patient was reevaluated today on 12/23/2022, seems to be doing fairly well, remains in the ICU as an overflow, being evaluated by a speech therapy for possible aspiration. Sodium is up to 128, creatinine down to 1.41, rest of the labs are unremarkable including CBC with return of 7.8 hemoglobin 10.5. Last chest x-ray from few days ago was unremarkable patient is now off 3% saline, remains on multiple medications including lactulose, octreotide, and bicarb orally. Off diuretics. Reevaluated today on 12/24/2022, patient remains in the ICU, doing well he is actually an overflow. Patient is on room air, sodium is up to 128 today, patient denies any specific complaints. His renal profile is improving creatinine down to 1.13, potassium 3.4 bicarb is 21 The patient is seen today 12/25/2022 in follow-up on the regular medical floor. He is currently sitting up in bed. Awake and alert in no acute distress. Maintaining good O2 saturations in the 90s on room air. He's been afebrile. Hemodynamically stable. White count 10.4. Hemoglobin 12.0. Platelets 133. Sodium 1:30. Potassium 4.1. Bicarb 20. BUN 37. Creatinine 1.08. He did undergo EGD today for his complaints of dysphagia. He was found to have antral gastritis. No evidence of any upper GI obstruction. He remains on octreotide, sodium bicarb tablets. Objective - Vital Signs Vital signs: Vital Signs Temp 97.5 F L 12/25/22 11:56 Pulse 78 12/25/22 11:56 Resp 16 12/25/22 11:56 BP 111/77 12/25/22 11:56 Pulse Ox 94 L 12/25/22 11:56 FiO2 Intake & Output 12/24/22 12/25/22 12/25/22 18:59 06:59 18:59 Intake Total 260 100 100 Output Total 300 465 Balance -40 -365 100 Intake: IV 20 100 Invasive Line 4 10 Invasive Line 5 10 Oral 240 100 Output: Urine 300 465 Other: Voiding Method Urinal Urinal Urinal - Exam GENERAL EXAM: Alert, pleasant 77-year-old male, on room air, comfortable in no apparent distress. HEAD: Normocephalic. EYES: Normal reaction of pupils, equal size. NOSE: Clear with pink turbinates. THROAT: No erythema or exudates. NECK: No masses, no JVD. CHEST: No chest wall deformity. LUNGS: Equal air entry with no crackles, wheeze, rhonchi or dullness. CVS: S1 and S2 normal with no audible murmur, regular rhythm. ABDOMEN: No hepatosplenomegaly, normal bowel sounds, no guarding or rigidity. SPINE: No scoliosis or deformity SKIN: No rashes CENTRAL NERVOUS SYSTEM: No focal deficits, tone is normal in all 4 extremities. EXTREMITIES: There is no peripheral edema. No clubbing, no cyanosis. Peripheral pulses are intact. - Labs CBC & Chem 7: 12/25/22 07:12/25/22 07: Labs: Abnormal Lab Results - Last 24 Hours (Table) 12/25/22 12/25/22 12/25/22 Range/Units : 07: 12:25 RBC 3.77 L (4.30-5.90) m/uL Hgb 12.0 L (13.0-17.5) gm/dL Hct 36.3 L (39.0-53.0) % Plt Count 133 L (150-450) k/uL Sodium 130 L (137-145) mmol/L Carbon Dioxide 20 L (22-30) mmol/L BUN 37 H (9-20) mg/dL Glucose 100 H (74-99) mg/dL Total Bilirubin 3.8 H (0.2-1.3) mg/dL AST 92 H (17-59) U/L Creatine Kinase 202 H (55-170) U/L Total Protein 5.3 L (6.3-8.2) g/dL Albumin 2.4 L (3.5-5.0) g/dL Assessment and Plan Assessment: Acute hyponatremia, improving sodium 130 Chronic liver disease/alcoholic liver cirrhosis/hepatorenal syndrome Ascites secondary to liver disease Dysphagia, EGD today 12/25/2022 revealed evidence of antral gastritis. No GI obstruction. Chronic kidney disease stage III possible component of acute kidney injury Possible aspiration, no clear-cut evidence of pneumonia on chest x-ray, mostly right basilar atelectasis History of CVA/TIA Dyslipidemia History of GERD History of alcoholism however last drink was in August of 2022 Plan: The patient was seen and evaluated EGD results, labs and medications reviewed Stable and on room air Remains on octreotide Remains on sodium bicarb tablets Continued on IV Protonix I have personally seen and examined the patient, performed the documentation and the assessment and plan as written. Number of minutes spent on the visit: 10.
--- NOTE | 2022-12-25 15:26 | XR ---
EXAMINATION TYPE: XR chest 1V portable DATE OF EXAM: 12/25/2022 Comparison: 12/24/2022 Clinical History: 77-year-old male r/o aspiration and confirm NG placement Findings: NG tube courses below the diaphragm. Heart normal size. Interstitial prominence. Patchy right basilar opacity. No consolidation or pleural effusion. Impression: 1. NG tube satisfactory. 2. Lower lung interstitial opacities which are improving compared to 12/24/2022.
[2022-12-25] MEDS: PANTOPRAZOLE 40 MG TABLET PO SCH (17:28)
--- NOTE | 2022-12-25 19:29 | P.PN ---
Progress Note - Text Progress Note Date: 12/25/22 Chief Complaint: Abnormal labs This is a pleasant 77-year-old patient who follows with Dr. Chang Douglas. August- 2022 diagnosed with alcoholic cirrhosis. Follows Dr. Nikole Matt gastroenterology. stopped drinking in August 2022. Was drinking 8-10 beers a day prior to that for years. had repeated paracentesis. Patient was seen yesterday at the nephrology clinic by Dr. Santoro. Was found to be hypotensive. Increasing ascites. An abnormal labs including the low-sodium. Patient was sent down to the ER for the same. Patient has maintained fluid restriction of 1200 mL at home. It is indeed dose of Lasix was increased to [address] Santoro. Patient has some shortness of breath. Edema. Due for paracentesis this afternoon. Patient's at the bedside. Appetite is fair. 12/19/2022: About 8 L of paracentesis scheduled to yesterday. Given IV albumin. Sodium still running low. 1 dose of Samsca given by nephrology. Eating better. Breathing better. Decrease in edema. Reminded patient to wear the Travis wrap. Discussed with patient and at the bedside. 12/20/2022: ICU: Patient is moved to the ICU overnight. 4 sodium of 117. Was started on hypertonic saline. Blood pressure running low close to around 80. Tolerating some diet. Discussed with patient about Travis wrap as that'll help with the blood pressure. She received Samsca yesterday. And today. Fluid restriction to continue. December 21: ICU. Remains on hypertonic saline, 30 mL an hour. Started on dopamine drip for low blood pressure. Some trouble swallowing. Changed to pured diet. Speech consulted. at the bedside. December 22: ICU. Hypertonic saline and IV dopamine both discontinued. Minimal oral intake because of choking. Pending speech therapy evaluation. 100 g of albumin ordered. Also started on Sandostatin IV. Discussed with at bedside. December 23: ICU. Patient is overflow. On. Pured and nectar thick liquid diet. Seen by speech. Tired. at the bedside. Remains on IV Sandostatin. Sodium up to 128. December 24: Patient underwent modified barium swallow today. Significant aspiration. Made nothing by mouth. Lengthy discussion with the the bedside. I ordered a computed tomography scan of the brain: Showed decreased attenuation within the bilateral cerebellar hemisphere. Could be recent ischemic event. Neurology consulted. Patient rather lethargic. NG tube ordered. Do not have GI services the hospital. Options very limited. Possible EGD tomorrow. Also discussed about transferring to high level of care because he did not have any other options left. No GI services available. Total time spent today over 60 minutes with over 40 minutes of discussion. December 25: Patient underwent EGD by Dr. Palomino today. Found to have gastritis. No stricture. Patient somewhat lethargic. We'll try to answer occasional question. Lactulose increased to 20 mg twice a day. We'll start ensure through the NG tube 3 times a day. Had a lengthy discussion with the . Increased to transfer the patient to [facility]. Care was discussed with the medical oncologist [facility]. Case updated. The team called back after work saying that the patient would not be except as they could not offer anything more at this point. They did want the patient to have an MRI of the brain that is pending. I also discussed with the speech therapist. Will DC the NG tube in the morning and try swallow eval again. We will overnight get some hydration. Spent today about 70 minutes with about 40 minutes of discussion. Active Medications Acetaminophen (Acetaminophen Tab 325 Mg Tab) 650 mg PO Q6HR PRN PRN Reason: Mild Pain or Fever > 100.5 Aspirin (Aspirin 81 Mg) 81 mg PO DAILY [facility] Last Admin: 12/25/22 09:19 Dose: 81 mg Atorvastatin Calcium (Atorvastatin 80 Mg Tab) 80 mg PO HS [facility] Last Admin: 12/24/22 21:09 Dose: 80 mg Sodium Chloride (Saline 0.9%) 1,000 mls @ 50 mls/hr IV .Q20H [facility] Lactulose (Lactulose 20 Gm/30 Ml Cup) 20 gm PO BID [facility] Last Admin: 12/25/22 17:28 Dose: 20 gm Lorazepam (Lorazepam 0.5 Mg Tab) 0.5 mg PO Q6HR PRN PRN Reason: Anxiety Melatonin (Melatonin 3 Mg Tablet) 3 mg PO HS PRN PRN Reason: Insomnia Last Admin: 12/24/22 21:09 Dose: 3 mg Midodrine (Midodrine 5 Mg Tab) 10 mg PO AC-TID [facility] Last Admin: 12/25/22 15:51 Dose: 10 mg Miscellaneous Information (Potassium Replacement Protocol 1 Each Misc) 1 each MISCELLANE DAILY PRN; Protocol PRN Reason: Per Protocol Multivitamins (Multivitamins, Thera 1 Each Tab) 1 each PO DAILY [facility] Last Admin: 12/25/22 09:19 Dose: 1 each Naloxone HCl (Naloxone 0.4 Mg/Ml 1 Ml Vial) 0.2 mg IV Q2M PRN PRN Reason: Opioid Reversal Octreotide Acetate (Octreotide 100 Mcg/Ml Inj) 100 mcg IVP Q8HR [facility] Last Admin: 12/25/22 15:51 Dose: 100 mcg Ondansetron HCl (Ondansetron 4 Mg/2 Ml Vial) 4 mg IVP Q8HR PRN PRN Reason: Nausea And Vomiting Pantoprazole Sodium (Pantoprazole 40 Mg Tablet) 40 mg PO AC-BID [facility] Last Admin: 12/25/22 17:28 Dose: 40 mg Senna (Sennosides 8.6 Mg Tab) 17.2 mg PO HS PRN PRN Reason: Constipation Sodium Bicarbonate (Sodium Bicarbonate Tab 650 Mg Tab) 650 mg PO BID [facility] Last Admin: 12/25/22 09:19 Dose: 650 mg Past medical history to include: Alcoholic cirrhosis diagnosed in August 2022, hypertension, GERD, osteoarthritis, hepatorenal syndrome Social history: Former smoker. Was drinking 8-10 beers a day up to August 2022. . 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 Conjunctiva pale HEENT: External appearance of nose and ears normal, oral cavity grossly normal. Dry mucous membranes NECK: JVD and prominent; masses not palpable. HEART: First and second heart sounds are normal; decreased edema. LUNGS: Respiratory rate increased; decreased breath sounds. ABDOMEN: Soft, mild distention, nontender, liver spleen not palpable, no masses palpable. PSYCH: Lethargic, but answer occasional question MUSCULOSKELETAL:No Clubbing/cyanosis;muscles-grossly intact INVESTIGATIONS, reviewed in the clinical context: December 25: Sodium 1:30 potassium 4.1 BUN 37 creatinine 1.08 white count 10.4 hemoglobin 12 Computed tomography scan of the brain without contrast [December 24]: Bilateral cerebellar decreased attenuation. Modified barium swallow: Aspiration. December 24: Sodium 128 potassium 3.4 BUN 36 creatinine 1.13 December 23: White count 7.8 hemoglobin 10.5 sodium 138 potassium 3.5. 40 creatinine 1.41 December 17: Sodium 117 potassium 5.2 BUN 38 creatinine 1.5 total bilirubin 1.9 AST 156 AST 64 troponin I 0.078 albumin 2.7 white count 7.1 hemoglobin 13 platelets 183 EKG tracing personally reviewed by me-low voltage. Rate 83. Nonspecific T-wave changes Chest x-ray film personally reviewed by me--cardiomegaly Previous labs: Creatinine 1.09 [11/29/2022 Assessment and plan: -Severe hyponatremia, hypoosmolar with hypervolemia from underlying cirrhosis: Better Had received Samsca .. hypertonic saline-discontinued. -Severe dysphagia. On modified barium swallow.: Nothing by mouth We will attempt NG tube discontinued vision the morning and try swallow eval again. Computed tomography scan of the brain showed bilateral cerebellar possible ischemia for known duration. Neurology consulted. Pending MRI brain. -Hypotension, multifactorial: Improved Taken off dopamine drip. Received albumin. IV Sandostatin -Acute fluid overload from underlying cirrhosis: Improved -Hyperkalemia secondary to underlying CK D: Better -Secondary Portal hypertension secondary cirrhosis -underlying chronic kidney disease probable stage III, from hepatorenal syndrome -Severe Hypoalbuminemia secondary to cirrhosis -Large ascites symptomatic. Paracentesis 8 L removed on December 18. Followed by albumin infusion -Alcoholic cirrhosis follows with Dr. Nikole Matt -GERD Protonix -Troponinemia secondary to chronic kidney disease. No acute coronary syndrome. -Full code We will DC NG tube at 6 AM. Try swallow eval again. Gentle hydration 50 mL an hour overnight. In the meantime ensure through NG tube. And some free water. Past Medical History Past Medical History: CVA/TIA, GERD/Reflux, Hypertension, Liver Disease Additional Past Medical History / Comment(s): cirrhosis August 2022, Stroke 10/09/2022 and taking plavix, ETOH history 8-10 beers and 1 or 2 shots of vodka per day(last drink 08/2022). History of Any Multi-Drug Resistant Organisms: None Reported Past Surgical History: Joint Replacement Additional Past Surgical History / Comment(s): Lt hip replacement three times, rt knee replaced, paracentesis 10/02/2022 Past Anesthesia/Blood Transfusion Reactions: No Reported Reaction Past Psychological History: No Psychological Hx Reported Smoking Status: Former smoker Past Alcohol Use History: None Reported Past Drug Use History: None Reported - Past Family History Father Family Medical History: No Reported History Medications and Allergies Home Medications Medication Instructions Recorded Confirmed Type Aspirin EC [Ecotrin Low Dose] 81 mg PO DAILY 11/01/22 12/18/22 History Atorvastatin [Lipitor] 80 mg PO HS 11/01/22 12/18/22 History Multivit-Min/FA/Lycopen/Lutein 1 tab PO DAILY 11/01/22 12/18/22 History [Centrum Silver Men Tablet] Pantoprazole [Protonix] 40 mg PO DAILY 11/01/22 12/18/22 History Sodium Bicarbonate Tab 650 mg PO BID #60 tab 11/28/22 12/18/22 Rx Furosemide [Lasix] 60 mg PO BID 12/17/22 12/18/22 History Midodrine HCl [ProAmatine] 10 mg PO TID 12/17/22 12/18/22 History Sennosides [Senokot] 16.2 mg PO HS PRN 12/17/22 12/18/22 History Spironolactone [Aldactone] 25 mg PO DAILY 12/17/22 12/18/22 History Allergies Allergy/AdvReac Type Severity Reaction Status Date / Time No Known Allergies Allergy Verified 12/17/22 15:04
[2022-12-25] MEDS ORDERED: SODIUM CHLORIDE 0.9% 1,000 ML IV SCH (19:30)
[2022-12-25] MEDS: ATORVASTATIN 80 MG TAB PO SCH (20:23)
[2022-12-26 00:30] VITALS: RESP 18
[2022-12-26] MEDS: MIDODRINE 5 MG TAB PO SCH ×3 (05:50→16:33)
[2022-12-26] MEDS: PANTOPRAZOLE 40 MG TABLET PO SCH ×2 (05:50→16:33)
[2022-12-26] MEDS: OCTREOTIDE 100 MCG/ML INJ IVP SCH ×2 (09:03→16:33)
[2022-12-26] MEDS: SODIUM BICARBONATE TAB 650 MG TAB PO SCH (09:39)
[2022-12-26] MEDS: MULTIVITAMINS, THERA 1 EACH TAB PO SCH (09:39)
[2022-12-26] MEDS: LACTULOSE 20 GM/30 ML CUP PO SCH (09:39)
[2022-12-26] MEDS: ASPIRIN 81 MG PO SCH (09:39)
--- NOTE | 2022-12-26 11:08 | P.PN ---
Subjective patient is seen for follow-up for hyponatremia and acute kidney injury. He has underlying chronic liver disease and is maintained on treatment for hepatorenal syndrome. Status post 3% saline on initial admission. Serum sodium at 130 from yesterday Creatinine improved to 1.0 mg/dL . Status post EGD which did not show any obvious source of obstruction. NG tube is out. Objective - Vital Signs Vital signs: Vital Signs Temp 98.0 F 12/26/22 08:58 Pulse 87 12/26/22 08:58 Resp 18 12/26/22 08:58 BP 101/66 12/26/22 08:58 Pulse Ox 92 L 12/26/22 08:58 FiO2 Intake & Output 12/25/22 12/26/22 12/26/22 18:59 06:59 18:59 Intake Total 924 Output Total 190 250 200 Balance 734 -250 -200 Intake: IV 100 Oral 824 Output: Urine 190 250 200 Other: Voiding Method Urinal Urinal Urinal # Voids 1 # Bowel Movements 1 - Exam patient is awake, comfortable, no acute distress NG tube in place Examination of the heart S1 and S2 Examination of the lungs decreased breath sounds at the bases Abdomen is soft nontender, distended Examination of lower extremities shows 1+ edema bilaterally PRESSURE TESTING TECHNICIAN exam grossly intact - Labs CBC & Chem 7: 12/25/22 07:23 12/25/22 07:23 Labs: Abnormal Lab Results - Last 24 Hours (Table) 12/25/22 Range/Units 12:25 Creatine Kinase 202 H (55-170) U/L Vitamin B12 1423.0 H (200.0-944.0) pg/mL Assessment and Plan Assessment: 1. Acute kidney injury, ATN versus hepatorenal syndrome. Currently maintained on midodrine for hypotension and possible hepatorenal syndrome. Renal function has improved. Maintained on Sandostatin as well. 2. CK D stage III a secondary to nephrosclerosis with baseline creatinine 1.1- 1.3 mg/dL 3. Hypervolemic hyponatremia associated with chronic liver disease, status post 3% saline. Maintained on fluid restriction. 4. Alcoholic liver cirrhosis, decompensated 5. Anion gap metabolic acidosis secondary to acute kidney injury maintained on sodium bicarb Plan: continue with midodrine and Sandostatin Continue with sodium bicarb Continue with fluid restriction. Patient will likely need paracentesis again next few days.
[2022-12-26 11:33] VITALS: BP 118/77; PULSE 82; TEMP 97.7
--- NOTE | 2022-12-26 11:57 | MR ---
EXAMINATION TYPE: MR brain wo con DATE OF EXAM: 12/26/2022 11:09 AM COMPARISON: 12/24/2022. CLINICAL INDICATION:Male, 77 years old with history of dysphagia. ?b/l cerebellar hypoattenuation on ct;Dysphagia. ?b/[address] TECHNIQUE: Multi planar, multi sequence imaging was performed through the brain including: T1, T2, In version recovery, Diffusion weighted imaging, and gradient echo imaging. No gadolinium was given. FINDINGS: Cerebellum does not demonstrate evidence for restricted diffusion or abnormal white matter change. Cerebral atrophy with proportional dilation of the ventricular system. Scattered areas of hig h T2 signal intensity are seen within the periventricular white matter. Midline structures show no ab normality. Diffusion-weighted imaging shows no evidence of restricted diffusion. The susceptibility w eighted images do not reveal any evidence for micro-hemorrhage. Of blooming artifact in the right pos terior frontal lobe compatible with developmental venous anomaly. The bone marrow signal is within normal limits. Paranasal sinuses and mastoid air cells: No significant paranasal sinus disease. Visualized orbits: Orbital contents are intact. IMPRESSION: 1. No evidence of intracranial mass or acute/subacute infarct. The cerebellum is within normal limits without evidence for infarct, mass or white matter change. 2. Mild to moderate Nonspecific white matter changes, likely secondary to small vessel ischemic disea se. 3. 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
--- NOTE | 2022-12-26 12:04 | P.PN ---
Subjective Progress Note Date: 12/26/22 CHIEF COMPLAINT: Dysphagia HISTORY OF PRESENT ILLNESS: Patient status post EGD has shown antral gastritis. Patient to be evaluated again by speech therapy today. He is also scheduled for an MRI of the brain. Afebrile PHYSICAL EXAM: VITAL SIGNS: Reviewed. GENERAL: Well-developed in no acute distress. HEENT: No sclera icterus. Extraocular movements grossly intact. Moist buccal mucosa. Head is atraumatic, normocephalic. ABDOMEN: Soft. Nondistended. Nontender. NEUROLOGIC: Alert and oriented. Cranial nerves II through XII grossly intact. ASSESSMENT: 1. Dysphagia. Modified barium showing incomplete swallow. EGD showing gastritis. No evidence of stricture. 2. Alcoholic liver cirrhosis 3. Hyponatremia PLAN: -Patient is not a candidate for PEG tube due to his recurrent abdominal ascites -Recommend hospice care Physician Deck Lid Fitter note has been reviewed by physician. Signing provider agrees with the documented findings, assessment, and plan of care. Objective - Vital Signs Vital signs: Vital Signs Temp 97.7 F 12/26/22 11:30 Pulse 82 12/26/22 11:30 Resp 18 12/26/22 11:30 BP 118/77 12/26/22 11:30 Pulse Ox 94 L 12/26/22 11:30 FiO2 Intake & Output 12/25/22 12/26/22 12/26/22 18:59 06:59 18:59 Intake Total 924 Output Total 190 250 200 Balance 734 -250 -200 Intake: IV 100 Oral 824 Output: Urine 190 250 200 Other: Voiding Method Urinal Urinal Urinal # Voids 1 # Bowel Movements 1 - Labs CBC & Chem 7: 12/25/22 07:23 12/25/22 07:23 Labs: Abnormal Lab Results - Last 24 Hours (Table) 12/25/22 Range/Units 12:25 Creatine Kinase 202 H (55-170) U/L Vitamin B12 1423.0 H (200.0-944.0) pg/mL
--- NOTE | 2022-12-26 12:32 | P.PN ---
Subjective Progress Note Date: 12/26/22 I am following-up with patient and he feels about the same. Denies any new neurological issues. Objective - Vital Signs Vital signs: Vital Signs Temp 97.7 F 12/26/22 11:30 Pulse 82 12/26/22 11:30 Resp 18 12/26/22 11:30 BP 118/77 12/26/22 11:30 Pulse Ox 94 L 12/26/22 11:30 FiO2 Intake & Output 12/25/22 12/26/22 12/26/22 18:59 06:59 18:59 Intake Total 924 Output Total 190 250 200 Balance 734 -250 -200 Intake: IV 100 Oral 824 Output: Urine 190 250 200 Other: Voiding Method Urinal Urinal Urinal # Voids 1 # Bowel Movements 1 - Exam General: The patient is sitting in a recliner chair and is not in acute distre ss. Neuro: The patient is mildly drowsy but is awakeable to voice. is oriented to self, place. He correctly stated the current year but stated the month is December. He is following simple commands. No aphasia or neglect. Pupils are round, equal and reactive to light. Pupils are 3mm bilaterally. Visual field are full to confrontation. EOM intact and no nystagmus. Normal facial sensation to touch. No facial weakness. Moderate dysarthria and has hypophonia. Has NG tube. Motor: Strength is 5/5 throughout uppers and lifting lowers above gravity and no focality. Normal tone and bulk. Sensation: Normal to touch. Cerebellar: Normal finger to nose bilaterally. Slowly was performing heel to olvera and no ataxia or dysmetria. Reflexes: 2+ throughout uppers but refused lowers. Plantars are mute bilaterally. Some of the work-up during this hospital visit: Vitamin B12: 1423 Folate 18.4 Ammonia 13 CK 202 TSH: 1.[address] head and felt the findings on cerebellar was difficult to interpert acute or subacute ischemic since CT is not best study for that region. And I doubt there is cerebellar stroke that is recent. I feel patient has lacunar stroke over the left caudate, external capsule that seems old. MRI Brain: It is reported as no evidence of intracranial mass or acute/subacute infarct. The cerebellum is within normal limits without evidence for infarct, m ass or white matter change. Mild to moderate nonspecific white matter changes, likely secondry to small vessel ischemic disease. 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 I personally reviewed MRI and I agree there is no acute or subacute ischemic stroke. - Labs CBC & Chem 7: 12/25/22 07:23 12/25/22 07:23 Labs: Abnormal Lab Results - Last 24 Hours (Table) 12/25/22 Range/Units 12:25 Creatine Kinase 202 H (55-170) U/L Vitamin B12 1423.0 H (200.0-944.0) pg/mL Assessment and Plan Assessment: This is an 77-year-old gentleman with medical history of alcohol abuse, alcohol induced cirrhosis and frequent paracentesis who presents to our facility because of weakness and generalized swelling. He had hyponatremia as low as 117 and required hypertnoic saline. His current sodium is 130. He is having dysphagia and CT head reported as decreased attentuation within the bilateral cerebellar hemispheres could reflect recent ischemic insult. I personally reviewed CT head and I do not feel there is acute or subacute ischemic in cerebellar. The CT head is not best study for matchbook assembler circulation region. ?hypoattenuation over the bilateral cerebellar on CT that is reported. I personally reviewed it and I do not appreciate acute or subacute ischemia and CT is not best study for posterior circulation region. Today he had MRI Brain and was negative for acute or subacute ischemic stroke. Hyponatremia required hypertonic saline (117-->130) Dysphagia and generalized weakness due to hyponatremia History of stroke and appears lacunar. Chronic small vessel disease History of alcohol induced cirrhosis and frequent paracentesis History of alcohol abuse and last drink was in August 2022 CKD Plan: He is on ASA 81mg daily and Lipitor 80mg qhs started by Primary team. Continue neuro checks. Will defer the rest of medical management to primary and other specialists. The plan is discussed with patient, his who is at bedside. Also discussed with his nurse. THere is no further neurological work-up. Will sign off. Please reconsult if needed. Time with Patient: Less than 30
--- NOTE | 2022-12-26 13:45 | P.PN ---
Subjective Progress Note Date: 12/26/22 I am seeing this patient in new consultation today 12/20/2022 after the patient was transferred to the intensive care unit for severe hyponatremia requiring hypertonic saline infusion. Patient is an 77-year-old white male with past medical history significant for alcoholism, alcohol-induced cirrhosis of liver, chronic kidney disease stage III, hyperlipidemia, CVA/TIA, GERD. Last reported alcoholic drink Aug, 2022. Patient does have frequent paracentesis with Dr. Matt. Patient presented to the emergency room on December 17 complaining of weakness and generalized swelling. Also, states that his blood pressure was low at home. He does take midodrine. Patient was found to be severely hyponatremic with a sodium of 117. TSH and cortisol levels were normal. He was admitted to the cardiac stepdown unit, and treated with multiple doses of Samsca. Unfortunately, his hyponatremia was not corrected, and he was transferred to the intensive care unit late last night for 3% hypertonic saline infusion. Patient is currently sitting up in bed, on room air, in no acute distress. He denies any focal weakness. No seizures. Patient has reportedly stopped drinking, used to drink beer and liquor. Denies any history of CHF. Does take Lasix 60 mg twice a day and Aldactone. He does report increased generalized swelling. He did have a large volume paracentesis on December 18 with a total of 8 L removed. 3% sodium chloride is currently infusing at 30 MLS per hour, and most recent sodium level is 117. This is being managed by nephrology. Most recent BMP from last night shows a sodium 117, potassium 4, chloride 86, serum bicarb 26, BUN 33, creatinine 1.28, glucose 82. Troponins mildly elevated at 0.078. NT proBNP 999. ECG shows normal sinus rhythm without any obvious acute ischemic changes.. Pancreatic enzymes mildly elevated. LFTs mildly elevated. CBC from admission was unremarkable. Recent chest x-ray from 2 days ago shows no acute cardiopulmonary process. Patient does appear hemodynamically stable. On 12/21/2022, the patient is doing better. However, overnight, he had a rough night with he was eating any aspirated and subsequently became short of breath and hypoxic and he became tachycardic and he became tachypneic and hypotensive and low urine output. At that point, he was placed on oxygen. A chest x-ray was done that showed no acute abnormalities. He was placed nothing by mouth. We do question his ability to swallow independently. Based on that, we'll place this patient nothing by mouth. Meanwhile, in terms of his low urine output, he was given IV albumin 2 doses. He was also given a bolus of 500 mL. Subsequently, he was placed on dopamine drip at 2. from the hospital gram per minutes. Note that he was also hypotensive. Most recent BP is up to 9157. His urine output is still low although improved. A Ta catheter was inserted and is producing approximately 10 mL an hour. He remains on hypertonic saline at 3% at the rate of 30 mL an hour. The patient has a sodium level today which is at 121 with a potassium level of 4.5, bicarbonate of 18, BUN is at 40 with a creatinine of 1.8. LFTs are abnormal due to his chronic liver disease. Machine Stone Polisher on the case. WBC was 11.8. Hemoglobin was 12.5. Otherwise, at times, he is tremulous and restlessness. Noted the patient has not drank alcohol recently and he has quit drinking approximately 6 months ago. Wishes continue the lactulose on a daily basis. He is also on oral bicarb. He is on midodrine. He does have abdominal distention/ascites and edema in lower extremities. 12/22/2022, the patient is being seen for a follow-up. The patient is currently on room air oxygen. No further episodes of aspiration since yesterday. No significant respiratory distress. He is resting comfortably in bed. In terms of his electrolytes, sodium levels up to 124 and the patient remains on 3% hypertonic saline. The patient has a BUN of 43 with a creatinine of 0.77 and the patient continues to be on a renal dose of dopamine at 2.5 mcg/kg/m. Urine output is adequate and the order of 500 mL over the past 24 hours and the patient has produced 30 mL of urine output over the past 1 hour. The patient's electrolytes are stable. Potassium levels at 3.7. Bicarb is at 20, white cell cause of 10.2 with a hemoglobin 11.6. No altered mentation. No agitation. No signs of any delirium tremens. He is on lactulose. There is ongoing concern for this patient swallow. His swallow evaluation is to be done. The patient did aspirate couple of days ago and currently continues to have some difficulties in taking his oral medication. Patient was reevaluated today on 12/23/2022, seems to be doing fairly well, remains in the ICU as an overflow, being evaluated by a speech therapy for possible aspiration. Sodium is up to 128, creatinine down to 1.41, rest of the labs are unremarkable including CBC with return of 7.8 hemoglobin 10.5. Last chest x-ray from few days ago was unremarkable patient is now off 3% saline, remains on multiple medications including lactulose, octreotide, and bicarb orally. Off diuretics. Reevaluated today on 12/24/2022, patient remains in the ICU, doing well he is actually an overflow. Patient is on room air, sodium is up to 128 today, patient denies any specific complaints. His renal profile is improving creatinine down to 1.13, potassium 3.4 bicarb is 21 The patient is seen today 12/25/2022 in follow-up on the regular medical floor. He is currently sitting up in bed. Awake and alert in no acute distress. Maintaining good O2 saturations in the 90s on room air. He's been afebrile. Hemodynamically stable. White count 10.4. Hemoglobin 12.0. Platelets 133. Sodium 1:30. Potassium 4.1. Bicarb 20. BUN 37. Creatinine 1.08. He did undergo EGD today for his complaints of dysphagia. He was found to have antral gastritis. No evidence of any upper GI obstruction. He remains on octreotide, sodium bicarb tablets. The patient is seen today 12/26/2022 in follow-up on the regular medical floor. He is currently sitting up in a chair. Awake and alert in no acute distress. Maintaining good O2 saturations in the 90s on room air. He is afebrile. Hemodynamically stable. Chest x-ray revealed satisfactory position of the nasog astric tube. Lower lung interstitial opacities that are improved. MRI of the brain revealed no evidence of intracranial mass or acute/subacute infarct. Barium swallow head revealed significant evidence of aspiration and was recommended strict nothing by mouth. He is not a candidate for PEG tube placement due to his recurrent ascites. Objective - Vital Signs Vital signs: Vital Signs Temp 97.7 F 12/26/22 11:30 Pulse 82 12/26/22 11:30 Resp 18 12/26/22 11:30 BP 118/77 12/26/22 11:30 Pulse Ox 94 L 12/26/22 11:30 FiO2 Intake & Output 12/25/22 12/26/22 12/26/22 18:59 06:59 18:59 Intake Total 924 Output Total 190 250 200 Balance 734 -250 -200 Weight 88.8 kg Intake: IV 100 Oral 824 Output: Urine 190 250 200 Other: Voiding Method Urinal Urinal Urinal # Voids 1 # Bowel Movements 1 - Exam GENERAL EXAM: Alert, 77-year-old male, on room air, up in a chair, fairly comfortable in no apparent distress. HEAD: Normocephalic. EYES: Normal reaction of pupils, equal size. NOSE: Clear with pink turbinates. THROAT: No erythema or exudates. NECK: No masses, no JVD. CHEST: No chest wall deformity. LUNGS: Equal air entry with few scattered rhonchi. CVS: S1 and S2 normal with no audible murmur, regular rhythm. ABDOMEN: No hepatosplenomegaly, normal bowel sounds, no guarding or rigidity. SPINE: No scoliosis or deformity SKIN: No rashes CENTRAL NERVOUS SYSTEM: No focal deficits, tone is normal in all 4 extremities. EXTREMITIES: There is no peripheral edema. No clubbing, no cyanosis. Peripheral pulses are intact. - Labs CBC & Chem 7: 12/25/22 07:23 12/25/22 07:23 Labs: Abnormal Lab Results - Last 24 Hours (Table) 12/25/22 Range/Units 12:25 Vitamin B12 1423.0 H (200.0-944.0) pg/mL Assessment and Plan Assessment: Acute hyponatremia, improving sodium 130 Chronic liver disease/alcoholic liver cirrhosis/hepatorenal syndrome Ascites secondary to liver disease Dysphagia, EGD on 12/25/2022 revealed evidence of antral gastritis. No GI obstruction. Modified barium swallow revealed very high risk for aspiration and remains strictly nothing by mouth. NG tube in place. Chronic kidney disease stage III possible component of acute kidney injury Possible aspiration, no clear-cut evidence of pneumonia on chest x-ray, mostly right basilar atelectasis History of CVA/TIA Dyslipidemia History of GERD History of alcoholism however last drink was in August of 2022 Plan: The patient was seen and evaluated Medications reviewed Stable and on room air Patient is not a candidate for PEG tube placement due to recurrent ascites Nasogastric tube remains in place, prognosis is poor I have personally seen and examined the patient, performed the documentation and the assessment and plan as written. Number of minutes spent on the visit: 10.
--- NOTE | 2022-12-26 16:58 | P.DS ---
Providers Date of admission: 12/17/22 15:34 Expected date of discharge: 12/26/22 Attending physician: Zelalem Lanza Consults: 12/17/22 14:42 Consult Physician Urgent Consulting Provider: Sae Santoro Consult Reason/Comments: Hyponatremia Do you want consulting provider notified?: Yes 12/19/22 19:36 Consult Physician Routine Consulting Provider: Shelbie Keita Consult Reason/Comments: ICU management Do you want consulting provider notified?: Yes 12/24/22 13:56 Consult Physician Urgent Consulting Provider: Sushil Palomino Consult Reason/Comments: r/o esophageal stricture Do you want consulting provider notified?: Yes 12/24/22 18:44 Consult Physician Routine Consulting Provider: Cameron Dawkins Consult Reason/Comments: Abnormal brain CT results. Do you want consulting provider notified?: Yes, Notify in am Primary care physician: [facility] Course: Chief Complaint: Abnormal labs This is a pleasant 77-year-old patient who follows with Dr. Chang Douglas. August- 2022 diagnosed with alcoholic cirrhosis. Follows Dr. Nikole Matt gastroenterology. stopped drinking in August 2022. Was drinking 8-10 beers a day prior to that for years. had repeated paracentesis. Patient was seen yesterday at the nephrology clinic by Dr. Santoro. Was found to be hypotensive. Increasing ascites. An abnormal labs including the low-sodium. Patient was sent down to the ER for the same. Patient has maintained fluid restriction of 1200 mL at home. It is indeed dose of Lasix was increased to [address] Santoro. Patient has some shortness of breath. Edema. Due for paracentesis this afternoon. Patient's at the bedside. Appetite is fair. 12/19/2022: About 8 L of paracentesis scheduled to yesterday. Given IV albumin. Sodium still running low. 1 dose of Samsca given by nephrology. Eating better. Breathing better. Decrease in edema. Reminded patient to wear the Travis wrap. Discussed with patient and at the bedside. 12/20/2022: ICU: Patient is moved to the ICU overnight. 4 sodium of 117. Was started on hypertonic saline. Blood pressure running low close to around 80. Tolerating some diet. Discussed with patient about Travis wrap as that'll help with the blood pressure. She received Samsca yesterday. And today. Fluid restriction to continue. December 21: ICU. Remains on hypertonic saline, 30 mL an hour. Started on dopamine drip for low blood pressure. Some trouble swallowing. Changed to pured diet. Speech consulted. at the bedside. December 22: ICU. Hypertonic saline and IV dopamine both discontinued. Minimal oral intake because of choking. Pending speech therapy evaluation. 100 g of albumin ordered. Also started on Sandostatin IV. Discussed with at bedside. December 23: ICU. Patient is overflow. On. Pured and nectar thick liquid diet. Seen by speech. Tired. at the bedside. Remains on IV Sandostatin. Sodium up to 128. December 24: Patient underwent modified barium swallow today. Significant aspiration. Made nothing by mouth. Lengthy discussion with the the bedside. I ordered a computed tomography scan of the brain: Showed decreased attenuation within the bilateral cerebellar hemisphere. Could be recent ischemic event. Neurology consulted. Patient rather lethargic. NG tube ordered. Do not have GI services the hospital. Options very limited. Possible EGD tomorrow. Also discussed about transferring to high level of care because he did not have any other options left. No GI services available. Total time spent today over 60 minutes with over 40 minutes of discussion. December 25: Patient underwent EGD by Dr. Palomino today. Found to have gastritis. No stricture. Patient somewhat lethargic. We'll try to answer occasional question. Lactulose increased to 20 mg twice a day. We'll start ensure through the NG tube 3 times a day. Had a lengthy discussion with the . Increased to transfer the patient to [facility]. Care was discussed with the medical oncologist [facility]. Case updated. The team called back after work saying that the patient would not be except as they could not offer anything more at this point. They did want the patient to have an MRI of the brain that is pending. I also discussed with the speech therapist. Will DC the NG tube in the morning and try swallow eval again. We will overnight get some hydration. Spent today about 70 minutes with about 40 minutes of discussion. December 26: NG tube was discontinued this morning. Seen by speech therapist and. Patient failed swallowing again. Lengthy discussion with the patient and . Because of ascites PEG tube not really an option. Did discuss with Dr. Palomino. Very high risk with ascites for infections has not really option. Patient's also wanted hyperalimentation with TPN. Given patient's poor electrolyte status and fluid balance not an option. Patient wanted me to talk Dr. Nikole Matt I discussed that with Dr. Nikole Matt. Patient has been decompensating for last few months. Hospice would be appropriate. Temporary NG tube/Dobbhoff would be an option. Patient does not want that. Discussed length with the patient again after coming back to the room later today. At the . Patient was to go home with hospice. Spoke to Mikala case management specialist. Also communicated with hospice. They will make arrangements for patient to be discharged home with hospice today. MRI brain done today did not show any stroke. Discussion and discharge planning more than 90 minutes today Past medical history to include: Alcoholic cirrhosis diagnosed in August 2022, hypertension, GERD, osteoarthritis, hepatorenal syndrome Social history: Former smoker. Was drinking 8-10 beers a day up to August 2022. . 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 More awake today EYES: Pupils equal. Conjunctiva pale HEENT: External appearance of nose and ears normal, oral cavity grossly normal. Dry mucous membranes NECK: JVD and prominent; masses not palpable. HEART: First and second heart sounds are normal; decreased edema. LUNGS: Respiratory rate increased; decreased breath sounds. ABDOMEN: Soft, mild distention, nontender, liver spleen not palpable, no masses palpable. PSYCH: Able to answer simple questions. Understands. MUSCULOSKELETAL:No Clubbing/cyanosis;muscles-grossly intact INVESTIGATIONS, reviewed in the clinical context: December 25: Sodium 1:30 potassium 4.1 BUN 37 creatinine 1.08 white count 10.4 he moglobin 12 Computed tomography scan of the brain without contrast [December 24]: Bilateral cerebellar decreased attenuation. Reviewed by neurology. Unremarkable Modified barium swallow: Aspiration. December 24: Sodium 128 potassium 3.4 BUN 36 creatinine 1.13 December 23: White count 7.8 hemoglobin 10.5 sodium 138 potassium 3.5. 40 creatinine 1.41 December 17: Sodium 117 potassium 5.2 BUN 38 creatinine 1.5 total bilirubin 1.9 AST 156 AST 64 troponin I 0.078 albumin 2.7 white count 7.1 hemoglobin 13 platelets 183 EKG tracing personally reviewed by me-low voltage. Rate 83. Nonspecific T-wave changes Chest x-ray film personally reviewed by me--cardiomegaly Previous labs: Creatinine 1.09 [11/29/2022 Assessment and plan: -Severe hyponatremia, hypoosmolar with hypervolemia from underlying cirrhosis: Better Had received Samsca .. hypertonic saline-discontinued. -Severe dysphagia. : Nothing by mouth Modified barium swallow showed very high risk of aspiration. Swallow evaluation this morning showed again very high risk of aspiration -Hypotension, multifactorial: Improved Taken off dopamine drip. Received albumin. IV Sandostatin -Acute fluid overload from underlying cirrhosis: Improved -Hyperkalemia secondary to underlying CK D: Better -Secondary Portal hypertension secondary cirrhosis -underlying chronic kidney disease probable stage III, from hepatorenal syndrome -Severe Hypoalbuminemia secondary to cirrhosis -Large ascites symptomatic. Paracentesis 8 L removed on December 18. Followed by albumin infusion -Alcoholic cirrhosis follows with Dr. Nikole Matt -GERD Protonix -Troponinemia secondary to chronic kidney disease. No acute coronary syndrome. -DO NOT RESUSCITATE Disposition: Home with hospice Advance care planning: This was discussed length with the patient and at the bedside. Nurse was present. No options are really left. Patient does not want a feeding tube. TPN and lipids/hyperalimentation not an option because of his underlying poor electrolyte disturbance ascites and poor fluid balance. Patient decided to go home with hospice. Earlier patient and decided to become DO NOT RESUSCITATE. Time spent for advance care planning about half an hour Plan - Discharge Summary New Discharge Prescriptions: Discontinued Multivit-Min/FA/Lycopen/Lutein [Centrum Silver Men Tablet] 1 tab PO DAILY Atorvastatin [Lipitor] 80 mg PO HS Aspirin EC [Ecotrin Low Dose] 81 mg PO DAILY Sodium Bicarbonate Tab 650 mg PO BID #60 tab Midodrine HCl [ProAmatine] 10 mg PO TID Pantoprazole [Protonix] 40 mg PO DAILY Spironolactone [Aldactone] 25 mg PO DAILY Furosemide [Lasix] 60 mg PO BID Sennosides [Senokot] 16.2 mg PO HS PRN PRN Reason: Constipation Follow up Appointment(s)/Referral(s): Chang Douglas MD [Primary Care Provider] - 1-2 days [facility], [NON-STAFF] - Discharge/Stand Alone Forms: Who Do I Call?, Community Resources, Personal Sticker Hand Discharge Disposition: HOME WITH HOSPICE
== END 2022-12-26 20:00 | disposition hospice, home (50) | DRG 640 ==
LOC: EC 11:44 → 3SCARD 15:34 → 2SICU 12-19 20:47 → 3SCARD 12-24 17:06
PROVIDERS: ADMIT Hospitalist; ATTEND Hospitalist
PROC: 0W9G3ZZ Drainage of Peritoneal Cavity, Percutaneous Approach (ICD-10-PCS; principal; 2022-12-18)
PROC: 0D9670Z Drainage of Stomach with Drainage Device, Via Natural or Artificial Opening (ICD-10-PCS; 2022-12-24)
PROC: 0DB78ZX Excision of Stomach, Pylorus, Via Natural or Artificial Opening Endoscopic, Diagnostic (ICD-10-PCS; 2022-12-25)
DX: E87.1 Hypo-osmolality and hyponatremia (principal); K76.7 Hepatorenal syndrome; N17.0 Acute kidney failure with tubular necrosis; I67.89 Other cerebrovascular disease; K76.6 Portal hypertension; J98.11 Atelectasis; K70.40 Alcoholic hepatic failure without coma; K70.31 Alcoholic cirrhosis of liver with ascites; E87.4 Mixed disorder of acid-base balance; D63.1 Anemia in chronic kidney disease; E88.09 Other disorders of plasma-protein metabolism, not elsewhere classified; I95.9 Hypotension, unspecified; I13.10 Hypertensive heart and chronic kidney disease without heart failure, with stage 1 through stage 4 chronic kidney disease, or unspecified chronic kidney disease; N18.31 Chronic kidney disease, stage 3a; F10.21 Alcohol dependence, in remission; Z66 Do not resuscitate; Z51.5 Encounter for palliative care; K21.9 Gastro-esophageal reflux disease without esophagitis; E86.1 Hypovolemia; E87.5 Hyperkalemia; E87.6 Hypokalemia; E87.70 Fluid overload, unspecified; M19.90 Unspecified osteoarthritis, unspecified site; K59.00 Constipation, unspecified; R13.10 Dysphagia, unspecified; K29.70 Gastritis, unspecified, without bleeding; E78.5 Hyperlipidemia, unspecified; F41.9 Anxiety disorder, unspecified; G47.00 Insomnia, unspecified; R09.02 Hypoxemia; R77.8 Other specified abnormalities of plasma proteins; Z79.82 Long term (current) use of aspirin; Z79.899 Other long term (current) drug therapy; Z86.73 Personal history of transient ischemic attack (TIA), and cerebral infarction without residual deficits; Z87.891 Personal history of nicotine dependence; Z96.642 Presence of left artificial hip joint; Z96.651 Presence of right artificial knee joint
CPT/HCPCS: 36415; 43239; 49083; 51701; 70450; 70551; 71045; 74230; 80048; 80053; 82140; 82150; 82533; 82550; 82607; 82746; 83690; 83735; 83880; 83930; 83935; 84132; 84295; 84300; 84443; 84484; 85025; 85027; 85610; 85730; 88305; 93005; 96365; 96375; 99285